=== PATIENT | female | born 1955 | race Caucasian/White ===

== ENCOUNTER 2022-11-20 08:14 | Outpatient (REF) | payer OTHER, SELFPAY ==
--- NOTE | ~2022-11-20 | XR_ITS ---
EXAMINATION: XR HAND/WRIST, BILATERAL XR HIP, BILATERAL XR FOOT, BILATERAL XR ANKLE, BILATERAL CLINICAL INFORMATION: Rheumatoid arthritis. COMPARISON: None TECHNIQUE: 4 views of each hand/wrist. AP and frog-lateral views of each hip. 3 views of each ankle. 3 views of each foot. FINDINGS: RIGHT HAND AND WRIST: There is a 5 mm round ossification distal to the ulna, likely within the pisotriquetral recess. Mild osteoarthritis of the 1st CMC joint. No periarticular osteopenia, erosions, or suspicious soft tissue calcifications. LEFT HAND AND WRIST: Moderate osteoarthritis of the 1st CMC joint. Mild osteoarthritis of the 1st interphalangeal joint and 2nd DIP joint. No periarticular osteopenia, erosion, or suspicious soft tissue calcification. RIGHT HIP: Small marginal osteophytes along the femoral head and neck junction. No significant narrowing. No erosions or acute abnormalities. LEFT HIP: Normal mineralization. No narrowing. No fracture or suspicious soft tissue calcification. RIGHT ANKLE AND FOOT: Chronic ossifications at the tip of the distal fibula, likely a remote injury. Mild talocrural osteoarthritis. The ankle mortise is preserved. Moderate-severe hallux valgus with mild degenerative changes of the 1st MTP joint and hallux sesamoid complex. No periarticular osteopenia, erosions, or suspicious soft tissue calcifications. LEFT ANKLE AND FOOT: Ankle mortise is preserved. No fracture or joint space narrowing. There is a large heel spur. Mild hallux valgus and degenerative spurring along the medial eminence of the 1st metatarsal head dorsally. No periarticular osteopenia, erosions, or suspicious soft tissue calcifications. XR/XR hand wrist RT IMPRESSION: 1. No evidence of an active inflammatory arthritis of either hand/wrist, either hip, or either ankle/foot. 2. There is a 5 mm round ossified body distal to the right ulna, likely within the pisotriquetral recess. Left greater than right 1st CMC joint osteoarthritis. 3. Moderate-severe right and mild left hallux valgus. Large left heel spur.
--- NOTE | ~2022-11-20 | XR_ITS ---
EXAMINATION: XR HAND/WRIST, BILATERAL XR HIP, BILATERAL XR FOOT, BILATERAL XR ANKLE, BILATERAL CLINICAL INFORMATION: Rheumatoid arthritis. COMPARISON: None TECHNIQUE: 4 views of each hand/wrist. AP and frog-lateral views of each hip. 3 views of each ankle. 3 views of each foot. FINDINGS: RIGHT HAND AND WRIST: There is a 5 mm round ossification distal to the ulna, likely within the pisotriquetral recess. Mild osteoarthritis of the 1st CMC joint. No periarticular osteopenia, erosions, or suspicious soft tissue calcifications. LEFT HAND AND WRIST: Moderate osteoarthritis of the 1st CMC joint. Mild osteoarthritis of the 1st interphalangeal joint and 2nd DIP joint. No periarticular osteopenia, erosion, or suspicious soft tissue calcification. RIGHT HIP: Small marginal osteophytes along the femoral head and neck junction. No significant narrowing. No erosions or acute abnormalities. LEFT HIP: Normal mineralization. No narrowing. No fracture or suspicious soft tissue calcification. RIGHT ANKLE AND FOOT: Chronic ossifications at the tip of the distal fibula, likely a remote injury. Mild talocrural osteoarthritis. The ankle mortise is preserved. Moderate-severe hallux valgus with mild degenerative changes of the 1st MTP joint and hallux sesamoid complex. No periarticular osteopenia, erosions, or suspicious soft tissue calcifications. LEFT ANKLE AND FOOT: Ankle mortise is preserved. No fracture or joint space narrowing. There is a large heel spur. Mild hallux valgus and degenerative spurring along the medial eminence of the 1st metatarsal head dorsally. No periarticular osteopenia, erosions, or suspicious soft tissue calcifications. XR/XR hip RT min 2V IMPRESSION: 1. No evidence of an active inflammatory arthritis of either hand/wrist, either hip, or either ankle/foot. 2. There is a 5 mm round ossified body distal to the right ulna, likely within the pisotriquetral recess. Left greater than right 1st CMC joint osteoarthritis. 3. Moderate-severe right and mild left hallux valgus. Large left heel spur.
--- NOTE | ~2022-11-20 | XR_ITS ---
EXAMINATION: XR HAND/WRIST, BILATERAL XR HIP, BILATERAL XR FOOT, BILATERAL XR ANKLE, BILATERAL CLINICAL INFORMATION: Rheumatoid arthritis. COMPARISON: None TECHNIQUE: 4 views of each hand/wrist. AP and frog-lateral views of each hip. 3 views of each ankle. 3 views of each foot. FINDINGS: RIGHT HAND AND WRIST: There is a 5 mm round ossification distal to the ulna, likely within the pisotriquetral recess. Mild osteoarthritis of the 1st CMC joint. No periarticular osteopenia, erosions, or suspicious soft tissue calcifications. LEFT HAND AND WRIST: Moderate osteoarthritis of the 1st CMC joint. Mild osteoarthritis of the 1st interphalangeal joint and 2nd DIP joint. No periarticular osteopenia, erosion, or suspicious soft tissue calcification. RIGHT HIP: Small marginal osteophytes along the femoral head and neck junction. No significant narrowing. No erosions or acute abnormalities. LEFT HIP: Normal mineralization. No narrowing. No fracture or suspicious soft tissue calcification. RIGHT ANKLE AND FOOT: Chronic ossifications at the tip of the distal fibula, likely a remote injury. Mild talocrural osteoarthritis. The ankle mortise is preserved. Moderate-severe hallux valgus with mild degenerative changes of the 1st MTP joint and hallux sesamoid complex. No periarticular osteopenia, erosions, or suspicious soft tissue calcifications. LEFT ANKLE AND FOOT: Ankle mortise is preserved. No fracture or joint space narrowing. There is a large heel spur. Mild hallux valgus and degenerative spurring along the medial eminence of the 1st metatarsal head dorsally. No periarticular osteopenia, erosions, or suspicious soft tissue calcifications. XR/XR ankle RT min 3V IMPRESSION: 1. No evidence of an active inflammatory arthritis of either hand/wrist, either hip, or either ankle/foot. 2. There is a 5 mm round ossified body distal to the right ulna, likely within the pisotriquetral recess. Left greater than right 1st CMC joint osteoarthritis. 3. Moderate-severe right and mild left hallux valgus. Large left heel spur.
[2022-11-20 09:53] LABS: MANUAL DIFF FLAG NO
[2022-11-20 10:19] LABS: Basophils Percent Auto 0.9 % (0-2); Eosinophils Absolute Auto 0.1 X10*3/uL (0.0-0.4); Eosinophils Percent Auto 2.4 % (0-4); Hemoglobin 12.9 g/dl (12.0-16.0); Imm Gran Abs Auto 0.02 X10*3/uL (0.00-0.03); Imm Gran Pct Auto 0.4 % (0.0-0.4); Lymphocytes Absolute Auto 1.1 X10*3/uL (1.2-4.9); Lymphocytes Percent Auto 24.5 % (20-40); Mean Corpuscular HGB Conc 32.3 g/dl (31.0-35.0); Mean Corpuscular Hemoglobin 32.1 pg (27.0-33.0); Mean Corpuscular Volume 99.5 fL (80.0-98.0); Monocytes Absolute Auto 0.4 X10*3/uL (0.1-1.2); Monocytes Percent Auto 9.4 % (2-11); Neutrophils Absolute Auto 2.9 x10*3/uL (2.0-8.3); Neutrophils Percent Auto 62.4 % (45-73); Platelet Count 255 X10*3/uL (160-400); Red Blood Count 4.02 X10*6/uL (4.20-5.50); Red Cell Distribution Width 14.4 % (11.0-16.0); White Blood Count 4.7 X10*3/uL (4.8-10.8)
[2022-11-20 10:36] LABS: Estimated Average Glucose 140 mg/dL; Hemoglobin A1c % 6.5 %
[2022-11-20 11:03] LABS: Erythrocyte Sedimentation Rate 5 MM/HR (0-20)
[2022-11-20 12:01] LABS: Folate 17.6 ng/mL (> or = 4.0); Vitamin B12 1359 pg/mL (200-900)
[2022-11-20 13:14] LABS: Ferritin 103 ng/mL (10-250)
[2022-11-20 13:15] LABS: Alanine Aminotransferase 16 U/L (0-31); Albumin Level 4.6 g/dL (3.5-5.0); Alkaline Phosphatase 69 U/L (39-117); Anion Gap 13 (12-20); Aspartate Amino Transferase 19 U/L (5-31); Bilirubin Total 0.5 mg/dL (0.0-1.0); Blood Urea Nitrogen 16 mg/dL (9-16); C Reactive Protein 0.17 mg/dL (< or = 0.50); Calcium 9.8 mg/dL (8.4-10.2); Carbon Dioxide 27 mmol/L (22-29); Chloride 104 mmol/L (96-108); Estimated Glomerular Filt Rate > 60; Glucose Random 118 mg/dL (60-115); Iron 107 mcg/dL (30-160); Percent Iron Saturation 34 % (15-50); Potassium 4.8 mmol/L (3.3-5.1); Sodium 139 mmol/L (135-145); Total Iron Binding Capacity 319 mcg/dL (228-428); Total Protein 7.1 g/dL (6.5-8.0); Unsaturated Iron Binding 212 ug/dL; Uric Acid 5.5 mg/dL (2.4-5.7)
[2022-11-20 13:41] LABS: Rheumatoid Factor < 13.0 IU/mL (<15.0)
[2022-11-21 04:49] LABS: HBS Num1 > 1000.00 mIU/mL (0-7.99); HBc Num1 0.09 S/CO (0.00-0.79); HBsAGNum1 0.27 S/CO (0.00-0.99); Hepatitis A Antibody IgM 0.22 Index (0-0.79); Hepatitis B Core Antibody Nonreactive (Nonreactive); Hepatitis B Surface Antigen Negative (Negative); ~HepC Num1 0.08 S/CO (0.00-0.79); ~Hepatitis A Antibody IgM Nonreactive (Nonreactive); ~Hepatitis B Surface Antibody REACTIVE (Nonreactive); ~Hepatitis C Antibody Nonreactive (Nonreactive)
[2022-11-21 14:18] LABS: Complement C3 54 mg/dL (83-193)
[2022-11-22 14:33] LABS: Transferrin 288 mg/dL (188-341)
[2022-11-22 23:28] LABS: Prot Elec - Albumin 4.5 g/dL (3.8-4.8); Prot Elec - Alpha1 0.3 g/dL (0.2-0.3); Prot Elec - Alpha2 0.7 g/dL (0.5-0.9); Prot Elec - Beta 1 0.5 g/dL (0.4-0.6); Prot Elec - Beta 2 0.3 g/dL (0.2-0.5); Prot Elec - Gamma 0.8 g/dL (0.8-1.7)
[2022-11-23 05:09] LABS: TS Negative Control Passed; TS Panel A 0; TS Panel B 1; TS Positive Control Passed; TSpotTB Negative (Negative)
[2022-11-23 11:03] LABS: Anti Nuclear Antibody Screen NEGATIVE (NEGATIVE)
[2022-11-23 14:44] LABS: IgA 199 mg/dL (70-320); IgG 844 mg/dL (600-1540); IgM 136 mg/dL (50-300)
[2022-11-23 15:58] LABS: Cyclic Citrullinated Peptide <16 UNITS
== END 2022-11-20 08:15 | disposition home or self-care (01) ==
LOC: HO.XRAY 08:14
PROVIDERS: PCP Physician Assistant Medical; Visit Provider Student in an Organized Health Care Education/Training Program
DX: Z13.1 Encounter for screening for diabetes mellitus (principal); Z11.7 Encounter for testing for latent tuberculosis infection; Z11.59 Encounter for screening for other viral diseases; M06.02 Rheumatoid arthritis without rheumatoid factor, elbow; M06.022 Rheumatoid arthritis without rheumatoid factor, left elbow; D75.1 Secondary polycythemia; M79.642 Pain in left hand; M79.641 Pain in right hand; D75.89 Other specified diseases of blood and blood-forming organs; M11.20 Other chondrocalcinosis, unspecified site; M25.551 Pain in right hip; M25.552 Pain in left hip
CPT/HCPCS: 36415; 73110; 73130; 73502; 73610; 73630; 80053; 82550; 82607; 82728; 82746; 82784; 83036; 83540; 84165; 84466; 84550; 85025; 85652; 86038; 86039; 86140; 86160; 86200; 86334; 86431; 86481; 86704; 86706; 86709; 86803; 87340

== ENCOUNTER 2022-12-06 08:19 | Outpatient (REF) | payer OTHER, SELFPAY ==
--- NOTE | ~2022-12-06 | MM_ITS ---
EXAMINATION: BONE DENSITOMETRY CLINICAL INDICATION: Long-term (current) use of systemic steroids. COMPARISON: None (current study represents initial baseline exam). TECHNIQUE: Using a [employer] DXA System (software version: 13.1) manufactured by [employer], dual-energy x-ray absorptiometry was performed of the lumbar spine and left hip. The images are of good technical quality. Summary results are attached. FINDINGS: AP SPINE L1-L4: BMD 1.066 g/cm2, Z-score 0.1, T-score -0.9, normal. LEFT FEMUR, NECK: BMD 0.827 g/cm2, Z-score -0.3, T-score -1.5, osteopenia. LEFT FEMUR, TOTAL: BMD 0.908 g/cm2, Z-score 0.2, T-score -0.8, normal. IDENTIFIED RISK FACTORS: Early menopause, bilateral oophorectomy, glucocorticoids (chronic), history of fracture (adult), hysterectomy, rheumatoid arthritis, secondary osteoporosis. HISTORY OF FRACTURE: Ankle. MEDICATIONS: Vitamin D. MM/XR DEXA axial skeleton IMPRESSION: 1. DIAGNOSIS: Osteopenia based on the lowest T-score value of -1.5 in the femoral neck applying World Health Organization criteria. 2. 10-YEAR FRACTURE RISK PREDICTION, FRAX: Major osteoporotic fracture (clinical spine, forearm, hip or shoulder) 29.2%. Hip fracture 4.8%. 3. Treatment Recommendations: NOF guidelines recommend consideration for treatment in postmenopausal women and men age 50 and older presenting with the following: -A hip or vertebral (clinical or morphometric) fracture. -T-score less than or equal to -2.5 at the femoral neck or spine after appropriate evaluation to exclude secondary causes. -Low bone mass at the hip or spine and a 10-year fracture probability by FRAX of greater than or equal to 3% for hip fracture or greater than or equal to 20% for major osteoporotic fracture based on the [place] adapted WHO algorithm. 4. Other Recommendations: All treatment decisions require clinical judgment and consideration of individual patient factors, including patient preferences, comorbidities, previous drug use, risk factors not captured in the FRAX model (e.g. frailty, falls, vitamin D deficiency, increased bone turnover, interval significant decline in bone density) and possible under or overestimation of fracture risk by FRAX. Additional medical evaluation for secondary cause of low bone mineral density may be appropriate. FUTURE SCAN RECOMMENDATION: People with diagnosed cases of osteoporosis or at high risk for fracture should have regular bone mineral density tests. For patients eligible for Medicare, routine testing is allowed once every 2 years. The testing frequency can be increased to one year for patients who have rapidly progressing disease, those who are receiving or discontinuing medical therapy to restore bone mass, or have additional risk factors.
== END 2022-12-06 08:20 | disposition home or self-care (01) ==
LOC: HO.MAMMO 08:19
PROVIDERS: PCP Physician Assistant Medical; Visit Provider Student in an Organized Health Care Education/Training Program
DX: Z13.820 Encounter for screening for osteoporosis (principal); Z79.52 Long term (current) use of systemic steroids; Z78.0 Asymptomatic menopausal state
CPT/HCPCS: 77080

== ENCOUNTER → 2023-01-11 08:13 | Outpatient (BNVA) | payer OTHER, SELFPAY | PROVIDERS: PCP Physician Assistant Medical; Visit Provider Student in an Organized Health Care Education/Training Program | DX: Z13.89 Encounter for screening for other disorder (principal) ==

== ENCOUNTER 2023-04-12 09:44 | Outpatient (REF) | payer OTHER, SELFPAY ==
[2023-04-12 10:54] LABS: MANUAL DIFF FLAG NO
[2023-04-12 11:02] LABS: Basophils Percent Auto 0.4 % (0-2); Eosinophils Absolute Auto 0.1 X10*3/uL (0.0-0.4); Eosinophils Percent Auto 2.3 % (0-4); Hematocrit 36.7 % (37.0-47.0); Hemoglobin 11.9 g/dl (12.0-16.0); Imm Gran Abs Auto 0.01 X10*3/uL (0.00-0.03); Imm Gran Pct Auto 0.2 % (0.0-0.4); Lymphocytes Absolute Auto 1.1 X10*3/uL (1.2-4.9); Lymphocytes Percent Auto 22.2 % (20-40); Mean Corpuscular HGB Conc 32.4 g/dl (31.0-35.0); Mean Corpuscular Hemoglobin 33.1 pg (27.0-33.0); Mean Corpuscular Volume 102.2 fL (80.0-98.0); Mean Platelet Volume 9.8 fL (9.4-12.3); Monocytes Absolute Auto 0.5 X10*3/uL (0.1-1.2); Monocytes Percent Auto 10.7 % (2-11); Neutrophils Absolute Auto 3.1 x10*3/uL (2.0-8.3); Neutrophils Percent Auto 64.2 % (45-73); Platelet Count 219 X10*3/uL (160-400); Red Blood Count 3.59 X10*6/uL (4.20-5.50); Red Cell Distribution Width 13.6 % (11.0-16.0); White Blood Count 4.9 X10*3/uL (4.8-10.8)
[2023-04-12 11:15] LABS: Appearance Urine Clear; Color Urine Yellow; Glucose Urine UA Negative (Negative); Leukocyte Esterase Urine Small (1+) (Negative); Nitrite Urine Negative (Negative); PH 5.5 (5.0-9.0); Specific Gravity - Urine 1.015 (1.005-1.025); UMIC TRIGGER UA YES; Urine Blood Negative (Negative); Urine Ketones Trace mg/dL (Negative); Urine Protein Negative (Neg-Trace)
[2023-04-12 11:23] LABS: Creatinine Urine 148.55 mg/dL; Protein/Creatinine Ratio, Ur 0.07 (<0.2); Total Protein Urine Random 11 mg/dL (<12)
[2023-04-12 11:28] LABS: Alanine Aminotransferase 16 U/L (0-31); Albumin Level 3.9 g/dL (3.5-5.0); Alkaline Phosphatase 51 U/L (39-117); Anion Gap 11 (12-20); Aspartate Amino Transferase 18 U/L (5-31); Bilirubin Total 0.3 mg/dL (0.0-1.0); Blood Urea Nitrogen 10 mg/dL (9-16); C Reactive Protein 0.61 mg/dL (< or = 0.50); Calcium 8.5 mg/dL (8.4-10.2); Carbon Dioxide 25 mmol/L (22-29); Chloride 109 mmol/L (96-108); Estimated Glomerular Filt Rate > 60; Glucose Random 125 mg/dL (60-115); Potassium 4.2 mmol/L (3.3-5.1); Sodium 141 mmol/L (135-145); Total Protein 6.1 g/dL (6.5-8.0)
[2023-04-12 11:39] LABS: Bacteria Urine None Seen (None Seen); Hyaline Casts Urine 0-2 /LPF (0-2); WBC Urine 0-5 /HPF (0-5)
[2023-04-12 11:49] LABS: Erythrocyte Sedimentation Rate 6 MM/HR (0-20)
== END 2023-04-12 09:45 | disposition home or self-care (01) ==
LOC: HO.10HDL 09:44
PROVIDERS: Visit Provider Student in an Organized Health Care Education/Training Program
DX: M06.02 Rheumatoid arthritis without rheumatoid factor, elbow (principal); M06.022 Rheumatoid arthritis without rheumatoid factor, left elbow
CPT/HCPCS: 36415; 80053; 81001; 84156; 85025; 85652; 86140

== ENCOUNTER → 2023-04-18 07:54 | Outpatient (BNVA) | payer OTHER, SELFPAY | PROVIDERS: PCP Physician Assistant Medical; Visit Provider Student in an Organized Health Care Education/Training Program ==

== ENCOUNTER 2023-07-19 07:38 | Outpatient (AMB) | payer OTHER, SELFPAY ==
--- NOTE | 2023-07-19 07:39 | A.OFFVIS_ITS ---
Intake Vital Signs 07/19/23 07:40 Height 5 ft 4 in Weight 180 lb 12.465 oz BMI 31.0 BP 118/80 Blood Pressure Location Rt brachial Position Sitting Pulse 63 Pulse Source Pulse Oximeter Temp 97.2 F Temp Source Skin Pulse Oximetry (%) 98 Oxygen Delivery Method Room Air Intake Visit Reasons: RA Intake Note: Here for RA follow up. Employee Relations Consultant Required: No Accompanied by: Self / Same As Patient Allergies metoclopramide [From Reglan] Allergy (Severe, Verified 07/19/23 07:40) Itching Sulfa (Sulfonamide Antibiotics) Allergy (Intermediate, Verified 07/19/23 07:40) Itching sulfasalazine Allergy (Intermediate, Verified 07/19/23 07:40) Itching Penicillins Allergy (Unknown, Verified 07/19/23 07:40) unknown tocilizumab [From Actemra] Adverse Reaction (Severe, Verified 07/19/23 07:40) Hypertension, Nausea, Anorexia, Diverticultis Medication List - Last Reconciled 07/19/23 by James West MD alendronate 70 mg PO QWEEK brimonidine 0.2% 0 drps ophthalmic (eye) celecoxib 100 mg PO BID PRN cholecalciferol (vitamin D3) 50 mcg PO DAILY cyanocobalamin (vitamin B-12) 1,000 mcg PO DAILY cyclobenzaprine 20 mg PO BEDTIME dextromethorphan-guaifenesin 30-600 mg (Mucinex DM) on the day you take methotrexate take 1 tab with methotrexate & another tab 12 hours later folic acid 2 mg (2 x 1 mg) PO DAILY gabapentin 300 mg PO DAILY PRN linaclotide (Linzess) 145 mcg PO QAM lisinopril 2.5 mg PO DAILY methotrexate sodium 20 mg (8 x 2.5 mg) PO QWEEK ondansetron 4 mg PO Q8H PRN sumatriptan succinate take 1 tab at onset of headache; if no relief, may repeat 1 tab after at least 2 hrs; max = 2 tabs/24 hrs orally PRN; HPI HPI Comments History of Present Illness Details 67-year-old female with seronegative RA presents for follow-up. She is on methotrexate 20 mg weekly split dose. Does not believe there has been significant improvement since increasing from 15-20 mg. Continues to have swelling in her hands, wrists and morning stiffness lasting 3-4 hours. Intermittent throbbing pain of her ankles. She had an episode of neck pain with radiculopathy, she was evaluated by her PCP, an x-ray showed facet arthritis, she was given gabapentin and a prednisone taper which was helpful. She has been quite busy this summer, her partner and her daughter are . Initial history: This is a 67-year-old female with a past medical history of seronegative RA of presents for evaluation of rheumatoid arthritis. Patient was diagnosed with seronegative rheumatoid arthritis more than 20 years ago. She has been on numerous DMARDs. She has been on methotrexate all through. 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 Today patient feels all right overall. She continues to have pain and morning stiffness of her hands, wrists, ankles and feet lasting 3-4 hours. Patient would take a prednisone bolus 2 to 3 times a year. She would usually take about 50 mg for 5 days. Last time she took prednisone was 6 weeks ago. Patient also has been having bilateral hip pain. Over the last 1-2 years she has developed Raynaud's. She was prescribed amlodipine to use as needed by her previous inking machine tender Dr. Norman but patient never used it. She bot heated gloves and those were quite helpful. [facility] Medical History Basal cell carcinoma (BCC) Chronic constipation Diverticular disease Diverticulitis Diverticulosis GERD with esophagitis Hip pain, bilateral Hypertension Idiopathic peripheral neuropathy Macrocytosis Migraine Nondiabetic gastroparesis RUDI (obstructive sleep apnea) PPD positive Rheumatoid arthritis Screening for osteoporosis Steatosis of liver Vitamin B12 deficiency Surgical History H/O esophageal hernia repair History of knee replacement, total Hx of hysterectomy Family History Mother Liver cancer Maternal Aunt Breast cancer Rheumatoid arthritis Social History Household Members: Spouse Alcohol intake: current Alcohol intake frequency: a few times a week Alcohol type: wine Patient Tobacco Use Status: Former Tobacco user Quit Date: 1984 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 Review of Systems [facility] [place] Reports arthralgias, Reports joint swelling and Reports stiffness Physical Exam Vital Signs: Last Vital Signs Temp 97.2 F 07/19/23 07:40 Pulse 63 07/19/23 07:40 BP 118/80 07/19/23 07:40 Pulse Ox 98 07/19/23 07:40 Oxygen Delivery Method Room Air 07/19/23 07:40 BMI result Body Mass Index 31.0 Const General: cooperative, healthy appearing, comfortable, no acute distress and well developed Nutritional Appearance: obese Orientation/consciousness: patient oriented x3 Limitations: no limitations HEENT Head: Yes normocephalic and Yes atraumatic Mouth: moist mucous membranes Resp Effort & Inspection: normal respiratory effort and able to speak in complete sentences Auscultation: clear to auscultation bilaterally Neuro General: patient oriented x3 Extrem Other: Mild osteoarthritic changes of both hands Bilateral CMC squaring? Bilateral wrist swelling and pain with flexion and extension Bilateral positive MCP squeeze test Left 1st, 2nd and 3rd MCP swelling and tenderness Right 1st through 5th MCP swelling and tenderness Bilateral diffuse PIP swelling and tenderness No elbow tenderness or pain with flexion and extension bilaterally normal range of motion of both shoulders No MTP tenderness laterally Normal nailfold capillaroscopy Right foot bunion Assessment & Plan Assessment & Plan (1) Rheumatoid arthritis involving both elbows with negative rheumatoid factor: Comment: Seronegative diagnosed around 1999 HCQ: Ineffective MTX all through, switched from subcu to oral around 2014 Humira 2009 to 2013 ineffective Cimzia 2017 to 2018 ineffective Leflunomide 2015 to 2017 neuropathy,SSZ allergy, Orencia 2018 ineffective and caused fatigue. Xeljanz somewhat effective but stopped in 2020 Actemra 2020 hypertension and diverticulitis MTX increased form 15 mg to 20 mg 05/10 Code(s): M06.021 - Rheumatoid arthritis without rheumatoid factor, right elbow; M06.022 - Rheumatoid arthritis without rheumatoid factor, left elbow Plan: 67-year-old female with seronegative RA presents for evaluation of RA. Has failed numerous DMARDs in the past as mentioned above. Her RA remains moderately controlled. We discussed potentially adding Rinvoq or Olumiant to her medication regimen. We discussed the mildly increased risk of cardiovascular events and malignancy associated with YOBANI inhibitors. Also discussed potential risk of diverticulitis. (patient had diverticulitis with IL 6 inhibitors) at this point patient feels she is doing fairly well and would not like to add any further DMARDs. Continue methotrexate 20 mg weekly split dose and folic acid 2 mg daily Infectious screening hepatitis panel and T spot-10/2022 Labs today and before next visit in 3 months (2) Pseudogout: Code(s): M11.20 - Other chondrocalcinosis, unspecified site Plan: September 2021 had 1 month low grade discomfort right knee then acute swelling and severe pain.? Arthrocentesis showing hemarthrosis. 37,000 WBCs and rare intracellular CPPD crystals.? She does not seem to have had another flare. (3) Osteopenia: Code(s): M85.80 - Other specified disorders of bone density and structure, unspecified site Qualifiers: Laterality: bilateral Osteopenia location: hip Qualified Code(s): M85.851 - Other specified disorders of bone density and structure, right thigh; M85.852 - Other specified disorders of bone density and structure, left thigh Plan: DEXA done 10/2022 showed osteopenia but with a high FRAX score. Alendronate started 11/2022. Well tolerated. Repeat DEXA in early 2024 (4) senior living methotrexate user: Code(s): Z79.631 - senior living (current) use of antimetabolite agent Plan: Side effects of methotrexate were discussed with the patient in detail including oral ulcers, elevated LFTs, abdominal discomfort, and possible pancytopenia is. Will monitor patient for side effects with frequent lab work. Advised patient to take folic acid daily to prevent complications of methotrexate. Mucinex did not help with MTX flu symptoms Plan I spent 26 minutes reviewing patient's chart, evaluating patient, ordering diagnostic workup, counseling patient and documenting in the chart Orders: Orders Comprehensive Met. Panel 3 Months M06.021 - Rheumatoid arthritis without rheumatoid factor, right elbow, M06.022 - Rheumatoid arthritis without rheuma toid factor, left elbow C Reactive Protein 3 Months M06.021 - Rheumatoid arthritis without rheumatoid factor, right elbow, M06.022 - Rheumatoid arthritis without rheumatoid factor, left elbow Complete Blood Count Auto Diff 3 Months M06.021 - Rheumatoid arthritis without rheumatoid factor, right elbow, M06.022 - Rheumatoid arthritis without rheu matoid factor, left elbow Erythrocyte Sedimentation Rate 3 Months M06.021 - Rheumatoid arthritis without rheumatoid factor, right elbow, M06.022 - Rheumatoid arthritis without rheumatoid factor, left elbow Medications: Refilled methotrexate sodium Split dose to 4 tabs twice. 24 hours apart 20 mg (8 x 2.5 mg) PO QWEEK 96 tabs 0RF Coding Level of Care Code Est Pt Level 4 (01511) Diagnoses Rheumatoid arthritis involving both elbows with negative rheumatoid factor M06.021; M06.022 Pseudogout M11.20 Osteopenia M85.851; M85.852 Laterality: bilateral Osteopenia location: hip senior living methotrexate user Z79.630
[2023-07-19 07:40] VITALS: BP 118/80; PULSE 63; TEMP 36.2; O2SAT 98; BMI 31.0
== END 2023-07-19 08:05 | disposition home or self-care (01) ==
PROVIDERS: PCP Family Medicine; Referring Provider Physician Assistant Medical; Visit Provider Student in an Organized Health Care Education/Training Program
DX: M06.02 Rheumatoid arthritis without rheumatoid factor, elbow (principal); M06.022 Rheumatoid arthritis without rheumatoid factor, left elbow; M11.20 Other chondrocalcinosis, unspecified site; M85.851 Other specified disorders of bone density and structure, right thigh; M85.852 Other specified disorders of bone density and structure, left thigh; Z79.631 Long term (current) use of antimetabolite agent
CPT/HCPCS: 99214

== ENCOUNTER → 2023-07-19 07:38 | Outpatient (BNVA) | payer OTHER, SELFPAY | PROVIDERS: PCP Physician Assistant Medical; Visit Provider Student in an Organized Health Care Education/Training Program ==

== ENCOUNTER 2023-07-19 08:09 | Outpatient (REF) | payer OTHER, SELFPAY ==
[2023-07-19 11:02] LABS: MANUAL DIFF FLAG NO
[2023-07-19 11:07] LABS: Basophils Percent Auto 0.5 % (0-2); Eosinophils Absolute Auto 0.2 X10*3/uL (0.0-0.4); Eosinophils Percent Auto 4.4 % (0-4); Hematocrit 42.4 % (37.0-47.0); Hemoglobin 13.4 g/dl (12.0-16.0); Imm Gran Abs Auto 0.02 X10*3/uL (0.00-0.03); Imm Gran Pct Auto 0.5 % (0.0-0.4); Lymphocytes Absolute Auto 1.2 X10*3/uL (1.2-4.9); Lymphocytes Percent Auto 28.5 % (20-40); Mean Corpuscular HGB Conc 31.6 g/dl (31.0-35.0); Mean Corpuscular Hemoglobin 33.5 pg (27.0-33.0); Mean Platelet Volume 10.1 fL (9.4-12.3); Monocytes Absolute Auto 0.6 X10*3/uL (0.1-1.2); Monocytes Percent Auto 13.5 % (2-11); Neutrophils Absolute Auto 2.3 x10*3/uL (2.0-8.3); Neutrophils Percent Auto 52.6 % (45-73); Platelet Count 251 X10*3/uL (160-400); Red Cell Distribution Width 14.6 % (11.0-16.0); White Blood Count 4.3 X10*3/uL (4.8-10.8)
[2023-07-19 11:23] LABS: Alanine Aminotransferase 18 U/L (0-31); Albumin Level 4.3 g/dL (3.5-5.0); Alkaline Phosphatase 58 U/L (39-117); Anion Gap 15 (12-20); Aspartate Amino Transferase 18 U/L (5-31); Bilirubin Total 0.4 mg/dL (0.0-1.0); Blood Urea Nitrogen 17 mg/dL (9-16); Calcium 9.6 mg/dL (8.4-10.2); Carbon Dioxide 23 mmol/L (22-29); Chloride 105 mmol/L (96-108); Estimated Glomerular Filt Rate > 60; Glucose Random 130 mg/dL (60-115); Potassium 4.6 mmol/L (3.3-5.1); Sodium 138 mmol/L (135-145); Total Protein 7.1 g/dL (6.5-8.0)
[2023-07-19 12:01] LABS: Erythrocyte Sedimentation Rate 7 MM/HR (0-20)
== END 2023-07-19 08:10 | disposition home or self-care (01) ==
LOC: HO.10HDL 08:09
PROVIDERS: Visit Provider Student in an Organized Health Care Education/Training Program
DX: Z79.899 Other long term (current) drug therapy (principal)
CPT/HCPCS: 36415; 80053; 85025; 85652; 86140

== ENCOUNTER 2023-10-25 11:53 | Outpatient (REF) | payer OTHER, SELFPAY ==
[2023-10-25 13:27] LABS: MANUAL DIFF FLAG NO
[2023-10-25 13:35] LABS: Basophils Percent Auto 0.7 % (0-2); Eosinophils Absolute Auto 0.2 X10*3/uL (0.0-0.4); Eosinophils Percent Auto 4.9 % (0-4); Hematocrit 40.8 % (37.0-47.0); Hemoglobin 13.2 g/dl (12.0-16.0); Imm Gran Abs Auto 0.01 X10*3/uL (0.00-0.03); Imm Gran Pct Auto 0.2 % (0.0-0.4); Lymphocytes Absolute Auto 1.1 X10*3/uL (1.2-4.9); Lymphocytes Percent Auto 26.2 % (20-40); Mean Corpuscular HGB Conc 32.4 g/dl (31.0-35.0); Mean Corpuscular Hemoglobin 33.2 pg (27.0-33.0); Mean Corpuscular Volume 102.8 fL (80.0-98.0); Mean Platelet Volume 9.3 fL (9.4-12.3); Monocytes Absolute Auto 0.6 X10*3/uL (0.1-1.2); Neutrophils Absolute Auto 2.2 x10*3/uL (2.0-8.3); Platelet Count 229 X10*3/uL (160-400); Red Blood Count 3.97 X10*6/uL (4.20-5.50); Red Cell Distribution Width 13.7 % (11.0-16.0); White Blood Count 4.1 X10*3/uL (4.8-10.8)
[2023-10-25 14:11] LABS: Alanine Aminotransferase 15 U/L (0-31); Albumin Level 4.2 g/dL (3.5-5.0); Alkaline Phosphatase 50 U/L (39-117); Anion Gap 10 (12-20); Aspartate Amino Transferase 16 U/L (5-31); Bilirubin Total 0.4 mg/dL (0.0-1.0); Blood Urea Nitrogen 14 mg/dL (9-16); C Reactive Protein 0.17 mg/dL (< or = 0.50); Calcium 9.6 mg/dL (8.4-10.2); Carbon Dioxide 30 mmol/L (22-29); Chloride 106 mmol/L (96-108); Estimated Glomerular Filt Rate > 60; Glucose Random 129 mg/dL (60-115); Potassium 4.2 mmol/L (3.3-5.1); Sodium 142 mmol/L (135-145); Total Protein 6.8 g/dL (6.5-8.0)
[2023-10-25 14:17] LABS: Erythrocyte Sedimentation Rate 4 MM/HR (0-20)
== END 2023-10-25 11:54 | disposition home or self-care (01) ==
LOC: HO.10HDL 11:53
PROVIDERS: Visit Provider Student in an Organized Health Care Education/Training Program
DX: M06.02 Rheumatoid arthritis without rheumatoid factor, elbow (principal); M06.022 Rheumatoid arthritis without rheumatoid factor, left elbow
CPT/HCPCS: 36415; 80053; 85025; 85652; 86140

== ENCOUNTER 2023-10-30 07:55 | Outpatient (AMB) | payer OTHER, SELFPAY ==
[2023-10-30 07:56] VITALS: BP 110/80; PULSE 64; TEMP 36.1; O2SAT 97; BMI 31.6
--- NOTE | 2023-10-30 07:56 | A.OFFVIS_ITS ---
Intake Vital Signs 10/30/23 07:56 Height 5 ft 4 in Weight 184 lb 4.903 oz BMI 31.6 BP 110/80 Blood Pressure Location Rt brachial Position Sitting Pulse 64 Pulse Source Pulse Oximeter Temp 97 F Temp Source Skin Pulse Oximetry (%) 97 Oxygen Delivery Method Room Air Intake Visit Reasons: RA Intake Note: Patient last seen 07/19/23, presents today for follow up and test results. Started Leucovorin, reports it is working. Needs a refill. Would like to discuss starting Rinvoq. Hospitality Services Manager Required: No Accompanied by: Self / Same As Patient Allergies metoclopramide [From Reglan] Allergy (Severe, Verified 10/30/23 07:56) Itching Sulfa (Sulfonamide Antibiotics) Allergy (Intermediate, Verified 10/30/23 07:56) Itching sulfasalazine Allergy (Intermediate, Verified 10/30/23 07:56) Itching Penicillins Allergy (Unknown, Verified 10/30/23 07:56) unknown tocilizumab [From Actemra] Adverse Reaction (Severe, Verified 10/30/23 07:56) Hypertension, Nausea, Anorexia, Diverticultis Medication List - Last Reconciled 10/30/23 by James West MD alendronate 70 mg PO QWEEK brimonidine 0.2% 0 drps ophthalmic (eye) celecoxib 100 mg PO BID PRN cholecalciferol (vitamin D3) 50 mcg PO DAILY cyanocobalamin (vitamin B-12) 1,000 mcg PO DAILY cyclobenzaprine 20 mg PO BEDTIME folic acid 2 mg (2 x 1 mg) PO DAILY gabapentin 300 mg PO DAILY PRN leucovorin calcium 5 mg PO QWEEK linaclotide (Linzess) 145 mcg PO QAM lisinopril 2.5 mg PO DAILY methotrexate sodium 20 mg (8 x 2.5 mg) PO QWEEK ondansetron 4 mg PO Q8H PRN prednisolone 5 mg orally 20 mg x 5 days during flares PRN; sumatriptan succinate take 1 tab at onset of headache; if no relief, may repeat 1 tab after at least 2 hrs; max = 2 tabs/24 hrs orally PRN; HPI HPI Comments History of Present Illness Details 68-year-old female with seronegative RA presents for follow-up. She is on methotrexate 20 mg weekly split dose. She states that she was doing well until the last 3 weeks of September when she started having swelling of her knuckles, as well as pain and stiffness. She took prednisone 20 mg daily for 5 days which ended on October 22 with resolution of her symptoms. There is a new baby in the family and she has been having some pain in her radial aspect of both wrists with carrying the baby. She has been using a thumb spica splint Initial history: This is a 67-year-old female with a past medical history of seronegative RA of presents for evaluation of rheumatoid arthritis. Patient was diagnosed with seronegative rheumatoid arthritis more than 20 years ago. She has been on numerous DMARDs. She has been on methotrexate all through. Her previous bottle and glass inspector left the practice. Today patient feels all right overall. She continues to have pain and morning stiffness of her hands, wrists, ankles and feet lasting 3-4 hours. Patient would take a prednisone bolus 2 to 3 times a year. She would usually take about 50 mg for 5 days. Last time she took prednisone was 6 weeks ago. Patient also has been having bilateral hip pain. Over the last 1-2 years she has developed Raynaud's. She was prescribed amlodipine to use as needed by her previous bottle and glass inspector Dr. Norman but patient never used it. She bot heated gloves and those were quite helpful. [facility] Medical History (Updated 10/30/23 @ 08:35 by James West MD) Hip pain, bilateral Diverticulosis Diverticulitis Macrocytosis Basal cell carcinoma (BCC) Idiopathic peripheral neuropathy PPD positive Rheumatoid arthritis Steatosis of liver Chronic constipation Diverticular disease Nondiabetic gastroparesis GERD with esophagitis Hypertension Migraine RUDI (obstructive sleep apnea) Vitamin B12 deficiency Surgical History H/O esophageal hernia repair Hx of hysterectomy History of knee replacement, total Family History Mother Liver cancer Maternal Aunt Breast cancer Rheumatoid arthritis Social History Household Members: Spouse Alcohol intake: current Alcohol intake frequency: a few times a week Alcohol type: wine Patient Tobacco Use Status: Former Tobacco user Quit Date: 1984 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 Review of Systems [facility] [place] Reports arthralgias, Reports joint swelling and Reports stiffness Physical Exam Vital Signs: Last Vital Signs Temp 97 F 10/30/23 07:56 Pulse 64 10/30/23 07:56 BP 110/80 10/30/23 07:56 Pulse Ox 97 10/30/23 07:56 Oxygen Delivery Method Room Air 10/30/23 07:56 BMI result Body Mass Index 31.6 Const General: cooperative, healthy appearing, comfortable, no acute distress and well developed Nutritional Appearance: obese Orientation/consciousness: patient oriented x3 Limitations: no limitations HEENT Head: Yes normocephalic and Yes atraumatic Mouth: moist mucous membranes Resp Effort & Inspection: normal respiratory effort and able to speak in complete sentences Auscultation: clear to auscultation bilaterally Neuro General: patient oriented x3 Extrem Other: Mild osteoarthritic changes of both hands Bilateral CMC squaring? Few tender MCPs and PIP is bilaterally without significant swelling No elbow tenderness or pain with flexion and extension bilaterally normal range of motion of both shoulders No MTP tenderness laterally Positive [place]'s test bilaterally Normal nailfold capillaroscopy Right foot bunion Results Reviewed Results Reviewed: Labs 07/2022? CMP within normal creatinine 0.9? AST 16, ALT 16 WBC 12.45 Hemoglobin 15.1 MCV 102.0 Platelets 227 Assessment & Plan Assessment & Plan (1) Rheumatoid arthritis involving both elbows with negative rheumatoid factor: Comment: Seronegative diagnosed around 1999 HCQ: Ineffective MTX all through, switched from subcu to oral around 2014 Humira 2009 to 2013 ineffective Cimzia 2017 to 2018 ineffective Leflunomide 2015 to 2017 neuropathy,SSZ allergy, Orencia 2019 ineffective and caused fatigue. Xeljanz somewhat effective but stopped in 2020 Actemra 2020 hypertension and diverticulitis MTX increased form 15 mg to 20 mg 05/10 partially effective Code(s): M06.021 - Rheumatoid arthritis without rheumatoid factor, right elbow; M06.022 - Rheumatoid arthritis without rheumatoid factor, left elbow Plan: 68-year-old female with seronegative RA presents for evaluation of RA. Has failed numerous DMARDs in the past as mentioned above. Her RA remains intermittently controlled on methotrexate 20 mg weekly split dose. We discussed potentially adding Rinvoq or Olumiant to her medication regimen. We discussed the mildly increased risk of cardiovascular events and malignancy associated with YOBANI inhibitors. Also discussed potential risk of diverticulitis. (patient had diverticulitis with IL 6 inhibitors), other options would be changing methotrexate to subcu route and maximizing dosage to 25 mg or adding Plaquenil Patient opted to switch methotrexate to subcu route and increase dose to 25 mg weekly Leucovorin 5 mg weekly was added last visit with improvement of MCV. Continue leucovorin 5 mg weekly Continue folic acid 2 mg daily Infectious screening hepatitis panel and T spot-10/2022 Labs today before next visit in 3 months (2) Pseudogout: Code(s): M11.20 - Other chondrocalcinosis, unspecified site Plan: September 2021 had 1 month low grade discomfort right knee then acute swelling and severe pain.? Arthrocentesis showing hemarthrosis. 37,000 WBCs and rare intracellular CPPD crystals.? She does not seem to have had another flare. (3) Osteopenia: Code(s): M85.80 - Other specified disorders of bone density and structure, unspecified site Qualifiers: Osteopenia location: hip Laterality: bilateral Qualified Code(s): M85.851 - Other specified disorders of bone density and structure, right thigh; M85.852 - Other specified disorders of bone density and structure, left thigh Plan: DEXA done 10/2022 showed osteopenia but with a high FRAX score. Alendronate started 11/2022. Well tolerated. Repeat DEXA in early 2024 (4) residential methotrexate user: Code(s): Z79.631 - residential (current) use of antimetabolite agent Plan: Side effects of methotrexate were discussed with the patient in detail including oral ulcers, elevated LFTs, abdominal discomfort, and possible pancytopenia is. Will monitor patient for side effects with frequent lab work. Advised patient to take folic acid daily to prevent complications of methotrexate. Mucinex did not help with MTX flu symptoms (5) Immunization counseling: Code(s): Z71.85 - Encounter for immunization safety counseling Plan: Patient is up-to-date on her new COVID booster and flu vaccines. She is planning to get the RSV vaccine. Advised patient to hold methotrexate 1 dose after vaccination (6) De Quervain's tenosynovitis, bilateral: Code(s): M65.4 - Radial styloid tenosynovitis [de Quervain] Plan: New baby in the family. Mild. Continue using thumb spica splints Plan I spent 42 minutes reviewing patient's chart, evaluating patient, ordering diagnostic workup, counseling patient and documenting in the chart Orders: Orders Comprehensive Met. Panel 3 Months Z79.631 - rodent exterminator (current) use of antimetabolite agent Erythrocyte Sedimentation Rate 3 Months Z79.631 - residential (current) use of antimetabolite agent Complete Blood Count Auto Diff 3 Months Z79.631 - rodent exterminator (current) use of antimetabolite agent C Reactive Protein 3 Months Z79.631 - residential (current) use of antimetabolite agent Medications: New methotrexate sodium (PF) 25 mg subcut QWEEK 20 mL 2RF Refilled leucovorin calcium 5 mg PO QWEEK 12 tabs 1RF M06.021 - Rheumatoid arthritis without rheumatoid factor, right elbow, M06.022 - Rheumatoid arthritis without rheumatoid factor, left elbow Discontinued methotrexate sodium Discontinued Reason: Doctor's Order 20 mg (8 x 2.5 mg) PO QWEEK 102 tabs 0RF Coding Level of Care Code Est Pt Level 5 (84640) Diagnoses Rheumatoid arthritis involving both elbows with negative rheumatoid factor M06.021; M06.022 Pseudogout M11.20 Osteopenia of both hips M85.851; M85.852 Osteopenia location: hip Laterality: bilateral residential methotrexate user Z79.631 Immunization counseling Z71.85 De Quervain's tenosynovitis, bilateral M65.4
== END 2023-10-30 08:28 | disposition home or self-care (01) ==
PROVIDERS: PCP Family Medicine; Visit Provider Student in an Organized Health Care Education/Training Program
DX: M06.02 Rheumatoid arthritis without rheumatoid factor, elbow (principal); M06.022 Rheumatoid arthritis without rheumatoid factor, left elbow; M11.20 Other chondrocalcinosis, unspecified site; M85.851 Other specified disorders of bone density and structure, right thigh; M85.852 Other specified disorders of bone density and structure, left thigh; Z79.631 Long term (current) use of antimetabolite agent; Z71.85 Encounter for immunization safety counseling; M65.4 Radial styloid tenosynovitis [de Quervain]
CPT/HCPCS: 99215

== ENCOUNTER → 2023-10-30 07:55 | Outpatient (BNVA) | payer OTHER, SELFPAY | PROVIDERS: PCP Family Medicine; Visit Provider Student in an Organized Health Care Education/Training Program ==

== ENCOUNTER 2024-01-29 13:37 | Outpatient (REF) | payer OTHER, SELFPAY ==
[2024-01-29 13:50] LABS: MANUAL DIFF FLAG NO
[2024-01-29 14:04] LABS: Basophils Percent Auto 0.6 % (0-2); Eosinophils Absolute Auto 0.2 X10*3/uL (0.0-0.4); Eosinophils Percent Auto 3.3 % (0-4); Hematocrit 41.8 % (37.0-47.0); Hemoglobin 13.6 g/dl (12.0-16.0); Imm Gran Abs Auto 0.04 X10*3/uL (0.00-0.03); Imm Gran Pct Auto 0.6 % (0.0-0.4); Lymphocytes Absolute Auto 1.2 X10*3/uL (1.2-4.9); Lymphocytes Percent Auto 17.6 % (20-40); Mean Corpuscular HGB Conc 32.5 g/dl (31.0-35.0); Mean Corpuscular Hemoglobin 32.9 pg (27.0-33.0); Mean Corpuscular Volume 101.2 fL (80.0-98.0); Mean Platelet Volume 9.7 fL (9.4-12.3); Monocytes Absolute Auto 0.6 X10*3/uL (0.1-1.2); Monocytes Percent Auto 9.2 % (2-11); Neutrophils Absolute Auto 4.8 x10*3/uL (2.0-8.3); Neutrophils Percent Auto 68.7 % (45-73); Platelet Count 245 X10*3/uL (160-400); Red Blood Count 4.13 X10*6/uL (4.20-5.50); Red Cell Distribution Width 13.6 % (11.0-16.0)
[2024-01-29 14:32] LABS: Alanine Aminotransferase 15 U/L (0-31); Albumin Level 4.6 g/dL (3.5-5.0); Alkaline Phosphatase 63 U/L (39-117); Anion Gap 12 (12-20); Aspartate Amino Transferase 17 U/L (5-31); Bilirubin Total 0.4 mg/dL (0.0-1.0); Blood Urea Nitrogen 17 mg/dL (9-16); C Reactive Protein 0.29 mg/dL (< or = 0.50); Calcium 9.8 mg/dL (8.4-10.2); Carbon Dioxide 28 mmol/L (22-29); Chloride 103 mmol/L (96-108); Estimated Glomerular Filt Rate > 60; Glucose Random 129 mg/dL (60-115); Potassium 4.6 mmol/L (3.3-5.1); Sodium 138 mmol/L (135-145); Total Protein 7.7 g/dL (6.5-8.0)
[2024-01-29 14:53] LABS: Erythrocyte Sedimentation Rate 3 MM/HR (0-20)
== END 2024-01-29 13:38 | disposition home or self-care (01) ==
LOC: HO.LAB 13:37
PROVIDERS: PCP Family Medicine; Visit Provider Student in an Organized Health Care Education/Training Program
DX: Z51.81 Encounter for therapeutic drug level monitoring (principal); Z79.631 Long term (current) use of antimetabolite agent
CPT/HCPCS: 36415; 80053; 85025; 85652; 86140

== ENCOUNTER 2024-01-29 14:16 | Outpatient (AMB) | payer OTHER, SELFPAY ==
[2024-01-29 14:21] VITALS: BP 118/68; PULSE 87; O2SAT 96; BMI 32.0
--- NOTE | 2024-01-29 14:21 | A.OFFVIS_ITS ---
Intake Vital Signs 01/29/24 14:21 Height 5 ft 4 in Weight 186 lb 4.65 oz BMI 32.0 BP 118/68 Blood Pressure Location Rt brachial Position Sitting Pulse 87 Pulse Source Pulse Oximeter Pulse Oximetry (%) 96 Oxygen Delivery Method Room Air Intake Visit Reasons: RA Intake Note: Patient last seen 10/30/23 presents today for follow up and test results. Reports tendinitis s/p cortisone injection L wrist with hand surgeon at [facility] [address] [facility] Information Systems Security Manager Required: No Accompanied by: Self / Same As Patient Allergies metoclopramide [From Reglan] Allergy (Severe, Verified 01/29/24 14:28) Itching Sulfa (Sulfonamide Antibiotics) Allergy (Intermediate, Verified 01/29/24 14:28) Itching sulfasalazine Allergy (Intermediate, Verified 01/29/24 14:28) Itching Penicillins Allergy (Unknown, Verified 01/29/24 14:28) unknown tocilizumab [From Actemra] Adverse Reaction (Severe, Verified 01/29/24 14:28) Hypertension, Nausea, Anorexia, Diverticultis Medication List - Last Reconciled 01/29/24 by James West MD alendronate 70 mg PO QWEEK brimonidine 0.2% 0 drps ophthalmic (eye) celecoxib 100 mg PO BID PRN cholecalciferol (vitamin D3) 50 mcg PO DAILY cyanocobalamin (vitamin B-12) 1,000 mcg PO DAILY cyclobenzaprine 20 mg PO BEDTIME folic acid 2 mg (2 x 1 mg) PO DAILY gabapentin 300 mg PO DAILY PRN insulin syringe-needle U-100 (CareTouch Insulin Syringe) As directed leucovorin calcium 5 mg PO QWEEK linaclotide (Linzess) 145 mcg PO QAM lisinopril 2.5 mg PO DAILY methotrexate sodium (PF) 25 mg subcut QWEEK ondansetron 4 mg PO Q8H PRN prednisolone 5 mg orally 20 mg x 5 days during flares PRN; sumatriptan succinate take 1 tab at onset of headache; if no relief, may repeat 1 tab after at least 2 hrs; max = 2 tabs/24 hrs orally PRN; HPI HPI Comments History of Present Illness Details 68-year-old female with seronegative RA presents for follow-up. She is on methotrexate 25 mg SQ weekly. She states that she is doing fairly well overall. She has not had any significant flare-ups but she continues to have good and bad days. She would have intermittent swelling of her knuckles, fingers, knees. Last week she was having significant swelling of her left hand. Received a steroid injection for what I assumed to be de Quervain tenosynovitis with significant improvement. She stated that she was diagnosed with strep throat about 10 days ago and completed antibiotic 3 or 4 days ago. Planning to go to [place] as her daughter is having a baby Initial history: This is a 67-year-old female with a past medical history of seronegative RA of presents for evaluation of rheumatoid arthritis. Patient was diagnosed with seronegative rheumatoid arthritis more than 20 years ago. She has been on numerous DMARDs. She has been on methotrexate all through. Her previous field automobile adjuster left the practice. Today patient feels all right overall. She continues to have pain and morning stiffness of her hands, wrists, ankles and feet lasting 3-4 hours. Patient would take a prednisone bolus 2 to 3 times a year. She would usually take about 50 mg for 5 days. Last time she took prednisone was 6 weeks ago. Patient also has been having bilateral hip pain. Over the last 1-2 years she has developed Raynaud's. She was prescribed amlodipine to use as needed by her previous field automobile adjuster Dr. [place] but patient never used it. She bot heated gloves and those were quite helpful. FORMERLY [facility], [facility] Medical History Hip pain, bilateral Diverticulosis Diverticulitis Macrocytosis Basal cell carcinoma (BCC) Idiopathic peripheral neuropathy PPD positive Rheumatoid arthritis Steatosis of liver Chronic constipation Diverticular disease Nondiabetic gastroparesis GERD with esophagitis Hypertension Migraine RUDI (obstructive sleep apnea) Vitamin B12 deficiency Surgical History H/O esophageal hernia repair Hx of hysterectomy History of knee replacement, total Family History Mother Liver cancer Maternal Aunt Breast cancer Rheumatoid arthritis Social History Household Members: Spouse Alcohol intake: current Alcohol intake frequency: a few times a week Alcohol type: wine Patient Tobacco Use Status: Former Tobacco user Quit Date: 1984 Current occupational status: retired 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 Review of Systems [facility] Reports arthralgias, Reports joint swelling and Reports stiffness Physical Exam Vital Signs: Last Vital Signs Pulse 87 01/29/24 14:21 BP 118/68 01/29/24 14:21 Pulse Ox 96 01/29/24 14:21 Oxygen Delivery Method Room Air 01/29/24 14:21 BMI result Body Mass Index 32.0 Const General: cooperative, healthy appearing, comfortable, no acute distress and well developed Nutritional Appearance: obese Orientation/consciousness: patient oriented x3 Limitations: no limitations HEENT Head: Yes normocephalic and Yes atraumatic Mouth: moist mucous membranes Resp Effort & Inspection: normal respiratory effort and able to speak in complete sentences Auscultation: clear to auscultation bilaterally Neuro General: patient oriented x3 Extrem Other: Mild osteoarthritic changes of both hands Right wrist pain with flexion and extension Right 1st MCP swelling and tenderness Right 4th MCP swelling and tenderness Right 2nd PIP swelling and tenderness Left 2nd MCP swelling and tenderness Left 2nd PIP swelling and tenderness Bilateral CMC squaring? Mildly limited shoulder extension bilaterally Negative empty can test, negative Speed's test bilaterally Normal nailfold capillaroscopy Right foot bunion Assessment & Plan Assessment & Plan (1) Rheumatoid arthritis involving both elbows with negative rheumatoid factor: Comment: Seronegative diagnosed around 1999 HCQ: Ineffective MTX all through, switched from subcu to oral around 2014 Humira 2009 to 2013 ineffective Cimzia 2017 to 2018 ineffective Leflunomide 2015 to 2017 neuropathy,SSZ allergy, Orencia 2019 ineffective and caused fatigue. Xeljanz somewhat effective but stopped in 2020 Actemra 2020 hypertension and diverticulitis MTX increased form 15 mg to 20 mg 05/10 partially effective, advanced to SQ 25 mg 10/2023 better Code(s): M06.021 - Rheumatoid arthritis without rheumatoid factor, right elbow; M06.022 - Rheumatoid arthritis without rheumatoid factor, left elbow Plan: 68-year-old female with seronegative RA presents for evaluation of RA. Has failed numerous DMARDs in the past as mentioned above. Her RA is better controlled on methotrexate 25 mg weekly. She continues to have few swollen and tender joints. She is doing fairly well. Continue current meds, methotrexate 25 mg subcutaneously weekly, leucovorin 5 mg weekly, folic acid 2 mg daily Safety labs every 3 months Follow-up in 6 months (2) Pseudogout: Code(s): M11.20 - Other chondrocalcinosis, unspecified site Plan: September 2021 had 1 month low grade discomfort right knee then acute swelling and severe pain.? Arthrocentesis showing hemarthrosis. 37,000 WBCs and rare intracellular CPPD crystals.? She does not seem to have had another flare. (3) Osteopenia: Code(s): M85.80 - Other specified disorders of bone density and structure, unspecified site Qualifiers: Osteopenia location: hip Laterality: bilateral Qualified Code(s): M85.851 - Other specified disorders of bone density and structure, right thigh; M85.852 - Other specified disorders of bone density and structure, left thigh Plan: DEXA done 10/2022 showed osteopenia but with a high FRAX score. Alendronate started 11/2022. Well tolerated. 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 Will monitor patient for side effects with frequent lab work. Advised patient to take folic acid daily to prevent complications of methotrexate. Mucinex did not help with MTX flu symptoms (5) De Quervain's tenosynovitis, bilateral: Code(s): M65.4 - Radial styloid tenosynovitis [de Quervain] Plan: Left hand Flare associated with swelling last week, evaluated by hand surgeon and received an injection with resolution. Continue to use thumb spica splints for both hands Plan I spent 26 minutes reviewing patient's chart, evaluating patient, ordering diagnostic workup, counseling patient and documenting in the chart Orders: Orders Complete Blood Count Auto Diff 6 Months M06.021 - Rheumatoid arthritis without rheumatoid factor, right elbow, M06.022 - Rheumatoid arthritis without rheumatoid factor, left elbow, Z79.631 - remote computer terminal operator (current) use of antimetabolite agent Erythrocyte Sedimentation Rate 3 Months M06.021 - Rheumatoid arthritis without rheumatoid factor, right elbow, M06.022 - Rheumatoid arthritis without rheumatoid factor, left elbow, Z79.631 - remote computer terminal operator (current) use of antimetabolite agent Comprehensive Met. Panel 6 Months M06.021 - Rheumatoid arthritis without rheumatoid factor, right elbow, M06.022 - Rheumatoid arthritis without rheumatoid factor, left elbow, Z79.631 - remote computer terminal operator (current) use of antimetabolite agent C Reactive Protein 6 Months M06.021 - Rheumatoid arthritis without rheumatoid factor, right elbow, M06.022 - Rheumatoid arthritis without rheumatoid factor, left elbow, Z79.631 - remote computer terminal operator (current) use of antimetabolite agent Erythrocyte Sedimentation Rate 6 Months M06.021 - Rheumatoid arthritis without rheumatoid factor, right elbow, M06.022 - Rheumatoid arthritis without rheumatoid factor, left elbow, Z79.631 - [facility] (current) use of antimetabolite agent Complete Blood Count Auto Diff 3 Months M06.021 - Rheumatoid arthritis without rheumatoid factor, right elbow, M06.022 - Rheumatoid arthritis without rheumatoid factor, left elbow, Z79.631 - [facility] (current) use of antimetabolite agent Comprehensive Met. Panel 3 Months M06.021 - Rheumatoid arthritis without rheumatoid factor, right elbow, M06.022 - Rheumatoid arthritis without r heumatoid factor, left elbow, Z79.631 - [facility] (current) use of antimetabolite agent C Reactive Protein 3 Months M06.021 - Rheumatoid arthritis without rheumatoid factor, right elbow, M06.022 - Rheumatoid arthritis without rheumatoid factor, left elbow, Z79.631 - remote computer terminal operator (current) use of antimetabolite agent Coding Level of Care Code Est Pt Level 4 (70438) Diagnoses Rheumatoid arthritis involving both elbows with negative rheumatoid factor M06.021; M06.022 Pseudogout M11.20 Osteopenia of both hips M85.851; M85.852 Osteopenia location: hip Laterality: bilateral [facility] methotrexate user Z79.631 De Quervain's tenosynovitis, bilateral M65.4
== END 2024-01-29 14:53 | disposition home or self-care (01) ==
PROVIDERS: PCP Family Medicine; Visit Provider Student in an Organized Health Care Education/Training Program
DX: M06.02 Rheumatoid arthritis without rheumatoid factor, elbow (principal); M06.022 Rheumatoid arthritis without rheumatoid factor, left elbow; M11.20 Other chondrocalcinosis, unspecified site; M85.851 Other specified disorders of bone density and structure, right thigh; M85.852 Other specified disorders of bone density and structure, left thigh; Z79.631 Long term (current) use of antimetabolite agent; M65.4 Radial styloid tenosynovitis [de Quervain]
CPT/HCPCS: 99214

== ENCOUNTER 2024-04-28 09:01 | Outpatient (REF) | payer OTHER, SELFPAY ==
[2024-04-28 10:56] LABS: MANUAL DIFF FLAG NO
[2024-04-28 11:09] LABS: Eosinophils Absolute Auto 0.2 X10*3/uL (0.0-0.4); Eosinophils Percent Auto 4.8 % (0-4); Hematocrit 39.5 % (37.0-47.0); Hemoglobin 13.1 g/dl (12.0-16.0); Imm Gran Abs Auto 0.01 X10*3/uL (0.00-0.03); Imm Gran Pct Auto 0.2 % (0.0-0.4); Lymphocytes Absolute Auto 1.3 X10*3/uL (1.2-4.9); Lymphocytes Percent Auto 31.3 % (20-40); Mean Corpuscular HGB Conc 33.2 g/dl (31.0-35.0); Mean Corpuscular Volume 99.5 fL (80.0-98.0); Monocytes Absolute Auto 0.4 X10*3/uL (0.1-1.2); Monocytes Percent Auto 10.5 % (2-11); Neutrophils Absolute Auto 2.2 x10*3/uL (2.0-8.3); Neutrophils Percent Auto 52.2 % (45-73); Platelet Count 234 X10*3/uL (160-400); Red Blood Count 3.97 X10*6/uL (4.20-5.50); Red Cell Distribution Width 13.8 % (11.0-16.0); White Blood Count 4.2 X10*3/uL (4.8-10.8)
[2024-04-28 12:03] LABS: Erythrocyte Sedimentation Rate 6 MM/HR (0-20)
[2024-04-28 12:31] LABS: Alanine Aminotransferase 17 U/L (0-31); Albumin Level 4.3 g/dL (3.5-5.0); Alkaline Phosphatase 54 U/L (39-117); Anion Gap 11 (12-20); Aspartate Amino Transferase 17 U/L (5-31); Bilirubin Total 0.5 mg/dL (0.0-1.0); Blood Urea Nitrogen 20 mg/dL (9-16); C Reactive Protein 0.25 mg/dL (< or = 0.50); Calcium 9.4 mg/dL (8.4-10.2); Carbon Dioxide 23 mmol/L (22-29); Chloride 108 mmol/L (96-108); Estimated Glomerular Filt Rate > 60; Glucose Random 152 mg/dL (60-115); Potassium 4.2 mmol/L (3.3-5.1); Sodium 138 mmol/L (135-145); Total Protein 6.9 g/dL (6.5-8.0)
== END 2024-04-28 09:02 | disposition home or self-care (01) ==
LOC: HO.10HDL 09:01
PROVIDERS: Visit Provider Student in an Organized Health Care Education/Training Program
DX: M06.02 Rheumatoid arthritis without rheumatoid factor, elbow (principal); M06.022 Rheumatoid arthritis without rheumatoid factor, left elbow; Z79.631 Long term (current) use of antimetabolite agent
CPT/HCPCS: 36415; 80053; 85025; 85652; 86140

== ENCOUNTER 2024-07-30 13:45 | Outpatient (AMB) | payer OTHER, SELFPAY ==
--- NOTE | 2024-07-30 13:49 | A.OFFVIS_ITS ---
Vital Signs 07/30/24 13:52 Height 5 ft 4 in Weight 181 lb 14.102 oz BMI 31.2 BP 115/72 Blood Pressure Location Rt brachial Position Sitting Pulse 65 Pulse Source Pulse Oximeter Pulse Oximetry (%) 96 Oxygen Delivery Method Room Air Intake Visit Reasons: RA Intake Note: Patient presents for RA. Allergies metoclopramide [From Reglan] Allergy (Severe, Verified 01/29/24 14:28) Itching Sulfa (Sulfonamide Antibiotics) Allergy (Intermediate, Verified 01/29/24 14:28) Itching sulfasalazine Allergy (Intermediate, Verified 01/29/24 14:28) Itching Penicillins Allergy (Unknown, Verified 01/29/24 14:28) unknown tocilizumab [From Actemra] Adverse Reaction (Severe, Verified 01/29/24 14:28) Hypertension, Nausea, Anorexia, Diverticultis Medication List - Last Reconciled 07/30/24 by James West MD alendronate 70 mg PO QWEEK brimonidine 0.2% 0 drps ophthalmic (eye) celecoxib 100 mg PO DAILY cholecalciferol (vitamin D3) 50 mcg PO DAILY cyanocobalamin (vitamin B-12) 1,000 mcg PO DAILY cyclobenzaprine 20 mg PO BEDTIME folic acid 2 mg (2 x 1 mg) PO DAILY gabapentin 300 mg PO DAILY PRN insulin syringe-needle U-100 (TRUEplus Insulin) Use once weekly with methotrexate leucovorin calcium 5 mg PO QWEEK linaclotide (Linzess) 145 mcg PO QAM lisinopril 2.5 mg PO DAILY methotrexate sodium (PF) 25 mg subcut QWEEK ondansetron 4 mg PO Q8H PRN prednisolone 5 mg orally 20 mg x 5 days during flares PRN; sumatriptan succinate take 1 tab at onset of headache; if no relief, may repeat 1 tab after at least 2 hrs; max = 2 tabs/24 hrs orally PRN; HPI Comments Details: 68-year-old female with seronegative RA presents for follow-up. She is on methotrexate 25 mg SQ weekly. She states that she is doing worse overall. She continues to have flare-ups affecting her wrists, her hands, ankles, associated with swelling. She recently saw hand specialist for multiple trigger fingers. She has at least 3 trigger fingers in both hands, all of them were injected and she was told that she might need a release procedure soon. She is generally quite active. She has a [id number] son now that she takes care of with her . She had the COVID booster and flu vaccines yesterday. Initial history: This is a 67-year-old female with a past medical history of seronegative RA of presents for evaluation of rheumatoid arthritis. Patient was diagnosed with seronegative rheumatoid arthritis more than 20 years ago. She has been on numerous DMARDs. She has been on methotrexate all through. Her previous senior clinical sas programmer left the practice. Today patient feels all right overall. She continues to have pain and morning stiffness of her hands, wrists, ankles and feet lasting 3-4 hours. Patient would take a prednisone bolus 2 to 3 times a year. She would usually take about 50 mg for 5 days. Last time she took prednisone was 6 weeks ago. Patient also has been having bilateral hip pain. Over the last 1-2 years she has developed Raynaud's. She was prescribed amlodipine to use as needed by her previous senior clinical sas programmer Dr. [place] but patient never used it. She bot heated gloves and those were quite helpful. FORMERLY [facility] Medical History Hip pain, bilateral Diverticulosis Diverticulitis Macrocytosis Basal cell carcinoma (BCC) Idiopathic peripheral neuropathy PPD positive Rheumatoid arthritis Steatosis of liver Chronic constipation Diverticular disease Nondiabetic gastroparesis GERD with esophagitis Hypertension Migraine RUDI (obstructive sleep apnea) Vitamin B12 deficiency Surgical History H/O esophageal hernia repair Hx of hysterectomy History of knee replacement, total Family History Mother Liver cancer Maternal Aunt Breast cancer Rheumatoid arthritis Social History Household Members: Spouse Alcohol intake: current Alcohol intake frequency: a few times a week Alcohol type: wine Patient Tobacco Use Status: Former Tobacco user 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 Female Reproductive History Menstrual Total pregnancies: 0 Review of Systems [employer] Reports arthralgias, Reports joint swelling and Reports stiffness Physical Exam Vital Signs: Last Vital Signs Pulse 65 07/30/24 13:52 BP 115/72 07/30/24 13:52 Pulse Ox 96 07/30/24 13:52 Oxygen Delivery Method Room Air 07/30/24 13:52 BMI result Body Mass Index 31.2 Const General: cooperative, healthy appearing, comfortable, no acute distress and well developed Nutritional Appearance: obese Orientation/consciousness: patient oriented x3 Limitations: no limitations HEENT Head: Yes normocephalic and Yes atraumatic Mouth: moist mucous membranes Resp Effort & Inspection: normal respiratory effort and able to speak in complete sentences Neuro General: patient oriented x3 Extrem Other: Mild osteoarthritic changes of both hands Right wrist pain with flexion and extension Right 1st MCP swelling and tenderness Right 2nd MCP swelling and tenderness Multiple tender PIP is without swelling bilaterally Bilateral ankle tenderness Right foot bunion Assessment & Plan Assessment & Plan (1) Rheumatoid arthritis involving both elbows with negative rheumatoid factor: Comment: Seronegative diagnosed around 1999 HCQ: Ineffective MTX all through, switched from subcu to oral around 2014 Humira 2009 to 2013 ineffective Cimzia 2017 to 2018 ineffective Leflunomide 2015 to 2017 neuropathy,SSZ allergy, Orencia 2018 ineffective and caused fatigue. Xeljanz somewhat effective but stopped in 2020 Actemra 2020 hypertension and diverticulitis MTX increased form 15 mg to 20 mg 05/10 partially effective, advanced to SQ 25 mg 10/2023 Code(s): M06.021 - Rheumatoid arthritis without rheumatoid factor, right elbow; M06.022 - Rheumatoid arthritis without rheumatoid factor, left elbow Category: Medical Plan: 68-year-old female with seronegative RA presents for evaluation of RA. Has failed numerous DMARDs in the past as mentioned above. She remains on methotrexate 25 mg subcutaneously weekly. She is having multiple swollen and tender joints on exam. Not doing well overall. We will need to add DMARDs. Discussed infusions. Patient never received infusions for her rheumatoid arthritis. Discussed risks and benefits of Simponi. Patient agreed to proceed. Will start prior authorization for Simponi infusion Continue current meds, methotrexate 25 mg subcutaneously weekly, leucovorin 5 mg weekly, folic acid 2 mg daily Labs before next visit in 3 months (2) Pseudogout: Code(s): M11.20 - Other chondrocalcinosis, unspecified site Category: Medical Plan: September 2021 had 1 month low grade discomfort right knee then acute swelling and severe pain.? Arthrocentesis showing hemarthrosis. 37,000 WBCs and rare intracellular CPPD crystals.? She does not seem to have had another flare. (3) Osteopenia: Code(s): M85.80 - Other specified disorders of bone density and structure, unspecified site Category: Medical Qualifiers: Osteopenia location: hip Laterality: bilateral Qualified Code(s): M85.851 - Other specified disorders of bone density and structure, right thigh; M85.852 - Other specified disorders of bone density and structure, left thigh Plan: DEXA done 10/2022 showed osteopenia but with a high FRAX score. Alendronate started 11/2022. Well tolerated. 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 Will monitor patient for side effects with frequent lab work. Advised patient to take folic acid daily to prevent complications of methotrexate. Mucinex did not help with MTX flu symptoms (5) Trigger finger: Code(s): M65.30 - Trigger finger, unspecified finger Category: Medical Qualifiers: Trigger finger location: unspecified finger Laterality: unspecified laterality Qualified Code(s): M65.30 - Trigger finger, unspecified finger Plan: Multiple trigger fingers both hands. Likely mechanical but active RA may play a role in this. Injected by hand specialist a few days ago with improvement. He was told that she will likely need a release procedures soon (6) Immunization counseling: Code(s): Z71.85 - Encounter for immunization safety counseling Category: Medical Plan: Patient received her COVID booster and flu vaccines a few days ago. Advised patient to skip the next methotrexate dose Plan I spent 36 minutes reviewing patient's chart, evaluating patient, ordering diagnostic workup, counseling patient and documenting in the chart Orders: Orders Complete Blood Count Auto Diff 3 Months M06.021 - Rheumatoid arthritis without rheumatoid factor, right elbow, M06.022 - Rheumatoid arthritis without rheumatoid factor, left elbow, Z79.631 - [facility] (current) use of antimetabolite agent Comprehensive Met. Panel 3 Months M06.021 - Rheumatoid arthritis without rheumatoid factor, right elbow, M06.022 - Rheumatoid arthritis without rheumatoid factor, left elbow, Z79.631 - [facility] (current) use of antimetabolite agent C Reactive Protein 3 Months M06.021 - Rheumatoid arthritis without rheumatoid factor, right elbow, M06.022 - Rheumatoid arthritis without rheumatoid factor, left elbow, Z79.631 - [facility] (current) use of antimetabolite agent Erythrocyte Sedimentation Rate 3 Months M06.021 - Rheumatoid arthritis without rheumatoid factor, right elbow, M06.022 - Rheumatoid arthritis without rheumatoid factor, left elbow, Z79.631 - [facility] (current) use of antimetabolite agent Medications: Refilled leucovorin calcium 5 mg PO QWEEK 12 tabs 1RF M06.021 - Rheumatoid arthritis without rheumatoid factor, right elbow, M06.022 - Rheumatoid arthritis without rheumatoid factor, left elbow Coding Level of Care Code Est Pt Level 5 (94347) Complex EM visit Add On G2211 Diagnoses Rheumatoid arthritis involving both elbows with negative rheumatoid factor M06.021; M06.022 Pseudogout M11.20 Osteopenia of both hips M85.851; M85.852 Osteopenia location: hip Laterality: bilateral [facility] methotrexate user Z79.631 Trigger finger, unspecified finger, unspecified laterality M65.30 Trigger finger location: unspecified finger Laterality: unspecified laterality Immunization counseling Z71.85
[2024-07-30 13:52] VITALS: BP 115/72; PULSE 65; O2SAT 96; BMI 31.2
== END 2024-07-30 14:12 | disposition home or self-care (01) ==
PROVIDERS: PCP Family Medicine; Visit Provider Student in an Organized Health Care Education/Training Program
DX: M06.02 Rheumatoid arthritis without rheumatoid factor, elbow (principal); M06.022 Rheumatoid arthritis without rheumatoid factor, left elbow; M11.20 Other chondrocalcinosis, unspecified site; M85.851 Other specified disorders of bone density and structure, right thigh; M85.852 Other specified disorders of bone density and structure, left thigh; Z79.631 Long term (current) use of antimetabolite agent; M65.30 Trigger finger, unspecified finger; Z71.85 Encounter for immunization safety counseling
CPT/HCPCS: 99214

== ENCOUNTER → 2024-07-30 13:45 | Outpatient (BNVA) | payer OTHER, SELFPAY | PROVIDERS: PCP Family Medicine; Visit Provider Student in an Organized Health Care Education/Training Program ==

== ENCOUNTER 2024-11-02 14:43 | Outpatient (REF) | payer OTHER, SELFPAY ==
--- OUTSIDE RECORDS SUMMARY | 2024-11-02 14:46 | XMS_ITS | Continuity of Care Document ---
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 [address] [place], [address]. tel:[phone] [facility], [address] [place] [address] [place], [address], [place] tel:[phone] [facility] Lab No Information 4 Nelia Barahona. [address] [place], [place], [id number]. tel:[phone] Referring Provider: Julian Wheeler, [address] [place], [address]. tel:[phone] Family History Family Member Type Diagnosis Age At Onset No Information Payers Payer name Insurance type Covered republican ID Authoriza tion[facility] [id number] Social History Type Description Quantity Date Captured [...] Mental Status Date Cognitive Assessment Orientation - Baxley ed to time, place, person, situation. Patient Care Teams Name Effective Dates (start - stop) Status Members No Information
[2024-11-02 15:03] LABS: MANUAL DIFF FLAG NO
[2024-11-02 15:32] LABS: Basophils Percent Auto 0.5 % (0-2); Eosinophils Absolute Auto 0.2 X10*3/uL (0.0-0.4); Eosinophils Percent Auto 2.9 % (0-4); Hematocrit 41.7 % (37.0-47.0); Hemoglobin 13.5 g/dl (12.0-16.0); Imm Gran Abs Auto 0.02 X10*3/uL (0.00-0.03); Imm Gran Pct Auto 0.4 % (0.0-0.4); Lymphocytes Percent Auto 36.4 % (20-40); Mean Corpuscular HGB Conc 32.4 g/dl (31.0-35.0); Mean Corpuscular Hemoglobin 33.3 pg (27.0-33.0); Mean Platelet Volume 9.7 fL (9.4-12.3); Monocytes Absolute Auto 0.6 X10*3/uL (0.1-1.2); Monocytes Percent Auto 11.5 % (2-11); Neutrophils Absolute Auto 2.7 x10*3/uL (2.0-8.3); Neutrophils Percent Auto 48.3 % (45-73); Platelet Count 232 X10*3/uL (160-400); Red Blood Count 4.05 X10*6/uL (4.20-5.50); Red Cell Distribution Width 13.9 % (11.0-16.0); White Blood Count 5.6 X10*3/uL (4.8-10.8)
[2024-11-02 16:10] LABS: Erythrocyte Sedimentation Rate 2 MM/HR (0-20)
[2024-11-02 16:46] LABS: Albumin Level 4.5 g/dL (3.5-5.0); Anion Gap 11 (12-20); Aspartate Amino Transferase 26 U/L (5-31); Bilirubin Total 0.4 mg/dL (0.0-1.0); Blood Urea Nitrogen 15 mg/dL (9-16); C Reactive Protein < 0.10 mg/dL (< or = 0.50); Calcium 9.6 mg/dL (8.4-10.2); Carbon Dioxide 30 mmol/L (22-29); Chloride 106 mmol/L (96-108); Estimated Glomerular Filt Rate > 60; Glucose Random 123 mg/dL (60-115); Potassium 4.4 mmol/L (3.3-5.1); Sodium 143 mmol/L (135-145)
[2024-11-02 17:01] LABS: Alanine Aminotransferase 23 U/L (0-31); Alkaline Phosphatase 48 U/L (39-117)
== END 2024-11-02 14:44 | disposition home or self-care (01) ==
LOC: HO.LAB 14:43
PROVIDERS: PCP Family Medicine; Visit Provider Student in an Organized Health Care Education/Training Program
DX: M06.02 Rheumatoid arthritis without rheumatoid factor, elbow (principal); M06.022 Rheumatoid arthritis without rheumatoid factor, left elbow; Z79.631 Long term (current) use of antimetabolite agent
CPT/HCPCS: 36415; 80053; 85025; 85652; 86140

== ENCOUNTER 2024-11-03 13:43 | Outpatient (AMB) | payer OTHER, SELFPAY ==
--- OUTSIDE RECORDS SUMMARY | 2024-11-03 13:46 | XMS_ITS | Continuity of Care Document ---
Author Organization [facility] Address [address] [place] [address] Phone Care Team Providers Care Alumni Relations Coordinator Name Role Phone Mor Ashton PA-C Unavailable [...] LESION DESTROY BENIGN/PREMLG LESION OFFICE/OUTPATIENT VISIT, [facility] TISSUE EXAM BY PATHOLOGIST Advance [...] TIENT VISIT, [facility], [address] [place], [address], [place] tel:[phone] [place] lesion(s) (chief complaint) Neoplasm of uncertain behavior of skinActinic keratosisBen ign neoplasm of skin of trunk, except scrotumOther seborrheic keratosis Jul- 4 Daisha Mor. [address] [place], [address]. tel:[phone] [facility], [address] [place] [address] [place], [address], [place] tel:[phone] [facility] No Information 4 Nelia Barahona. [address] [place], [place], [id number]. tel:[phone] Referring Provider: Julian Wheeler, [address] [place], [address]. tel:[phone] Family History Family Member Type Diagnosis Age At Onset No Information Payers Payer name Insurance type Covered constitution party ID Authoriza tion(s) [facility] [id number] Social History Type Description Quantity Date Captured [...] Mental Status Date Cognitive Assessment Orientation - [place] ed to time, place, person, situation. Patient Care Teams Name Effective Dates (start - stop) Status Members No Information
--- NOTE | 2024-11-03 13:47 | A.OFFVIS_ITS ---
Vital Signs 11/03/24 13:53 Height 5 ft Weight 178 lb 2.136 oz BMI 34.8 BP 130/82 Blood Pressure Location Rt brachial Position Sitting Pulse 80 Pulse Source Pulse Oximeter Pulse Oximetry (%) 96 Oxygen Delivery Method Room Air Intake Visit Reasons: RA Intake Note: Patient presents for RA. Allergies metoclopramide [From Reglan] Allergy (Severe, Verified 11/03/24 13:50) Itching Sulfa (Sulfonamide Antibiotics) Allergy (Intermediate, Verified 11/03/24 13:50) Itching sulfasalazine Allergy (Intermediate, Verified 11/03/24 13:50) Itching Penicillins Allergy (Unknown, Verified 11/03/24 13:50) unknown tocilizumab [From Actemra] Adverse Reaction (Severe, Verified 11/03/24 13:50) Hypertension, Nausea, Anorexia, Diverticultis Medication List - Last Reconciled 11/03/24 by James West MD alendronate 70 mg PO QWEEK brimonidine 0.2% 0 drps ophthalmic (eye) celecoxib 100 mg PO DAILY cholecalciferol (vitamin D3) 50 mcg PO DAILY cyanocobalamin (vitamin B-12) 1,000 mcg PO DAILY cyclobenzaprine 20 mg PO BEDTIME folic acid 2 mg (2 x 1 mg) PO DAILY gabapentin 300 mg PO DAILY PRN insulin syringe-needle U-100 (TRUEplus Insulin) Use once weekly with methotrexate leucovorin calcium 5 mg PO QWEEK linaclotide (Linzess) 145 mcg PO QAM lisinopril 2.5 mg PO DAILY methotrexate sodium (PF) 25 mg subcut QWEEK ondansetron 4 mg PO Q8H PRN prednisolone 5 mg orally 20 mg x 5 days during flares PRN; sumatriptan succinate take 1 tab at onset of headache; if no relief, may repeat 1 tab after at least 2 hrs; max = 2 tabs/24 hrs orally PRN; HPI Comments Details: 69-year-old female with seronegative RA presents for follow-up. She has r eceived a couple of doses of Simponi Aria infusion. Infusions were uneventful. Without side effects. She feels much better overall. Her fatigue is better, the pain and achiness in her elbows, wrists, hands knees and ankles has improved. She remains on methotrexate 25 mg subcutaneously once weekly. Initial history: This is a 67-year-old female with a past medical history of seronegative RA of presents for evaluation of rheumatoid arthritis. Patient was diagnosed with seronegative rheumatoid arthritis more than 20 years ago. She has been on numerous DMARDs. She has been on methotrexate all through. Her previous local delivery truck driver left the practice. Today patient feels all right overall. She continues to have pain and morning stiffness of her hands, wrists, ankles and feet lasting 3-4 hours. Patient would take a prednisone bolus 2 to 3 times a year. She would usually take about 50 mg for 5 days. Last time she took prednisone was 6 weeks ago. Patient also has been having bilateral hip pain. Over the last 1-2 years she has developed Raynaud's. She was prescribed amlodipine to use as needed by her previous local delivery truck driver Dr. Norman but patient never used it. She bot heated gloves and those were quite helpful. [facility] Medical History Hip pain, bilateral Diverticulosis Diverticulitis Macrocytosis Basal cell carcinoma (BCC) Idiopathic peripheral neuropathy PPD positive Rheumatoid arthritis Steatosis of liver Chronic constipation Diverticular disease Nondiabetic gastroparesis GERD with esophagitis Hypertension Migraine RUDI (obstructive sleep apnea) Vitamin B12 deficiency Surgical History H/O esophageal hernia repair Hx of hysterectomy History of knee replacement, total Family History Mother Liver cancer Maternal Aunt Breast cancer Rheumatoid arthritis Social History Household Members: Spouse Alcohol intake: current Alcohol intake frequency: a few times a week Alcohol type: wine Patient Tobacco Use Status: Former Tobacco user 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 Female Reproductive History Menstrual Total pregnancies: 0 Review of Systems Musc Reports arthralgias, Denies joint swelling and Reports stiffness Physical Exam Vital Signs: Last Vital Signs Pulse 80 11/03/24 13:53 BP 130/82 11/03/24 13:53 Pulse Ox 96 11/03/24 13:53 Oxygen Delivery Method Room Air 11/03/24 13:53 BMI result Body Mass Index 34.8 Const General: cooperative, healthy appearing, comfortable, no acute distress and well developed Nutritional Appearance: obese Orientation/consciousness: patient oriented x3 Limitations: no limitations HEENT Head: Yes normocephalic and Yes atraumatic Mouth: moist mucous membranes Resp Effort & Inspection: normal respiratory effort and able to speak in complete sentences Neuro General: patient oriented x3 Extrem Other: Osteoarthritic changes of both hands No swollen joints today No wrist tenderness, or pain with flexion-extension bilaterally Negative MCP squeeze test bilaterally Likely early Dupuytren's contracture right ring finger Flexor tendons are not tender bilaterally Normal range of motion of elbows and shoulders No ankle swelling or tenderness bilaterally s/p bilateral knee replacement Prominent right foot bunion Assessment & Plan Assessment & Plan (1) Rheumatoid arthritis involving both elbows with negative rheumatoid factor: Comment: Seronegative diagnosed around 1999 HCQ: Ineffective MTX all through, switched from subcu to oral around 2014 Humira 2009 to 2013 ineffective Cimzia 2017 to 2018 ineffective Leflunomide 2015 to 2017 neuropathy,SSZ allergy, Orencia 2018 ineffective and caused fatigue. Xeljanz somewhat effective but stopped in 2020 Actemra 2020 hypertension and diverticulitis MTX increased form 15 mg to 20 mg 05/10 partially effective, advanced to SQ 25 mg 10/2023 Simponi Aria started 09/2024 effective Code(s): M06.021 - Rheumatoid arthritis without rheumatoid factor, right elbow; M06.022 - Rheumatoid arthritis without rheumatoid factor, left elbow Category: Medical Plan: 69-year-old female with seronegative RA presents for evaluation of RA. Started Simponi Aria infusions. Remains on methotrexate 25 mg subcutaneously once weekly. Doing better overall since Simponi Aria was started, with improved fatigue, joint pain and stiffness. Physical exam has improved with much less tender joints Continue with Simponi Aria infusions Continue with the methotrexate , folic acid and Leucovorin as prescribed Labs before next visit in 3 months (2) Pseudogout: Code(s): M11.20 - Other chondrocalcinosis, unspecified site Category: Medical Plan: September 2021 had 1 month low grade discomfort right knee then acute swelling and severe pain.? Arthrocentesis showing hemarthrosis. 37,000 WBCs and rare intracellular CPPD crystals.? She does not seem to have had another flare. (3) Osteopenia: Code(s): M85.80 - Other specified disorders of bone density and structure, unspecified site Category: Medical Qualifiers: Osteopenia location: hip Laterality: bilateral Qualified Code(s): M85.851 - Other specified disorders of bone density and structure, right thigh; M85.852 - Other specified disorders of bone density and structure, left thigh Plan: DEXA done 10/2022 showed osteopenia but with a high FRAX score. Alendronate started 11/2022. Well tolerated. 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 Will monitor patient for side effects with frequent lab work. Advised patient to take folic acid daily to prevent complications of methotrexate. Mucinex did not help with MTX flu symptoms Side effects of Simponi were discussed with the patient in detail including increased risk of infection, demyelinating disease, reactivation of latent TB, possible increased risk of solid and skin tumors. Patient fully aware. Advised patient to seek medical care FLAVIO if patient has an infection and advised patient to stop the medication until the infection is resolved. (5) Trigger finger: Code(s): M65.30 - Trigger finger, unspecified finger Category: Medical Qualifiers: Trigger finger location: unspecified finger Laterality: unspecified laterality Qualified Code(s): M65.30 - Trigger finger, unspecified finger Plan: Multiple trigger fingers both hands was injected by hand surgeon 06/2024. With improvement. Have not been symptomatic recently (6) Immunization counseling: Code(s): Z71.85 - Encounter for immunization safety counseling Category: Medical Plan: Patient is up-to-date on her flu vaccine and COVID booster this season Plan I spent 36 minutes reviewing patient's chart, evaluating patient, ordering diagnostic workup, counseling patient and documenting in the chart Orders: Orders XR DEXA axial skeleton 2 Months M81.0 - Age-related osteoporosis without current pathological fracture Complete Blood Count Auto Diff 3 Months M06.021 - Rheumatoid arthritis without rheumatoid factor, right elbow, M06.022 - Rheumatoid arthritis without rheumatoid factor, left elbow Comprehensive Met. Panel 3 Months M06.021 - Rheumatoid arthritis without rheumatoid factor, right elbow, M06.022 - Rheumatoid arthritis without rheumatoid factor, left elbow Erythrocyte Sedimentation Rate 3 Months M06.021 - Rheumatoid arthritis without rheumatoid factor, right elbow, M06.022 - Rheumatoid arthritis without rheumatoid factor, left elbow C Reactive Protein 3 Months M06.021 - Rheumatoid arthritis without rheumatoid factor, right elbow, M06.022 - Rheumatoid arthritis without rheumatoid factor, left elbow Coding Level of Care Code Est Pt Level 4 (58745) Complex EM visit Add On G2211 Diagnoses Rheumatoid arthritis involving both elbows with negative rheumatoid factor M06.021; M06.022 Pseudogout M11.20 Osteopenia of both hips M85.851; M85.852 Osteopenia location: hip Laterality: bilateral ferry terminal agent methotrexate user Z79.631 Trigger finger, unspecified finger, unspecified laterality M65.30 Trigger finger location: unspecified finger Laterality: unspecified laterality Immunization counseling Z71.85
[2024-11-03 13:53] VITALS: BP 130/82; PULSE 80; O2SAT 96; BMI 34.8
== END 2024-11-03 14:12 | disposition home or self-care (01) ==
PROVIDERS: PCP Family Medicine; Visit Provider Student in an Organized Health Care Education/Training Program
DX: M06.02 Rheumatoid arthritis without rheumatoid factor, elbow (principal); M06.022 Rheumatoid arthritis without rheumatoid factor, left elbow; M11.20 Other chondrocalcinosis, unspecified site; M85.851 Other specified disorders of bone density and structure, right thigh; M85.852 Other specified disorders of bone density and structure, left thigh; Z79.631 Long term (current) use of antimetabolite agent; M65.30 Trigger finger, unspecified finger; Z71.85 Encounter for immunization safety counseling
CPT/HCPCS: 99214

== ENCOUNTER 2024-12-17 12:26 | Outpatient (REF) | payer OTHER, SELFPAY ==
--- NOTE | ~2024-12-17 | MM_ITS ---
EXAMINATION: DXA BONE DENSITY AXIAL HISTORY: Estrogen deficiency TECHNIQUE: Spireon Dual energy absorptiometry (DEXA) of the lumbar spine, total left hip, and femoral neck was performed. COMPARISON: Comparison is made with the prior examination dated 12/06/2022. FINDINGS: The bone mineral density of the lumbar spine is 1.165 with a T-score of -0.1, and a Z-score of 1.0. This represents a BMD change of 9.3% compared to the prior exam. This is statistically significant. The bone mineral density of the left total hip is 0.922 with a T-score of -0.7, and a Z-score of 0.4. This represents BMD change of 1.5% compared to the prior exam. This is not statistically significant. The bone mineral density of the left femoral neck is 0.895 with a T-score of -1.0, and a Z-score of 0.3. This represents BMD change of 8.2% compared to the prior exam. MM/XR DEXA axial skeleton IMPRESSION: Based on bone mineral density, and according to World Health Organization (WHO) criteria, the diagnosis is consistent with normal bone mineral density. All bone density values are in grams per centimeter squared (g/cm2). Statistically, 68% of repeat scans fall within 1 SD (+/- 0.010 g/cm2 for AP spine L1-L4) and 1 SD (+/- 0.012 g/cm2 for femur total) FRAX is a trademark of the [employer]'s [employer], a World Health Organization (WHO) Collaborating Center. Electronically signed by: Juan Momin MD 12/21/2024 12:24 PM [facility]
--- OUTSIDE RECORDS SUMMARY | 2024-12-17 16:12 | XMS_ITS | Data Portability ---
Author Organization [facility], , [facility] [address], OFFICE Address [address] [place] [address] Assessment Encounter Date Assessment Date Assessment LastModified by Organization Details LastModified Time 08/06/2022 08/06/2022 The care for thi s patient today involved the following: I have reviewed, collected, and updated relevant history and performed a physical exam. An independent historian was used to obtain history N. My assessment of Social Determinants of health: not at risk. At risk due to: food, health insurance, housing, transportation, safety, health literacy. My care of this patient involved: Moderate assessment of problems. Moderate review of data. Moderate complexity of risk from disease or treatments. Below is my assessment and plan for this patient? s care today. [email or web address] Not available 08/11/2022 11:21:19 09/17/2022 09/17/2022 My total time spent today documenting and providing coordinated care for this patient is 45 minutes I have reviewed, collected, and updated relevant history and performed a physical exam. I have coordinated care with [facility]BH, Nutrition, Specialist and or family members I have reviewed labs, x-rays and/or specialty notes I have interpreted new studies including EKG, Holter and/or xray Below is my assessment and plan for this patient? s care today. worsening chronic problem, continued chronic problems, new subacute problem [email or web address] Not available 09/18/2022 06:36:32 12/16/2022 12/16/2022 Patient agreed t o this visit via a secure telehealth platform due to the COVID -19 pandemic. Patient understands this is a scheduled visit and the usual procedures with regard to billing and confidentiality apply. Patient was notified that the provider location is Patient location: home During the visit the patient? s medical history and medical record were reviewed. The patient was notified to call our office for worsening or urgent symptoms. [email or web address] Not available 12/16/2022 10:37:39 02/28/2023 02/28/2023 We completed you r Medicare Wellness exam today. This was an opportunity to assess your overall well being including your ability to care for yourself, your mobility, memory, mental health, as well as your safety. With advancing age, it is important to assign someone in your life as your Health Care Proxy (HCP). This person should know what is important to you and what your wishes are for medical procedures if you cannot communicate your wishes yourself (severe illness, unconsciousness). We discussed having a completed Health Care Proxy form today. In addition, today we started a conversation about your End of Life wishes. These conversations will continue over the years. Please consider reading the book, Being Mortal by Roni Moon to help frame future conversations. We discussed the purpose of a MOLST form (Medical Orders for Life Sustaining Treatment) and completed this form if appropriate per your wishes. Vision and Hearing are senses that are critically important as we age. When impaired, they can contribute to memory loss, falls, and make it harder to drive, talk to family and friends, and engage in the world. Please get your vision checked yearly and your hearing checked when you start to notice hearing loss. We discussed approaches to lowering your risk of heart disease and stroke . Your blood pressure is at goal. Your cholesterol is higher than goal, work on eating more fruits and vegetables and avoiding saturated fats. We discussed cancer screening you may need as well as vaccines to prevent infections. Colon Cancer : Your risk of colon cancer is average. Due for colorectal screenin03/2023. If you are not planning to have a colonoscopy please screen with stool cards yearly. Jenniffer Breast Cancer : Breast Cancer Screening (mammography). Next mammogram due: 2022. Cervical Cancer Screening (pap test). Next pap due: not needed. Influenza Vaccine : Flu shot yearly. Tetanus Vaccine : Every 10 years. Due: 2026. The following vaccines are available from your pharmacy: Pneumonia Vaccine : PCV20: once after age 65. Shingles Vaccine : 2 shots after age 50. Covid Vaccine : Make sure you have received the most up to date covid vaccine. Your personal health goal for the year is: [email or web address] Not available 03/03/2023 20:42:28 Plan of Treatment Reminders Order Date Submit Date Provider Last Modified By Organization Details Last Modified Time Details Appointments None recorded. Lab CBC 2021 [facility], [address] [place] [address], [address], 11:08:46 CMP, serum or plasma 2021 [facility], [address] [place] [address], [address], 14:45:51 urinalysi s, dipstick, auto 2021 [facility], [address] [place] [address], [address], 12:11:55 PTH (parathyr oid hormone), intact + calcium, serum or plasma 2021 [facility], [address] [place] [address], [address], 15:44:47 vitamin D, 25-hydrox y, total, serum 2021 [facility], [address] [place] [address], [address], 11:38:17 Referral None recorded. Procedures None recorded. Surgeries None recorded. Imaging MAMMO, screening , tomosynth esis, bilateral 2022 023 [facility] (Imaging), [address], [place], [address], 3 16:15:52 Medication Orders lisinopri l 5 [address] tablet [address] [id number] [address] [place], [place], [id number], 2 09:00:31 lisinopri l 2.5 mg tablet 2021 022 [email or web address][id number], [address] [place], [place], [id number], 3 12:04:10 folic acid 1 mg tablet [email or web address] [facility][id number], [address] [place], [place], [id number], 3 12:04:07 Paxlovid 300 mg (150 mg x 2)-100 mg tablets in a dose pack 2022 023 [email or web address] #[id number], [address] [place], [address], 3 09:47:20 lisinopri l 2.5 mg tablet [address] [facility][id number], [address] [place], [place], [id number], 3 12:04:10 cyclobenz aprine 10 mg tablet [address] [facility][id number], [address] [place], [place], [id number], 3 12:04:05 Patient Targets Encounter Date Encounter Id Patient Goals Patient Target Last Modified By Organization Details Last Modified Time will send [email or web address] Not available 12/16/2022 10:52:07 Patient Instructions Encounter Date Encounter Id Patient Instructions Last Modified By Organization Details Last Modified Time 12/16/2022 [id number] After a discussion of treatment and medication options, which included consideration of the best practices in medicine, a medical plan was provided. The patient's opinions and concerns were included in this treatment plan and goal. Things you can do to lower your risk of COVID-19 and help slow the spread of the virus -Get vaccinated, if you are not already. -Get plenty of rest -Eat a healthy diet, with lots of fruits and vegetables -Get 7-8 hours of sleep per night -Make sure you are doing some type of exercise inside your house or outside (not in groups) -Maintain 6 feet distance from friends/ family -Wash your hands frequently for 20 seconds and or use Purell -Do not touch your face, eyes, nose, mouth -Cover your mouth and nose with a tissue when sneezing and coughing or sneeze and cough into your sleeve. Throw the tissue in the trash. Wash your hands afterward. Never cough or sneeze into your hands. -Clean frequently used surfaces (such as doorknobs an counter tops) with a virus-killing disinfectant. -Call with any concerns. After a discussion of treatment and medication options, which included consideration of the best practices in medicine, a medical plan was provided. The patient's opinions and concerns were included in this treatment plan and goal. Things you can do to lower your risk of COVID-19 and help slow the spread of the virus -Get plenty of rest -Eat a healthy diet, with lots of fruits and vegetables -Get 7-8 hours of sleep per night -Make sure you are doing some type of exercise inside your house or outside (not in groups) -Maintain 6 feet distance from friends/ family -Wash your hands frequently for 20 seconds and or use Purell -Do not touch your face, eyes, nose, mouth -Cover your mouth and nose with a tissue when sneezing and coughing or sneeze and cough into your sleeve. Throw the tissue in the trash. Wash your hands afterward. Never cough or sneeze into your hands. -Clean frequently used surfaces (such as doorknobs an counter tops) with a virus-killing disinfectant. -Call with any concerns. [email or web address] Not available 12/16/2022 10:37:25 02/28/2023 [id number] advance directives: care instructions [email or web address] Not available 02/28/2023 10:35:03 preventing falls : care instructions [email or web address] Not available 02/28/2023 10:35:03 hearing loss: care instructions [email or web address] Not available 02/28/2023 10:35:03 well visit, over 65: care instructions [email or web address] Not available 02/28/2023 10:35:03 Reason for Referral None Reported. Results Created Date Observation Date Name Description Value Unit Range Abnormal Flag Note LastModifiedBy Organization Detail LastModifiedTime 07/27/20 22 07/27/2022 CBC WBC 5.31 K/??L 3.98-1 0.04 Not Available [address], [address], 07/27/2022 15:12:57 07/27/20 22 07/27/2022 CBC RBC 3.72 M/??L 3.93-5 .22 low Not Available [address], [address], 07/27/2022 15:12:57 07/27/20 22 07/27/2022 CBC HGB 12.1 g/dL 11.2-1 5.7 Not Available [address], [address], 07/27/2022 15:12:57 07/27/20 22 07/27/2022 CBC HCT 39.0 % 34.1-4 4.9 Not Available [address], [address], 07/27/2022 15:12:57 07/27/20 22 07/27/2022 CBC MCV 104.8 fL 79.4-9 4.8 high Not Available [address], [address], 07/27/2022 15:12:57 07/27/20 22 07/27/2022 CBC MCH 32.5 pg 25.6-3 2.2 high Not Available [address], [address], 07/27/2022 15:12:57 07/27/20 22 07/27/2022 CBC MCHC 31.0 g/dL 32.2-3 5.5 low Not Available [address], [address], 07/27/2022 15:12:57 07/27/20 22 07/27/2022 CBC plt 262 K/??L 182-36 9 Not Available [address], [address], 07/27/2022 15:12:57 07/27/20 22 07/27/2022 CBC MPV 10.3 fL 9.4-12 .3 Not Available [address], [address], 07/27/2022 15:12:57 07/27/20 22 07/27/2022 CBC neut% 63.4 % 34.0-7 1.1 Not Available [address], [address], 07/27/2022 15:12:57 07/27/20 22 07/27/2022 CBC neut# 3.37 1.56-6 .13 Not Available [address], [address], 07/27/2022 15:12:57 07/27/20 22 07/27/2022 CBC lymph % 19.6 % 19.3-5 1.7 Not Available [address], [address], 07/27/2022 15:12:57 07/27/20 22 07/27/2022 CBC lymph # 1.04 K/??L 1.18-3 .74 low Not Available [address], [address], 07/27/2022 15:12:57 07/27/20 22 07/27/2022 CBC mono% 12.6 % 4.7-12 .5 high Not Available [address], [address], 07/27/2022 15:12:57 07/27/20 22 07/27/2022 CBC mono# 0.67 0.24-0 .56 high Not Available [address], [address], 07/27/2022 15:12:57 07/27/20 22 07/27/2022 CBC eo% 3.6 % 0.7-5. 8 Not Available [address], [address], 07/27/2022 15:12:57 07/27/20 22 07/27/2022 CBC eo# 0.19 0.04-0 .36 Not Available [address], [address], 07/27/2022 15:12:57 07/27/20 22 07/27/2022 CBC baso% 0.4 % 0.1-1. 2 Not Available [address], [address], 07/27/2022 15:12:57 07/27/20 22 07/27/2022 CBC baso# 0.02 0.00-0 .08 Not Available [address], [address], 07/27/2022 15:12:57 07/27/20 22 07/27/2022 CBC RDW-CV 13.8 % 11.7-1 4.4 Not Available [address], [address], 07/27/2022 15:12:57 07/27/20 22 07/27/2022 CBC Ig% 0.400 % 0.000- 1.500 Ig % >0.5 Indic ates possi ble Left Shift Not Available [address], [address], 07/27/2022 15:12:57 07/27/20 22 07/27/2022 CBC Ig# 0.020 0.000- 0.093 Not Available [address], [address], 07/27/2022 15:12:57 07/27/20 22 07/27/2022 CBC NRBC% 0.0 % 0.0-0. 2 Not Available [address], [address], 07/27/2022 15:12:57 07/27/20 22 07/27/2022 CBC NRBC# 0.000 0.000- 0.012 Not Available [address], [address], 07/27/2022 15:12:57 07/27/20 22 07/27/2022 HGB A1C hemoglobin A1C 5.3 % 4.8-6. 0 Goal: <7% in Patie nts with Diabe leah An A1c betwe en 5.7-6 .4% is ident ified as pre-d iabet es and sugge sts risk for progr essio n to diabe leah Two a1c value s of 6.5% or highe r is consi stent with a diagn osis of diabe leah but may need furth er confi rmati on Not Available [address], [address], 07/27/2022 15:39:36 07/27/20 22 07/27/2022 HGB A1C estimated average glucose 105.4 mg/dL Not Available [address], [address], 07/27/2022 15:39:36 07/27/20 22 07/27/2022 COMP. METAB OLIC PANEL glucose 103 mg/dL 70-100 high Not Available [address], [address], 07/27/2022 16:11:50 07/27/20 22 07/27/2022 COMP. METAB OLIC PANEL BUN 18 mg/dL 7-18 Not Available [address], [address], 07/27/2022 16:11:50 07/27/20 22 07/27/2022 COMP. METAB OLIC PANEL creatinine 0.8 mg/dL 0.8-1. 3 Not Available [address], [address], 07/27/2022 16:11:50 07/27/20 22 07/27/2022 COMP. METAB OLIC PANEL B/C 22.5 ratio Not Available [address], [address], 07/27/2022 16:11:50 07/27/20 22 07/27/2022 COMP. METAB OLIC PANEL GFR >=60ML /MIN mL/mi n normal >=60m L/min - Debbie l or midly reduc ed <60mL /min- Decre ased kidne y funct ion <15mL /min - Kidne y failu re [facility] calcu lates estim ated Glome rular Filtr ation Rate (eGFR ) using the Chron ic Kidne y Disea se Epide miolo gy Colla borat ion (CKD- EPI) Equat ion (Yael r et. al 2020) as recom ajit d by the Natio nal Kidne y Found ation . eGFR is based on age, serum creat inine , and sex. CKD-E PI does not calcu late eGFR by race, does not apply to child jairo (age <18 years ), and shoul d not be used in pregn willy. Not Available [address], [address], 07/27/2022 16:11:50 07/27/20 22 07/27/2022 COMP. METAB OLIC PANEL sodium 138 mmol/ L 136-14 5 Not Available [address], [address], 07/27/2022 16:11:50 07/27/20 22 07/27/2022 COMP. METAB OLIC PANEL potassium 5.1 mmol/ L 3.5-5. 1 Not Available [address], [address], 07/27/2022 16:11:50 07/27/20 22 07/27/2022 COMP. METAB OLIC PANEL chloride 102 mmol/ L 96-107 Not Available [address], [address], 07/27/2022 16:11:50 07/27/20 22 07/27/2022 COMP. METAB OLIC PANEL anion gap 9.6 5.0-15 .0 Not Available [address], [address], 07/27/2022 16:11:50 07/27/20 22 07/27/2022 COMP. METAB OLIC PANEL CO2 26 mmol/ L 21-32 Not Available [address], [address], 07/27/2022 16:11:50 07/27/20 22 07/27/2022 COMP. METAB OLIC PANEL calcium 8.3 mg/dL 8.5-10 .3 low Not Available [address], [address], 07/27/2022 16:11:50 07/27/20 22 07/27/2022 COMP. METAB OLIC PANEL total protein 7.1 g/dL 6.4-8. 2 Not Available [address], [address], 07/27/2022 16:11:50 07/27/20 22 07/27/2022 COMP. METAB OLIC PANEL albumin 4.5 g/dL 3.4-5. 0 Not Available [address], [address], 07/27/2022 16:11:50 07/27/20 22 07/27/2022 COMP. METAB OLIC PANEL globulin 2.6 g/dL Not Available [address], [address], 07/27/2022 16:11:50 07/27/20 22 07/27/2022 COMP. METAB OLIC PANEL A/G 1.7 ratio 0.8-2. 0 Not Available [address], [address], 07/27/2022 16:11:50 07/27/20 22 07/27/2022 COMP. METAB OLIC PANEL total bilirubin 0.80 mg/dL 0.00-1 .00 Not Available [address], [address], 07/27/2022 16:11:50 07/27/20 22 07/27/2022 COMP. METAB OLIC PANEL AST 18 U/L 0-37 Not Available [address], [address], 07/27/2022 16:11:50 07/27/20 22 07/27/2022 COMP. METAB OLIC PANEL ALT 24 U/L 6-63 Not Available [address], [address], 07/27/2022 16:11:50 07/27/20 22 07/27/2022 COMP. METAB OLIC PANEL alk. phos. 50 U/L 50-136 Not Available [address], [address], 07/27/2022 16:11:50 07/27/20 22 07/27/2022 LIPID PANEL cholesterol 211 mg/dL <200 mg/dl Fernie able 200-2 39 mg/dl Borde rline High >240 mg/dl High Not Available [address], [address], 07/27/2022 16:11:51 07/27/20 22 07/27/2022 LIPID PANEL triglyceride s 74 mg/dL <150 mg/dL Debbie l 150-1 99 mg/dL Borde rline High 200-4 99 mg/dL High >500 mg/dL Very High Not Available [address], [address], 07/27/2022 16:11:51 07/27/20 22 07/27/2022 LIPID PANEL direct HDL 101 mg/dL <40 mg/dl - Major Risk for CHD >60 mg/dl - Negat shelly Risk for CHD Not Available [address], [address], 07/27/2022 16:11:51 07/27/20 22 07/27/2022 DIREC T LDL direct LDL 88 mg/dL RISK CATEG ORY LDL GOAL _ CHD or CHD Risk Equiv alent s <100 mg/dl (10-y ear risk >20%) 2+ Risk Facto rs <130 mg/dl (10-y ear risk <= 20%) 0-1 Risk Facto r??? <160 mg/dl ??? Almos t all peopl e with 0-1 risk facto r have a 10 year risk <10%, thus 10 year risk asses ment in peopl e with 0-1 risk facto r is not karen jon. Not Available [address], [address], 07/27/2022 16:11:52 07/27/20 22 07/27/2022 ESR sed rate 3.0 0.0-15 .0 Not Available [address], [address], 07/27/2022 16:12:08 07/27/20 22 07/27/2022 MICRO ALBUM IN/CR EATIN INE RATIO PANEL , URINE microalbumin 4.0 mg/L 1.3-20 .0 Not Available [address], [address], 07/27/2022 16:23:11 07/27/20 22 07/27/2022 MICRO ALBUM IN/CR EATIN INE RATIO PANEL , URINE creatinine urine 46.3 mg/dL 30.0-1 25.0 Not Available [address], [address], 07/27/2022 16:23:11 07/27/20 22 07/27/2022 MICRO ALBUM IN/CR EATIN INE RATIO PANEL , URINE microalb/cre at ratio 8.6 mg/g_ creat 0.0-29 .0 Not Available [address], [address], 07/27/2022 16:23:11 07/27/20 22 07/27/2022 C-DREAD CTIVE PROTE IN-QU ANTIT ATIVE C-reactive protein -quant <2.0 mg/L 0.0-9. 0 < crp verif ied, cmd Not Available [address], [address], 07/27/2022 16:34:56 08/15/20 22 08/15/2022 CBC WBC 5.82 K/??L 3.98-1 0.04 Not Available [address], [address], 08/15/2022 11:08:46 08/15/20 22 08/15/2022 CBC RBC 4.18 M/??L 3.93-5 .22 Not Available [address], [address]275, 08/15/2022 11:08:46 08/15/20 22 08/15/2022 CBC HGB 13.9 g/dL 11.2-1 5.7 Not Available [address], [address], 08/15/2022 11:08:46 08/15/20 22 08/15/2022 CBC HCT 42.9 % 34.1-4 4.9 Not Available [address], [address], 08/15/2022 11:08:46 08/15/20 22 08/15/2022 CBC MCV 102.6 fL 79.4-9 4.8 high Not Available [address], [address], 08/15/2022 11:08:46 08/15/20 22 08/15/2022 CBC MCH 33.3 pg 25.6-3 2.2 high Not Available [address], [address], 08/15/2022 11:08:46 08/15/20 22 08/15/2022 CBC MCHC 32.4 g/dL 32.2-3 5.5 Not Available [address], [address]60, 08/15/2022 11:08:46 08/15/20 22 08/15/2022 CBC plt 249 K/??L 182-36 9 Not Available [address], [address]150, 08/15/2022 11:08:46 08/15/20 22 08/15/2022 CBC MPV 10.6 fL 9.4-12 .3 Not Available [address], [address], 08/15/2022 11:08:46 08/15/20 22 08/15/2022 CBC neut% 53.5 % 34.0-7 1.1 Not Available [address], [address], 08/15/2022 11:08:46 08/15/20 22 08/15/2022 CBC neut# 3.11 1.56-6 .13 Not Available [address], 26970, 08/15/2022 11:08:46 08/15/20 22 08/15/2022 CBC lymph % 29.2 % 19.3-5 1.7 Not Available [address], [address], 08/15/2022 11:08:46 08/15/20 22 08/15/2022 CBC lymph # 1.70 K/??L 1.18-3 .74 Not Available [address], 19878, 08/15/2022 11:08:46 08/15/20 22 08/15/2022 CBC mono% 9.6 % 4.7-12 .5 Not Available [address], [address], 08/15/2022 11:08:46 08/15/20 22 08/15/2022 CBC mono# 0.56 0.24-0 .56 Not Available [address], [address]259, 08/15/2022 11:08:46 08/15/20 22 08/15/2022 CBC eo% 6.5 % 0.7-5. 8 high Not Available [address], [address], 08/15/2022 11:08:46 08/15/20 22 08/15/2022 CBC eo# 0.38 0.04-0 .36 high Not Available [address], [address], 08/15/2022 11:08:46 08/15/20 22 08/15/2022 CBC baso% 0.7 % 0.1-1. 2 Not Available [address], [address]808, 08/15/2022 11:08:46 08/15/20 22 08/15/2022 CBC baso# 0.04 0.00-0 .08 Not Available [address], [address], 08/15/2022 11:08:46 08/15/20 22 08/15/2022 CBC RDW-CV 12.5 % 11.7-1 4.4 Not Available [address], [address], 08/15/2022 11:08:46 08/15/20 22 08/15/2022 CBC Ig% 0.500 % 0.000- 1.500 Ig % >0.5 Indic ates possi ble Left Shift Not Available [address], [address], 08/15/2022 11:08:46 08/15/20 22 08/15/2022 CBC Ig# 0.030 0.000- 0.093 Not Available [address], [address], 08/15/2022 11:08:46 08/15/20 22 08/15/2022 CBC NRBC% 0.0 % 0.0-0. 2 Not Available [address], [address], 08/15/2022 11:08:46 08/15/20 22 08/15/2022 CBC NRBC# 0.000 0.000- 0.012 Not Available [address], [address], 08/15/2022 11:08:46 08/15/20 22 08/15/2022 URINA LYSIS color YELLOW yellow Not Available [address], [address], 08/15/2022 12:11:55 08/15/20 22 08/15/2022 URINA LYSIS clarity CLEAR clear Not Available [address], [address], 08/15/2022 12:11:55 08/15/20 22 08/15/2022 URINA LYSIS glucose NEGATI VE negati ve Not Available [address], [address]649, 08/15/2022 12:11:55 08/15/20 22 08/15/2022 URINA LYSIS bilirubin NEGATI VE negati ve Not Available [address], [address], 08/15/2022 12:11:55 08/15/20 22 08/15/2022 URINA LYSIS ketones NEGATI VE negati ve Not Available [address], [address], 08/15/2022 12:11:55 08/15/20 22 08/15/2022 URINA LYSIS specific gravity 1.020 1.001- 1.035 Not Available [address], [address], 08/15/2022 12:11:55 08/15/20 22 08/15/2022 URINA LYSIS pH 7.0 5.0-8. 0 Not Available [address], [address]77, 08/15/2022 12:11:55 08/15/20 22 08/15/2022 URINA LYSIS protein NEGATI VE negati ve Not Available [address], [address], 08/15/2022 12:11:55 08/15/20 22 08/15/2022 URINA LYSIS urobilinogen 0.2 E.U./D L <1.0 Not Available [address], 09166, 08/15/2022 12:11:55 08/15/20 22 08/15/2022 URINA LYSIS nitrates NEGATI VE negati ve Not Available [address], 72693, 08/15/2022 12:11:55 08/15/20 22 08/15/2022 URINA LYSIS blood NEGATI VE negati ve Not Available [address], 7[address], 08/15/2022 12:11:55 08/15/20 22 08/15/2022 URINA LYSIS leukocytes NEGATI VE negati ve Not Available [address], 69652, 08/15/2022 12:11:55 08/15/20 22 08/15/2022 COMP. METAB OLIC PANEL glucose 106 mg/dL 70-100 high Not Available [address], 18095, 08/15/2022 14:45:51 08/15/20 22 08/15/2022 COMP. METAB OLIC PANEL BUN 12 mg/dL 7-18 Not Available [address], 22974, 08/15/2022 14:45:51 08/15/20 22 08/15/2022 COMP. METAB OLIC PANEL creatinine 1.1 mg/dL 0.8-1. 3 Not Available [address], 80389, 08/15/2022 14:45:51 08/15/20 22 08/15/2022 COMP. METAB OLIC PANEL B/C 10.9 ratio Not Available [address], 11726, 08/15/2022 14:45:51 08/15/20 22 08/15/2022 COMP. METAB OLIC PANEL GFR 55.1 mL/mi n abnormal >=60m L/min - Debbie l or midly reduc ed <60mL /min- Decre ased kidne y funct ion <15mL /min - Kidne y failu re [facility] calcu lates estim ated Glome rular Filtr ation Rate (eGFR ) using the Chron ic Kidne y Disea se Epide miolo gy Colla borat ion (CKD- EPI) Equat ion (Yael r et. al 2020) as recom ajit d by the Natio nal Kidne y Found ation . eGFR is based on age, serum creat inine , and sex. CKD-E PI does not calcu late eGFR by race, does not apply to child jairo (age <18 years ), and shoul d not be used in pregn willy. Not Available [address], [address], 08/15/2022 14:45:51 08/15/20 22 08/15/2022 COMP. METAB OLIC PANEL sodium 138 mmol/ L 136-14 5 Not Available [address], 84769, 08/15/2022 14:45:51 08/15/20 22 08/15/2022 COMP. METAB OLIC PANEL potassium 4.8 mmol/ L 3.5-5. 1 Not Available [address], 09346, 08/15/2022 14:45:51 08/15/20 22 08/15/2022 COMP. METAB OLIC PANEL chloride 99 mmol/ L 96-107 Not Available [address], [address]67, 08/15/2022 14:45:51 08/15/20 22 08/15/2022 COMP. METAB OLIC PANEL anion gap 8.1 5.0-15 .0 Not Available [address], [address]72, 08/15/2022 14:45:51 08/15/20 22 08/15/2022 COMP. METAB OLIC PANEL CO2 31 mmol/ L 21-32 Not Available [address], 11849, 08/15/2022 14:45:51 08/15/20 22 08/15/2022 COMP. METAB OLIC PANEL calcium 9.0 mg/dL 8.5-10 .3 Not Available [address], 82000, 08/15/2022 14:45:51 08/15/20 22 08/15/2022 COMP. METAB OLIC PANEL total protein 7.1 g/dL 6.4-8. 2 Not Available [address], 13286, 08/15/2022 14:45:51 08/15/20 22 08/15/2022 COMP. METAB OLIC PANEL albumin 4.3 g/dL 3.4-5. 0 Not Available [address], 91489, 08/15/2022 14:45:51 08/15/20 22 08/15/2022 COMP. METAB OLIC PANEL globulin 2.8 g/dL Not Available [address], 03438, 08/15/2022 14:45:51 08/15/20 22 08/15/2022 COMP. METAB OLIC PANEL A/G 1.5 ratio 0.8-2. 0 Not Available [address], 35944, 08/15/2022 14:45:51 08/15/20 22 08/15/2022 COMP. METAB OLIC PANEL total bilirubin 0.40 mg/dL 0.00-1 .00 Not Available [address], [id number], 08/15/2022 14:45:51 08/15/20 22 08/15/2022 COMP. METAB OLIC PANEL AST 15 U/L 0-37 Not Available [address], [address], 08/15/2022 14:45:51 08/15/20 22 08/15/2022 COMP. METAB OLIC PANEL ALT 27 U/L 6-63 Not Available [address], [address], 08/15/2022 14:45:51 08/15/20 22 08/15/2022 COMP. METAB OLIC PANEL alk. phos. 60 U/L 50-136 Not Available [address], [address], 08/15/2022 14:45:51 08/15/20 22 08/15/2022 TSH TSH 2.54 uIU/m L 0.50-6 .00 [employer] End[facility] rinol ogy and [employer] can Thyro id Assoc iatio n recom mend goal TSH value s betwe en 0.4-4 .0 mIU/m L. Not Available [address], [address], 08/15/2022 15:50:31 08/15/20 22 08/15/2022 PTH INTAC T PTH intact 70.0 pg/mL 9.6-66 .3 high Not Available [address], [address], 08/15/2022 15:50:32 08/15/20 22 08/16/2022 VITAM IN D 25-HY DROXY TOTAL vitamin D 25-hydroxy EIA 31.3 NG/mL 20.0-9 9.9 Thera py is based on measu remen t of total 25-OH D, with level s less than 20 ng/mL indic ative of Vitam in D defic iency . Level s betwe en 20ng/ mL and 30 ng/mL sugge st insuf ficie ncy. Optim al Level s are great er than 30 ng/mL . Not Available [address], [address], 08/16/2022 10:54:05 08/17/20 22 08/17/2022 CBC AND DIFFE RENTI AL WBC 12.45 K/uL 4.00-1 1.00 high Not Available [facility] (Out[facility]) [address] [place] [address], [address], 08/17/2022 09:27:12 08/17/20 22 08/17/2022 CBC AND DIFFE RENTI AL RBC 4.47 M/uL 3.72-5 .30 Not Available [facility] (Outpatient) [address] [place] [address], [address], 08/17/2022 09:27:12 08/17/20 22 08/17/2022 CBC AND DIFFE RENTI AL HGB 15.1 g/dL 11.4-1 5.9 Not Available [facility] (Outpatient) [address] [place] [address], [address], 08/17/2022 09:27:12 08/17/20 22 08/17/2022 CBC AND DIFFE RENTI AL HCT 45.6 % 34.2-4 6.8 Not Available [facility] (Outpatient) [address] [place], [address], 08/17/2022 09:27:12 08/17/20 22 08/17/2022 CBC AND DIFFE RENTI AL plt 227 K/uL 140-43 0 Not Available [facility] (Outpatient) [address] [place], [address], 08/17/2022 09:27:12 08/17/20 22 08/17/2022 CBC AND DIFFE RENTI AL MCV 102.0 fL 78.0-9 7.0 high Not Available [facility] (Outpatient) [address] [place], [address], 08/17/2022 09:27:12 08/17/20 22 08/17/2022 CBC AND DIFFE RENTI AL MCH 33.8 pg 25.0-3 3.0 high Not Available [facility] (Outpatient) [address] [place], [address], 08/17/2022 09:27:12 08/17/20 22 08/17/2022 CBC AND DIFFE RENTI AL MCHC 33.1 g/dL 32.0-3 6.0 Not Available [facility] (Outpatient) [address] [place], [address], 08/17/2022 09:27:12 08/17/20 22 08/17/2022 CBC AND DIFFE RENTI AL RDW 12.6 % 11.0-1 6.0 Not Available [facility] (Outpatient) [address] [place], [address], 08/17/2022 09:27:12 08/17/20 22 08/17/2022 CBC AND DIFFE RENTI AL MPV 10.0 fL 8.4-12 .8 Not Available [facility] (Outpatient) [address] [place], [address], 08/17/2022 09:27:12 08/17/20 22 08/17/2022 CBC AND DIFFE RENTI AL diff method AUTO Not Available [facility] (Outpatient) [address] [place], [address], 08/17/2022 09:27:12 08/17/20 22 08/17/2022 CBC AND DIFFE RENTI AL neuts 78.1 % 43.0-7 5.0 high Not Available [facility] (Outpatient) [address] [place], [address], 08/17/2022 09:27:12 08/17/20 22 08/17/2022 CBC AND DIFFE RENTI AL lymphs 10.6 % 18.2-4 7.4 low Not Available [facility] (Outpatient) [address] [place], [address], 08/17/2022 09:27:12 08/17/20 22 08/17/2022 CBC AND DIFFE RENTI AL monos 7.5 % 4.00-1 1.00 Not Available [facility] (Outpatient) [address] [place], [address], 08/17/2022 09:27:12 08/17/20 22 08/17/2022 CBC AND DIFFE RENTI AL eos 3.2 % 0.0-8. 0 Not Available [facility] (Outpatient) [address] [place], [address], 08/17/2022 09:27:12 08/17/20 22 08/17/2022 CBC AND DIFFE RENTI AL basos 0.3 % 0.0-2. 0 Not Available [facility] (Outpatient) [address] [place], [address], 08/17/2022 09:27:12 08/17/20 22 08/17/2022 CBC AND DIFFE RENTI AL granulocytes , immature (%) 0.3 % 0.0-0. 9 Not Available [facility] (Outpatient) [address] [place], [address], 08/17/2022 09:27:12 08/17/20 22 08/17/2022 CBC AND DIFFE RENTI AL absolute neuts 9.72 K/uL 1.80-7 .70 high Not Available [facility] (Outpatient) [address] [place], [address], 08/17/2022 09:27:12 08/17/20 22 08/17/2022 CBC AND DIFFE RENTI AL absolute lymphs 1.32 K/uL 1.00-3 .10 Not Available [facility] (Outpatient) [address] [place], [address], 08/17/2022 09:27:12 08/17/20 22 08/17/2022 CBC AND DIFFE RENTI AL absolute monos 0.93 K/uL 0.20-0 .80 high Not Available [facility] (Outpatient) [address] [place], [address], 08/17/2022 09:27:12 08/17/20 22 08/17/2022 CBC AND DIFFE RENTI AL absolute eos 0.40 K/uL 0.00-0 .80 Not Available [facility] (Outpatient) [address] [place], [address], 08/17/2022 09:27:12 08/17/20 22 08/17/2022 CBC AND DIFFE RENTI AL absolute basos 0.04 K/uL 0.00-0 .09 Not Available [facility] (Outpatient) [address] [place], [address], 08/17/2022 09:27:12 08/17/20 22 08/17/2022 CBC AND DIFFE RENTI AL granulocytes , immature 0.04 K/uL 0.00-0 .05 Not Available [facility] (Outpatient) [address] [place], [address], 08/17/2022 09:27:12 08/17/20 22 08/17/2022 URINA LYSIS W/REF LUKASZ URINE CULTU RE color STEPHANIE yellow abnormal Not Available [facility] (Outpatient) [address] [place], [address], 08/17/2022 09:46:49 08/17/20 22 08/17/2022 URINA LYSIS W/REF LUKASZ URINE CULTU RE clarity Clear Not Available [facility] (Outpatient) [address] [place], [address], 08/17/2022 09:46:49 08/17/20 22 08/17/2022 URINA LYSIS W/REF LUKASZ URINE CULTU RE glucose Negati ve negati ve Not Available [facility] (Outpatient) [address] [place], [address], 08/17/2022 09:46:49 08/17/20 22 08/17/2022 URINA LYSIS W/REF LUKASZ URINE CULTU RE bili Negati ve negati ve Not Available [facility] (Outpatient) [address] [place], [address], 08/17/2022 09:46:49 08/17/20 22 08/17/2022 URINA LYSIS W/REF LUKASZ URINE CULTU RE ketones Negati ve negati ve Not Available [facility] (Outpatient) [address] [place], [address], 08/17/2022 09:46:49 08/17/20 22 08/17/2022 URINA LYSIS W/REF LUKASZ URINE CULTU RE specific gravity 1.025 1.005- 1.030 Not Available [facility] (Outpatient) [address] [place], [address], 08/17/2022 09:46:49 08/17/20 22 08/17/2022 URINA LYSIS W/REF LUKASZ URINE CULTU RE blood 1+ negati ve abnormal Not Available [facility] (Outpatient) [address] [place], [address], 08/17/2022 09:46:49 08/17/20 22 08/17/2022 URINA LYSIS W/REF LUKASZ URINE CULTU RE pH 6.0 5.0-8. 0 Not Available [facility] (Outpatient) [address] [place], [address], 08/17/2022 09:46:49 08/17/20 22 08/17/2022 URINA LYSIS W/REF LUKASZ URINE CULTU RE protein Negati ve negati ve Not Available [facility] (Outpatient) [address] [place], [address], 08/17/2022 09:46:49 08/17/20 22 08/17/2022 URINA LYSIS W/REF LUKASZ URINE CULTU RE nitrite Negati ve negati ve Not Available [facility] (Outpatient) [address] [place], [address], 08/17/2022 09:46:49 08/17/20 22 08/17/2022 URINA LYSIS W/REF LUKASZ URINE CULTU RE leukocyte esterase, ur Negati ve negati ve Not Available [facility] (Outpatient) [address] [place], [address], 08/17/2022 09:46:49 08/17/20 22 08/17/2022 URINE SEDIM ENT WBC 0-4 /hpf none seen abnormal Not Available [facility] (Outpatient) [address] [place], [address], 08/17/2022 09:48:11 08/17/20 22 08/17/2022 URINE SEDIM ENT RBC 0-2 /hpf none seen abnormal Not Available [facility] (Outpatient) [address] [place], [address], 08/17/2022 09:48:11 08/17/20 22 08/17/2022 URINE SEDIM ENT urine epithelial 0-4 none seen abnormal Not Available [facility] (Outpatient) [address] [place], [address], 08/17/2022 09:48:11 08/17/20 22 08/17/2022 URINE SEDIM ENT mucus 2+ /hpf none seen abnormal Not Available [facility] (Outpatient) [address] [place], [address], 08/17/2022 09:48:11 08/17/20 22 08/17/2022 URINE SEDIM ENT bacteria Trace /hpf none seen abnormal Not Available [facility] (Outpatient) [address] [place], [address], 08/17/2022 09:48:11 08/17/20 22 08/17/2022 BASIC METAB OLIC PANEL sodium 139 mmol/ L 133-14 6 Not Available [facility] (Outpatient) [address] [place], [address], 08/17/2022 09:55:46 08/17/20 22 08/17/2022 BASIC METAB OLIC PANEL chloride 101 mmol/ L 96-108 Not Available [facility] (Outpatient) [address] [place], [address], 08/17/2022 09:55:46 08/17/20 22 08/17/2022 BASIC METAB OLIC PANEL potassium 4.4 mmol/ L 3.3-5. 1 Not Available [facility] (Outpatient) [address] [place], [address], 08/17/2022 09:55:46 08/17/20 22 08/17/2022 BASIC METAB OLIC PANEL CO2 27 mmol/ L 21-35 Not Available [facility] (Outpatient) [address] [place], [address], 08/17/2022 09:55:46 08/17/20 22 08/17/2022 BASIC METAB OLIC PANEL BUN 16 mg/dL 6-19 Not Available [facility] (Outpatient) [address] [place], [address], 08/17/2022 09:55:46 08/17/20 22 08/17/2022 BASIC METAB OLIC PANEL creatinine 0.90 mg/dL 0.5-1. 5 Not Available [facility] (Outpatient) [address] [place], [address], 08/17/2022 09:55:46 08/17/20 22 08/17/2022 BASIC METAB OLIC PANEL glucose 158 mg/dL 70-99 high Not Available [facility] (Outpatient) [address] [place] [address], [address], 08/17/2022 09:55:46 08/17/20 22 08/17/2022 BASIC METAB OLIC PANEL calcium 9.8 mg/dL 8.4-10 .3 Not Available [facility] (Outpatient) [address] [place] [address], [id number], 08/17/2022 09:55:46 08/17/20 22 08/17/2022 BASIC METAB OLIC PANEL eGFR 70 mL/mi n/1.7 3m2 >59 Estim ated glome rular filtr ation rate calcu lated using the CKD-E PI refit equat ion. Not Available [facility] (Outpatient) [address] [place] [address], [address], 08/17/2022 09:55:46 08/17/20 22 08/17/2022 BASIC METAB OLIC PANEL anion gap 15 mmol/ L 10-20 Not Available [facility] (Outpatient) [address] [place] [address], [address], 08/17/2022 09:55:46 08/17/20 22 08/17/2022 LFTS (HEPA TIC PANEL ) alkaline phosphatase 67 U/L 39-117 Not Available [facility] (Outpatient) [address] [place], [address], 08/17/2022 09:55:48 08/17/20 22 08/17/2022 LFTS (HEPA TIC PANEL ) total bilirubin 0.5 mg/dL 0.0-1. 2 Not Available [facility] (Outpatient) [address] [place], [address], 08/17/2022 09:55:48 08/17/20 22 08/17/2022 LFTS (HEPA TIC PANEL ) direct bilirubin <0.2 mg/dL 0-0.3 Not Available [facility] (Outpatient) [address] [place], [address], 08/17/2022 09:55:48 08/17/20 22 08/17/2022 LFTS (HEPA TIC PANEL ) bilirubin (indirect) NOT CALCUL ATED mg/dL 0-1.5 Not Available [facility] (Outpatient) [address] [place], [address], 08/17/2022 09:55:48 08/17/20 22 08/17/2022 LFTS (HEPA TIC PANEL ) AST 16 U/L 0-37 Not Available [facility] (Outpatient) [address] [place], [address], 08/17/2022 09:55:48 08/17/20 22 08/17/2022 LFTS (HEPA TIC PANEL ) ALT 16 U/L 0-40 Not Available [facility] (Outpatient) [address] [place], [address], 08/17/2022 09:55:48 08/17/20 22 08/17/2022 LFTS (HEPA TIC PANEL ) total protein 7.0 g/dL 6.5-8. 0 Not Available [facility] (Outpatient) [address] [place], [address], 08/17/2022 09:55:48 08/17/20 22 08/17/2022 LFTS (HEPA TIC PANEL ) albumin 4.7 g/dL 3.9-4. 8 Not Available [facility] (Outpatient) [address] [place], [address], 08/17/2022 09:55:48 08/17/20 22 08/17/2022 LFTS (HEPA TIC PANEL ) globulin 2.3 g/dL 1-4.8 Not Available [facility] (Outpatient) [address] [place], [address], 08/17/2022 09:55:48 08/17/20 22 08/17/2022 LFTS (HEPA TIC PANEL ) A/G ratio 2.04 ratio 1.00-4 .80 Not Available [facility] (Outpatient) [address] [place] [address], [address], 08/17/2022 09:55:48 08/17/20 22 08/17/2022 MAGNE SIUM magnesium 2.0 mg/dL 1.6-2. 6 Not Available [facility] (Outpatient) [address] [place], [address], 08/17/2022 09:55:49 11/13/20 22 11/13/2022 VITAM IN D 25-HY DROXY TOTAL vitamin D 25-hydroxy EIA 34.2 NG/mL 20.0-9 9.9 Thera py is based on measu remen t of total 25-OH D, with level s less than 20 ng/mL indic ative of Vitam in D defic iency . Level s betwe en 20ng/ mL and 30 ng/mL sugge st insuf ficie ncy. Optim al Level s are great er than 30 ng/mL . Not Available [address], [place], [address], 11/13/2022 11:38:16 11/13/20 22 11/13/2022 PTH INTAC T WITH CALCI UM PTH intact 63.0 pg/mL 9.6-66 .3 Not Available [facility] [address] [place], [address], 11/13/2022 15:44:47 11/13/20 22 11/13/2022 PTH INTAC T WITH CALCI UM calcium 9.0 mg/dL 8.5-10 .3 Not Available [facility] [address] [place], [address], 11/13/2022 15:44:47 01/03/20 23 01/03/2023 CBC AND DIFFE RENTI AL WBC 4.72 K/uL 4.00-1 1.00 Not Available [facility] (Outpatient) [address] [place] [address], [id number], 01/03/2023 08:59:34 01/03/20 23 01/03/2023 CBC AND DIFFE RENTI AL RBC 3.80 M/uL 3.72-5 .30 Not Available [facility] (Outpatient) [address] [place] [address], [address], 01/03/2023 08:59:34 01/03/20 23 01/03/2023 CBC AND DIFFE RENTI AL HGB 12.8 g/dL 11.4-1 5.9 Not Available [facility] (Outpatient) [address] [place] [address], [address], 01/03/2023 08:59:34 01/03/20 23 01/03/2023 CBC AND DIFFE RENTI AL HCT 38.3 % 34.2-4 6.8 Not Available [facility] (Outpatient) [address] [place] [address], [address], 01/03/2023 08:59:34 01/03/20 23 01/03/2023 CBC AND DIFFE RENTI AL plt 212 K/uL 140-43 0 Not Available [facility] (Outpatient) [address] [place] [address], [address], 01/03/2023 08:59:34 01/03/20 23 01/03/2023 CBC AND DIFFE RENTI AL MCV 100.8 fL 78.0-9 7.0 high Not Available [facility] (Outpatient) [address] [place], [address], 01/03/2023 08:59:34 01/03/20 23 01/03/2023 CBC AND DIFFE RENTI AL MCH 33.7 pg 25.0-3 3.0 high Not Available [facility] (Outpatient) [address] [place], [address], 01/03/2023 08:59:34 01/03/20 23 01/03/2023 CBC AND DIFFE RENTI AL MCHC 33.4 g/dL 32.0-3 6.0 Not Available [facility] (Outpatient) [address] [place], [address], 01/03/2023 08:59:34 01/03/20 23 01/03/2023 CBC AND DIFFE RENTI AL RDW 14.1 % 11.0-1 6.0 Not Available [facility] (Outpatient) [address] [place], [address], 01/03/2023 08:59:34 01/03/20 23 01/03/2023 CBC AND DIFFE RENTI AL MPV 9.6 fL 8.4-12 .8 Not Available [facility] (Outpatient) [address] [place], [address], 01/03/2023 08:59:34 01/03/20 23 01/03/2023 CBC AND DIFFE RENTI AL diff method AUTO Not Available [facility] (Outpatient) [address] [place], [address], 01/03/2023 08:59:34 01/03/20 23 01/03/2023 CBC AND DIFFE RENTI AL neuts 59.8 % 43.0-7 5.0 Not Available [facility] (Outpatient) [address] [place], [address], 01/03/2023 08:59:34 01/03/20 23 01/03/2023 CBC AND DIFFE RENTI AL lymphs 23.9 % 18.2-4 7.4 Not Available [facility] (Outpatient) [address] [place], [address], 01/03/2023 08:59:34 01/03/20 23 01/03/2023 CBC AND DIFFE RENTI AL monos 12.3 % 4.00-1 1.00 high Not Available [facility] (Outpatient) [address] [place], [address], 01/03/2023 08:59:34 01/03/20 23 01/03/2023 CBC AND DIFFE RENTI AL eos 3.2 % 0.0-8. 0 Not Available [facility] (Outpatient) [address] [place], [address], 01/03/2023 08:59:34 01/03/20 23 01/03/2023 CBC AND DIFFE RENTI AL basos 0.2 % 0.0-2. 0 Not Available [facility] (Outpatient) [address] [place], [address], 01/03/2023 08:59:34 01/03/20 23 01/03/2023 CBC AND DIFFE RENTI AL granulocytes , immature (%) 0.6 % 0.0-0. 9 Not Available [facility] (Outpatient) [address] [place], [address], 01/03/2023 08:59:34 01/03/20 23 01/03/2023 CBC AND DIFFE RENTI AL absolute neuts 2.82 K/uL 1.80-7 .70 Not Available [facility] (Outpatient) [address] [place], [address], 01/03/2023 08:59:34 01/03/20 23 01/03/2023 CBC AND DIFFE RENTI AL absolute lymphs 1.13 K/uL 1.00-3 .10 Not Available [facility] (Outpatient) [address] [place], [address], 01/03/2023 08:59:34 01/03/20 23 01/03/2023 CBC AND DIFFE RENTI AL absolute monos 0.58 K/uL 0.20-0 .80 Not Available [facility] (Outpatient) [address] [place], [address], 01/03/2023 08:59:34 01/03/20 23 01/03/2023 CBC AND DIFFE RENTI AL absolute eos 0.15 K/uL 0.00-0 .80 Not Available [facility] (Outpatient) [address] [place], [address], 01/03/2023 08:59:34 01/03/20 23 01/03/2023 CBC AND DIFFE RENTI AL absolute basos 0.01 K/uL 0.00-0 .09 Not Available [facility] (Outpatient) [address] [place], [address], 01/03/2023 08:59:34 01/03/20 23 01/03/2023 CBC AND DIFFE RENTI AL granulocytes , immature 0.03 K/uL 0.00-0 .05 Not Available [facility] (Outpatient) [address] [place], [address], 01/03/2023 08:59:34 01/03/20 23 01/03/2023 DOMINGUEZ MARTINEZ JOSELYN RESPI RATOR Y VIRAL ORDER (PRO) test ordered COVID, FLU HAS BEEN ORDERE D Not Available [facility] (Outpatient) [address] [place], [address], 01/03/2023 09:00:25 01/03/20 23 01/03/2023 COVID JUAN JOSELYN RESPI RATOR Y VIRAL ORDER (PRO) specimen source/descr iption NASOPH GREERFATOU AL SWAB Not Available [facility] (Outpatient) [address] [place], [address], 01/03/2023 09:00:25 01/03/20 23 01/03/2023 COVID JUAN JOSELYN RESPI RATOR Y VIRAL ORDER (PRO) influenza A PCR NOT DETECT ED not detect ed Not Available [facility] (Outpatient) [address] [place], [address], 01/03/2023 09:00:25 01/03/20 23 01/03/2023 COVID JUAN JOSELYN RESPI RATOR Y VIRAL ORDER (PRO) influenza B PCR NOT DETECT ED not detect ed Not Available [facility] (Outpatient) [address] [place], [address], 01/03/2023 09:00:25 01/03/20 23 01/03/2023 COVID JUAN JOSELYN RESPI RATOR Y VIRAL ORDER (PRO) sars-cov 2 (covid-19) PCR DETECT ED not detect ed abnormal SARS- CoV-2 detec criss This test has been autho rized by the FDA under an Emerg ency Use Autho rizat ion (EUA) for use by autho rized labor atori es. Not Available [facility] (Outpatient) [address] [place], [address], 01/03/2023 09:00:25 01/03/20 23 01/03/2023 TROPO NUVIA troponin-T, hs gen5 <6 NG/L 0-9 Not Available [facility] (Outpatient) [address] [place], [address], 01/03/2023 09:20:18 01/03/20 23 01/03/2023 BASIC METAB OLIC PANEL sodium 138 mmol/ L 133-14 6 Not Available [facility] (Outpatient) [address] [place], [address], 01/03/2023 09:31:52 01/03/20 23 01/03/2023 BASIC METAB OLIC PANEL chloride 103 mmol/ L 96-108 Not Available [facility] (Outpatient) [address] [place], [address], 01/03/2023 09:31:52 01/03/20 23 01/03/2023 BASIC METAB OLIC PANEL potassium 4.7 mmol/ L 3.3-5. 1 Not Available [facility] (Outpatient) [address] [place], [address], 01/03/2023 09:31:52 01/03/20 23 01/03/2023 BASIC METAB OLIC PANEL CO2 27 mmol/ L 21-35 Not Available [facility] (Outpatient) [address] [place], [address], 01/03/2023 09:31:52 01/03/20 23 01/03/2023 BASIC METAB OLIC PANEL BUN 11 mg/dL 6-19 Not Available [facility] (Outpatient) [address] [place], [address], 01/03/2023 09:31:52 01/03/20 23 01/03/2023 BASIC METAB OLIC PANEL creatinine 0.80 mg/dL 0.5-1. 5 Not Available [facility] (Outpatient) [address] [place], [address], 01/03/2023 09:31:52 01/03/20 23 01/03/2023 BASIC METAB OLIC PANEL glucose 138 mg/dL 70-99 high Not Available [facility] (Outpatient) [address] [place], [address], 01/03/2023 09:31:52 01/03/20 23 01/03/2023 BASIC METAB OLIC PANEL calcium 9.4 mg/dL 8.4-10 .3 Not Available [facility] (Outpatient) [address] [place], [address], 01/03/2023 09:31:52 01/03/20 23 01/03/2023 BASIC METAB OLIC PANEL eGFR 80 mL/mi n/1.7 3m2 >59 Estim ated glome rular filtr ation rate calcu lated using the CKD-E PI refit equat ion. Not Available [facility] (Outpatient) [address] [place], [address], 01/03/2023 09:31:52 01/03/20 23 01/03/2023 BASIC METAB OLIC PANEL anion gap 13 mmol/ L 10-20 Not Available [facility] (Outpatient) [address] [place], [address], 01/03/2023 09:31:52 01/03/20 23 01/03/2023 TROPO NUVIA troponin-T, hs gen5 <6 NG/L 0-9 Not Available [facility] (Outpatient) [address] [place], [address], 01/03/2023 10:36:22 01/03/20 23 01/03/2023 D-DIM ER D-dimer 1134 NG/mL _feu <500 high In patie nts with low to moder ate pre-t est proba bilit y score s for VTE (PE or DVT), a D-Dim er cut-o ff less than 500 ng/mL (FEU) has a negat shelly predi ctive value (NPV) of 97 to 100%. Not Available [facility] (Outpatient) [address] [place], [address], 01/03/2023 11:03:28 02/23/2002/22/2023 HGB A1C hemoglobin A1C 6.5 % 4.8-6. 0 high Goal: <7% in Patie nts with Diabe leah An A1c betwe en 5.7-6 .4% is ident ified as pre-d iabet es and sugge sts risk for progr essio n to diabe leah Two a1c value s of 6.5% or highe r is consi stent with a diagn osis of diabe leah but may need furth er confi rmati on Not Available [address], [address], 02/22/2023 12:10:37 02/23/20 23 02/22/2023 HGB A1C estimated average glucose 139.9 mg/dL Not Available [address], [address], 02/22/2023 12:10:37 02/23/20 23 02/22/2023 BASIC METAB OLIC PANEL glucose 143 mg/dL 70-100 high Not Available [address], [address], 02/22/2023 16:37:32 02/23/20 23 02/22/2023 BASIC METAB OLIC PANEL BUN 14 mg/dL 7-18 Not Available [address], [address], 02/22/2023 16:37:32 02/23/20 23 02/22/2023 BASIC METAB OLIC PANEL creatinine 0.9 mg/dL 0.8-1. 3 Not Available [address], [address], 02/22/2023 16:37:32 02/23/20 23 02/22/2023 BASIC METAB OLIC PANEL B/C 15.6 ratio Not Available [address], [address], 02/22/2023 16:37:32 02/23/20 23 02/22/2023 BASIC METAB OLIC PANEL GFR >=60ML /MIN mL/mi n normal >=60m L/min - Debbie l or midly reduc ed <60mL /min- Decre ased kidne y funct ion <15mL /min - Kidne y failu re [facility] calcu lates estim ated Glome rular Filtr ation Rate (eGFR ) using the Chron ic Kidne y Disea se Epide miolo gy Colla borat ion (CKD- EPI) Equat ion (Yael r et. al 2020) as recom ajit d by the Tristin mercado . eGFR is based on age, serum creat inine , and sex. CKD-E PI does not calcu late eGFR by race, does not apply to child jairo (age <18 years ), and shoul d not be used in pregn willy. Not Available [address], [address], 02/22/2023 16:37:32 02/23/20 23 02/22/2023 BASIC METAB OLIC PANEL sodium 140 mmol/ L 136-14 5 Not Available [address], [address], 02/22/2023 16:37:32 02/23/20 23 02/22/2023 BASIC METAB OLIC PANEL potassium 5.3 mmol/ L 3.5-5. 1 high Not Available [address], [address], 02/22/2023 16:37:32 02/23/20 23 02/22/2023 BASIC METAB OLIC PANEL chloride 103 mmol/ L 96-107 Not Available [address], [address], 02/22/2023 16:37:32 02/23/20 23 02/22/2023 BASIC METAB OLIC PANEL anion gap 9.5 5.0-15 .0 Not Available [address], [address], 02/22/2023 16:37:32 02/23/20 23 02/22/2023 BASIC METAB OLIC PANEL CO2 28 mmol/ L 21-32 Not Available [address], [address], 02/22/2023 16:37:32 02/23/20 23 02/22/2023 BASIC METAB OLIC PANEL calcium 9.0 mg/dL 8.5-10 .3 Not Available [address], [address], 02/22/2023 16:37:32 02/23/2002/22/2023 LIPID PANEL cholesterol 205 mg/dL <200 mg/dl Fernie able 200-2 39 mg/dl Borde rline High >240 mg/dl High Not Available [address], [address], 02/22/2023 16:37:34 02/23/20 23 02/22/2023 LIPID PANEL triglyceride s 61 mg/dL <150 mg/dL Debbie l 150-1 99 mg/dL Borde rline High 200-4 99 mg/dL High >500 mg/dL Very High Not Available [address], [address], 02/22/2023 16:37:34 02/23/20 23 02/22/2023 LIPID PANEL direct HDL 90 mg/dL <40 mg/dl - Major Risk for CHD >60 mg/dl - Negat shelly Risk for CHD Not Available [address], [address], 02/22/2023 16:37:34 02/23/20 23 02/22/2023 DIREC T LDL direct LDL 90 mg/dL RISK CATEG ORY LDL GOAL _ CHD or CHD Risk Equiv alent s <100 mg/dl (10-y ear risk >20%) 2+ Risk Facto rs <130 mg/dl (10-y ear risk <= 20%) 0-1 Risk Facto r??? <160 mg/dl ??? Almos t all peopl e with 0-1 risk facto r have a 10 year risk <10%, thus 10 year risk asses ment in peopl e with 0-1 risk facto r is not necterri dontrell. Not Available [address], [address], 02/22/2023 16:37:36 02/23/20 23 02/25/2023 MICRO ALBUM IN/CR EATIN INE RATIO PANEL , URINE microalbumin 2.7 mg/L 1.3-20 .0 Not Available [address], [address], 02/25/2023 10:18:19 02/23/20 23 02/25/2023 MICRO ALBUM IN/CR EATIN INE RATIO PANEL , URINE creatinine urine 46.3 mg/dL 30.0-1 25.0 Not Available [address], [address], 02/25/2023 10:18:19 02/23/20 23 02/25/2023 MICRO ALBUM IN/CR EATIN INE RATIO PANEL , URINE microalb/cre at ratio 5.8 mg/g_ creat 0.0-29 .0 Not Available [address], [address], 02/25/2023 10:18:19 08/09/20 22 08/09/2022 xr wrist 3 or more views (righ t) XR WRIST 3 OR MORE VIEWS (RIGHT ) COMPAR MIKE: None FINDIN GS: There is mild soft tissue swelli ng in the medial aspect of the wrist. There is minima l perios titis at the radial aspect of the distal radius . No acute fractu re or disloc ation. IMPRES MARIA E: Findin gs sugges ting first extens or compar tment (De Querva in's) tenosmaryuri noviti s. Electr onical ly Signed by: Shanna Collins on 022 3:13 PM Interp reted by: Shanna Collins MD Signed by: Shanna Collins MD 2 Final result Right wrist pain JORDYN Candelaria GUMP mgump [facility] [address], [place], [address], 08/09/2022 15:37:21 08/14/20 22 08/14/2022 xr knee 3 view (left ) This image report has been auto-f inaliz ed and has not been read by a Radiol ogist. Interp retati on has been includ ed in the [facility] er encoun ter note for this date of jennifer velez. Final result JORDYN ROWE mgump [facility] [address] [facility] [place], [address], 08/14/2022 15:15:27 08/15/20 22 08/19/2020 XR, chest , 2 view No observ ation record ed. SHARON Not Available 2021 07:47:57 08/15/20 22 08/15/2022 XR, chest CLINIC AL HISTOR Y: Vasova gal reacti on. Sudden onset sweati ng. TECHNI QUE: Fronta l view and latera l view of the chest obtain ed. COMPAR MIKE: 019 FINDIN GS: The heart is normal in size and config uratio n.Ther e is no hilar or medias tinal enlarg ement. There is no focal lung consol idatio n or infilt rate. The bony thorax is intact . IMPRES MARIA E: No acute diseas e. Readin g Physic leda: Chen Javier ms [facility] (Imaging) [address] , [place], [address], 08/21/2022 07:49:54 08/17/20 22 08/17/2022 CT abdom en/pe lvis with contr ast CT ABDOME N/PELV IS WITH CONTRA ST TECHNI QUE: Multid etecto r-row CT of the abdome n and pelvis was perfor med after admini strati on of intrav enous contra st using tailor ed dose modula tion techni ques. Images were recons tructe d in the axial, levin l, and sagitt al planes . COMPAR MIKE: CT ABDOME N/PELV IS WITH CONTRA ST 2018-N ov-14 FINDIN GS: Lower Chest: No consol idatio n or pleura l effusi ons. Liver: Unchan ged 0.4 cm subcap sular hypode nsity in segmen t 5 (3:27) . No new lesion . Biliar y: No biliar y ductal dilata tion. Spleen : No spleno megaly or focal lesion s. Pancre as: No masses or ductal dilata tion. Adrena l Glands : No nodule s. Kidney s/Uret ers: Puncta te nonobs tructi ve stone in the left midpol e. No hydron ephros is. Bowel: Wall thicke rickie/e jen involv ing the sigmoi d colon likely repres ent underl laura divert iculit is second pamela to an inflam ed divert iculum . No abnorm al bowel dilata tion. Perito neum/R etrope ritone um: Iraida lonic fat strand ing and trace fluid in the sigmoi d region . No free air Lymph Nodes: No lympha denopa thy. Pelvic Organs /Bladd er: Underd istend ed urinar y bladde r. Vessel s: Athero sclero sis of the nonane urysma l abdomi nal aorta. Bones/ Soft Tissue s: Tiny fat-co ntaini ng umbili chuck hernia . Left fat-co ntaini ng inguin al hernia . Multil evel degene rative change s of the spine. No new osseou s destru ctive lesion . IMPRES MARIA E: 1.Wall thicke rickie/e jen involv ing the sigmoi d colon with adjace nt iraida lonic strand ing and trace free fluid likely repres ents acute divert iculit is. No adjace nt collec tion or macrop erfora tion. A clinic ally signif icant result was commun icated and docume nted via a closed loop commun icatio n system . ATTEST ATION: I, Tavia tom as florenciai shanna physic leda, have review ed the images for this case and if necess pamela edited the report origin kaden create d by Sandro Hickman. Electr onical ly Signed by: Tavia tom on 022 11:52 AM Interp reted by: MD Sandro Jiang MD Signed by: Tavia tom MD 2 Final result [id number] Open Critic al URAN A [id number] [facility] [address], [place], [address], 08/17/2022 17:04:27 01/03/20 23 01/03/2023 XR, chest , 1 view XR CHEST 1 VIEW COMPAR MIKE: None. FINDIN GS: Device s/Tube s/Line s: None. Lungs: No focal consol idatio n or pulmon pamela edema. Pleura : No pleura l effusi on or pneumo thorax . Heart/ Medias tinum: Normal heart size. Bones/ Soft Tissue s: No signif icant skelet al abnorm ality. IMPRES MARIA E: No focal consol idatio n. Electr onical ly Signed by: Adore Thomson on 023 9:06 AM Interp reted by: Adore Thomson MD Signed by: Adore Thomson MD 3 Final result Shortn ess of breath , covid+ as of last week. [facility] [address], [place], [address], 02/28/2023 10:25:35 01/03/20 23 01/03/2023 CT chest pulmo nary angio gram (acut e) CT CHEST PULMON PAMELA ANGIOG MIN (ACUTE ) TECHNI QUE: Multid etecto r CT pulmon pamela angiog gerald was perfor med after admini strati on of intrav enous contra st using tailor ed dose modula tion techni ques. 3D angiog raphic postpr ocessi ng techni ques were acquir ed in the form of axial maximu m intens ity projec tion images (MIPS) . COMPAR MIKE: CT ABDOME N/PELV IS WITH CONTRA ST ep-30 FINDIN GS: Pulmon pamela Angiog min: Techni chuck qualit y: There is adequa te opacif icatio n of the pulmon pamela arteri es. No fillin g defect to sugges t pulmon pamela emboli sm. Device s/Tube s/Line s: None. Lungs: Diffus e mosaic attenu ation of the bilate ral lungs. Bibasi lar subseg mental atelec tasis, right greate r than left. Mild diffus e bronch ial wall thicke rickie with scatte red areas of mucus pluggi ng in the bilate ral lower lobes. Pleura : No pleura l effusi on or pneumo thorax . Medias tinum: No thyroi d nodule s. Normal heart size. Post surgic al change s along the lower esopha dianna at the level of the GE juncti on with mild soft tissue thicke rickie along the suture margin . Lymph Nodes: No enlarg ed suprac lavicu lar, axilla ry, medias tinal, or hilar lymph nodes. Upper Abdome n: Nonobs tructi ve puncta te left calyce al stones . No hydron ephros is. Chest Wall: No chest wall mass. Bones: Mild degene rative change s of the spine. IMPRES MARIA E: 1. No pulmon pamela emboli sm. No focal consol idatio n. 2. Mild diffus e bronch ial wall thicke rickie with areas of mucus pluggi ng, can be seen in infect ious or inflam matory bronch itis and/or aspira tion given below. 3. Patulo us esopha dianna with mild circum ferent ial wall thicke rickie along post surgic al change s of the GE juncti on, may be second pamela to dysmot ility and/or reflux esopha gitis. 4. Diffus e bilate ral mosaic attenu ation can be seen in small airway s diseas e and/or second pamela to expira tory phase CT. ATTEST ATION: IAdore as teachi ng physic leda, have review ed the images for this case and if necess pamela edited the report origin kaden stein by Lori Mcintosh. Electr onical ly Signed by: Adore Thomson on 023 12:45 PM Interp reted by: MD Lori Rodney MD Signed by: Adore Thomson MD 3 Final result increa sed shortn ess of breath and chest pain. She report s testin g positi ve for Covid last Thursd ay JORDYN JENSEN Teagan ROWE [facility] [address], [place], [address], 02/28/2023 10:25:35 03/01/20 23 03/01/2023 MAMMO , scree rickie, tomos ynthe sis, bilat eral CLINIC AL HISTOR Y: Screen ing. TECHNI QUE: 3D mammog gerald (tomos ynthes is) and 2D mammog gerald (C-vie w) images are genera criss. Images review ed with a CAD system . COMPAR MIKE: Prior mammog ean back throug h 016. FINDIN GS: The breast parenc hyma is almost entire ly fatty. There are no suspic ious masses . There are no suspic ious microc alcifi cation s. The breast michael ecture is normal . There has been no signif icant change compar ed to the prior study. IMPRES MARIA E: No mammog raphic eviden ce of malign willy. Annual mammog raphic screen ing recomm ended. This facili ty uses a remind er system with a target date for the next mammog min. Breast densit y: A. The breast s are almost entire ly fatty. BIRADS : 1, NEGATI VE Readin g Physic leda: Chen Javier ms [facility] (Imaging) [address], [place], [address], 03/04/2023 13:33:49 03/25/2003/22/2023 imagi ng inter preta tion No observ ation record ed. [facility] [address] [place], [address], 03/30/2023 06:50:32 Result Notes None recorded. Procedures Surgical History Date Name Laterality Status Provider Name and Address Organization Details Recorded Time 3 Jenniffer - Colonoscopy completed Jamaal Abad MD [address] [place] [address], [id number], [facility] 04/11/2023 12:28:08 Imaging Results Imaging Date Name Status LastModified by Organization Details LastModified Time 08/09/2022 xr wrist 3 or more views (right) completed [facility] [address] [place], [address], 08/09/2022 15:37:21 08/14/2022 xr knee 3 view (left) completed [facility] [address] [place], [address], 08/14/2022 15:15:27 08/19/2020 XR, chest, 2 view completed [place] Informa tion not available 08/21/2022 07:47:57 08/15/2022 XR, chest completed [facility] (Imaging) [address] [place], [address], 08/21/2022 07:49:54 08/17/2022 CT abdomen/pelvis with contrast completed [facility] [address] [place], [address], 08/17/2022 17:04:27 01/03/2023 XR, chest, 1 view completed [facility] [address] [place], [address], 02/28/2023 10:25:35 01/03/2023 CT chest pulmonary angiogram (acute) completed [facility] [address] [place], [address], 02/28/2023 10:25:35 03/01/2023 MAMMO, screening, tomosynthesis, bilateral completed [facility] (Imaging) [address] [place], [address], 03/04/2023 13:33:49 03/22/2023 imaging interpretation completed [facility] [address] [place], [address], 03/30/2023 06:50:32 Procedure Notes None recorded. Medical Equipment None Reported. Allergies Allergen ID Allergen Name Allergen Category Reaction Reaction Severity Criticality Documentation Date Start Date Code Code System Note Provider Name and Address Organization Details Recorded Time 991440 Product containin g penicilli n and antibioti c (product) medicatio n rash Not available Not available 04/10/2023 81769 05 OMED Karen Murphy RN null, [facility] 3 16:20:21 [id number] Reglan medicatio n rash Not available Not available 04/10/2023 9230 RxNorm Karen Murphy RN null, [facility] 3 16:21:06 [id number] Substance with sulfonami de structure and antibacte rial mechanism of action (substanc e) medicatio n rash Not available Not available 04/10/2023 72766 8003 SNKACY Murphy RN null, [facility] 3 16:21:26 088372 Actemra medicatio n Not available Not available Not available 04/10/2023 07007 1 RxNorm hyper tensi on Karen Murphy RN null, [facility] 3 16:22:16 Medications Name Sig Start Date Stop Date Status Note LastModified by Organization Details LastModified Time sumatript an succinate 100 mg tabs 12/12 completed Not Available Not Available Not Available cyclobenz aprine hcl 10 mg tabs 05/09 completed Not Available Not Available Not Available celecoxib 200 mg caps 05/09 completed Not Available Not Available Not Available progester one 200 mg caps 05/09 completed Not Available Not Available Not Available methotrex ate sodium 25 mg/ml soln 12/12 completed Not Available Not Available Not Available Prescript ion - Prior Authoriza tion Request 09/13 completed Not Available Not Available Not Available dexilant 60 mg cpdr 12/12 completed Not Available Not Available Not Available freestyle leah lite 08/06 completed Not Available Not Available Not Available chlorthal idone 25 mg tabs 05/09 completed Not Available Not Available Not Available proair hfa 108 (90 base) mcg/act aers 12/12 completed Not Available Not Available Not Available celecoxib 200 mg capsule TAKE 1 CAPSULE BY MOUTH EVERY DAY 05/15 completed Not Available Not Available Not Available cyclobenz aprine 10 mg tablet TAKE 2 TABLETS BY MOUTH EVERY DAY IN THE EVENING 07/12 completed Not Available Not Available Not Available Miralax 17 gram/dose oral powder Take 17 g every day by oral route as needed. 08/06 completed Not Available Not Available Not Available metformin 500 mg tablet TAKE 2 TABLETS BY MOUTH IN THE MORNING AND THEN 2 TABLETS BY MOUTH IN THE EVENING active Not Available Not Available No t Available prednison e 10 mg tablet TAKE 2 TABLETS DAILY FOR 3 DAYS THEN 1 TAB DAILY FOR 2 DAYS MAY REPEAT IF NEEDED 07/29 completed not taking PRN Not Available Not Available Not Available doxycycli ne hyclate 100 mg capsule TAKE ONE CAPSULE BY MOUTH TWICE A DAY 11/26 completed Not Available Not Available Not Available ipratropi um 0.5 mg-albute rol 3 mg (2.5 mg base)/3 mL nebulizat ion soln Inhale 3 mL 4 times a day by nebuliza tion route. 12/12 completed Not Available Not Available Not Available clindamyc in HCl 300 mg capsule TAKE 1 CAPSULE BY MOUTH EVERY 8 HOURS FOR 7 DAYS 06/06 completed Not Available Not Available Not Available fluconazo le 150 mg tablet TAKE 1 TABLET BY MOUTH NOW AND REPEAT IN 72 HOURS IF NO CHANGE 12/16 completed Not Available Not Available Not Available sumatript an 100 mg tablet TAKE 1 TABLET BY MOUTH 1 TIME NEEDED FOR MIGRAINE HEADACHE 07/12 completed Not Available Not Available Not Available ondansetr on HCl 4 mg tablet TAKE 1 TABLET BY MOUTH EVERY 8 HOURS 07/12 completed Not Available Not Available Not Available prednison e 20 mg tablet 3 tabs by mouth in am for 5 days 12/12 completed Not Available Not Available Not Available alendrona te 70 mg tablet TAKE 1 TABLET BY MOUTH EVERY WEEK 07/12 completed Not Available Not Available Not Available prednison e 5 mg tablet TAKE 2 TABLETS BY MOUTH DAILY FOR 7 DAYS THEN 1.5 TABLETS DAILY FOR 7 DAYS THEN 1 TABLET DAILY FOR 3 WEEKS 08/06 completed Not Available Not Available Not Available sulfasala zine 500 mg tablet,de layed release Take 2 tablets twice a day by oral route. 09/04 completed Stopped Mon night d/t itching 05/20/18 Not Available Not Available Not Available oxycodone 5 mg/5 mL oral solution Take 5 mL every 6 hours by oral route as needed. 09/13 completed Not Available Not Available Not Available leflunomi de 10 mg tablet TAKE 1 TABLET BY MOUTH EVERY DAY 01/23 completed Not Available Not Available Not Available gabapenti n 250 mg/5 mL oral solution TAKE 6 ML BY MOUTH THREE TIMES DAILY DIRECTED 12/16 completed Not Available Not Available Not Available amlodipin e 2.5 mg tablet TK 1 T PO QD 09/13 completed PRN, in winter Not Available Not Available Not Available metronida zole 500 mg tablet TAKE 1 TABLET BY MOUTH EVERY 8 HOURS 12/16 completed Not Available Not Available Not Available acetamino phen 300 mg-codein e 30 mg tablet TAKE 1 TABLET BY MOUTH EVERY 6 HOURS FOR 7 DAYS NEEDED 02/26 completed Not Available Not Available Not Available chlorthal idone 25 mg tablet TAKE 1/2 TABLET BY MOUTH EVERY DAY 01/01 completed Not Available Not Available Not Available prochlorp erazine maleate 10 mg tablet 12/12 completed Not Available Not Available Not Available methotrex ate sodium 25 mg/mL injection solution Take 0.8 mL every week by injectio n route. 12/12 completed Not Available Not Available Not Available ciproflox acin 500 mg tablet TAKE 1 TABLET BY MOUTH EVERY 12 HOURS FOR 7 DAYS 11/13 completed Not Available Not Available Not Available doxycycli ne monohydra te 100 mg tablet Take 2 tablets every day by oral route for 1 day. 05/14 completed Not Available Not Available Not Available leflunomi de 20 mg tablet TAKE 1 TABLET BY MOUTH EVERY DAY 05/14 completed Not Available Not Available Not Available tramadol 50 mg tablet 08/06 completed Not Available Not Available Not Available BD Tuberculi n Syringe 1 mL 27 x 1/2 USE EVERY WEEK FOR METHOTRE XATE INJECTIO N DIRECTED 12/12 completed Not Available Not Available Not Available oxycodone -acetamin ophen 5 mg-325 mg tablet TAKE 1 TO 2 TABLETS BY MOUTH EVERY 4 TO 6 HOURS NEEDED FOR PAIN 05/14 completed Not Available Not Available Not Available alprazola m 0.5 mg tablet TAKE 1 TABLET BY MOUTH 1 HOUR BEFORE FLIGHT. MAY REPEAT ONCE 07/27 completed Not Available Not Available Not Available metoclopr amide 5 mg tablet Take 1 tablet 4 times a day by oral route. 01/28 completed Not Available Not Available Not Available methotrex ate sodium 2.5 mg tablet TAKE 6 TABLETS BY MOUTH WEEKLY 07/12 completed Not Available Not Available Not Available amitripty line 10 mg tablet TAKE 1 TABLET BY MOUTH AT BEDTIME 11/26 completed Not Available Not Available Not Available erythromy isidro 5 mg/gram (0.5 %) eye ointment APPLY 1 CM RIBBON INTO THE LOWER CONJUNCT IVAL SAC(S) IN THE AFFECTED EYE(S) BY OPHTHALM IC ROUTE 3 TIMES PER DAY 06/06 completed Not Available Not Available Not Available cyanocoba abimael (vit B-12) 1,000 mcg/mL injection solution Inject 1 mL every month by subcutan eous route. 08/06 completed Not Available Not Available Not Available brimonidi ne 0.2 % eye drops INSTILL 1 DROP INTO BOTH EYES TWICE A DAY 07/12 completed Not Available Not Available Not Available progester one micronize d 200 mg capsule TAKE 1 CAPSULE (200 MG TOTAL) BY MOUTH DAILY. AT BEDTIME. 12/12 completed Not Available Not Available Not Available codeine 10 mg-guaife nesin 100 mg/5 mL Syrup Take 10 mL every 4 hours by oral route. 12/12 completed Not Available Not Available Not Available gabapenti n 300 mg capsule 1 CAP AT BEDTIME FOR 7 DAYS IF TOLERATE D INCREASE TO TWICE A DAY FOR 7 DAYS, THREE TIMES A DAY 11/26 completed Not Available Not Available Not Available omeprazol e 20 mg capsule,d elayed release TK 1 C PO BID 09/13 completed Not Available Not Available Not Available magnesium citrate oral solution TAKE DIRECTED 12/12 completed Not Available Not Available Not Available folic acid 1 mg tablet TAKE 1 TABLET BY MOUTH EVERY DAY 07/12 completed Not Available Not Available Not Available codeine 10 mg-guaife nesin 100 mg/5 mL oral liquid TAKE 5ML ORALLY THREE TIMES DAILY NEEDED 02/28 completed Not Available Not Available Not Available bisacodyl 5 mg tablet,de layed release TAKE 4 TABLETS BY MOUTH NEEDED DIRECTED 07/12 completed Not Available Not Available Not Available lisinopri l 5 mg tablet TAKE 1 TABLET BY MOUTH EVERY DAY 09/17 completed 2.5 mg still lighthea ded Not Available Not Available Not Available albuterol sulfate HFA 90 mcg/actua tion aerosol inhaler INL 1 TO 2 PFS PO Q 4 TO 6 H PRN 01/31 completed Not Available Not Available Not Available colchicin e 0.6 mg tablet TAKE 1 TABLET BY MOUTH TWICE DAILY UNTIL ACUTE PSUDOGOU T SUBSIDES 02/26 completed ineffect shelly Not Available Not Available Not Available celecoxib 100 mg capsule TAKE 1 CAPSULE BY MOUTH TWICE DAILY 08/06 completed Not Available Not Available Not Available ondansetr on 4 mg disintegr ating tablet DISSOLVE 1 TABLET ON THE TONGUE THREE TIMES DAILY NEEDED FOR NAUSEA 07/12 completed Not Available Not Available Not Available acetamino phen 500 mg/15 mL oral liquid Take 30 mL every 8 hours by oral route as needed for 7 days. 09/13 completed Not Available Not Available Not Available lisinopri l 2.5 mg tablet TAKE 1 TABLET BY MOUTH EVERY DAY 07/12 completed Not Available Not Available Not Available doxycycli ne hyclate 100 mg tablet TK 1 T PO BID FOR 14 DAYS UTD 07/29 completed Not Available Not Available Not Available oxycodone 5 mg tablet TAKE 1 TABLET BY MOUTH EVERY 4 HOURS NEEDED FOR SEVERE PAIN 08/06 completed Not Available Not Available Not Available naloxone 1 mg/mL injection syringe 05/09 completed Not Available Not Available Not Available Flovent HFA 110 mcg/actua tion aerosol inhaler INHALE 1 PUFF BY MOUTH TWICE DAILY 02/14 completed Not using Not Available Not Available Not Available pregabali n 75 mg capsule Take 2 capsules every day by oral route in the evening. 09/13 completed NOT TAKING 09/13/20 Not Available Not Available Not Available Lyrica 25 mg capsule TAKE ONE CAPSULE BY MOUTH 3 TIMES A DAY 08/05 completed Not Available Not Available Not Available folic acid 1mg daily 12/12 completed Not Available Not Available Not Available FreeStyle Lite Strips TO TEST BLOOD SUGAR ONCE DAILY 08/06 completed Not Available Not Available Not Available Cimzia 400 mg/2 mL (200 mg/mL x 2) subcutane ous syringe kit Inject 200 mg sc q 2 weeks 03/10 completed Not Available Not Available Not Available GaviLyte- G 236 gram-22.7 4 gram-6.74 gram-5.86 gram oral solution MIX AND DRINK DIRECTED 07/12 completed Not Available Not Available Not Available Dexilant 60 mg capsule, delayed release TAKE 1 CAPSULE BY MOUTH DAILY 12/23 completed Not Available Not Available Not Available gabapenti n 250 mg/5 mL (5 mL) oral solution Take 6 mL every day by oral route at bedtime for 30 days. 02/26 completed duplicat e Not Available Not Available Not Available Xeljanz 5 mg tablet 02/26 completed Not currentl y taking Not Available Not Available Not Available Spiriva Respimat 2.5 mcg/actua tion solution for inhalatio n INHALE 2 PUFFS BY MOUTH EVERY DAY active Not Available Not Available No t Available Orencia ClickJect 125 mg/mL subcutane ous auto-inje ctor ADMINIST ER 1 ML UNDER THE SKIN EVERY WEEK 02/13 completed Stopped taking, ineffect shelly Not Available Not Available Not Available Readi-Cat 2 2 % (w/v) oral suspensio n TAKE DIRECTED . FIRST BOTTLE 6 HOURS PRIOR TO EXAM AND SECOND BOTTLE 90 MINUTES PRIOR TO EXAM. 12/08 completed Not Available Not Available Not Available Shingrix (PF) 50 mcg/0.5 mL intramusc ular suspensio n, kit 09/13 completed Not Available Not Available Not Available Actemra ACTPen 162 mg/0.9 mL subcutane ous pen injector Inject 162 mg every 2 weeks by subcutan eous route. 09/17 completed not taking bad side effects 09/12/22 Not Available Not Available Not Available Motegrity 2 mg tablet TAKE 1 TABLET BY MOUTH DAILY 02/28 completed Not Available Not Available Not Available BinaxNOW COVID-19 Ag Self Test kit TEST DIRECTED TODAY 11/13 completed Not Available Not Available Not Available Paxlovid 300 mg (150 mg x 2)-100 mg tablets in a dose pack TAKE 3 TABLETS BY MOUTH TWICE A DAY FOR 5 DAYS 02/28 completed Not Available Not Available Not Available Vitals None Recorded Social History Question Answer Notes LastModified by Organizat ion Details LastModified Time What Is Your Level Of Alcohol Consumption? Occasional 2/week [email or web address] Information not available 10/05/2015 Do You Wear A Helmet When Biking? Yes Information not available 12/24/2017 What Is Your Level Of Caffeine Consumption? Moderate 2 Coffee Daily Information not available 03/03/2023 How Much Tobacco Do You Chew? None Information not available 10/05/2015 Are You Currently Employed? 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 REGULAR Information not available 08/21/2017 What Is The Highest Grade Or Level Of School You Have Completed Or The Highest Degree You Have Received? 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 Yes New Dog, [place] Retriever Cozy Is , 14 Week 02/2023 Information not available 02/28/2023 When Did You Quit Smoking? 1-5yearssince lastcigarette Information not available 03/03/2023 Are There Any Guns Present In Your Home? No Information not available 08/21/2017 Do You Use Insect Repellent Routinely? Yes Information not available 07/25/2021 Live Alone Or With Others? With Others Information not available 08/21/2017 Does The Patient Have Difficulty Speaking Romanian? No Information not available 08/21/2017 Does The Patient Have Difficulty Reading Romanian? No Information not available 08/21/2017 Patient Has Health Care Proxy Signed And In Chart Yes [email or web address] Information not available 09/09/2020 Marital Status [email or web address] Informatio n not available 10/24/2016 Mosquito Repellent Used Routinely Yes Information not available 08/21/2017 What Was The Date Of Your Most Recent Tobacco Screening? 02/28/2023 [email or web address] Information not available 02/28/2023 How Many Children Do You Have? 2 Son,in [place] Shwetha, Grad From College Information not available 02/26/2022 What Is Your Relationship Status? Tammy Information not available 07/25/2021 Do You Use Your Seat Belt Or Car Seat Routinely? Yes Information not available 07/25/2021 Seat Belts Used Routinely Yes Information not available 08/21/2017 Are You Sexually Active? Yes Information not available 02/28/2023 Smoke Alarm In Home Yes Information not available 08/21/2017 Do You Have Smoke And Carbon Monoxide Detectors In Your Home? Yes Information not available 07/25/2021 Are You Passively Exposed To Smoke? No Information not available 07/25/2021 General Stress Level Medium Information not available 08/21/2017 Do You Use Sunscreen Routinely? Yes Information not available 08/21/2017 Sex: Unknown Functional Status Question Answer Note LastModified by Organizat ion Details LastModified Time What is your exercise level? Moderate minimum of an hour cardio 6-7 days a week Information not available 02/28/2023 Mental Status None recorded. Family History Relationship Description Onset Age of this Age Resolved Age Notes LastModified by Organization Details LastModified Time Mother Neoplasm of liver [email or web address] Not available 2015 08:19:00 Maternal Aunt Malignant tumor of breast DCIS [email or web address] Not available 02/26 09:30:02 Paternal Aunt Malignant tumor of pancreas [email or web address] Not available 08/06 14:13:13 Notes:AUnt neoplasm of pancr eas- father's side unknown Medical History Condition Response NEUROLOGIC Lyme Disease Y Chronic Neck Pain Y Migraine Headaches Y Tuberculosis Asthma Y GERD Y Rheumatoid Arthritis Y Gynecological HistoryNo gynecological history recorded. Obstetrics History GPAL:G 0 P 0 0 0 0 Past Encounters Encounter ID Performer Location Encounter Start Date Encounter Closed Date Diagnosis/Indication Diagnosis SNOMED-CT Code Diagnosis ICD10 Code Diagnosis Note [id number] Kana Norman MD Rheumatol saad, [address] [place], [place] [address] 10/05/2015 09:46:49 10/05/2015 10:55:19 [id number] Kana Norman MD Rheumatol ogy, [address] [place], [place] [address] 12/07/2015 08:55:05 12/07/2015 09:23:13 [id number] Aria Escobar , [facility], OFFICE [address] [place] [address] [place], [place] [address] 12/08/2015 13:07:13 12/09/2015 07:02:50 [id number] Michelle Saini Physical Therapy, [address] [place] [address] 03/12/2016 17:18:54 03/13/2016 10:35:03 [id number] Uli Rivera MD Sports Medicine, [address] [place], [place] [address] 03/13/2016 07:50:37 03/13/2016 10:01:31 [id number] Kana Norman MD Rheumatol og, [address] [place], [place] [address] 03/14/2016 08:52:06 03/14/2016 09:41:03 [id number] Eloisa Andrade D.O. [facility], OFFICE [address] [place] [address] [place], [place] [address] 1 05/09/2016 07:09:31 05/09/2016 09:05:05 [id number] Jyotsna Mayo MD [facility], OFFICE [address] [place] [address], [place] [address] 10/19/2016 07:50:14 10/19/2016 08:43:22 [id number] Kana Norman MD Rheumatol ogmaryuri, [address] [place], [place] [address] 1 10/24/2016 10:00:31 10/25/2016 07:55:35 [id number] Eloisa Andrade D.O. [facility], OFFICE [address] [place] [address] [place], [place] [address] 1 12/12/2016 07:43:58 12/12/2016 10:01:33 [id number] Juan Brown OD Eye Care, [address] [place], [place] [address] 1 01/23/2017 08:18:41 01/23/2017 09:15:15 [id number] Kana Norman MD Rheumatol ogy, [address] [place], [place] [address] 03/05/2017 14:49:58 03/05/2017 16:19:17 [id number] Eloisa Andrade D.O. [facility], OFFICE [address] [place] [address] [facility] [place] [address] 05/14/2017 12:38:50 05/14/2017 16:36:29 [id number] Eloisa Andrade D.O. [facility], OFFICE [address] [place] [address] [facility] [place] [address] 1 08/21/2017 07:46:26 08/21/2017 09:01:14 [id number] Kana Norman MD Rheumatol saad, [address] [place], [place] [address] 1 08/27/2017 13:50:06 08/27/2017 14:19:55 [id number] Kana Norman MD Rheumatol saad, [address] [place], [place] [address] 1 11/26/2017 13:12:02 11/26/2017 13:47:27 [id number] Eloisa Andrade D.O. [facility], OFFICE [address] [place] [address] [place], [place] [address] 1 11/27/2017 09:37:38 11/27/2017 11:34:12 [id number] Eloisa Andrade D.O. [facility], OFFICE [address] [place] [address] [facility] [place] [address] 1 12/24/2017 11:51:47 12/24/2017 14:17:57 [id number] Juan Brown, OD Eye Care, [address] [place], [place] [address] 02/12/2018 14:02:53 02/12/2018 15:26:28 [id number] Kana Norman MD Rheumatol saad, [address] [place], [place] [address] 03/04/2018 13:17:00 03/04/2018 13:56:40 [id number] Eloisa Andrade D.O. , [facility], OFFICE [address] [place] [address] [facility] [place] [address] 05/14/2018 06:57:20 05/14/2018 08:58:40 [id number] Kana Norman MD Rheumatol ogy, [address] [place] [address] 1 05/20/2018 12:46:22 05/20/2018 13:30:34 [id number] Kana Norman MD Rheumatol ogy, [address] [place] [address] 08/05/2018 12:58:08 08/05/2018 13:29:09 [id number] Kana Norman MD Rheumatol ogmaryuri, [address] [place] [address] 1 09/04/2018 11:33:03 09/05/2018 07:05:53 [id number] Kalee Whitfield RN ASP, [address] [address] 09/30/2018 11:00:54 09/30/2018 13:43:09 [id number] Enrike Curtis RN ASP, [address] [address] 1 10/14/2018 07:17:12 10/14/2018 13:18:38 [id number] Kana Norman MD Rheumatol og, [address] [place] [address] 12/02/2018 12:41:59 12/02/2018 13:14:13 [id number] Nathalie Maya LPN , [facility], OFFICE [address] [place] [address] [facility] [place] [address] 12/04/2018 07:09:47 12/04/2018 10:42:18 [id number] Eloisa Andrade D.O. , [facility], OFFICE [address] [place] [address] [place] [address] 01/28/2019 07:45:16 01/28/2019 08:56:59 [id number] Yulisa Anthony Physical Therapy, [address] [place], [place] [address] 02/18/2019 09:12:23 02/23/2019 10:24:19 [id number] Yulisa Anthony Physical Therapy, [address] [place], [place] [address] 02/25/2019 10:20:21 02/25/2019 12:01:46 [id number] Yulisa Anthony Physical Therapy, [address] [place], [place] [address] 03/10/2019 13:14:12 03/11/2019 08:45:25 [id number] Kana Norman MD Rheumatol saad, [address] [place], [place] [address] 03/10/2019 13:15:59 03/10/2019 13:46:04 [id number] Eloisa Andrade D.O. , [facility], OFFICE [address] [place] [address] [place], [place] [address] 1 03/23/2019 09:29:28 03/24/2019 07:45:40 [id number] Juan Brown, OD Eye Care, [address] [place], [place] [address] 04/08/2019 08:44:19 04/08/2019 10:02:42 [id number] Derrell Salazar, MSN, [employer] [facility], OFFICE [address] [place] [address] [place], [place] [address] 05/23/2019 11:56:15 05/25/2019 07:26:46 [id number] Kana Norman MD Rheumatol saad, [address] [place] [address] 06/09/2019 13:09:52 06/10/2019 06:17:17 [id number] Eloisa Andrade D.O. , [facility], OFFICE [address] [place] [address] [place], [place] [address] 1 07/29/2019 07:01:14 07/29/2019 09:14:54 [id number] Kana Norman MD Rheumatol saad, [address] [place] [address] 08/04/2019 15:50:26 08/04/2019 19:23:51 [id number] Kana Norman MD Rheumatol saad, [address] [facility] [place] [address] 12/08/2019 14:13:21 12/10/2019 06:17:49 [id number] Kana Norman MD Rheumatol saad, [address] [place] [address] 1 03/29/2020 12:50:44 03/29/2020 13:23:46 [id number] Kana Norman MD Rheumatol saad, [address] [place], [place] [address] 04/08/2020 10:12:26 04/12/2020 07:36:02 [id number] JERSON Salvador [facility], OFFICE [address] [place] [address] [place], [place] [address] 07/27/2020 11:32:04 07/27/2020 14:30:01 [id number] Olga Lind MA , [facility], OFFICE [address] [place] [address] [place], [place] [address] 08/06/2020 09:18:21 08/06/2020 10:47:32 [id number] Eloisa Andrade D.O. [facility], OFFICE [address] [place] [address] [place], [place] [address] 1 09/13/2020 14:03:32 09/13/2020 16:38:04 [id number] Marlena Dunne RN , [facility], OFFICE [address] [place] [address] [place], [place] [address] 1 09/20/2020 14:59:30 09/20/2020 18:59:22 [id number] Kana Norman MD Rheumatol saad, [address] [place], [place] [address] 1 12/23/2020 10:42:27 12/23/2020 18:36:40 [id number] Kana Norman MD Rheumatol saad, [address] [place], [place] [address] 01/06/2021 11:42:30 01/09/2021 07:06:16 [id number] Eloisa Andrade D.O. [facility], OFFICE [address] [place] [address] [place], [place] [address] 01/31/2021 13:28:33 01/31/2021 20:10:41 [id number] Otf Palm PA-C , [facility], OFFICE [address] [place] [address] [place] [address] 1 02/14/2021 14:55:01 02/15/2021 06:28:09 [id number] Kana Norman MD Rheumatol ogy, [address] [place] [address] 1 06/06/2021 11:15:53 06/07/2021 18:57:33 [id number] Eloisa Andrade D.O. , [facility], OFFICE [address] [place] [address], [place] [address] 1 06/08/2021 11:58:14 06/08/2021 16:16:34 [id number] Eloisa Andrade D.O. , [facility], OFFICE [address] [place] [address], [place] [address] 1 07/25/2021 13:22:28 07/25/2021 14:24:32 [id number] Igor Sheehan, PT Physical Therapy, [address] [place] [address] 1 08/29/2021 11:29:54 08/30/2021 08:31:27 [id number] Kana Norman MD Rheumatol ogy, [address] [place] [address] 1 12/08/2021 09:12:43 01/19/2022 06:10:49 [id number] Rebeca Rowe MD , [facility], OFFICE [address] [place] [address], [place] [address] 1 12/15/2021 15:57:47 12/15/2021 16:17:07 [id number] Otf Palm PA-C , [facility], OFFICE [address] [place] [address], [place] [address] 1 12/25/2021 08:45:30 12/25/2021 10:16:41 [id number] Rachid Sequeira RN , [facility], OFFICE [address] [place] [address], [place] [address] 1 01/01/2022 08:47:55 01/01/2022 16:18:17 [id number] Pina Goyal LPN , [facility], OFFICE [address] [facility] [place] [address] 1 01/10/2022 08:55:54 01/10/2022 19:41:42 [id number] Jyotsna Ge Rheumatol ogy, [address] [place] [address] 1 02/13/2022 11:40:41 02/18/2022 08:38:59 [id number] Lesa Romero Rheumatol ogy, [address] [place] [address] 1 01/26/2022 08:58:39 01/29/2022 16:13:08 [id number] DERIK Chance, [facility], OFFICE [address] [place] [address] [place] [address] 1 02/26/2022 08:42:19 02/27/2022 07:31:03 [id number] Trini Welch MD Rheumatol ogy, [address] [place] [address] 1 05/15/2022 07:35:25 05/17/2022 14:54:10 [id number] DERIK Chance, [facility], OFFICE [address] [place] [address] [place] [address] 1 07/20/2022 10:51:20 07/20/2022 11:59:54 [id number] DERIK Chance, [facility], OFFICE [address] [place] [address] [place] [address] 1 08/06/2022 13:44:41 08/06/2022 14:37:07 [id number] Trini Welch MD Rheumatol ogy, [address] [place] [address] 1 09/12/2022 09:55:14 09/24/2022 13:40:23 [id number] DERIK Chance, [facility], OFFICE [address] [place] [address] [place] [address] 1 09/17/2022 08:23:13 09/17/2022 11:32:24 [id number] Jamaal Tom MD , [facility], OFFICE [address] [place] [address] 12/16/2022 10:32:11 12/16/2022 11:02:30 [id number] Otf Palm PA-C , [facility], OFFICE [address] [facility] [place] [address] 02/28/2023 09:22:58 03/01/2023 08:30:32 [id number] Leigha Whelan RN Endoscopy , [address] [address] 04/11/2023 10:50:55 04/11/2023 13:38:17 Health Concerns Section Related Observation LastModified by Organization Detai ls LastModified Time None Recorded Concern Status LastModified by Organization Details LastModified Time None Recorded Advance Directives Directive None Recorded Payers Encounter Date Sequence Insurance Name Policy Number Policy Quintana Covered Member ID Quintana Member ID Guarantor Name 08/06/2022 1 [facility] [id number] 3 [place] [id number] Lashanda A [place] 09/12/2022 1 [facility] [id number] 3 [place]ash[place] [id number] Lashanda A [place] 09/17/2022 1 [facility] [id number] 3 Lash[place] [id number] Lashanda A [place] 12/16/2022 1 [facility] [id number] 3 Lashanda [place] [id number] Lashanda A [place] 02/28/2023 1 [facility] [id number] 3 [place]ash[place] [id number] Lashanda A [place] OBGyn Episode No OBEpisode recorded.
--- OUTSIDE RECORDS SUMMARY | 2024-12-17 16:13 | XMS_ITS | Continuity of Care Document ---
Author Organization [facility] Address [address] [place] [address] Phone Care Team Providers Care Golf Caddy Name Role Phone Mor Ashton PA-C Unavailable [...] SKIN LESION DESTROY BENIGN/PREMLG LESION OFFICE/OUTPATIENT VISIT, [facility] TISSUE EXAM BY PATHOLOGIST Advance [...] Providers Copied on Encounter OFFICE/OUTPA TIENT VISIT, [facility], [address] [place], [address], [place] tel:[phone] [place] lesion(s) (chief complaint) Neoplasm of uncertain behavior of skinActinic keratosisBen ign neoplasm of skin of trunk, except scrotumOther seborrheic keratosis Jul- 4 Daisha Mor. [address] [place], [address]. tel:[phone] [facility], [address] [place] [address] [place], [address], [place] tel:[phone] Dermatopatho logy Lab No Information 4 Nelia Barahona. [address] [place], [place], [id number]. tel:[phone] Referring Provider: Julian Wheeler, [address] [place], [address]. tel:[phone] Family History Family Member Type Diagnosis Age At Onset No Information Payers Payer name Insurance type Covered libertarian ID Authoriza tion(s) [facility] [id number] Social History Type Description Quantity Date Captured [...] Mental Status Date Cognitive Assessment Orientation - [place] ed to time, place, person, situation. Patient Care Teams Name Effective Dates (start - stop) Status Members No Information
--- OUTSIDE RECORDS SUMMARY | 2024-12-17 16:13 | XMS_ITS | Data Portability ---
Author Organization [facility], [facility] Address [address] [place] [address] Assessment Encounter Date Assessment Date Assessment LastModified [...] our office for worsening or urgent symptoms. [email or web address] Not available 12/16/2022 10:37:39 02/28/2023 02/28/2023 We [...] Details Appointments None recorded. Lab CBC 2021 [facility], [address] [place] [address], [address], 11:08:46 CMP, serum or plasma 2021 022 [facility], [address] [place] [address], [address], 14:45:51 urinalysi s, dipstick, auto 2021 022 [facility], [address] [place] [address], [address], 12:11:55 PTH (parathyr oid hormone), intact + calcium, serum or plasma 2021 022 [facility], [address] [place] [address], [address], 15:44:47 vitamin D, 25-hydrox y, total, serum 2021 022 [facility], [address] [place] [address], 139[address], 11:38:17 Referral None recorded. Procedures None recorded. Surgeries None recorded. Imaging MAMMO, screening , tomosynth esis, bilateral 2022 023 [facility] (Imaging), [address], [place], [place], [address], 3 16:15:52 Medication Orders lisinopri l 5 mg tablet 2021 022 [facility] #[id number], [address], [place], [id number], 09:00:31 lisinopri l 2.5 mg tablet 2021 022 [email or web address] [facility] #13629, [address], [place], [id number], 3 12:04:10 folic acid 1 mg tablet 2021 022 [email or web address] [facility] #03513, [address], [place], [id number], 3 12:04:07 Paxlovid 300 mg (150 mg x 2)-100 mg tablets in a dose pack 2022 023 [email or web address] [facility] #[id number], [address] [place], [address], 3 09:47:20 lisinopri l 2.5 mg tablet [address] [facility]76855, [address] [place], [place], [id number], 3 12:04:10 cyclobenz aprine 10 mg tablet [address] [facility] #88524, [address] [place], [place], [id number], 3 12:04:05 Patient Targets Encounter Date Encounter Id Patient Goals Patient Target Last Modified By Organization Details Last Modified Time will send [email or web address] Not available 12/16/2022 10:52:07 Patient Instructions Encounter Date Encounter Id Patient Instructions Last Modified By Organization Details Last Modified Time 12/16/2022 [id number] After a discussion of treatment and medication [...] a virus-killing disinfectant. -Call with any concerns. [email or web address] Not available 12/16/2022 10:37:25 02/28/2023 [id number] advance directives: care instructions [email or web address] Not available [...] WBC 5.31 K/??L 3.98-1 0.04 Not Available [address], [address], 07/27/2022 15:12:57 07/27/20 22 07/27/2022 CBC RBC 3.72 M/??L 3.93-5 .22 low Not Available [address], [address], 07/27/2022 15:12:57 07/27/20 22 07/27/2022 CBC HGB 12.1 g/dL 11.2-1 5.7 Not Available [address], [address], 07/27/2022 15:12:57 07/27/20 22 07/27/2022 CBC HCT 39.0 % 34.1-4 4.9 Not Available [address], [address], 07/27/2022 15:12:57 07/27/20 22 07/27/2022 CBC MCV 104.8 fL 79.4-9 4.8 high Not Available [address], [address], 07/27/2022 15:12:57 07/27/20 22 07/27/2022 CBC MCH 32.5 pg 25.6-3 2.2 high Not Available [address], [address], 07/27/2022 15:12:57 07/27/20 22 07/27/2022 CBC MCHC 31.0 g/dL 32.2-3 5.5 low Not Available [address], [address], 07/27/2022 15:12:57 07/27/20 22 07/27/2022 CBC plt 262 K/??L 182-36 9 Not Available [address], [address], 07/27/2022 15:12:57 07/27/20 22 07/27/2022 CBC MPV 10.3 fL 9.4-12 .3 Not Available [address], [address], 07/27/2022 15:12:57 07/27/20 22 07/27/2022 CBC neut% 63.4 % 34.0-7 1.1 Not Available [address], [address], 07/27/2022 15:12:57 07/27/20 22 07/27/2022 CBC neut# 3.37 1.56-6 .13 Not Available [address], [address], 07/27/2022 15:12:57 07/27/20 22 07/27/2022 CBC lymph % 19.6 % 19.3-5 1.7 Not Available [address], [address], 07/27/2022 15:12:57 07/27/20 22 07/27/2022 CBC lymph # 1.04 K/??L 1.18-3 .74 low Not Available [address], [address], 07/27/2022 15:12:57 07/27/20 22 07/27/2022 CBC mono% 12.6 % 4.7-12 .5 high Not Available [address], [address], 07/27/2022 15:12:57 07/27/20 22 07/27/2022 CBC mono# 0.67 0.24-0 .56 high Not Available [address], [address], 07/27/2022 15:12:57 07/27/20 22 07/27/2022 CBC eo% 3.6 % 0.7-5. 8 Not Available [address], [address], 07/27/2022 15:12:57 07/27/20 22 07/27/2022 CBC eo# 0.19 0.04-0 .36 Not Available [address], [address], 07/27/2022 15:12:57 07/27/20 22 07/27/2022 CBC baso% 0.4 % 0.1-1. 2 Not Available [address], [address], 07/27/2022 15:12:57 07/27/20 22 07/27/2022 CBC baso# 0.02 0.00-0 .08 Not Available [address], [address], 07/27/2022 15:12:57 07/27/20 22 07/27/2022 CBC RDW-CV 13.8 % 11.7-1 4.4 Not Available [address], [address], 07/27/2022 15:12:57 07/27/20 22 07/27/2022 CBC Ig% 0.400 % 0.000- 1.500 Ig % >0.5 Indic ates possi ble Left Shift Not Available [address], [address], 07/27/2022 15:12:57 07/27/20 22 07/27/2022 CBC Ig# 0.020 0.000- 0.093 Not Available [address], [address], 07/27/2022 15:12:57 07/27/20 22 07/27/2022 CBC NRBC% 0.0 % 0.0-0. 2 Not Available [address], [address], 07/27/2022 15:12:57 07/27/20 22 07/27/2022 CBC NRBC# 0.000 0.000- 0.012 Not Available [address], [address], 07/27/2022 15:12:57 07/27/20 22 07/27/2022 HGB A1C [...] furth er confi rmati on Not Available [address], [address], 07/27/2022 15:39:36 07/27/20 22 07/27/2022 HGB A1C estimated average glucose 105.4 mg/dL Not Available [address], [address], 07/27/2022 15:39:36 07/27/20 22 07/27/2022 COMP. METAB OLIC PANEL glucose 103 mg/dL 70-100 high Not Available [address], [address], 07/27/2022 16:11:50 07/27/20 22 07/27/2022 COMP. METAB OLIC PANEL BUN 18 mg/dL 7-18 Not Available [address], [address], 07/27/2022 16:11:50 07/27/20 22 07/27/2022 COMP. METAB OLIC PANEL creatinine 0.8 mg/dL 0.8-1. 3 Not Available [address], [address], 07/27/2022 16:11:50 07/27/20 22 07/27/2022 COMP. METAB OLIC PANEL B/C 22.5 ratio Not Available [address], [address], 07/27/2022 16:11:50 07/27/20 22 07/27/2022 COMP. METAB [...] be used in pregn willy. Not Available [address], [address], 07/27/2022 16:11:50 07/27/20 22 07/27/2022 COMP. METAB OLIC PANEL sodium 138 mmol/ L 136-14 5 Not Available [address], [address], 07/27/2022 16:11:50 07/27/20 22 07/27/2022 COMP. METAB OLIC PANEL potassium 5.1 mmol/ L 3.5-5. 1 Not Available [address], [address], 07/27/2022 16:11:50 07/27/20 22 07/27/2022 COMP. METAB OLIC PANEL chloride 102 mmol/ L 96-107 Not Available [address], [address], 07/27/2022 16:11:50 07/27/20 22 07/27/2022 COMP. METAB OLIC PANEL anion gap 9.6 5.0-15 .0 Not Available [address], [address], 07/27/2022 16:11:50 07/27/20 22 07/27/2022 COMP. METAB OLIC PANEL CO2 26 mmol/ L 21-32 Not Available [address], [address], 07/27/2022 16:11:50 07/27/20 22 07/27/2022 COMP. METAB OLIC PANEL calcium 8.3 mg/dL 8.5-10 .3 low Not Available [address], [address], 07/27/2022 16:11:50 07/27/20 22 07/27/2022 COMP. METAB OLIC PANEL total protein 7.1 g/dL 6.4-8. 2 Not Available [address], [address], 07/27/2022 16:11:50 07/27/20 22 07/27/2022 COMP. METAB OLIC PANEL albumin 4.5 g/dL 3.4-5. 0 Not Available [address], [address]07[address], 07/27/2022 16:11:50 07/27/20 22 07/27/2022 COMP. METAB OLIC PANEL globulin 2.6 g/dL Not Available [address], [address], 07/27/2022 16:11:50 07/27/20 22 07/27/2022 COMP. METAB OLIC PANEL A/G 1.7 ratio 0.8-2. 0 Not Available [address], [address], 07/27/2022 16:11:50 07/27/20 22 07/27/2022 COMP. METAB OLIC PANEL total bilirubin 0.80 mg/dL 0.00-1 .00 Not Available [address], [address], 07/27/2022 16:11:50 07/27/20 22 07/27/2022 COMP. METAB OLIC PANEL AST 18 U/L 0-37 Not Available [address], [address], 07/27/2022 16:11:50 07/27/20 22 07/27/2022 COMP. METAB OLIC PANEL ALT 24 U/L 6-63 Not Available [address], [address]147, 07/27/2022 16:11:50 07/27/20 22 07/27/2022 COMP. METAB OLIC PANEL alk. phos. 50 U/L 50-136 Not Available [address], [address], 07/27/2022 16:11:50 07/27/20 22 07/27/2022 LIPID PANEL cholesterol 211 mg/dL <200 mg/dl Fernie able 200-2 39 mg/dl Borde rline High >240 mg/dl High Not Available [address], [address], 07/27/2022 16:11:51 07/27/20 22 07/27/2022 LIPID PANEL triglyceride s 74 mg/dL <150 mg/dL Debbie l 150-1 99 mg/dL Borde rline High 200-4 99 mg/dL High >500 mg/dL Very High Not Available [address], [address], 07/27/2022 16:11:51 07/27/20 22 07/27/2022 LIPID PANEL direct HDL 101 mg/dL <40 mg/dl - Major Risk for CHD >60 mg/dl - Negat shelly Risk for CHD Not Available [address], [address], 07/27/2022 16:11:51 07/27/20 22 07/27/2022 DIREC T [...] r is not karen jon. Not Available [address], [address], 07/27/2022 16:11:52 07/27/20 22 07/27/2022 ESR sed rate 3.0 0.0-15 .0 Not Available [address], [address], 07/27/2022 16:12:08 07/27/20 22 07/27/2022 MICRO ALBUM IN/CR EATIN INE RATIO PANEL , URINE microalbumin 4.0 mg/L 1.3-20 .0 Not Available [address], [address], 07/27/2022 16:23:11 07/27/20 22 07/27/2022 MICRO ALBUM IN/CR EATIN INE RATIO PANEL , URINE creatinine urine 46.3 mg/dL 30.0-1 25.0 Not Available [address], [address], 07/27/2022 16:23:11 07/27/20 22 07/27/2022 MICRO ALBUM IN/CR EATIN INE RATIO PANEL , URINE microalb/cre at ratio 8.6 mg/g_ creat 0.0-29 .0 Not Available [address], [address], 07/27/2022 16:23:11 07/27/20 22 07/27/2022 C-DREAD CTIVE PROTE IN-QU ANTIT ATIVE C-reactive protein -quant <2.0 mg/L 0.0-9. 0 < crp verif ied, cmd Not Available [address], [address], 07/27/2022 16:34:56 08/15/20 22 08/15/2022 CBC WBC 5.82 K/??L 3.98-1 0.04 Not Available [address], [address], 08/15/2022 11:08:46 08/15/20 22 08/15/2022 CBC RBC 4.18 M/??L 3.93-5 .22 Not Available [address], [address], 08/15/2022 11:08:46 08/15/20 22 08/15/2022 CBC HGB 13.9 g/dL 11.2-1 5.7 Not Available [address], 80042, 08/15/2022 11:08:46 08/15/20 22 08/15/2022 CBC HCT 42.9 % 34.1-4 4.9 Not Available [address], 74268, 08/15/2022 11:08:46 08/15/20 22 08/15/2022 CBC MCV 102.6 fL 79.4-9 4.8 high Not Available [address], [address], 08/15/2022 11:08:46 08/15/20 22 08/15/2022 CBC MCH 33.3 pg 25.6-3 2.2 high Not Available [address], [address]55, 08/15/2022 11:08:46 08/15/20 22 08/15/2022 CBC MCHC 32.4 g/dL 32.2-3 5.5 Not Available [address], 60028, 08/15/2022 11:08:46 08/15/20 22 08/15/2022 CBC plt 249 K/??L 182-36 9 Not Available [address], 10842, 08/15/2022 11:08:46 08/15/20 22 08/15/2022 CBC MPV 10.6 fL 9.4-12 .3 Not Available [address], 09684, 08/15/2022 11:08:46 08/15/20 22 08/15/2022 CBC neut% 53.5 % 34.0-7 1.1 Not Available [address], 293[address], 08/15/2022 11:08:46 08/15/20 22 08/15/2022 CBC neut# 3.11 1.56-6 .13 Not Available [address], [address]23[address], 08/15/2022 11:08:46 08/15/20 22 08/15/2022 CBC lymph % 29.2 % 19.3-5 1.7 Not Available [address], [address], 08/15/2022 11:08:46 08/15/20 22 08/15/2022 CBC lymph # 1.70 K/??L 1.18-3 .74 Not Available [address], [address]37, 08/15/2022 11:08:46 08/15/20 22 08/15/2022 CBC mono% 9.6 % 4.7-12 .5 Not Available [address], 52714, 08/15/2022 11:08:46 08/15/20 22 08/15/2022 CBC mono# 0.56 0.24-0 .56 Not Available [address], [address], 08/15/2022 11:08:46 08/15/20 22 08/15/2022 CBC eo% 6.5 % 0.7-5. 8 high Not Available [address], [address], 08/15/2022 11:08:46 08/15/20 22 08/15/2022 CBC eo# 0.38 0.04-0 .36 high Not Available [address], 9[address], 08/15/2022 11:08:46 08/15/20 22 08/15/2022 CBC baso% 0.7 % 0.1-1. 2 Not Available [address], [address]1994, 08/15/2022 11:08:46 08/15/20 22 08/15/2022 CBC baso# 0.04 0.00-0 .08 Not Available [address], 531[address], 08/15/2022 11:08:46 08/15/20 22 08/15/2022 CBC RDW-CV 12.5 % 11.7-1 4.4 Not Available [address], [address]28, 08/15/2022 11:08:46 08/15/20 22 08/15/2022 CBC Ig% 0.500 % 0.000- 1.500 Ig % >0.5 Indic ates possi ble Left Shift Not Available [address], 235[address], 08/15/2022 11:08:46 08/15/20 22 08/15/2022 CBC Ig# 0.030 0.000- 0.093 Not Available [address], [address]70, 08/15/2022 11:08:46 08/15/20 22 08/15/2022 CBC NRBC% 0.0 % 0.0-0. 2 Not Available [address], [address]30, 08/15/2022 11:08:46 08/15/20 22 08/15/2022 CBC NRBC# 0.000 0.000- 0.012 Not Available [address], 847[address], 08/15/2022 11:08:46 08/15/20 22 08/15/2022 URINA LYSIS color YELLOW yellow Not Available [address], 13139, 08/15/2022 12:11:55 08/15/20 22 08/15/2022 URINA LYSIS clarity CLEAR clear Not Available [address], 20095, 08/15/2022 12:11:55 08/15/20 22 08/15/2022 URINA LYSIS glucose NEGATI VE negati ve Not Available [address], [address], 08/15/2022 12:11:55 08/15/20 22 08/15/2022 URINA LYSIS bilirubin NEGATI VE negati ve Not Available [address], 47708, 08/15/2022 12:11:55 08/15/20 22 08/15/2022 URINA LYSIS ketones NEGATI VE negati ve Not Available [address], 23315, 08/15/2022 12:11:55 08/15/20 22 08/15/2022 URINA LYSIS specific gravity 1.020 1.001- 1.035 Not Available [address], 49[address], 08/15/2022 12:11:55 08/15/20 22 08/15/2022 URINA LYSIS pH 7.0 5.0-8. 0 Not Available [address], 84517, 08/15/2022 12:11:55 08/15/20 22 08/15/2022 URINA LYSIS protein NEGATI VE negati ve Not Available [address], 70[address], 08/15/2022 12:11:55 08/15/20 22 08/15/2022 URINA LYSIS urobilinogen 0.2 E.U./D L <1.0 Not Available [address], 65[address], 08/15/2022 12:11:55 08/15/20 22 08/15/2022 URINA LYSIS nitrates NEGATI VE negati ve Not Available [address], [address], 08/15/2022 12:11:55 08/15/20 22 08/15/2022 URINA LYSIS blood NEGATI VE negati ve Not Available [address], 57487, 08/15/2022 12:11:55 08/15/20 22 08/15/2022 URINA LYSIS leukocytes NEGATI VE negati ve Not Available [address], 75926, 08/15/2022 12:11:55 08/15/20 22 08/15/2022 COMP. METAB OLIC PANEL glucose 106 mg/dL 70-100 high Not Available [address], 43[address], 08/15/2022 14:45:51 08/15/20 22 08/15/2022 COMP. METAB OLIC PANEL BUN 12 mg/dL 7-18 Not Available [address], [address]157, 08/15/2022 14:45:51 08/15/20 22 08/15/2022 COMP. METAB OLIC PANEL creatinine 1.1 mg/dL 0.8-1. 3 Not Available [address], [address], 08/15/2022 14:45:51 08/15/20 22 08/15/2022 COMP. METAB OLIC PANEL B/C 10.9 ratio Not Available [address], 98772, 08/15/2022 14:45:51 08/15/20 22 08/15/2022 COMP. METAB [...] be used in pregn willy. Not Available [address], [address], 08/15/2022 14:45:51 08/15/20 22 08/15/2022 COMP. METAB OLIC PANEL sodium 138 mmol/ L 136-14 5 Not Available [address], 821[address], 08/15/2022 14:45:51 08/15/20 22 08/15/2022 COMP. METAB OLIC PANEL potassium 4.8 mmol/ L 3.5-5. 1 Not Available [address], [address]380, 08/15/2022 14:45:51 08/15/20 22 08/15/2022 COMP. METAB OLIC PANEL chloride 99 mmol/ L 96-107 Not Available [address], 6[address], 08/15/2022 14:45:51 08/15/20 22 08/15/2022 COMP. METAB OLIC PANEL anion gap 8.1 5.0-15 .0 Not Available [address], 85668, 08/15/2022 14:45:51 08/15/20 22 08/15/2022 COMP. METAB OLIC PANEL CO2 31 mmol/ L 21-32 Not Available [address], 93037, 08/15/2022 14:45:51 08/15/20 22 08/15/2022 COMP. METAB OLIC PANEL calcium 9.0 mg/dL 8.5-10 .3 Not Available [address], [address], 08/15/2022 14:45:51 08/15/20 22 08/15/2022 COMP. METAB OLIC PANEL total protein 7.1 g/dL 6.4-8. 2 Not Available [address], 58635, 08/15/2022 14:45:51 08/15/20 22 08/15/2022 COMP. METAB OLIC PANEL albumin 4.3 g/dL 3.4-5. 0 Not Available [address], 65[address], 08/15/2022 14:45:51 08/15/20 22 08/15/2022 COMP. METAB OLIC PANEL globulin 2.8 g/dL Not Available [address], 31849, 08/15/2022 14:45:51 08/15/20 22 08/15/2022 COMP. METAB OLIC PANEL A/G 1.5 ratio 0.8-2. 0 Not Available [address], [address]12, 08/15/2022 14:45:51 08/15/20 22 08/15/2022 COMP. METAB OLIC PANEL total bilirubin 0.40 mg/dL 0.00-1 .00 Not Available [address], 93964, 08/15/2022 14:45:51 08/15/20 22 08/15/2022 COMP. METAB OLIC PANEL AST 15 U/L 0-37 Not Available [address], [address], 08/15/2022 14:45:51 08/15/20 22 08/15/2022 COMP. METAB OLIC PANEL ALT 27 U/L 6-63 Not Available [address], 01039, 08/15/2022 14:45:51 08/15/20 22 08/15/2022 COMP. METAB OLIC PANEL alk. phos. 60 U/L 50-136 Not Available [address], 35233, 08/15/2022 14:45:51 08/15/20 22 08/15/2022 TSH TSH 2.54 uIU/m L 0.50-6 .00 [facility] [employer] [facility] and [facility] Thy[facility] id [facility] iatio n recom mend goal TSH value s betwe en 0.4-4 .0 mIU/m L. Not Available [address], [address], 08/15/2022 15:50:31 08/15/20 22 08/15/2022 PTH INTAC T PTH intact 70.0 pg/mL 9.6-66 .3 high Not Available [address], 75576, 08/15/2022 15:50:32 08/15/20 22 08/16/2022 VITAM IN [...] er than 30 ng/mL . Not Available [address], 77348, 08/16/2022 10:54:05 08/17/20 22 08/17/2022 CBC AND DIFFE RENTI AL WBC 12.45 K/uL 4.00-1 1.00 high Not Available [facility] (Out[facility]) [address] [place] [address], [address], 08/17/2022 09:27:12 08/17/20 22 08/17/2022 CBC AND DIFFE RENTI AL RBC 4.47 M/uL 3.72-5 .30 Not Available [facility] (Outpatient) [address] [place] [address], [address], 08/17/2022 09:27:12 08/17/20 22 08/17/2022 CBC AND DIFFE RENTI AL HGB 15.1 g/dL 11.4-1 5.9 Not Available [facility] (Outpatient) [address] [place] [address], [address], 08/17/2022 09:27:12 08/17/20 22 08/17/2022 CBC AND DIFFE RENTI AL HCT 45.6 % 34.2-4 6.8 Not Available [facility] (Outpatient) [address] [place], [address], 08/17/2022 09:27:12 08/17/20 22 08/17/2022 CBC AND DIFFE RENTI AL plt 227 K/uL 140-43 0 Not Available [facility] (Outpatient) [address] [place], [address], 08/17/2022 09:27:12 08/17/20 22 08/17/2022 CBC AND DIFFE RENTI AL MCV 102.0 fL 78.0-9 7.0 high Not Available [facility] (Outpatient) [address] [place], [address], 08/17/2022 09:27:12 08/17/20 22 08/17/2022 CBC AND DIFFE RENTI AL MCH 33.8 pg 25.0-3 3.0 high Not Available [facility] (Outpatient) [address] [place], [address], 08/17/2022 09:27:12 08/17/20 22 08/17/2022 CBC AND DIFFE RENTI AL MCHC 33.1 g/dL 32.0-3 6.0 Not Available [facility] (Outpatient) [address] [place], [address], 08/17/2022 09:27:12 08/17/20 22 08/17/2022 CBC AND DIFFE RENTI AL RDW 12.6 % 11.0-1 6.0 Not Available [facility] (Outpatient) [address] [place], [address], 08/17/2022 09:27:12 08/17/20 22 08/17/2022 CBC AND DIFFE RENTI AL MPV 10.0 fL 8.4-12 .8 Not Available [facility] (Outpatient) [address] [place], [address], 08/17/2022 09:27:12 08/17/20 22 08/17/2022 CBC AND DIFFE RENTI AL diff method AUTO Not Available [facility] (Outpatient) [address] [place], [address], 08/17/2022 09:27:12 08/17/20 22 08/17/2022 CBC AND DIFFE RENTI AL neuts 78.1 % 43.0-7 5.0 high Not Available [facility] (Outpatient) [address] [place], [address], 08/17/2022 09:27:12 08/17/20 22 08/17/2022 CBC AND DIFFE RENTI AL lymphs 10.6 % 18.2-4 7.4 low Not Available [facility] (Outpatient) [address] [place], [address], 08/17/2022 09:27:12 08/17/20 22 08/17/2022 CBC AND DIFFE RENTI AL monos 7.5 % 4.00-1 1.00 Not Available [facility] (Outpatient) [address] [place], [address], 08/17/2022 09:27:12 08/17/20 22 08/17/2022 CBC AND DIFFE RENTI AL eos 3.2 % 0.0-8. 0 Not Available [facility] (Outpatient) [address] [place], [address], 08/17/2022 09:27:12 08/17/20 22 08/17/2022 CBC AND DIFFE RENTI AL basos 0.3 % 0.0-2. 0 Not Available [facility] (Outpatient) [address] [place], [address], 08/17/2022 09:27:12 08/17/20 22 08/17/2022 CBC AND DIFFE RENTI AL granulocytes , immature (%) 0.3 % 0.0-0. 9 Not Available [facility] (Outpatient) [address] [place], [address], 08/17/2022 09:27:12 08/17/20 22 08/17/2022 CBC AND DIFFE RENTI AL absolute neuts 9.72 K/uL 1.80-7 .70 high Not Available [facility] (Outpatient) [address] [place], [address], 08/17/2022 09:27:12 08/17/20 22 08/17/2022 CBC AND DIFFE RENTI AL absolute lymphs 1.32 K/uL 1.00-3 .10 Not Available [facility] (Outpatient) [address] [place], [address], 08/17/2022 09:27:12 08/17/20 22 08/17/2022 CBC AND DIFFE RENTI AL absolute monos 0.93 K/uL 0.20-0 .80 high Not Available [facility] (Outpatient) [address] [place], [address], 08/17/2022 09:27:12 08/17/20 22 08/17/2022 CBC AND DIFFE RENTI AL absolute eos 0.40 K/uL 0.00-0 .80 Not Available [facility] (Outpatient) [address] [place], [address], 08/17/2022 09:27:12 08/17/20 22 08/17/2022 CBC AND DIFFE RENTI AL absolute basos 0.04 K/uL 0.00-0 .09 Not Available [facility] (Outpatient) [address] [place], [address], 08/17/2022 09:27:12 08/17/20 22 08/17/2022 CBC AND DIFFE RENTI AL granulocytes , immature 0.04 K/uL 0.00-0 .05 Not Available [facility] (Outpatient) [address] [place], [address], 08/17/2022 09:27:12 08/17/20 22 08/17/2022 URINA LYSIS W/REF LUKASZ URINE CULTU RE color STEPHANIE yellow abnormal Not Available [facility] (Outpatient) [address] [place], [address], 08/17/2022 09:46:49 08/17/20 22 08/17/2022 URINA LYSIS W/REF [facility] URINE CULTU RE clarity Clear Not Available [facility] (Outpatient) [address] [place], [address], 08/17/2022 09:46:49 08/17/20 22 08/17/2022 URINA LYSIS W/REF [facility] URINE CULTU RE glucose Negati ve negati ve Not Available [facility] (Outpatient) [address] [place], [address], 08/17/2022 09:46:49 08/17/20 22 08/17/2022 URINA LYSIS W/REF [facility] URINE CULTU RE bili Negati ve negati ve Not Available [facility] (Outpatient) [address] [place], [address], 08/17/2022 09:46:49 08/17/20 22 08/17/2022 URINA LYSIS W/REF [facility] URINE CULTU RE ketones Negati ve negati ve Not Available [facility] (Outpatient) [address] [place], [address], 08/17/2022 09:46:49 08/17/20 22 08/17/2022 URINA LYSIS W/REF [facility]ASZ URINE CULTU RE specific gravity 1.025 1.005- 1.030 Not Available [facility] (Out[facility]) [address] [place], [address], 08/17/2022 09:46:49 08/17/20 22 08/17/2022 URINA LYSIS W/REF [facility] URINE CULTU RE blood 1+ negati ve abnormal Not Available [facility] (Outpatient) [address] [place], [address], 08/17/2022 09:46:49 08/17/20 22 08/17/2022 URINA LYSIS W/REF [facility]ASZ URINE CULTU RE pH 6.0 5.0-8. 0 Not Available [facility] (Outpatient) [address] [place], [address], 08/17/2022 09:46:49 08/17/20 22 08/17/2022 URINA LYSIS W/REF L[facility]ASZ URINE CULTU RE protein Negati ve negati ve Not Available [facility] (Outpatient) [address] [place], [address], 08/17/2022 09:46:49 08/17/20 22 08/17/2022 URINA LYSIS W/REF [facility] URINE CULTU RE nitrite Negati ve negati ve Not Available [facility] (Outpatient) [address] [place], [address], 08/17/2022 09:46:49 08/17/20 22 08/17/2022 URINA LYSIS W/REF [facility]Z URINE CULTU RE leukocyte esterase, ur Negati ve negati ve Not Available [facility] (Outpatient) [address] [place], [address], 08/17/2022 09:46:49 08/17/20 22 08/17/2022 URINE SEDIM ENT WBC 0-4 /hpf none seen abnormal Not Available [facility] (Outpatient) [address] [place], [address], 08/17/2022 09:48:11 08/17/20 22 08/17/2022 URINE SEDIM ENT RBC 0-2 /hpf none seen abnormal Not Available [facility] (Outpatient) [address] [place], [address], 08/17/2022 09:48:11 08/17/20 22 08/17/2022 URINE SEDIM ENT urine epithelial 0-4 none seen abnormal Not Available [facility] (Outpatient) [address] [place], [address], 08/17/2022 09:48:11 08/17/20 22 08/17/2022 URINE SEDIM ENT mucus 2+ /hpf none seen abnormal Not Available [facility] (Outpatient) [address] [place], [address], 08/17/2022 09:48:11 08/17/20 22 08/17/2022 URINE SEDIM ENT bacteria Trace /hpf none seen abnormal Not Available [facility] (Outpatient) [address] [place], [address], 08/17/2022 09:48:11 08/17/20 22 08/17/2022 BASIC METAB OLIC PANEL sodium 139 mmol/ L 133-14 6 Not Available [facility] (Outpatient) [address] [place], [address], 08/17/2022 09:55:46 08/17/20 22 08/17/2022 BASIC METAB OLIC PANEL chloride 101 mmol/ L 96-108 Not Available [facility] (Outpatient) [address] [place], [address], 08/17/2022 09:55:46 08/17/20 22 08/17/2022 BASIC METAB OLIC PANEL potassium 4.4 mmol/ L 3.3-5. 1 Not Available [facility] (Out[facility]) [address] [place], [address], 08/17/2022 09:55:46 08/17/20 22 08/17/2022 BASIC METAB OLIC PANEL CO2 27 mmol/ L 21-35 Not Available [facility] (Outpatient) [address] [place], [address], 08/17/2022 09:55:46 08/17/20 22 08/17/2022 BASIC METAB OLIC PANEL BUN 16 mg/dL 6-19 Not Available [facility] (Outpatient) [address] [place], [address], 08/17/2022 09:55:46 08/17/20 22 08/17/2022 BASIC METAB OLIC PANEL creatinine 0.90 mg/dL 0.5-1. 5 Not Available [facility] (Outpatient) [address] [place], [address], 08/17/2022 09:55:46 08/17/20 22 08/17/2022 BASIC METAB OLIC PANEL glucose 158 mg/dL 70-99 high Not Available [facility] (Outpatient) [address] [place], [address], 08/17/2022 09:55:46 08/17/20 22 08/17/2022 BASIC METAB OLIC PANEL calcium 9.8 mg/dL 8.4-10 .3 Not Available [facility] (Out[facility]) [address] [place], [address], 08/17/2022 09:55:46 08/17/20 22 08/17/2022 BASIC METAB OLIC PANEL eGFR 70 mL/mi n/1.7 3m2 >59 Estim ated glome rular filtr ation rate calcu lated using the CKD-E PI refit equat ion. Not Available [facility] (Outpatient) [address] [place], [address], 08/17/2022 09:55:46 08/17/20 22 08/17/2022 BASIC METAB OLIC PANEL anion gap 15 mmol/ L 10-20 Not Available [facility] (Outpatient) [address] [place], [address], 08/17/2022 09:55:46 08/17/20 22 08/17/2022 LFTS (HEPA TIC PANEL ) alkaline phosphatase 67 U/L 39-117 Not Available [facility] (Outpatient) [address] [place], [address], 08/17/2022 09:55:48 08/17/20 22 08/17/2022 LFTS (HEPA TIC PANEL ) total bilirubin 0.5 mg/dL 0.0-1. 2 Not Available [facility] (Out[facility]) [address] [place], [address], 08/17/2022 09:55:48 08/17/20 22 08/17/2022 LFTS (HEPA TIC PANEL ) direct bilirubin <0.2 mg/dL 0-0.3 Not Available [facility] (Outpatient) [address] [place], [address], 08/17/2022 09:55:48 08/17/20 22 08/17/2022 LFTS (HEPA TIC PANEL ) bilirubin (indirect) NOT CALCUL ATED mg/dL 0-1.5 Not Available [facility] (Outpatient) [address] [place], [address], 08/17/2022 09:55:48 08/17/20 22 08/17/2022 LFTS (HEPA TIC PANEL ) AST 16 U/L 0-37 Not Available [facility] (Outpatient) [address] [place], [address], 08/17/2022 09:55:48 08/17/20 22 08/17/2022 LFTS (HEPA TIC PANEL ) ALT 16 U/L 0-40 Not Available [facility] (Outpatient) [address] [place], [address], 08/17/2022 09:55:48 08/17/20 22 08/17/2022 LFTS (HEPA TIC PANEL ) total protein 7.0 g/dL 6.5-8. 0 Not Available [facility] (Outpatient) [address] [place], [address], 08/17/2022 09:55:48 08/17/20 22 08/17/2022 LFTS (HEPA TIC PANEL ) albumin 4.7 g/dL 3.9-4. 8 Not Available [facility] (Out[facility]) [address] [place], [address], 08/17/2022 09:55:48 08/17/20 22 08/17/2022 LFTS (HEPA TIC PANEL ) globulin 2.3 g/dL 1-4.8 Not Available [facility] (Outpatient) [address] [place], [address], 08/17/2022 09:55:48 08/17/20 22 08/17/2022 LFTS (HEPA TIC PANEL ) A/G ratio 2.04 ratio 1.00-4 .80 Not Available [facility] (Out[facility]) [address] [place] [address], [address], 08/17/2022 09:55:48 08/17/20 22 08/17/2022 MAGNE SIUM magnesium 2.0 mg/dL 1.6-2. 6 Not Available [facility] (Outpatient) [address] [place], [address], 08/17/2022 09:55:49 11/13/20 22 11/13/2022 VITAM IN [...] er than 30 ng/mL . Not Available [facility] [address] [place], [address], 11/13/2022 11:38:16 11/13/20 22 11/13/2022 PTH INTAC T WITH CALCI UM PTH intact 63.0 pg/mL 9.6-66 .3 Not Available [facility] [address] [place], [address], 11/13/2022 15:44:47 11/13/20 22 11/13/2022 PTH INTAC T WITH CALCI UM calcium 9.0 mg/dL 8.5-10 .3 Not Available [facility] [address] [place], [address], 11/13/2022 15:44:47 01/03/20 23 01/03/2023 CBC AND DIFFE RENTI AL WBC 4.72 K/uL 4.00-1 1.00 Not Available [facility] ([facility]) [address] [place] [address], [address], 01/03/2023 08:59:34 01/03/20 23 01/03/2023 CBC AND DIFFE RENTI AL RBC 3.80 M/uL 3.72-5 .30 Not Available [facility] (Out[facility]) [address] [place] [address], [address], 01/03/2023 08:59:34 01/03/20 23 01/03/2023 CBC AND DIFFE RENTI AL HGB 12.8 g/dL 11.4-1 5.9 Not Available [facility] (Out[facility]) [address] [place] [address], [address], 01/03/2023 08:59:34 01/03/20 23 01/03/2023 CBC AND DIFFE RENTI AL HCT 38.3 % 34.2-4 6.8 Not Available [facility] (Out[facility]) [address] [place], [address], 01/03/2023 08:59:34 01/03/20 23 01/03/2023 CBC AND DIFFE RENTI AL plt 212 K/uL 140-43 0 Not Available [facility] (Out[facility]) [address] [place] [address], [address], 01/03/2023 08:59:34 01/03/20 23 01/03/2023 CBC AND DIFFE RENTI AL MCV 100.8 fL 78.0-9 7.0 high Not Available [facility] (Outpatient) [address] [place], [address], 01/03/2023 08:59:34 01/03/20 23 01/03/2023 CBC AND DIFFE RENTI AL MCH 33.7 pg 25.0-3 3.0 high Not Available [facility] (Outpatient) [address] [place], [address], 01/03/2023 08:59:34 01/03/20 23 01/03/2023 CBC AND DIFFE RENTI AL MCHC 33.4 g/dL 32.0-3 6.0 Not Available [facility] (Out[facility]) [address] [place] [address], [address], 01/03/2023 08:59:34 01/03/20 23 01/03/2023 CBC AND DIFFE RENTI AL RDW 14.1 % 11.0-1 6.0 Not Available [facility] ([facility]) [address] [place] [address], [address], 01/03/2023 08:59:34 01/03/20 23 01/03/2023 CBC AND DIFFE RENTI AL MPV 9.6 fL 8.4-12 .8 Not Available [facility] ([facility]) [address] [place] [address], [address], 01/03/2023 08:59:34 01/03/20 23 01/03/2023 CBC AND DIFFE RENTI AL diff method AUTO Not Available [facility] (Outpatient) [address] [place] [address], [address], 01/03/2023 08:59:34 01/03/20 23 01/03/2023 CBC AND DIFFE RENTI AL neuts 59.8 % 43.0-7 5.0 Not Available [facility] (Out[facility]) [address] [place], [address], 01/03/2023 08:59:34 01/03/20 23 01/03/2023 CBC AND DIFFE RENTI AL lymphs 23.9 % 18.2-4 7.4 Not Available [facility] (Out[facility]) [address] [place], [address], 01/03/2023 08:59:34 01/03/20 23 01/03/2023 CBC AND DIFFE RENTI AL monos 12.3 % 4.00-1 1.00 high Not Available [facility] (Outpatient) [address] [place], [address], 01/03/2023 08:59:34 01/03/20 23 01/03/2023 CBC AND DIFFE RENTI AL eos 3.2 % 0.0-8. 0 Not Available [facility] (Out[facility]) [address] [place], [address], 01/03/2023 08:59:34 01/03/20 23 01/03/2023 CBC AND DIFFE RENTI AL basos 0.2 % 0.0-2. 0 Not Available [facility] (Out[facility]) [address] [place], [address], 01/03/2023 08:59:34 01/03/20 23 01/03/2023 CBC AND DIFFE RENTI AL granulocytes , immature (%) 0.6 % 0.0-0. 9 Not Available [facility] (Outpatient) [address] [place], [address], 01/03/2023 08:59:34 01/03/20 23 01/03/2023 CBC AND DIFFE RENTI AL absolute neuts 2.82 K/uL 1.80-7 .70 Not Available [facility] (Out[facility]) [address] [place], [address], 01/03/2023 08:59:34 01/03/20 23 01/03/2023 CBC AND DIFFE RENTI AL absolute lymphs 1.13 K/uL 1.00-3 .10 Not Available [facility] (Out[facility]) [address] [place], [address], 01/03/2023 08:59:34 01/03/20 23 01/03/2023 CBC AND DIFFE RENTI AL absolute monos 0.58 K/uL 0.20-0 .80 Not Available [facility] (Out[facility]) [address] [place], [address], 01/03/2023 08:59:34 01/03/20 23 01/03/2023 CBC AND DIFFE RENTI AL absolute eos 0.15 K/uL 0.00-0 .80 Not Available [facility] (Out[facility]) [address] [place], [address], 01/03/2023 08:59:34 01/03/20 23 01/03/2023 CBC AND DIFFE RENTI AL absolute basos 0.01 K/uL 0.00-0 .09 Not Available [facility] (Out[facility]) [address] [place], [address], 01/03/2023 08:59:34 01/03/20 23 01/03/2023 CBC AND DIFFE RENTI AL granulocytes , immature 0.03 K/uL 0.00-0 .05 Not Available [facility] (Out[facility]) [address] [place], [address], 01/03/2023 08:59:34 01/03/20 23 01/03/2023 COVID JUAN JOSELYN RESPI RATOR Y VIRAL ORDER (PRO) test ordered COVID, FLU HAS BEEN ORDERE D Not Available [facility] (Out[facility]) [address] [place], [address], 01/03/2023 09:00:25 01/03/20 23 01/03/2023 COVID JUAN JOSELYN RESPI RATOR Y VIRAL ORDER (PRO) specimen source/descr iption NASOPH CASIE AL SWAB Not Available [facility] (Out[facility]) [address] [place], [address], 01/03/2023 09:00:25 01/03/20 23 01/03/2023 COVID JUAN JOSELYN RESPI RATOR Y VIRAL ORDER (PRO) influenza A PCR NOT DETECT ED not detect ed Not Available [facility] (Out[facility]) [address] [place], [address], 01/03/2023 09:00:25 01/03/20 23 01/03/2023 COVID JUAN JOSELYN RESPI RATOR Y VIRAL ORDER (PRO) influenza B PCR NOT DETECT ED not detect ed Not Available [facility] (Outpatient) [address] [place], [address], 01/03/2023 09:00:25 01/03/20 23 01/03/2023 COVID JUAN JOSELYN RESPI RATOR Y VIRAL ORDER (PRO) sars-cov 2 (covid-19) PCR DETECT ED not detect ed abnormal SARS- CoV-2 detec criss This test has been autho rized by the FDA under an Emerg ency Use Autho rizat ion (EUA) for use by autho rized labor atori es. Not Available [facility] (Outpatient) [address] [place], [address], 01/03/2023 09:00:25 01/03/20 23 01/03/2023 TROPO NUVIA troponin-T, hs gen5 <6 NG/L 0-9 Not Available [facility] (Outpatient) [address] [place], [address], 01/03/2023 09:20:18 01/03/20 23 01/03/2023 BASIC METAB OLIC PANEL sodium 138 mmol/ L 133-14 6 Not Available [facility] (Out[facility]) [address] [place], [address], 01/03/2023 09:31:52 01/03/20 23 01/03/2023 BASIC METAB OLIC PANEL chloride 103 mmol/ L 96-108 Not Available [facility] (Out[facility]) [address] [place], [address], 01/03/2023 09:31:52 01/03/20 23 01/03/2023 BASIC METAB OLIC PANEL potassium 4.7 mmol/ L 3.3-5. 1 Not Available [facility] (Out[facility]) [address] [place], [address], 01/03/2023 09:31:52 01/03/20 23 01/03/2023 BASIC METAB OLIC PANEL CO2 27 mmol/ L 21-35 Not Available [facility] (Out[facility]) [address] [place], [address], 01/03/2023 09:31:52 01/03/20 23 01/03/2023 BASIC METAB OLIC PANEL BUN 11 mg/dL 6-19 Not Available [facility] (Out[facility]) [address] [place], [address], 01/03/2023 09:31:52 01/03/20 23 01/03/2023 BASIC METAB OLIC PANEL creatinine 0.80 mg/dL 0.5-1. 5 Not Available [facility] (Out[facility]) [address] [place], [address], 01/03/2023 09:31:52 01/03/20 23 01/03/2023 BASIC METAB OLIC PANEL glucose 138 mg/dL 70-99 high Not Available [facility] (Outpatient) [address] [place], [address], 01/03/2023 09:31:52 01/03/20 23 01/03/2023 BASIC METAB OLIC PANEL calcium 9.4 mg/dL 8.4-10 .3 Not Available [facility] (Out[facility]) [address] [place], [address], 01/03/2023 09:31:52 01/03/20 23 01/03/2023 BASIC METAB OLIC PANEL eGFR 80 mL/mi n/1.7 3m2 >59 Estim ated glome rular filtr ation rate calcu lated using the CKD-E PI refit equat ion. Not Available [facility] (Outpatient) [address] [place], [address], 01/03/2023 09:31:52 01/03/20 23 01/03/2023 BASIC METAB OLIC PANEL anion gap 13 mmol/ L 10-20 Not Available [facility] (Out[facility]) [address] [place], [address], 01/03/2023 09:31:52 01/03/20 23 01/03/2023 TROPO NUVIA troponin-T, hs gen5 <6 NG/L 0-9 Not Available [facility] (Outpatient) [address] [place], [address], 01/03/2023 10:36:22 01/03/20 23 01/03/2023 D-DIM ER D-dimer 1134 NG/mL _feu <500 high In patie nts with low to moder ate pre-t est proba bilit y score s for VTE (PE or DVT), a D-Dim er cut-o ff less than 500 ng/mL (FEU) has a negat shelly predi ctive value (NPV) of 97 to 100%. Not Available [facility] (Outpatient) [address] [place], [address], 01/03/2023 11:03:28 02/23/2002/22/2023 HGB A1C hemoglobin A1C [...] furth er confi rmati on Not Available [address], [address], 02/22/2023 12:10:37 02/23/20 23 02/22/2023 HGB A1C estimated average glucose 139.9 mg/dL Not Available [address], [address], 02/22/2023 12:10:37 02/23/20 23 02/22/2023 BASIC METAB OLIC PANEL glucose 143 mg/dL 70-100 high Not Available [address], [address], 02/22/2023 16:37:32 02/23/20 23 02/22/2023 BASIC METAB OLIC PANEL BUN 14 mg/dL 7-18 Not Available [address], [address], 02/22/2023 16:37:32 02/23/20 23 02/22/2023 BASIC METAB OLIC PANEL creatinine 0.9 mg/dL 0.8-1. 3 Not Available [address], [address], 02/22/2023 16:37:32 02/23/20 23 02/22/2023 BASIC METAB OLIC PANEL B/C 15.6 ratio Not Available [address], [address], 02/22/2023 16:37:32 02/23/20 23 02/22/2023 BASIC METAB [...] Colla borat ion (CKD- EPI) Equat ion (Sandeee r et. al 2020) as recom ajit d by the Tristin mercado . eGFR is based on age, serum creat inine , and sex. CKD-E PI does not calcu late eGFR by race, does not apply to child jairo (age <18 years ), and shoul d not be used in pregn willy. Not Available [address], [address], 02/22/2023 16:37:32 02/23/20 23 02/22/2023 BASIC METAB OLIC PANEL sodium 140 mmol/ L 136-14 5 Not Available [address], [address], 02/22/2023 16:37:32 02/23/20 23 02/22/2023 BASIC METAB OLIC PANEL potassium 5.3 mmol/ L 3.5-5. 1 high Not Available [address], [address], 02/22/2023 16:37:32 02/23/20 23 02/22/2023 BASIC METAB OLIC PANEL chloride 103 mmol/ L 96-107 Not Available [address], [address], 02/22/2023 16:37:32 02/23/20 23 02/22/2023 BASIC METAB OLIC PANEL anion gap 9.5 5.0-15 .0 Not Available [address], [address], 02/22/2023 16:37:32 02/23/20 23 02/22/2023 BASIC METAB OLIC PANEL CO2 28 mmol/ L 21-32 Not Available [address], [address], 02/22/2023 16:37:32 02/23/20 23 02/22/2023 BASIC METAB OLIC PANEL calcium 9.0 mg/dL 8.5-10 .3 Not Available [address], [address], 02/22/2023 16:37:32 02/23/20 23 02/22/2023 LIPID PANEL cholesterol 205 mg/dL <200 mg/dl Fernie able 200-2 39 mg/dl Borde rline High >240 mg/dl High Not Available [address], [address], 02/22/2023 16:37:34 02/23/20 23 02/22/2023 LIPID PANEL triglyceride s 61 mg/dL <150 mg/dL Debbie l 150-1 99 mg/dL Borde rline High 200-4 99 mg/dL High >500 mg/dL Very High Not Available [address], [address], 02/22/2023 16:37:34 02/23/20 23 02/22/2023 LIPID PANEL direct HDL 90 mg/dL <40 mg/dl - Major Risk for CHD >60 mg/dl - Negat shelly Risk for CHD Not Available [address], [address], 02/22/2023 16:37:34 02/23/2002/22/2023 DIREC T LDL direct LDL 90 mg/dL [...] with 0-1 risk facto r is not neces dontrell. Not Available [address], [address], 02/22/2023 16:37:36 02/23/20 23 02/25/2023 MICRO ALBUM IN/CR EATIN INE RATIO PANEL , URINE microalbumin 2.7 mg/L 1.3-20 .0 Not Available [address], [address], 02/25/2023 10:18:19 02/23/20 23 02/25/2023 MICRO ALBUM IN/CR EATIN INE RATIO PANEL , URINE creatinine urine 46.3 mg/dL 30.0-1 25.0 Not Available [facility] [address] [place], [address], 02/25/2023 10:18:19 02/23/20 23 02/25/2023 MICRO ALBUM IN/CR EATIN INE RATIO PANEL , URINE microalb/cre at ratio 5.8 mg/g_ creat 0.0-29 .0 Not Available [address], [address], 02/25/2023 10:18:19 08/09/20 22 08/09/2022 xr wrist [...] MD 2 Final result Right wrist pain CHANTALUE CAMILA Candelaria GUMP mgump [facility] [address] [place], [address], 08/09/2022 15:37:21 08/14/20 22 08/14/2022 xr knee 3 view (left ) This image report has been auto-f inaliz ed and has not been read by a Radiol ogist. Interp retati on has been includ ed in the provid er encoun ter note for this date of jennifer velez. Final result JORDYN Candelaria SOLEDAD mgump [facility] [address] [facility] [place], [address], 08/14/2022 15:15:27 08/15/20 22 08/19/2020 XR, chest [...] Readin g Physic leda: Chen Javier ms [facility] (Imaging) [address], [place], [address], 08/21/2022 07:49:54 08/17/20 22 08/17/2022 CT abdom [...] n system . ATTEST ATION: I, Tavia rice as teachi ng physic leda, have review ed the images for this case and if necess pamela edited the report origin ally create d by Sandro Hickman. Electr onical ly Signed by: Tavia rice on 022 11:52 AM Interp reted by: MD Sandro Jiang MD Signed by: Tavia rice MD 2 Final result [id number] Open Critic gregory Rice [id number] [facility] [address] [facility], [place], [address], 08/17/2022 17:04:27 01/03/20 23 01/03/2023 XR, chest [...] , covid+ as of last week. [facility] [address] [facility], [place], [address], 02/28/2023 10:25:35 01/03/20 23 01/03/2023 CT chest [...] Covid last Thursd ay JORDYN JENSEN Teagan MENENDEZ [facility] [address], [place], [address], 02/28/2023 10:25:35 03/01/20 23 03/01/2023 MAMMO , [...] Readin g Physic leda: Chen Javier ms [facility] (Imaging) [address], [place], [address], 03/04/2023 13:33:49 03/25/2003/22/2023 imagi ng inter preta tion No observ ation record ed. [facility] [address], [place], [address], 03/30/2023 06:50:32 Result Notes None recorded. Problems Name Problem SNOMED Code Status Onset Date Resolution Date Notes Provider Name and Address Organization Details Recorded Time Rheumato id padmini tavarez 32951639 Active Not Available [facility] 4 08:27:43 [place]: positive 036258899 Active Not Available [facility] 4 08:27:43 Gastro-e sophagea l reflux disease with esophagi tis 371472289 Active Not Available [facility] 4 08:27:43 Hyperten sive disorder 55513550 Active Not Available [facility] 4 08:27:43 Impaired glucose toleranc e 0894441 Completed 01/20/2020 started on metformi n 06/25/17 Eloisa Andrade D.O. [address] [place] [address], [phone] , [facility] 0 14:50:20 Gastroes ophageal reflux disease 662151238 Completed 201507/26/2016 Eloisa Andrade D.O. [address] [place] [address], [address] , [facility] 6 12:08:42 Migraine 50725527 Active 2015 Not Available [facility] 4 08:27:43 Hiatal hernia 88224288 Completed 201501/31/2021 EGD 07/17/16 Eloisa Andrade D.O. [address] [place] [address], [phone] , [facility] 1 13:38:01 Divertic ular disease 852960979 Active [address] scan without perf, resolved with po abx Not Available [facility] 4 08:27:43 Long-ter m drug therapy Active 2016 Not Available [facility] 4 08:27:43 Left ventricu lar hypertro phy 30040830 Active 2016 mild on 10/28/17 echo Not Available [facility] 4 08:27:43 Idiopath ic peripher al neuropat hy 74510855 Active 2017 Not Available [facility] 4 08:27:43 Obstruct shelly sleep apnea syndrome 37555986 Active 2017 mild 06/2018 sleep study - hygenine and consider oral device Not Available [facility] 4 08:27:43 Nondiabe tic gastropa resis 01745126 Active 2018 Not Available [facility] 4 08:27:43 Type 2 diabetes mellitus without complica tion 912107103 Active 2019 Not Available [facility] 4 08:27:43 Paraesop hageal hernia 8396445 Completed 201901/31/2021 Grade 3 - pending surgery summer 2019 Eloisa Andrade D.O. [address] [place] [address], [phone] , 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 Please review these documents and add these problems to the patient's chart manually as needed. Problem Notes None recorded. Procedures Surgical History Date Name Laterality Status Provider Name and Address Organization Details Recorded Time 02/29/20 23 Cardiovascular disease risk reduction counseling completed Otf Palm PA-C [address] [place] [address], [phone], 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 08/06/2022 13:29:35 05/15/20 22 Trigger Finger Injection RB completed Olivia Welch MD [address] [place] [address], [phone], [facility] 05/15/2022 08:46:16 01/27/20 22 Generic Procedure Template completed Kana Norman MD [address] [place], [address], [facility] 01/26/2022 15:32:39 09/19/20 21 [id number]: Manual Therapy cancelled Igor Sheehan, PT [address] [place], [address], [facility] 09/18/2021 20:55:26 09/19/20 21 Physical Activity Counselling cancelled Igor Sheehan, PT [address] [place], [address], [facility] 09/18/2021 20:39:58 09/19/20 21 Treatment and Advice cancelled Igor Sheehan, PT [address] [place], [address], [facility] 09/18/2021 20:39:58 09/05/20 21 [id number]: Therapeutic Exercise cancelled Igor Sheehan, PT [address] [place], [address], [facility] 09/04/2021 21:22:17 09/05/20 21 [id number]: Manual Therapy cancelled Igor Sheehan, PT [address] [place], [address], [facility] 09/04/2021 21:22:22 09/05/20 21 Physical Activity Counselling cancelled Igor WolffKeon, PT [address] [place], [address], [facility] 09/04/2021 21:19:05 09/05/20 21 Treatment and Advice cancelled Igor Sheehan, PT [address] [place], [address], [facility] 09/04/2021 21:19:05 08/29/20 21 Physical Activity Counselling completed Igor Sheehan, PT [address] [place], [address], [facility] 08/28/2021 21:35:00 08/29/20 21 [id number]: PT Eval Low Complexity completed Igor Sheehan, PT [address] [place], [id number], [facility] 08/28/2021 21:35:00 08/29/20 21 Treatment and Advice completed Igor Sheehan, PT [address] [place], [address], [facility] 08/29/2021 19:16:23 07/25/20 21 Medicare Wellness Visit completed Olga Lind MA [facility] 07/25/2021 13:34:49 07/25/20 21 prevention-cardiov ascular risk reduction counseling completed Olga Lind MA [facility] 07/25/2021 13:34:49 07/25/20 21 prevention-annual alcohol misuse screening completed Olga Lind MA [facility] 07/25/2021 13:34:49 02/15/20 21 Shave Biopsy AG completed Otf Palm PA-C [address] [place] [address], [id number], [facility] 02/14/2021 15:40:34 02/01/20 21 prevention-cardiov ascular risk reduction counseling completed Olga Lind MA [facility] 01/31/2021 13:29:58 02/01/20 21 prevention-annual alcohol misuse screening completed Olga Lind [place] [facility] [facility]21 13:29:58 01/06/20 21 Trigger Finger Injection RB completed Kana Norman MD [address] [place] [address], [address], [facility] 01/06/2021 12:41:22 08/16/20 20 repair of paraesophageal diaphragmatic hernia completed Eloisa Andrade D.O. [address] [place] [address], [address], [facility] 08/20/2020 15:30:24 07/27/20 20 Trigger Finger Injection completed JERSON Salvador [address] [place] [address], [address], [facility] 07/27/2020 12:26:26 04/08/20 20 Trigger Finger Injection RB completed Kana Norman MD [address] [place] [address], [address], [facility] 04/08/2020 14:05:18 06/09/20 19 Trigger Finger Injection RB completed Kana Norman MD [address] [place] [address], [address], [facility] 06/09/2019 19:04:23 03/10/20 19 32128: Therapeutic Exercise completed [facility] [address], [address], [facility] 03/10/2019 18:49:06 03/10/20 19 88153: Manual Therapy completed [address], [address], [facility] 03/10/2019 18:49:10 02/26/20 19 56355: Therapeutic Exercise completed [address], [address], [facility] 02/25/2019 11:18:45 02/19/20 19 56414: PT Eval Low Complexity completed [address], [address], [facility] 02/18/2019 09:23:24 12/04/19 19 POC Strep Testing completed Zayda Morris MA [facility] 12/04/2018 07:11:29 10/14/20 18 Jenniffer - Colonoscopy completed Jamaal Abad MD [address] [place] [address], [address], [facility] 10/14/2018 08:35:06 09/30/20 18 Jenniffer - Upper Endoscopy completed Jamaal Abad MD [address] [place] [address], [address], [facility] 09/30/2018 11:55:07 09/04/20 18 Trigger Finger Injection RB completed Kana Norman MD [address] [place] [address], [phone], [facility] 09/04/2018 15:43:21 05/14/20 18 [place] Sleepiness Scale completed Eloisa Andrade D.O. [address] [place] [address], [address], [facility] 05/14/2018 07:42:38 11/26/19 18 Carpal Tunnel Injection RB completed Kana Norman MD [address] [place], [address], [facility] 11/26/2017 19:09:30 04/18/20 17 Carpal Tunnel Surgery completed Eloisa Andrade D.O. [address] [place], [address], [facility] 05/14/2017 12:53:48 10/19/20 16 Nebulizer Tx completed Fallon Packer [facility] 10/19/2016 13:08:02 07/17/20 16 Colonoscopy completed Eloisa Andrade D.O. [address] [place], [address], [facility] 07/26/2016 12:08:13 05/06/20 14 Upper gi endoscopy performed completed Genet Lema RN [facility] 07/24/2016 11:25:38 05/27/20 12 Colonoscopy with biopsy completed Genet Lema RN [facility] 07/24/2016 11:28:46 Knee Replacement completed Kana Norman MD [address] [place], [address], [facility] 10/05/2015 15:11:57 Total Hysterectomy completed Eliosa Andrade D.O. [address] [place], [address], [facility] 12/12/2016 08:27:43 Imaging Results Imaging Date Name Status LastModified by Organization Details LastModified Time 08/09/2022 xr wrist 3 or more views (right) completed [facility] [address] [place] [address], [address], 08/09/2022 15:37:21 08/14/2022 xr knee 3 view (left) completed [facility] [address] [place] [address], [address], 08/14/2022 15:15:27 08/19/2020 XR, chest, 2 view completed SHARON Informa tion not available 08/21/2022 07:47:57 08/15/2022 XR, chest completed [facility] (Imaging) [address] [place], [address], 08/21/2022 07:49:54 08/17/2022 CT abdomen/pelvis with contrast completed [facility] [address] [place], [address], 08/17/2022 17:04:27 01/03/2023 XR, chest, 1 view completed [facility] [address] [place], [address], 02/28/2023 10:25:35 01/03/2023 CT chest pulmonary angiogram (acute) completed [facility] [address] [place], [address], 02/28/2023 10:25:35 03/01/2023 MAMMO, screening, tomosynthesis, bilateral completed [facility] (Imaging) [address], [place], [place], [address], 03/04/2023 13:33:49 03/22/2023 imaging interpretation completed [facility] [address] [place] [address], [address], 03/30/2023 06:50:32 Procedure Notes None recorded. Medical Equipment None Reported. Allergies Allergen ID Allergen Name Allergen Category Reaction Reaction Severity Criticality Documentation Date Start Date Code Code System Note Provider Name and Address Organization Details Recorded Time 109935 Product containin g penicilli n and antibioti c (product) medicatio n Not available Not available Not available 10/05/2015 02912 05 SNOMED DAYANA Samuel [facility] 5 10:12:28 804292 Substance with sulfonami de structure and antibacte rial mechanism of action (substanc e) medicatio n itching Not available Not available 05/22/2018 40386 8003 SNOMED ELLA Cunningham [facility] 8 07:37:09 070248 sulfasala zine medicatio n itching Not available Not available 09/04/2018 9524 RxNorm Vera Haney [facility]SEMBLER UNITYesenia [facility] 8 11:42:31 616904 Reglan medicatio n itching severe Not available 01/28/2019 9230 RxNorm [facility] 9 08:05:03 829688 Actemra medicatio n Not available Not available Not available 09/18/2022 61589 1 RxNorm HTN, diver ticul itis Not Available [facility] 3 11:54:56 Medications Name Sig Start Date Stop Date [...] Not Available Not Available Not Available Vitals Date Recorded Body height Provider Name an d Address Organization Details Last Updated DateTime 08/06/2022 163.83 cm Mallorie Mcmillan MA [facility] 08/06/2022 13:56:49 Date Recorded Body mass index (BMI) Body weight Provider Name and Address Organization Details Last Updated DateTime 08/06/2022 30.4 kg/m2 80190.33 g Mallorielincoln GatesELLA tavarez [facility] 08/06/2022 13:56:55 Date Recorded Heart rate Provider Name an d Address Organization Details Last Updated DateTime 08/06/2022 90 /min Mallorielincoln McmillanELLA [facility] 08/06/2022 14:00:58 Date Recorded Oxygen saturation Oxygen saturation in Arterial blood by Pulse oximetry Provider Name and Address Organization Details Last Updated DateTime 08/06/2022 97 % 97 % Mallorielincoln McmillanELLA [facility] 08/06/2022 14:01:01 Date Recorded Body height Provider Name an d Address Organization Details Last Updated DateTime 09/12/2022 163.83 cm Na Parra LPN [facility] 09/12/2022 09:58:13 Date Recorded Body mass index (BMI) Body weight Provider Name and Address Organization Details Last Updated DateTime 09/12/2022 29.6 kg/m2 62168.66 g Na Parra LPN [facility] 09/12/2022 10:00:22 Date Recorded Heart rate Provider Name an d Address Organization Details Last Updated DateTime 09/12/2022 69 /min Na Parra LPN [facility] 09/12/2022 10:06:42 Date Recorded Body height Provider Name an d Address Organization Details Last Updated DateTime 09/17/2022 163.83 cm Zayda Morris MA [facility] 09/17/2022 08:30:31 Date Recorded Body mass index (BMI) Body weight Provider Name and Address Organization Details Last Updated DateTime 09/17/2022 29.6 kg/m2 17990.76 g Zayda Morris MA [facility] 09/17/2022 08:30:45 Date Recorded Oxygen saturation Oxygen saturation in Arterial blood by Pulse oximetry Provider Name and Address Organization Details Last Updated DateTime 09/17/2022 98 % 98 % Zayda Morris MA [facility] 09/17/2022 08:31:53 Date Recorded Heart rate Provider Name an d Address Organization Details Last Updated DateTime 09/17/2022 75 /min Zayda Morris MA [facility] 09/17/2022 08:31:57 Date Recorded Body height Provider Name an d Address Organization Details Last Updated DateTime 12/16/2022 163.83 cm Charmaine BurnettDAYANA ogden [facility] 12/16/2022 10:33:27 Date Recorded Body mass index (BMI) Body weight Provider Name and Address Organization Details Last Updated DateTime 12/16/2022 30.4 kg/m2 27419.63 g Charmaine Burnett LPN [facility] 12/16/2022 10:33:32 Date Recorded Body temperature Provider Name a nd Address Organization Details Last Updated DateTime 12/16/2022 98.7 [degF] Charmaine Burnett LPN [facility] 12/16/2022 10:33:53 Date Recorded Body height Provider Name an d Address Organization Details Last Updated DateTime 02/28/2023 163.83 cm Mallorie Mcmillan MA [facility] 02/28/2023 09:46:05 Date Recorded Body mass index (BMI) Body weight Provider Name and Address Organization Details Last Updated DateTime 02/28/2023 30.8 kg/m2 81364.91 g Mallorie Mcmillan MA [facility] 02/28/2023 09:49:11 Date Recorded Heart rate Provider Name an d Address Organization Details Last Updated DateTime 02/28/2023 70 /min Mallorie Mcmillan MA [facility] 02/28/2023 09:49:33 Date Recorded Oxygen saturation Oxygen saturation in Arterial blood by Pulse oximetry Provider Name and Address Organization Details Last Updated DateTime 02/28/2023 99 % 99 % Mallorie Mcmillan MA [facility] 02/28/2023 09:49:36 Date Recorded Systolic blood pressure Diastolic blood pressure Provider Name and Address Organization Details Last Updated DateTime 08/06/2022 142 mm[Hg] 92 mm[Hg] Mallorie Mcmillan MA [facility] 08/06/2022 14:02:37 Date Recorded Systolic blood pressure Diastolic blood pressure Provider Name and Address Organization Details Last Updated DateTime 09/12/2022 112 mm[Hg] 78 mm[Hg] Na Parra LPN [facility] 09/12/2022 10:05:53 Date Recorded Systolic blood pressure Diastolic blood pressure Provider Name and Address Organization Details Last Updated DateTime 09/17/2022 116 mm[Hg] 77 mm[Hg] Zayda Morris [facility] 09/17/2022 08:37:16 Date Recorded Systolic blood pressure Diastolic blood pressure Provider Name and Address Organization Details Last Updated DateTime 09/17/2022 129 mm[Hg] 82 mm[Hg] Otf Palm PA-C [address] [place] [address], [address], [facility] 09/17/2022 09:07:11 Date Recorded Systolic blood pressure Diastolic blood pressure Provider Name and Address Organization Details Last Updated DateTime 12/16/2022 110 mm[Hg] 80 mm[Hg] Charmaine Burnett LPN [facility] 12/16/2022 10:33:39 Date Recorded Systolic blood pressure Diastolic blood pressure Provider Name and Address Organization Details Last Updated DateTime 02/28/2023 114 mm[Hg] 82 mm[Hg] Mallorie Mcmillan [facility] 02/28/2023 09:50:28 Social History Question Answer Notes LastModified by Organizat ion Details LastModified Time Tobacco Smoking Status Former Smoker 03/13/16 quit again 01/2021 Otf Palm PA-C [address] [place] [address], [address], [facility] 03/03/2023 20:32:43 What Is Your Level Of Alcohol Consumption? Occasional 2/week [email or web address] Information not available 10/05/2015 Do You Wear A Helmet When Biking? Yes Information not available 12/24/2017 What Is Your Level Of Caffeine Consumption? Moderate 2 Coffee Daily Information not available 03/03/2023 How Much Tobacco Do You Chew? 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 REGULAR Information not available 08/21/2017 What Is The Highest Grade Or Level Of School You Have Completed Or The Highest Degree You Have Received? [id number] Information not available 03/03/2023 What Is Your [...] 08/21/2017 Does The Patient Have Difficulty Speaking [place]? No Information not available 08/21/2017 Does The Patient Have Difficulty Reading [place]? No Information not available 08/21/2017 Patient Has Health Care Proxy Signed And In Chart Yes [email or web address] Information not available 09/09/2020 Marital Status [email or web address] Informatio n not available 10/24/2016 Mosquito Repellent Used Routinely Yes Information not available 08/21/2017 What Was The Date Of Your Most Recent Tobacco Screening? 02/28/2023 Information not available 02/28/2023 How Many Children Do You Have? 2 Son,in [facility], Grad From College Information not available 02/26/2022 [...] side unknown Medical History Condition Response NEUROLOGIC GERD Y Migraine Headaches Y Tuberculosis Lyme Disease Y Chronic Neck Pain Y Rheumatoid Arthritis Y Asthma Y Gynecological HistoryNo gynecological history recorded. Obstetrics History GPAL:G 0 P 0 0 0 0 Immunizations Vaccine Type Date Status Note Provider Nam e and Address Organization Details Recorded Time Pneumococcal conjugate PCV 13 6 completed Not Available [facility] 12/05/2019 02:31:52 Tdap 7 completed Not Available [facility] 12/05/2019 02:21:12 Influenza, split virus, quadrivalent, preservative 6 completed Not Available [facility] 11/23/2023 08:27:43 Influenza, split virus, quadrivalent, preservative 7 completed Not Available [facility] 11/23/2023 08:27:43 zoster live 4 completed Not Available [facility] 11/23/2023 08:27:43 Influenza, split virus, quadrivalent, preservative 8 completed Not Available [facility] 11/23/2023 08:27:43 Influenza, high-dose, quadrivalent, PF 0 completed Olga Lind MA null, [facility] 08/06/2020 10:22:04 pneumococcal polysaccharide PPV23 0 completed Marlena Dunne RN [facility], [facility] 09/20/2020 15:01:47 COVID-19, mRNA, LNP-S, PF, 100 mcg/0.5mL dose or 50 mcg/0.25mL dose 1 completed Charmaine Burnett LPN [facility] 01/03/2021 09:13:44 Influenza, split virus, quadrivalent, preservative 9 completed Not Available [facility] 11/23/2023 08:27:43 COVID-19, mRNA, LNP-S, PF, 100 mcg/0.5mL dose or 50 mcg/0.25mL dose 1 completed Not Available [facility] 11/23/2023 08:27:43 COVID-19, mRNA, LNP-S, PF, 100 mcg/0.5mL dose or 50 mcg/0.25mL dose 1 completed Not Available [facility] 11/23/2023 08:27:43 Influenza, high-dose, quadrivalent, PF 1 completed Not Available [facility] 11/23/2023 08:27:43 COVID-19, mRNA, LNP-S, bivalent, PF, 50 mcg/0.5 mL or 25mcg/0.25 mL dose 2 completed Not Available [facility] 11/23/2023 08:27:43 Influenza, adjuvanted, quadrivalent, PF 2 completed Not Available [facility] 11/23/2023 08:27:43 Influenza, high-dose, quadrivalent, PF 3 completed Not Available [facility] 11/23/2023 08:27:43 COVID-19, mRNA, LNP-S, PF, 50 mcg/0.5 mL 3 completed Not Available [facility] 11/23/2023 08:27:43 Past Encounters Encounter ID Performer Location Encounter Start Date Encounter Closed Date Diagnosis/Indication Diagnosis SNOMED-CT Code Diagnosis ICD10 Code Diagnosis Note [id number] Kana Norman MD [facility], [address] [place] [address] 10/05/2015 09:46:49 10/05/2015 10:55:19 Rheumatoid arthritis 65664084 M06.9 There is a 15 year history of seronegati ve rheumatoid arthritis. Despite 15 years of disease, very little in the way of deformity or limitation . The diagnosis, however, does not seem in doubt. At the present time she has been off TNF treatment for more than a year. Celebrex is useful. She remains on methotrexa te 15 mg subcutaneo us weekly. She describes inflammato ry symptoms that are more prominent in her hands and she does have tenderness and tiny effusions at several of the PIP joints, some puffiness at MCPs. She has been more fatigued lately, although she does note that life is stressful, she moved fairly recently, she is getting used to her new job. I am going to suggest no major change in treatment. I think we could see if she tolerates a higher dose of methotrexa te. Suggested increased to 20 mg weekly subcutaneo us. On the methotrexa te, we need to update her blood tests and follow every 2 months. In terms of immunizati ons, she has had shingles vaccine, flu shot. She probably should get the updated pneumonia vaccine. She has to establish a new primary care provider. 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 Reviewed recent labs. No signs or symptoms of toxicity. Tolerating well. Continue monitor labs. 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 Details unknown. Negative chest x-ray. I do not know if she has ever been treated for this Gastro-eso phageal reflux disease with esophagitis 481370553 K21.0 Prominent sx's. Upper endoscopy x 2. Nexium ineffectiv e. Started on Dexilant recently, doing much better. [id number] Kana Norman MD [facility], [facility] [address] [place] [address] 12/07/2015 08:55:05 12/07/2015 09:23:13 Rheumatoid arthritis 90850848 M06.9 There is a 15 year history of seronegati ve rheumatoid arthritis. Despite 15 years of disease, very little in the way of deformity or limitation . Seems well controlled on MTX. She boosted the dose to 20 mg sc. No major improvemen t. Continues to have significan t fatigue day following MTX dose. No change in meds today. 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 We can discuss further at next visit. long-term methotrexate user [id number] 00 Z79.899 Pt on [facility] MTX. Reviewed recent labs. No signs or symptoms of toxicity. Tolerating well. Continue monitor labs. Continue folate/zuleyka covorin supplement [id number] Aria MOSER, [facility], OFFICE [address] [facility] [place] [address] 12/08/2015 13:07:13 12/09/2015 07:02:50 Dyspnea 180154627 R06.00 Ddx includes COPD vs CAD, vs deconditio rickie EKG today with no acute findings, recommend CXR and stress test Wheezing 41743502 R06.2 None on exam today but given significan t smoking hx will start on albuterol as needed, monitor use may need to add on maintance therapy, check PFTs Hypertensive disorder 38 438149 I10 Meets criteria for HTN based on review of chart Low salt diet, weight loss Check labs, will start on chlorthali done 12.5 mg daily RTO 1-2 weeks Impaired g lucose tolerance 7270680 R73.02 Reports prior A1C of 6.1% will repeat Screening mammography 24 627184 Z12.31 [id number] [facility], [address] [place] [address] 03/12/2016 17:18:54 03/13/2016 10:35:03 Knee pain 81258551 M25.175 [id number] Uli Rivera MD Sports Medicine, [address] [place] [address] 03/13/2016 07:50:37 03/13/2016 10:01:31 Knee pain 22594554 M25.562 Lashanda's x-rays demonstrat e no evidence of periprosth etic fracture or bony injury and no loosening of her knee joint hardware. Hurts most effective pain is over the superior lateral aspect of her left knee over an area of significan t swelling and ecchymosis . A brief ultrasound performed in the office today demonstrat ed a several centimeter hematoma in this region which is likely contributi ng to her discomfort and limitation in range of motion. At this time I see no evidence of instabilit y of her knee and I feel that her injuries are mainly soft tissue in nature. I have advised that she continue to maintain full range of motion of her knee is much as possible and that hopefully the symptoms continue resolve with time as her body contniues to absorb the hematoma. She'll follow-up with me in the office or by phone in 4 weeks if she is continuing to have any symptoms. [id number] Kana Norman MD [facility], [facility] [address] [place] [address] 03/14/2016 08:52:06 03/14/2016 09:41:03 Rheumatoid arthritis 21545654 M06.9 There is a 15 year history of seronegati ve rheumatoid arthritis. Despite 15 years of disease, very little in the way of deformity or limitation . Seems well controlled on MTX. She boosted the dose to 20 mg sc but no major improvemen t. Continues to have significan t fatigue day following MTX dose. I suggested reducing dose again to 15 mg. No change in meds today. 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 Reviewed recent labs. No signs or symptoms of toxicity. Tolerating well. Continue monitor labs. Continue folate/zuleyka covorin supplement [id number] Eloisa Andrade D.O. SHANTI, [facility], OFFICE [address] [place] [address] 05/09/2016 07:09:31 05/09/2016 09:05:05 Benign essential hypertension 4042484 I10 Well controlled off medsEncour aged to occasional ly check BP at home or work to monitor. Active or passive immunization 918567101 Z23 Gastroesop hageal reflux disease 470686640 K21.9 Symptomati c on PPI, does have a goal of weight loss, will refer to GI, may be due for repeat EGD. Dyspnea 785198345 R06.00 Negative stress test and CXREx-smok er will send for PFTs, may have element of COPD, will add on Spiriva. Migraine 94492772 G43.90 9 [id number] MD SHANTI Lam, [facility], OFFICE [address] [place] [address] 10/19/2016 07:50:14 10/19/2016 08:43:22 Cough 16959803 R05 The Zpak is still working in her system. I suspect this is either viral and/or just RAD. will treat for RAD, and if this doesn't help, then will try another antibiotic .- Mucinex D twice a day regularly to keep mucus loose and keep sinus drainage holes open (not plugged from nasal swelling). Use plain Mucinex (without the D) if you have high blood pressure. - Rest, push fluids and increase humidity in the air (steam/vap orizer/hum idifier) - Focus on heartburn control aggressive ly: diet for reducing triggers, add in TUMS regularly, avoid eating close to bedtime, etc. Pt will follow up if symptoms persist or worsen at any time. [id number] Kana Norman MD [facility], [address] [place] [address] 10/24/2016 10:00:31 10/25/2016 07:55:35 Rheumatoid arthritis 01369305 M06.9 There is a 15 year history of seronegati ve rheumatoid arthritis. Despite 15 years of disease, very little in the way of deformity or limitation . Seemed well controlled on MTX but had significan t fatigue day following MTX dose. At my suggestion , tried tapering off MTX, but clearly has had flare in joint sxs. Discussed options. Could go back on MTX (fatigue etc was tolerable) but she would prefer to try something else.Try Leflunomid e 10 mg daily. I discussed Leflunomid e, the potential for side effects including, but not limited to, diarrhea, rash, inflammati on of the liver. I emphasized need for monitoring labs and I explained that taking cholestyra mine might be necessary in the event of any serious side effect. Baseline labs today. Needs repeat labs in 4 weeks and RV in 6-8 weeks.May need to boost dose of LEF. Was on Enbrel in past. Would prefer not to take biologic. Cough 33674734 R05 Recent respirtory infection, likely pneumonia. Has some bronchospa sm and now on steroids.N o longer any fever. Do not feel LEF would have effect on healing process. [id number] Eloisa Andrade D.O. , [facility], OFFICE [address] [place] [address] 12/12/2016 07:43:58 12/12/2016 10:01:33 Adult health examination 557520574 Z00.00 See Risk Assessment and Lifestyle Change Counseling section aboveMotiv ated for weight loss.Has good dietary and exercise goals. Active or passive immunization 274477102 Z23 Screening mammography 24 459621 Z12.31 Same day mammogram done today. [id number] Juan Brown, [facility], [address] [place] [address] 01/23/2017 08:18:41 01/23/2017 09:15:15 Astigmatism 29537351 H52.223 Presbyopia 64880547 H52. 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 Despite long duration of disease, very little in the way of deformity or limitation . MTX helpful, but we concluded it was causing excessive fatigue.No w on LEF since Oct, 2016 and doing much better overall. Was on Enbrel in past. Would prefer not to take biologic. Continue LEF. Check labs today and in 3 mo. F/u 6 mo. Long-term drug therapy [id number] Z79.899 Patient is on long-term leflunomid e. Reviewed recent labs. No signs or symptoms of toxicity. Tolerating well. Continue monitor labs. Bilateral carpal tunnel syndrome [id number] G56.03 Seen by hand surgeon in [facility], Dr Sharri bruce Offered surgery, but Lashanda preferred trial local injection. Splinting at night. [id number] Eloisa Andrade D.O. , [facility], [address] [place] [address] 05/14/2017 12:38:50 05/14/2017 16:36:29 Benign essential hypertension 7377403 I10 Blood pressure is above goal with recent use of oral decongesta nt. Recommend repeating once off this medication , consider monitoring at home as well while using this medication . Cough 58529485 R05 Exam suggests viral URI, no indication for antibiotic s at this time. Will check chest x-ray given history of right-side d crackles noted by medical partner. Carpal gavin sky syndrome 77605444 G56.00 Reviewed home exercises for R wrist, trying to avoid surgery Rheumatoid arthritis 698 66273 M06.9 Symptoms are well controlled , managed by rheumatjosesito fan. [id number] Eloisa Andrade D.O. SHANTI, [facility], [address] [place] [address] 08/21/2017 07:46:26 08/21/2017 09:01:14 Neuralgia 04620264 M79.2 Clinical picture is complexChe ck CRP, ESR, B12D/C amitriptyl ine. Consider trial of gabapentin 300 mg at bedtime for 1 week, if tolerated increase to twice a day then another week increase to 3 times a day for symptom control. Muscle weakness 81658302 M62.81 Check CPK, Mg, BMP, TSH Pain in right arm 241082 004 M79.601 We will send for x-ray of the cervical spine due to the severity of right upper from any symptoms. Pain in lower limb 21360 006 M79.669 Sent for x-ray of the lumbar spine. Impairment of balance 38 0844080 R26.89 We will likely need imaging of the brain. Will discuss with neurology and proceed from there.Will eventually need neuro consult as well. [id number] Kana Norman MD Rheumatol saad, [facility] [address] [place] [address] 08/27/2017 13:50:06 08/27/2017 14:19:55 Rheumatoid arthritis 72990677 M06.9 There is a 15+ year history of seronegati ve rheumatoid arthritis. Despite long duration of disease, very little in the way of deformity or limitation . MTX helpful, but we concluded it was causing excessive fatigue.No w on LEF 20/d since Oct, 2016 and joints doing much better overall. I have some concern that the LEF may be causing or contributi ng to her neurologic al symptoms. Peripheral neuropathy has been described with Leflunomid e. Her sxs seem more radicular than what one might expect to see with a peripheral neuropathy . Since joint sxs well controlled , I will have her reduce dose of LEF to 20 mg 5 days per week.She has appt to see Neuro in 6 weeks. If alternate explanatio n for neuro sxs is found, then safe to continue the LEF. If no clear explanatio n, then we may want to d/c the LEF. (Was on Enbrel in past. Would prefer not to take biologic.) F/u 6 mo. Long-term drug therapy 367880494 Z79.899 Patient is on long-term leflunomid e. Reviewed recent labs. No signs or symptoms of toxicity. Tolerating well. Continue monitor labs. Dysesthesia 238482870 R2 0.8 See above. Has neuro consultati on in [id number] Kana Norman MD [facility], [facility] [address] [facility] [place] [address] 11/26/2017 13:12:02 11/26/2017 13:47:27 Rheumatoid arthritis 92299446 M06.9 There is a 15+ year history of seronegati ve rheumatoid arthritis. Despite long duration of disease, very little in the way of deformity or limitation . MTX helpful, but we concluded it was causing excessive fatigue.No w on LEF 20/d since Oct, 2016 and joints doing much better overall. I had some concern that the LEF may be causing or contributi ng to her neurologic al symptoms. Neurologis t didn't think that was likely and she resumed full dose. Describing quite a bit of discomfort R hand, but little swelling. Pain likely related to carpal tunnel syndrome (see below). Update labs on the LEF. I told her that I still had some suspicion that the LEF might be accounting for some of the neuro sxs. These sxs are getting better, but if they start to get worse again, we should discuss stopping the LEF. Long-term drug therapy 687793441 Z79.899 Patient is on long-term leflunomid e. Reviewed recent labs. No signs or symptoms of toxicity. Tolerating well. Continue monitor labs. Dysesthesia 464424071 R2 0.8 Some improvemen t. Neuro w/u inconclusi ve.Not thought to have [employer] Lyme, but it is possible that fatigue and other sxs are indeed recnt, and now treated, Lyme disease. Carpal gavin sky syndrome 36365152 G56.01 Sx's of moderately severe CTS. Confirmed by recent NCS.Had very successful surgery on the L, and she may be heading for that.Try local injection R today to see if gives sustained benefit. [id number] Eloisa Andrade D.O. , [facility], OFFICE [address] [place] [address] 11/27/2017 09:37:38 11/27/2017 11:34:12 Hypertensive disorder 60383453 I10 Stat diastolics that are above goal. We will add on low dose YOCASTA inhibitor given insulin resistance . Check BMP in a few weeks.Sche dule physical. Impaired g lucose tolerance 3532305 R73.02 Now on BID dosing of Metformin consider repeat A1C in 12/2017Cons ider adding more cinnamon to the diet, 1 tbl of vinegar to meals for improved glycemic control. Paresthesi a of lower extremity 404167525 R20.2 ? Secondary to lyme vs medication side effects vs otherConsi michael consult with Dr. Stuart Colindres in [place] who has some lyme expertise. F/U with Neuromuscu lar medicine. [id number] Eloisa Andrade D.O. SHANTI, [facility], [address] [place] [address] 12/24/2017 11:51:47 12/24/2017 14:17:57 Adult health examination 143184391 Z00.00 see Risk Assessment and Lifestyle Change Counseling section above Benign ess ential hypertension 0370243 I10 Blood pressure at goal if continues with wt loss may be able to decrease anti-hyper tenive rx. Impaired g lucose tolerance 7476865 R73.02 Last A1C 6.4% and metformin was increased to 2 tabs dailyCheck A1C with next set of labs Idiopathic peripheral neuropathy 07894687 G60.9 Etiology remains unclear. Status post evaluation with neuromuscu lar medicine. Consider Alpha lipoic acid 600 mg daily on an empty stomach. Cautioned re: potential hypoglycem ia. [id number] Juan Brown, [facility], [facility] [address] [facility] [place] [address] 02/12/2018 14:02:53 02/12/2018 15:26:28 Regular astigmatism 45885986 H52.223 Presbyopia 08151522 H52. 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 Despite long duration of disease, very little in the way of deformity or limitation . MTX helpful, but we concluded it was causing excessive fatigue.LE F 20/d since Oct, 2016 and joints doing much better overall. I still have some concern that the LEF may be causing or contributi ng to her neurologic al symptoms. Some neuro sxs have progressed . She has worsening painful dysesthesi a in feet and lower legs. At this point we should stop LEF. It will be difficult to know whether we can resume this. I suppose if neuro sxs continue to progress off the LEF, we could perhaps re-start. Discussed alternativ es to LEF. Has never been tried on SSZ. Patient will begin sulfasalaz ine. Medication discussed in detail. Potential for side effects including, particular ly, potential for allergic reaction. On rare occasions this can be very serious. Patient instructed to discontinu e the medication immediatel y for any suspected allergy. Other side effects reviewed including headache, malaise, and GI upset. Follow-up blood count. Plan will be for her to start Lyrica first, then in 2 or 3 weeks start the SSZ. Take short course of prednisone if needed for flare-up. Return 3 mo, sooner if needed. Neuropathy 661638059 G62 .9 sensory neuralgia, prob diabetic neuropathy . Could also perhaps be related to LEF. Sxs are progressiv e. She did not tolerate gabapentin last year (excess sedation). Try Lyrica starting at low dose. Increase every 2 weeks or so. Try aspercreme with lidocaine for topical relief. [id number] Eloisa Andrade D.O. SHANTI, [facility], OFFICE [address] [facility] [place] [address] 05/14/2018 06:57:20 05/14/2018 08:58:40 Benign essential hypertension 5648765 I10 Blood pressure at goal off meds Impaired g lucose tolerance 6877062 R73.02 Last A1C 5.7%Decrea se metformin 500mg once a day fatigue may be due to hypoglycem iaRepeat A1C in 6 mo Chronic ob structive pulmonary disease 83239317 J44.9 Stable on current medication . Fatigue 20204053 R53.83 ?Rx side affect LyricaEpwo rth Sleepiness Scale score of 13Will repeat Lyme testing to see if bands have clearedWe will also refer for sleep study given history of snoring and potential apnea. Idiopathic peripheral neuropathy 44603548 G60.9 Better on Lyrica and ALA. [id number] Kana Norman MD [facility], [address] [place] [address] 05/20/2018 12:46:22 05/20/2018 13:30:34 Rheumatoid arthritis 02556940 M06.9 There is a 15+ year history of seronegati ve rheumatoid arthritis. Despite long duration of disease, very little in the way of deformity or limitation . MTX helpful, but we concluded it was causing excessive fatigue.LE F 20/d since Oct, 2016 and joints responded, but I had her stop it because it could possibly be contributi ng to neuropthat hic sxs.SSZ not tolerated (itching). Discussed options. On Humira in past. It was initially effective, but lost effectiven ess over time.Try Cimzia. Discussed med and dosing.Ronnie ated for PPD conversion about 10 years ago. Chest x ray 12 mo ago normal. Take short course of prednisone if needed for flare-up. Return 2- 3 mo to assess Dayana response. Neuropathy 085552356 G62 .9 sensory neuralgia, prob diabetic neuropathy . Could also perhaps be related to LEF. Sxs are progressiv e. She did not tolerate gabapentin last year (excess sedation). Lyrica quite helpful at dose 50 bid. I will have her increase to 75 bid and dose could certainly go higher. seems to tolerate well. [id number] Kana Norman MD [facility], [address] [place] [address] 08/05/2018 12:58:08 08/05/2018 13:29:09 Rheumatoid arthritis 73876497 M06.9 There is a 15+ year history of seronegati ve rheumatoid arthritis. Despite long duration of disease, very little in the way of deformity or limitation . MTX helpful, but we concluded it was causing excessive fatigue.LE F 20/d since Oct, 2016 and joints responded, but I had her stop it because it could possibly be contributi ng to neuropthat hic sxs.SSZ not tolerated (itching). On Humira in past. It was initially effective, but lost effectiven ess over time Started on Cimzia about 8 weeks ago.Some response, but still describing about 3 hrs AM stiffness. No specific joint swelling. Plan: continue MTX at low dose (10 mg/wk), Continue Cimzia for at lease 2 more months, but only continue after that if she feels it is clearly effective. Update labs 1 month. Long-term drug therapy 278094308 Z79.899 Patient is on long-term leflunomid e. Reviewed recent labs. No signs or symptoms of toxicity. Tolerating well. Continue monitor labs. Idiopathic peripheral neuropathy 09974268 G60.9 Neuropathy sxs.Etiolo gy unclear.Mu ch improved on the Lyrica, although the 75 bid dose is sedating. Could try taking 150/hs. If that is not tolerated, call and would switch to 50 bid. [id number] Kana Norman MD [facility], [address] [place] [address] 09/04/2018 11:33:03 09/05/2018 07:05:53 Acquired trigger finger 5467780 M65.312 symptomati cSylviaDiscusse d local injection. See procedure note. [id number] Kalee Whitfield RN [facility], [address] [address] 09/30/2018 11:00:54 09/30/2018 13:43:09 [id number] Enrike Curtis RN [facility], [address] [address] 10/14/2018 07:17:12 10/14/2018 13:18:38 [id number] Kana Norman MD [facility], [address] [place] [address] 12/02/2018 12:41:59 12/02/2018 13:14:13 Rheumatoid arthritis 27397833 M06.9 There is a 15+ year history of seronegati ve rheumatoid arthritis. Despite long duration of disease, very little in the way of deformity or limitation . Positive response to MTX + Cimzia. Plan: continue MTX at low dose (10 mg/wk), Continue Cimzia for at lease 3 more months and re-evaluat e.I do feel it has been effective (more so than Humira), but still describing significan t AM stiffness and some functional limitation . If no change in sxs perhaps try few weeks on Xeljanz. Forturnate ly, we are no seeing any erosive arthritis, though no recent hand or wrist films. Reviewed recent labs: all OK (HgbA1c 6.4) Long-term drug therapy 534450349 Z79.899 Patient is on long-term leflunomid e. Reviewed recent labs. No signs or symptoms of toxicity. Tolerating well. Continue monitor labs. [id number] Nathalie Maya LPN , [facility], [address] [place] [address] 12/04/2018 07:09:47 12/04/2018 10:42:18 Acute pharyngitis 211571427 J02.9 [id number] Eloisa Andrade D.O. , [facility], [address] [place] [address] 01/28/2019 07:45:16 01/28/2019 08:56:59 Adult health examination 637032767 Z00.00 see Risk Assessment and Lifestyle Change Counseling section above Depression screening 171 354134 Z13.89 depression screening tool administer ed, entered into emr, scored and discussed, time greater than 7.5 minutesPHQ - 9 is 03/14 Chronic ob structive pulmonary disease 50986168 J44.9 Stable on current medication . Migraine 84603806 G43.90 9 Rx refilled Nondiabeti c gastroparesis 19041333 K31.84 Unfortunat mario alberto did not tolerate Reglan. Consider either drinking margareth tea or eating crystalliz ed margareth with each meal as this is a natural prokinetic . Neck pain 27017792 M54.2 Recommende d trial of PT. We will hold off on imaging at this point. Hypertensive disorder 38 563841 I10 Well controlled on low-dose lisinopril . Impaired g lucose tolerance 6598123 R73.02 Hemoglobin A1c is up to 6.4%, On low-dose metformin. Monitor. [id number] [facility], [address] [place] [address] 02/18/2019 09:12:23 02/23/2019 10:24:19 Neck pain 55679436 M54.2 [id number] [facility], [address] [place] [address] 02/25/2019 10:20:21 02/25/2019 12:01:46 Neck pain 44261097 M54.2 [id number] [facility], [address] [place] [address] 03/10/2019 13:14:12 03/11/2019 08:45:25 Neck pain 50354484 M54.2 [id number] Kana Norman MD Rheumatol [facility], [address] [place] [address] 03/10/2019 13:15:59 03/10/2019 13:46:04 Rheumatoid arthritis 83460539 M06.9 There is a 15+ year history of seronegati ve rheumatoid arthritis. Despite long duration of disease, very little in the way of deformity. Past 2 mo prominent flare in sxs despite MTX + Cimzia. especially hands and wrist. Forturnate ly, we are not seeing any erosive arthritis, though no recent hand or wrist films. As discussed last visit, I believe change to Xeljanz is indicated. Start at 5 mg BID.Discus sed potential side effects. Monitor lipids.Ilana uld get Shingrix. NOTE TO REVIEWER:P rior treatment with Enbrel, then Humira (approx 2014: different rheumatolo gist). MTX helpful, but only tolerates low dose (fatigue) LEF 20/d Oct, 2016 to January 2017 and joints responded, but stopped as it might have been contributi ng to neuropthat ic sxs. SSZ not tolerated (itching). Cimzia May 2018 to presnt: ineffectiv e. [id number] Eloisa Andrade D.O. , [facility], [address]ICE [address] [place] [address] 03/23/2019 09:29:28 03/24/2019 07:45:40 Carpal tunnel syndrome 78268807 G56.00 EKG demonstrat es NSR @60 BPM, NL axis, intervals, no acute changes. [id number] Juan Kevin, [facility], [address] [place] [address] 04/08/2019 08:44:19 04/08/2019 10:02:42 Regular astigmatism 68590508 H52.223 Drusen of optic disc 336 62568 H47.323 stable Nuclear sc lerotic cataract 956208781 H25.13 cataracts- not visually significan t Presbyopia 39811272 H52. 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 xp at near [id number] Derrell Salazar, MSN, [employer] , [facility], [address] [place] [address] 05/23/2019 11:56:15 05/25/2019 07:26:46 Fever 291255514 R50.9 In light of her conditions , exposure to ticks, and history, the relative risk of starting antibiotic s empiricall y does not outweigh the benefit. We will start with doxycyclin e, start testing, and she will update us if she is worse whatsoever . [id number] Kana Norman MD [facility], [address] [place] [address] 06/09/2019 13:09:52 06/10/2019 06:17:17 Rheumatoid arthritis 82193577 M06.9 There is a 15+ year history of seronegati ve rheumatoid arthritis. Despite long duration of disease, very little in the way of deformity. Recently, prominent flare in sxs despite MTX + Cimzia. especially hands and wrist.Soriano ged to Xeljanz and some of sxs have improved (shoulders , ankles) but has persisting inflammato ry sxs in hands. There is not visible synovitis. discussed options. I am reluctant to man Biologic. I think the Xeljanz is helping better than the TNF agents.Con tinue Xeljanz. Add prednisone 5 mg/d for 1 mo, then 2.5/d 2 weeks, then stop..Re-e domingo in 8 weeks.(For trip to [facility] and [facility], should take prednisone 10 mg/d). Long-term drug therapy 934251272 Z79.899 Patient is on long-term leflunomid e. Reviewed recent labs. No signs or symptoms of toxicity. Tolerating well. Continue monitor labs. Acquired t seasonal driver finger 7262415 M65.312 Recurring sxs. Symptomati c.Discusse d local injection. See procedure note. [id number] Eloisa Andrade D.O. , [facility], OFFICE [address] [place] [address] 07/29/2019 07:01:14 07/29/2019 09:14:54 Hypertensive disorder 62680448 I10 Well controlled on low-dose lisinopril . Rheumatoid arthritis 698 94398 M06.9 Management by rheumatjosesito fan, focuses on an anti-infla mmatory diet. Chronic ob structive pulmonary disease 78965057 J44.9 Stable on current medication .Uses Flovent, Spiriva with flares Nondiabeti c gastroparesis 78119533 K31.84 Consider Margareth cap 500 mg PO TID Impaired g lucose tolerance 3785038 R73.02 We will change hemoglobin A1c to every 3 months, standing order added. Continue to work on regular exercise, dietary modificati ons. [id number] Kana Norman MD [facility], [facility] [address] [place] [address] 08/04/2019 15:50:26 08/04/2019 19:23:51 Rheumatoid arthritis 11542607 M06.9 There is a 15+ year history of seronegati ve rheumatoid arthritis. Despite long duration of disease, very little in the way of deformity. Changed to Xeljanz 10 mg/d. Some of sxs have improved (shoulders , ankles) but has persisting inflammato ry sxs in hands. There is not visible synovitis. Continue Xeljanz. Cont low dose MTX.For trip to [facility] and [facility], should take prednisone 10 mg/d Due for labs. RV 6 mo or sooner if needed Long-term drug therapy 682688024 Z79.899 Patient is on long-term MTX Reviewed recent labs. No signs or symptoms of toxicity. Tolerating well. Continue monitor labs. [id number] Kana Norman MD [facility], [address] [place] [address] 12/08/2019 14:13:21 12/10/2019 06:17:49 Raynaud's phenomenon 020145160 I73.00 Quite smptomatic in colder weather. No digital ulcers etc. Never has tried CCB. BP OK (on lisinopril )Try add amlodipine 2.5 or 5 /d . May take PRN . Rheumatoid arthritis 698 36373 M06.9 There is a 15+ year history of seronegati ve rheumatoid arthritis. Despite long duration of disease, very little in the way of deformity. Changed to Xeljanz 10 mg/d. Some of sxs have improved (shoulders , ankles) but has persisting inflammato ry sxs in hands. These sxs are more prominent lately. There is not visible synovitis. Continue Xeljanz.Co nt MTX but try increasing dose to 15 mg/wk. Due for labs in 4 weeks. . RV 3-4 mo or sooner if needed Long-term drug therapy 889507506 Z79.899 Patient is on long-term MTX Reviewed recent labs. No signs or symptoms of toxicity. Tolerating well. Continue monitor labs. [id number] Kana Norman MD [facility], [address] [place] [address] 03/29/2020 12:50:44 03/29/2020 13:23:46 Rheumatoid arthritis 40212387 M06.9 There is a 15+ year history of seronegati ve rheumatoid arthritis. Despite long duration of disease, very little in the way of deformity. February, changed to Xeljanz 10 mg/d. Some of sxs have improved (shoulders , ankles) but has some persisting inflammato ry sxs in hands. These sxs are more prominent lately. There is not visible synovitis. Continue Xeljanz.Co nt MTX 15 mg/wkDue for labs in 4 weeks. . RV 3-4 mo or sooner if needed Raynaud's phenomenon 266 842018 I73.00 She was quite symptomati c in colder weather. No digital ulcers etc.No asymptomat ic in Spring.Gav e amlodipine 2.5 or 5 /d . May take PRN . Long-term drug therapy 180631135 Z79.899 Patient is on long-term MTX Reviewed recent labs. No signs or symptoms of toxicity. Tolerating well. Continue monitor labs (due in April). [id number] Kana Norman MD [facility], [address] [place] [address] 04/08/2020 10:12:26 04/12/2020 07:36:02 Rheumatoid arthritis 04129190 M06.9 There is a 15+ year history of seronegati ve rheumatoid arthritis. Despite long duration of disease, very little in the way of deformity. February, changed to Xeljanz 10 mg/d. Some of sxs have improved (shoulders , ankles) but has some persisting inflammato ry sxs in hands. These sxs are more prominent lately. There is not visible synovitis. Continue Xeljanz.Co nt MTX 15 mg/wkDue for labs in 4 weeks. . RV 3-4 mo or sooner if needed Idiopathic peripheral neuropathy 26601738 G60.9 Neuropathy sxs.Etiolo gy unclear.Mu ch improved on the Lyrica, although the 75 bid dose is sedating. Could try taking 150/hs. If that is not tolerated, call and would switch to 50 bid. Trigger fi nger of right hand [id number] 1161854 M65.341 symptomati c trigger.Fo r injection today. [id number] Natty Engel, YANCY-Teagan MOSER, [facility], [address] [place] [address] 07/27/2020 11:32:04 07/27/2020 14:30:01 Trigger finger of right hand [id number] 7279124 M65.30 A: Known trigger finger of right thumb that worsened recently with turning on a switch at home. Has had benefit with steroid injections in the past. P: After obtaining verbal consent, Palmar aspect of base of right thumb was cleaned with alcohol and then using a 27 guage 1/2 inch needle, 30 mg of solu-medro l and 0.5 ml of 0.5% bupivicain e was injected into the site. Patient tolerated the procedure well. Scant bleeding at injection site; [id number] Olga Lind MA , [facility], [address] [place] [address] 08/06/2020 09:18:21 08/06/2020 10:47:32 Active or passive immunization 913294586 Z23 [id number] Eloisa Andrade D.O. [facility], OFFICE [address] [place] [address] 09/13/2020 14:03:32 09/13/2020 16:38:04 Gastro-esophageal reflux disease with esophagitis [id number] K21.00 Surgery on 08/16/20, repair of paraesopha geal hernia by Dr. Marilyn Marino. Complicate d by small pneumothor ax and rehospital ization on 09/02/20 for dehydratio n . Doing well, advancing diet as per surgery. Idiopathic peripheral neuropathy 18592626 G60.9 Off lyrica and doing well on gabapentin , needs liquid rx due to recent surgery Type 2 stephany betes mellitus without complication 480303029 E11.9 Due for A1C I suspect this will be improved due to recent weight loss with surgery. Chronic ob structive pulmonary disease 00959285 J44.9 Reports normal PFTs prior to surgery. Difficult to determine actual needs postop. She will be more cognizant of use of medication s and how she often she is using them. Postmenopausal state 764 26608 Z78.0 No prior [id number] Marlena Dunne RN , [facility], OFFICE [address] [place] [address] 09/20/2020 14:59:30 09/20/2020 18:59:22 Active or passive immunization [id number] Z23 [id number] Kana Norman MD Rheumatol saad, [address] [address] 12/23/2020 10:42:27 12/23/2020 18:36:40 Rheumatoid arthritis 93339406 M06.9 There is a 15+ year history of seronegati ve rheumatoid arthritis. Despite long duration of disease, very little in the way of deformity. February, changed to Xeljanz 10 mg/d. Some of sxs have improved (shoulders , ankles) but has some persisting inflammato ry sxs in hands. These sxs are more prominent lately. There is not visible synovitis. Continue Xeljanz. Cont MTX 15 mg/wk RV 3-4 mo (Dr Welch) or sooner with me if needed Trigger fi nger of left hand [id number] 0797131 M65.30 flexor tendinitis L thumb. Large nodule. Refer to Hand surgery for evaluation . Also has trigger finger R 4th. Can come in for another injection if she wants. Long-term drug therapy 026710327 Z79.899 Patient is on long-term MTX Reviewed recent labs. No signs or symptoms of toxicity. Tolerating well. Continue monitor labs [id number] Kana Norman MD Rheumatol saad, [facility] [address] [place] [address] 01/06/2021 11:42:30 01/09/2021 07:06:16 Rheumatoid arthritis 39589724 M06.9 There is a 15+ year history of seronegati ve rheumatoid arthritis. Despite long duration of disease, very little in the way of deformity. February, changed to Xeljanz 10 mg/d. Some of sxs have improved (shoulders , ankles) but has some persisting inflammato ry sxs in hands. These sxs are more prominent lately. There is not visible synovitis. Continue Xeljanz. Cont MTX 15 mg/wk RV 3-4 mo (Dr Welch) or sooner with me if needed Acquired t seasonal driver finger 7838795 M65.341 Symptomati c. Discussed local injection. See procedure note. [id number] Eloisa Andrade D.O. SHANTI, [facility], OFFICE [address] [place] [address] 01/31/2021 13:28:33 01/31/2021 20:10:41 Essential hypertension 80390665 I10 Well-contr olled off medication , will continue to monitor Chronic ob structive pulmonary disease 01883491 J44.9 Currently off all medication I suspect poorly controlled GERD may have been contributi ng Idiopathic peripheral neuropathy 99467080 G60.9 Symptomati lisbet improved, now off gabapentin Rheumatoid arthritis 698 04950 M06.9 Management by rheumatjosesito fan, focuses on an anti-infla mmatory diet. 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 We will increase metformin 2000 mg twice a day. Screening mammography 24 865306 Z12.31 Same day mammogram done today. Paraesophageal hernia 36 36517 K44.9 Status post surgical repair with significan t improvemen t, now off PPI [id number] Otf Palm PA-C FP, [facility], OFFICE [address] [facility] [place] [address] 02/14/2021 14:55:01 02/15/2021 06:28:09 Neoplasm of uncertain behavior of skin of face 73168546 D48.5 R mid cheek, r/o pigmented BCC, ddx pigmented AK sent for path Actinic keratosis 565599 007 L57.0 R nasal sidewall largest, few other scattered recommend conservati ve treatment to avoid immune system boost use oTc retinoids, start 2 nights a week. You have one already but I also mentioned adapalene gel, oTc in the acne section of [employer]; again, start slowly. can use on whole face, avoid biopsy site will increase photosensi tivity use SPF such as Weston Garcia with light tint can get this at a variety of online stores. https://km cavazosCuriously.Hired/p roducts/uv -physicalb road-spect rum-spf-41 Discussed these lesions are often referred to as pre-cance javed yet frequently fought off by our immune system. Use of broad-spec trum, ZnO or TiO2 based SPF will help the immune system do its job. These lesions can also be treated with liquid nitrogen (cryothera py) and topical applicatio n(s) of immune-mod ulating cream(s). 5-Fluorour acil 5% cream can be applied once a day to start x 1 week. Increased crusting and redness are expected. Increase to every day x 2 weeks if no response. For diffuse AKs, mix 1:1 calcipotri marine 0.005% cream with 5-FU BID x 4 days for an added immune boost. Use a small pea sized amount of both in the palm. Wash hands thoroughly after applicatio n. Avoid direct contact with mucosal surfaces. Apply SPF, wear hats and clothing QD. Basal cell carcinoma of face 922993714 C44.310 R mid cheek, (lesion in photo with purple marker), Nodular, extends to margins. Discussed with pt by phone; agrees with plan that given size, location and co-morbid immune suppressio n would do best with MOHS procedure at [facility] in [place]. Reviewed the procedure. Will send face sheet, note and path report to [facility] with pt consent. [id number] Kana Norman MD Rheumatol saad, [facility] [address] [place] [address] 06/06/2021 11:15:53 06/07/2021 18:57:33 Rheumatoid arthritis 56322301 M06.9 There is a 15+ year history of seronegati ve rheumatoid arthritis. Despite long duration of disease, very little in the way of deformity. February, changed to Xeljanz 10 mg/d with low dose MTX. . Mostly doing quite well.Some of sxs have improved (shoulders , ankles) but has some persisting inflammato ry sxs in hands. Continue Xeljanz. Cont MTX 15 mg/wk RV 3-4 mo (Dr Welch) or sooner with me if needed [id number] Eloisa Andrade D.O. , [facility], OFFICE [address] [place] [address] 06/08/2021 11:58:14 06/08/2021 16:16:34 Abdominal pain 53883556 R10.9 For several months now, s/p recent eval with surgery, see HPIGiven hx of loose stools since surgery will check x-ray to r/o constipati on/obstipa tionMay eventually need advanced imaging Loose stool 253524212 R1 9.5 With hx of sluggish bowlsSugge st eating chencho seeds to help add bulk to the stoolDid not tolerate metamucil Consider eating more fermented foods for supporting health gut arturo 4-7-8 breathing technique to help wtih balancing sympatheti c and parasympat hetic nervous system [id number] Eloisa Andrade D.O. SHANTI, [facility], OFFICE [address] [place] [address] 07/25/2021 13:22:28 07/25/2021 14:24:32 Adult health examination 261126697 Z00.00 see Risk Assessment and Lifestyle Change Counseling section above Counseling 830861860 Z71 .9 Depression screening 171 085048 Z13.31 depression screening tool administer ed, entered into emr, scored and discussed, time greater than 7.5 minutes Screening for alcohol abuse 380327138 Z13.39 Essential hypertension 47164861 I10 Well-contr olled off medication , will continue to monitorRep orts lower BP at home Screening mammography 24 698347 Z12.31 Rheumatoid arthritis 698 60653 M06.9 Management by rheumatjosesito fan, with current flare on prednisone Elevated CRP as well which is unusual for her, consider repeating once flare subsides Macrocytosis 678187369 D 75.89 On folic acidCheck B12 and folate level Iliotibial band friction syndrome 703173630 M76.32 Consider trial of PT Idiopathic peripheral neuropathy 32605003 G60.9 On low dose gabapentin at night Right uppe r quadrant pain 843948530 R10.11 Will send for USDiscusse d will likely needs CT abd with contrast Intolerant of heat 68998 007 R20.8 [id number] Igor Sheehan, PT Physical Therapy, [address] [place] [address] 08/29/2021 11:29:54 08/30/2021 08:31:27 Pain of left knee region 5067025066 69949 M25.562 Iliotibial band friction syndrome 483137696 M76.32 [id number] Kana Norman MD Rheumatol ogy, [facility] [address] [place] [address] 12/08/2021 09:12:43 01/19/2022 06:10:49 Rheumatoid arthritis 75920230 M06.9 There is a 15+ year history of seronegati ve rheumatoid arthritis. Despite long duration of disease, very little in the way of deformity. February, changed to Xeljanz 10 mg/d with low dose MTX. . Mostly doing quite well. Some of sxs have improved (shoulders , ankles) but has some persisting inflammato ry sxs with small effusions joints of hands.Disc ussed Black Box warnings about Xeljanx. In that this medicine is incomplete ly helpful, I suggested making a change in Biologic. She is fully up to date with kaelyn carmona. Advise start Orencia. Medication discussed Cont MTX 15 mg/wkNote to Reviewers: Dx RA. Prior meds:MTX 2014 to present: ineffectiv eHumira: approx 2009 to 2013 ineffectiv eCimzia 2017 - 2018 ineffectiv eLeflunomi de 2015 - 2017: neuropathy Sulfasalaz ine : Allergy RV 2 mo, Also to set up appointmen t with Dr Welch. 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 Course not consisent with septic knee.Will Rx for colchicine to use in event of another acute flare. Vitamin B1 2 deficiency (non anemic) 52124152 E53.8 Probably relates to metformin. Could have to do with fundal plication surgery.Sifuentes ggested increase oral supplement and discuss with PCP. Long-term drug therapy 343510745 Z79.899 Patient is on long-term MTX Reviewed recent labs. No signs or symptoms of toxicity. Tolerating well. Continue monitor labs [id number] Rebeca Menendez MD , [facility], OFFICE [address] [place] [address] 12/15/2021 15:57:47 12/15/2021 16:17:07 Cobalamin deficiency 770225772 E53.8 Weekly b12 injections 1000mcg x4 then resume 2000mcg daily Type 2 stephany betes mellitus without complication 291473163 E11.9 Will try stopping metformin and rechecking hgbA1c in 3 months.If sugars rise we will consider starting jardiance. [id number] Otf Palm PA-C , [facility], OFFICE [address] [place] [address] 12/25/2021 08:45:30 12/25/2021 10:16:41 Cobalamin deficiency 502641360 E53.8 [id number] Rachid Sequeira RN , [facility], OFFICE [address] [facility] [place] [address] 01/01/2022 08:47:55 01/01/2022 16:18:17 Cobalamin deficiency 128566627 E53.8 [id number] Pina Goyal LPN , [facility], OFFICE [address] [facility] [place], [place] [address] 01/10/2022 08:55:54 01/10/2022 19:41:42 Cobalamin deficiency 562795097 E53.8 [id number] Jyotsnasatnam Ge Rheumatol [address], [place] [address] 02/13/2022 11:40:41 02/18/2022 08:38:59 Rheumatoid arthritis 56033638 M06.9 Long standing history (15 + years) of seronegati ve rheumatoid arthritis. Failed multiple DMARDs and biological s in the past.MTX 2014 to present: ineffectiv eHumira: approx 2009 to 2013 ineffectiv eCimzia 2017 - 2018 ineffectiv eLeflunomi de 2015 - 2017: neuropathy Sulfasalaz ine : AllergyOre ncia: fatigue, ineffectiv e. Actemra ordered last visit. Awaiting to start medication .Continue methotrexa te.Continu e prednisone 10 mg till she starts Actemra then decrease to 7.5 mg for one week then to 5 mg for 3 weeks then stop. Remaining options: Simponi, Rituxan. Optimize methotrexa te. Patient got the COVID series. Counselled to get 4 th dose. Counselled to hold methotrexa te one week after the dose.patie nt got flu shot, Hemarthros is of left knee 4542591918 13037 M25.062 Had episode hemarthros is L knee Sep 2021.Concu rrent pseudogout was possible.S till bothered with intermitte nt swelling, cannot stand for long periods.Ch rohith CT Scan of the knee as patient feels sometimes instabilit y in the joint.Awai michela to see ortho at [facility]. [id number] Lesa Romero Rheumatol [address], [place] [address] 01/26/2022 08:58:39 01/29/2022 16:13:08 Rheumatoid arthritis 55292186 M06.9 There is a 15+ year history of seronegati ve rheumatoid arthritis. Despite long duration of disease, very little in the way of deformity. Med changed 6 weeks ago: Xeljanz was only partially effective. On MTX and, for past 6 wks, on Orencia. No improvemen t with Orencia and injection seems to make her fatigued. She is fully up to date with vaccinatio ns. Change to Actemra. Med discussed. Will need follow up labs, and she has pre-existi ng appt with Dr Welch in about 2 weeks. Cont MTX 15 mg/wkNote to Reviewers: Dx RA. Prior meds:MTX 2014 to present: ineffectiv eHumira: approx 2009 to 2013 ineffectiv eCimzia 2017 - 2018 ineffectiv eLeflunomi de 2015 - 2017: neuropathy Sulfasalaz ine : AllergyOre ncia: fatigue, ineffectiv e. Hemarthros is of left knee 1712168298 19198 M25.062 Had episode hemarthros is L knee Sep 2021.Concu rrent pseudogout was possible.S till bothered with intermitte nt swelling, cannot stand for long periods. Plan was to send diagnostic aspirate today for culture and cell count, but I could not easily obtain fluid and arthrocent esis abandoned. She has appointmen t with [facility] in February.have suggested she try to see Dr Baumann. 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 Counseling 308611028 Z71 .89 ASCVD is 15%, using the algorithmh ttps://too ls.acc.org /ascvd-ris k-estimato r-plus/#!/ calculate/ estimate/ -- consider water sports for exercise while awaiting knee evaluation Cobalamin deficiency 190 905315 E53.8 stableTrea tment: monthly 1000 mcg/ml injections lab: 02/06: up from 232, now elevated at 1720, consider every other month Idiopathic peripheral neuropathy 36650752 G60.9 stable secondary to Lyme dz, Q if due to T6KCOjraxe ent: FA 2 mgs/day, flexeril 20 mgs HS, gabapentin 900 mgs TDDCare Team: Dr WelchPlan : Long-term drug therapy 173300138 Z79.899 MTX followed by rheum, LFTs stablePain management :cyclobenz aprine 20 mgs TDD at HSgabapent in 900 TDD Obstructiv e sleep apnea syndrome 91153674 G47.33 stable, mildTreatm ent: nonesleep study done 2017 Rheumatoid arthritis 698 80898 M06.9 worsened in context of L knee effusionTr eatment: restarted po steroids, [facility] [place], Actemra injCare Team: Yuri, 02/13/22Pla n:CT scan L knee, 02/20/22as noted ortho appt - [facility] contacted requested to move up 04/08 appt Type 2 stephany betes mellitus without complication 811161435 E11.9 stable a1c < 7; 6.3% 02/06Treatm ent: diet controlled Plan: recheck labs in 3-6 months Effusion o f joint of left knee 5449483560 69748 M25.462 complex effusions noted on 02/20/22 CT scan in setting of TKA,will outreach requests move up [place] appt from 04/03/22 Patient ne w to provider [id number] 23466 Z76.89 chart review of specialist notes, medication s and preventati ve measures checked Raised shawna orrheic keratosis 4566895146 21525 L82.1 noted on scalp History of malignant basal cell neoplasm of skin 687694726 Z85.828 R cheek, s/p MOHS 2020, no recurrence Hypertensive disorder 38 467066 I10 >140/90, likely secondary to pain, will monitorlim it salt, NSAIDS, EtOH Chronic constipation 236 560675 K59.09 stable, worsened s/p hernia repair 08/08Treatm ent: motegrity 2 mgTDD with prn miralaxCar e Team: Oumou Abad, 02/06Plan: c/w current regimen Menopausal flushing 1984 90638 N95.1 persistent ,Treatment : we discussed use of https://jose burgessI [employer] /products/ claribel-fatemeh camacho-zee ht-bee-salvador randa-propol is--j della?_pos= 2&_psq=que e&_ss=e&_v =1.0for hot flashes [id number] Trini Welch MD Rhe[facility]ol [facility], [facility] [address] [facility] [place] [address] 05/15/2022 07:35:25 05/17/2022 14:54:10 Rheumatoid arthritis 72310300 M06.9 Long standing history (15 + years) of seronegati ve rheumatoid arthritis. Failed multiple DMARDs and biological s in the past.MTX 2014 to present: ineffectiv eHumira: approx 2009 to 2013 ineffectiv eCimzia 2017 - 2018 ineffectiv eLeflunomi de 2015 - 2017: neuropathy Sulfasalaz ine : AllergyOre ncia: fatigue, ineffectiv e. On Actemra now and it seems to be helping.Co ntinue methotrexa te. Remaining options: Simponi, Rituxan. Optimize methotrexa te. Check labs for disease activity and medication toxicity (standing orders).Tr y to wean down celebrex and take tylenol twice a day. Side effects of celebrex discussed with patient. Patient got the COVID series.pat ient to get flu shot in the fall. Hemarthros is of left knee 2046432822 26435 M25.062 Had episode hemarthros is L knee Sep 2021.Concu rrent pseudogout was possible.S till bothered with intermitte nt swelling, cannot stand for long periods.Coates s seen ortho and is having surgery in July. Patient to hold ACtemra 2 weeks before surgery and methotrexa te one week before surgery.Ac temra and methotrexa te are to be restarted post surgery after cleared by surgeon. Trigger fi nger of right hand [id number] 8842134 M65.30 Will inject with kenalog. Tenosynovi tis of right radial styloid 3081823737 0600403 M65.4 DE Quervain tenosynovi tis on the right side.To use wrist and thumb brace.If no improvemen t, will refer to hand surgeon for injection. [id number] Otf Palm PA-C , [facility], OFFICE [address] [place] [address] 07/20/2022 10:51:20 07/20/2022 11:59:54 [id number] DERIK Chance, [facility], OFFICE [address] [place] [address] 08/06/2022 13:44:41 08/06/2022 14:37:07 Hypertensive disorder 26106366 I10 >140/90, likely secondary to pain, will monitor and send portal readingsli miting celebrex, decrease salt, has limited EtOH Plan: restart lisinopril 5 mgs Excessive sweating 29985 005 R61 post surgical without intubation with assoc vasovagal symptoms with GI distress and drop in BPDDX: change in adrenal function, low calcium, hyperglyce tammy.-- malignanci es: small cell lung-- drugs that can enhance ADH SSRIs, NSAIDS-- Surgical procedures are often associated with hypersecre tion of ADH, a response that is probably mediated by pain afferents. In addition, hyponatrem ia may develop after other interventi onal medical procedures , such as cardiac catheteriz ation.Plan : reduce use of celebrex as noted with GI distress, consider urine collection , recheck CMP and calcium. [id number] Trini Welch MD Rheumatol saad, [address] [place] [address] 09/12/2022 09:55:14 09/24/2022 13:40:23 Rheumatoid arthritis 67324800 M06.9 Long standing history (15 + years) of seronegati ve rheumatoid arthritis. Failed multiple DMARDs and biological s in the past.MTX 2014 to present: ineffectiv eHumira: approx 2009 to 2013 ineffectiv eCimzia 2017 - 2018 ineffectiv eLeflunomi de 2015 - 2017: neuropathy Sulfasalaz ine : AllergyOre ncia: fatigue, ineffectiv e.ACtemra: hypertensi on and diverticul itis. For now, she is doing well on methotrexa te.Continu e current dose.Beverley nue folic acid. Remaining options: Simponi, Cimzia Rituxan. Optimize methotrexa te oral or SQ. Monitor labs for disease activity and medication toxicity.T ry to wean down celebrex and take tylenol twice a day. Side effects of celebrex discussed with patient. Patient got the COVID series.pat ient to get flu shot in the fall. Long-term drug therapy 569486306 Z79.899 On methotrexa te and celebrex.F olic acid.Monit or labs.Couns elled to wean down celebrex.P atient to hold methotrexa te if fever or any signs of infection. [id number] DERIK Chance, [facility], OFFICE [address] [place] [address] 09/17/2022 08:23:13 09/17/2022 11:32:24 Hypertensive disorder 55208390 I10 improved, <130/80, at goal with some s/s of hypotensio nstopped celebrex, decrease salt, has limited EtOHhydrat e Plan: c/w 2.5 mgs lisinopril take every OTHER daymonitor BP Type 2 stephany betes mellitus without complication 758974589 E11.9 stable a1c < 7; 6.3% 02/06Treatm ent: diet controlled Plan: recheck labs in 3-6 months Rheumatoid arthritis 698 53649 M06.9 stable in the present momentTrea tment: [facility] [place], folic acidCare Team: Yuri, 02/13/22Plvaishali n:CT scan L knee, 02/20/22 Hyperparathyroidism 6699 9008 E21.3 not a current diagnosis, however, elevated PTH, with normal Vit D and Ca, will recheck [id number] MD SHANTI Dejesus, [facility], OFFICE [address] [place] [address] 12/16/2022 10:32:11 12/16/2022 11:02:30 Exposure to SARS-CoV-2 033227647 Z20.828 COVID-19 666454705 U07.1 [id number] DERIK Chance, [facility], OFFICE [address] [facility] [place] [address] 02/28/2023 09:22:58 03/01/2023 08:30:32 Adult health examination 670775614 Z00.00 Your personal health plan: 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 Migraine 23197576 G43.90 9 stable with current regimen Consider cut back on wheat intakeArni ca gel, CBD oil or lidocaine patches directly to site as long as not allergic Hypertensive disorder 38 195642 I10 improved, <130/80, at goal with some s/s of hypotensio nstopped celebrex, decrease salthydrat e Plan: c/w 2.5 mgs lisinopril monitor BP Idiopathic peripheral neuropathy 54936521 G60.9 stable secondary to Lyme dz, Q if due to G1NGRruusm ent: FA 2 mgs/day, flexeril 20 mgs HS, gabapentin 900 mgs TDDCare Team: TalotPlan: Rheumatoid arthritis 698 75322 M06.9 stable in the present momentTrea tment: [facility], folic acidCare Team: Yuri, 02/13/22 , now sees TalotPlan: CT scan L knee, 02/20/22 Type 2 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 betes mellitus without complication 355910555 E11.9 stable a1c < 7; 6.5% 02/06Treatm ent: diet controlled Eye MD: Dr RiderPlan: recheck labs in 3Dr Adry Obstructiv e sleep apnea syndrome 62406705 G47.33 stable, mildTreatm ent: nonesleep study done 2018 Long-term drug therapy 817612116 Z79.899 MTX followed by rheum, LFTs stablePain management :cyclobenz aprine 20 mgs TDD at HSgabapent in 900 TDD Drusen of optic disc [address] Adry, optic nervePendi ng carotid US with [place] Screening mammography 24 212417 Z12.31 Hyperlipidemia 70398731 E78.5 ASCVD 13.5%, recommend DASH diet and add fish oil 2 gms at nighteven with very good HDL with current hyperglyce tammy, controlled htn and EtOH use https://to ols.acc.or g/ASCVD-Ri sk-Estimat or-Plus/#! /calculate /estimate/ [id number] Leigha Whelan RN Endoscopy , [address] [address] 04/11/2023 10:50:55 04/11/2023 13:38:17 Health Concerns Section Related Observation LastModified by Organization Detai ls LastModified Time None Recorded Concern Status LastModified by Organization Details LastModified Time None Recorded Advance Directives Directive None Recorded Payers Encounter Date Sequence Insurance Name Policy Number Policy Quintana Covered Member ID Quintana Member ID Guarantor Name 08/06/2022 1 [facility] [id number] 3 Lashanda A [employer] [id number] Lashanad A [employer] 09/12/2022 1 [facility]) [id number] 3 Lashanda A [place] [id number] Lashanda A [place] 09/17/2022 1 [facility]) [id number] 3 Lashanda A Vidhya [id number] Lashanda A [place] 12/16/2022 1 [facility]) [id number] 3 Lashanda A Vidhya [id number] Lashanda A [place] 02/28/2023 1 [facility]) [id number] 3 Lashanda A Vidhya [phone] Lashanda A [place] Notes Date Note Type Note Provider Name and Address Organization Details Recorded Time 2 text/html RTO to recheck BPs/p L TKR revisionelev BP at PT 07/16/22 noted BP was 156/98in context of recent surgery, NSAIDs use, pain management Improved pain with kneewas using celebrex chronically, now reports stomach issues Since surgery, random extensive sweating not hot flashesnausea every time worse after eatingBP drops 130 to 103 in one day, felt improved [facility] stomach ache no bloating, no change in bowel habitson motegrity with magnesiumoff celebrex x 3 weeksno excess urination no sense of dehydrationlab review: 07/27/2022 Na 138 sl lower than usual 141; glucose lower at 103lower calcium at 8.3 which occurred 02/2022former smoker, uncertain of pack years no recent CXRGI: from [facility]:Procedure/Surgical ProfileDilation of esophagus ([id number]) on 05/02/2021 at 65 Years.Left tube thoracostomy ([id number]) on 08/16/2020 at 64 Years.Laparoscopy, surgical, repair of paraesophageal hernia, includes fundoplasty, when performed; without implantation of mesh ([id number]) on 08/16/2020 at 64 Years.Laparoscopy, surgical, esophageal lengthening procedure (eg, Perry gastroplasty or wedge gastroplasty) (List separately in addition to code for primary procedure) ([id number]) on 08/16/2020 at 64 Years.Bilateral replacement of knee joints ([id number]) in 2007 at 53 Years.Partial colectomy by abdominal approach ([id number]) in 1984 at 30 Years. Was not intubated during ortho surgeryHx of paraesophageal hernia with intubation, 2020similar reaction and was re-admitted for 4 L of fluid HTN: RA: actemra, missed doses due to surgery Otf Palm PA-C [address] [place] [address], [phone], [facility] 08/11/2022 11:21:55 2 text/html Patient is 66 y old female following-up on rheumatoid arthritis. Patient states that she is doing well. She had her left knee replaced and is recovering very well.She developed hypertension after she started Actemra so she stopped Actemra and blood pressure is better controlled.Had an episode of diverticulitis.Patient states that she is doing well, no joint pain, no swelling. Patient is on methotrexate and folic acid. She is tolerating the medications, no side effects reported. Patient also takes celebrex , she is taking it about 3 times a week. Labs reviewed. Olivia Welch MD [address] [place] [address], [phone], [facility] 09/12/2022 13:32:07 2 text/html 6 wk RTO for BP recheck, health updateReview of bloodworkDiverticulitis: [facility], 08/17/2022, citreon and flagyll, CT scan acute diverticulitis w/o perforationHTN: started 5 mgs lisinoprilVasovagal symptoms resolved with stopping actemra Elevated PTH with Ca and D3 normal -- 08/15/2022Urine studies on 08/17/2022 -- + for WBC due to diverticulitis HTN: cut back to 2.5 mgs of lisinoprildue to orthostatic symptoms which she is still having every daygood effort to stay hydrated Rheum:off actemra and feels much better overallneeds new referral to new rheum DM: reports FBG at 80s, checks weekly Today reports feels well overallDidn't realize that while the Actemra helped with some arthritis it was causing a lot of other symptoms Same day prep time start: 735Same day prep time end: 740Total 5 Visit start time: 838Visit end time: 912total 44 Otf Palm PA-C [address] [place] [address], [phone], [facility] 09/18/2022 06:37:53 3 text/html 12/16/22 Patient presents virtually to discuss Paxlovid, tested positive this morningc/o body aches, runny nose, chills, congestion, nohelia. lung pain, cough x 2 daystaking tylenol, mucinex DMwould need RX sent to [facility] due to hours on weekends Time for intake: {{1 2 3 4 5* 6 7 8 9 10 11 12 13 14 15 16 17 18 19 20 21 22 23 24 25}} minutes. Jamaal Tom MD [address] [place], [phone], [facility] 12/16/2022 10:52:57 3 text/html Physical Exam/FemaleReported bypatient.PHAPatient is here for a Wellness Visit. She describes her health status as fair. Patient's health is worse than last year.Notes:2 bouts of COVID, second bout was worse with rebound and + tests/p diverticulitis x [address] [facility], 2021 and 12 2021worsening intermittent vision changes due to drusen of optic nerveMTX for RA with good effect however persistentL total knee revisionWife is , excited and concerned at same time about energy level.Risk Assessment and Lifestyle Change Counseling 65+ (Medicare)Reported bypatient.Coronary Artery Disease Risk Assessment:No Family history of coronary artery disease;Personal history of diabetes; No history of peripheral vascular disease, AAA, or carotid disease; No personal history of coronary artery disease Breast Cancer Risk Assessment:Family history of breast cancer one first degree relative(maternal aunt); No history of breast cancer or dcis Colon Cancer Risk Assessment:No family history of pre cancerous colon polyps or cancer Lung Cancer Risk Assessment:Former smoker quit within last 15 years Cognitive/Behavioral Risk Assessment:No personal history of mental illness; No family history of mental illness Safety Risk Assessment:Has grab bars in bathroom; Has rails on steps; No falls Functional Status:Patient does not have trouble hearing the television or radio when others do not.; Patient does not have to strain or struggle to hear/understand conversations; Patient does not need help with preparing meals, transportation, shopping, taking medicine, managing finances, or other activities of daily living.; Patient does not have visual loss that interferes with daily activities; Does not live alone; Patient was not unsteady and did not take longer than 30 seconds during the timed get up and go test.; Patient reports no falls in the past 6 months. Diet:Counseled about appropriate calcium intake and good dietary sources of calcium.; Counseled about the importance of maintaining a positive calcium balance and taking 1000 iu Vitamin D daily.; Discussed the value of a Mediterranean diet , and eating more fruits and vegetables; on [employer] Exercise counseling:Discussed the importance of daily physical activity; exercising 1 hour/day Safety:Counseled about protecting skin from the sun and lowering the risk of skin cancer Otf Palm PA-C [address] [place] [address], [phone], [facility] 03/03/2023 20:46:54 OBGyn Episode No OBEpisode recorded.
--- OUTSIDE RECORDS SUMMARY | 2024-12-17 16:13 | XMS_ITS | Clinical Summary ---
Author Organization [facility] Address [address] [place] [address] Care Team Providers Care Proof Press Operator Name Role Phone Eloisa Andrdae Primary Care Provider [phone] Allergies Active Allergy Reactions Criticality Noted Date Comments Sulfasalazine Rash Medium 03/28/2021 Penicillins Hives Medium 10/25/2017 Metoclopramide Hcl Rash Medium 03/28/2021 Sulfa (Sulfonamide Antibiotics) Rash Medium 03/18 Medications SUMAtriptan (IMITREX) 100 mg tablet TAKE 1 TABLET BY MOUTH 1 TIME NEEDED DIRECTED FOR MIGRAINE 1 Active celecoxib (CeleBREX) 200 mg capsule Take 200 mg by mouth daily. 0 Active Xeljanz 5 mg tablet 02/25/20 2 1 Active metFORMIN (GLUCOPHAGE) 500 mg tablet TAKE 2 TABLETS BY MOUTH IN THE MORNING AND THEN 2 TABLETS BY MOUTH IN THE EVENING 1 Active methotrexate (TREXALL) 2.5 mg tablet Take 15 mg by mouth once a week. 1 Active ondansetron (ZOFRAN ODT) 4 mg disintegrating tablet DISSOLVE 1 TABLET ON THE TONGUE THREE TIMES DAILY NEEDED FOR NAUSEA 1 Active predniSONE (DELTASONE) 5 mg tablet TAKE 3 TABLETS BY MOUTH EVERY DAY NEEDED FOR FLARE UP 1 Active cyclobenzaprine (FLEXERIL) 10 mg tablet 1 Active folic acid (FOLVITE) 1 mg tablet Take 2,000 mcg by mouth daily. 1 Active Active Problems No known active problems Social History Tobacco Use Types Packs/Day Years Used Date Smoking Tobacco: Former Smokeless Tobacco: Former Comments Unknown Sex and Gender Information Value Date Recorded Sex Assigned at Not on file Legal Sex Female 10:22 AM EDT Gender Identity Not on file Sexual Orientation Not on file Last Filed Vital Signs Vital Sign Reading Time Taken Comments Blood Pressure 132/81 03/28/2021 1:18 PM EDT Pulse 76 03/28/2021 1:18 PM EDT Temperature - - Respiratory Rate - - Oxygen Saturation - - Inhaled Oxygen Concentration - - Weight 75.8 kg (167 lb) 03/28/2021 1:18 PM EDT Height 162.6 cm (5' 4 ) 03/28/2021 1:18 PM EDT Body Mass Index 28.67 03/28/2021 1:18 PM EDT Plan of Treatment Health Maintenance Due Date Last Done Comments Cologuard 1954 Colon Cancer Screening 1954 Colonoscopy 1954 FOBT / Fit Test 1954 Sigmoidoscopy 1954 DTaP,Tdap,and Td Vaccines (1 - Tdap) 1976 Mammogram 1994 Osteoporosis Screening 2004 Zoster Vaccines (1 of 2) 2004 Pneumococcal Vaccine: 65+ Ye ars (1 of 1 - PCV) 2019 COVID-19 Vaccine (1 - 2023-2 5 season) 2024 Influenza Vaccine (#1) 2024 Alcohol/Substance Use Screening 11/18/2024 Health Care Proxy Review 11/18/2024 RSV Vaccine (60+ years old a nd patients) (1 - 1-dose 75+ series) 2029 Hepatitis B Vaccines Aged Out No long er eligible based on patient's age to complete this topic Insurance [facility] Care Teams Proof Press Operator Relationship Specialty Start Date End Date Eloisa Andrade [address] [place] [id number] PCP - General Family Medicine 02/24/21
--- OUTSIDE RECORDS SUMMARY | 2024-12-17 16:13 | XMS_ITS | Referral Summary ---
Author Organization [facility] Address [address] [place] [address] Care Team Providers Care Pneumatic Systems Operator Name Role Phone Eloisa Andrade Primary Care Provider [phone] Allergies Active Allergy Reactions Criticality Noted Date [...] 03/28/2021 1:18 PM EDT Plan of Treatment Not on file Insurance [facility] Care Teams Pneumatic Systems Operator Relationship Specialty Start Date End Date Janay Andradeit [address] [place] [id number] PCP - General Family Medicine 02/24/21
== END 2024-12-17 12:27 | disposition home or self-care (01) ==
LOC: HO.MAMMO 12:26
PROVIDERS: PCP Family Medicine; Visit Provider Student in an Organized Health Care Education/Training Program
DX: M81.0 Age-related osteoporosis without current pathological fracture (principal)
CPT/HCPCS: 77080

== ENCOUNTER → 2024-12-17 13:00 | Outpatient (BNV) | payer OTHER, SELFPAY | PROVIDERS: PCP Family Medicine; Visit Provider Radiology Diagnostic Radiology | DX: E28.39 Other primary ovarian failure (principal) | CPT/HCPCS: 77080 ==

== ENCOUNTER 2025-02-10 12:50 | Outpatient (AMB) | payer OTHER, SELFPAY ==
[2025-02-10 12:52] VITALS: BP 132/80; PULSE 71; O2SAT 100
--- NOTE | 2025-02-10 12:52 | MHC.OFFVIS ---
Vital Signs 02/10/25 12:52 Height 5 ft 4 in Weight 174 lb 9.698 oz BMI 30.0 BP 132/80 Blood Pressure Location Rt brachial Position Sitting Pulse 71 Pulse Source Pulse Oximeter Pulse Oximetry (%) 100 Oxygen Delivery Method Room Air Intake Visit Reasons: RA Intake Note: Patient was last seen in the office on 11/03/[address] West. She presents today for follow up on RA, blood work, and Dexa scan. Patient would like to talk about her Methotrexate script refills, she states she used to get 8 vials, now 4. Allergies metoclopramide [From Reglan] Allergy (Severe, Verified 11/03/24 13:50) Itching Sulfa (Sulfonamide Antibiotics) Allergy (Intermediate, Verified 11/03/24 13:50) Itching sulfasalazine Allergy (Intermediate, Verified 11/03/24 13:50) Itching Penicillins Allergy (Unknown, Verified 11/03/24 13:50) unknown tocilizumab [From Actemra] Adverse Reaction (Severe, Verified 11/03/24 13:50) Hypertension, Nausea, Anorexia, Diverticultis Medication List - Last Reconciled 02/10/25 by Claudine Drake MD alendronate 70 mg PO QWEEK brimonidine 0.2% 0 drps ophthalmic (eye) celecoxib 100 mg PO DAILY cholecalciferol (vitamin D3) 50 mcg PO DAILY cyanocobalamin (vitamin B-12) 1,000 mcg PO DAILY cyclobenzaprine 20 mg PO BEDTIME folic acid 2 mg (2 x 1 mg) PO DAILY gabapentin 300 mg PO DAILY PRN insulin syringe-needle U-100 (TRUEplus Insulin) USE ONCE WEEKLY WITH METHOTREXATE DIRECTED leucovorin calcium 5 mg PO QWEEK linaclotide (Linzess) 145 mcg PO QAM lisinopril 2.5 mg PO DAILY methotrexate sodium (PF) 25 mg subcut QWEEK ondansetron 4 mg PO Q8H PRN prednisolone 5 mg orally 20 mg x 5 days during flares PRN; sumatriptan succinate take 1 tab at onset of headache; if no relief, may repeat 1 tab after at least 2 hrs; max = 2 tabs/24 hrs orally PRN; HPI Comments Details: Patient is a 69-year-old female with osteopenia, pseudogout and seronegative rheumatoid arthritis Interval History: Patient last seen 11/03/[address] West. At that time she was feeling much better after recently starting Simponi Aria infusions. Patient states that she continues to do well overall. Was having some insurance issues with Simponi Aria because she got the infusion a few days before it is scheduled to be do due to some scheduling conflicts on her and and the insurance is charging her over 40,000 dollars for the infusion. She is currently appealing this. Has cervical radiculopathy, and had a flare of her neck pain radiating down to the left arm. Started a prednisone taper yesterday. Started with 40 mg yesterday and currently on 30 mg and plan to taper to 20 mg and follow up with her spine specialists. Rheumatologic History: Seronegative diagnosed around 1999 HCQ: Ineffective MTX all through, switched from subcu to oral around 2014 Humira 2009 to 2013 ineffective Cimzia 2017 to 2018 ineffective Leflunomide 2015 to 2017 neuropathy,SSZ allergy, Orencia 2018 ineffective and caused fatigue. Xeljanz somewhat effective but stopped in 2020 Actemra 2020 hypertension and diverticulitis MTX increased form 15 mg to 20 mg 05/10 partially effective, advanced to SQ 25 mg 10/2023 Simponi Aria started 09/2024 effective Initial history: This is a 67-year-old female with a past medical history of seronegative RA of presents for evaluation of rheumatoid arthritis. Patient was diagnosed with seronegative rheumatoid arthritis more than 20 years ago. She has been on numerous DMARDs. She has been on methotrexate all through. Her previous security door installer left the practice. Today patient feels all right overall. She continues to have pain and morning stiffness of her hands, wrists, ankles and feet lasting 3-4 hours. Patient would take a prednisone bolus 2 to 3 times a year. She would usually take about 50 mg for 5 days. Last time she took prednisone was 6 weeks ago. Patient also has been having bilateral hip pain. Over the last 1-2 years she has developed Raynaud's. She was prescribed amlodipine to use as needed by her previous security door installer Dr. Norman but patient never used it. She bot heated gloves and those were quite helpful. Current Rheumatology Medication(s): Simponi Aria infusions 2mg/kg every 8 weeks Methotrexate 25 mg sc weekly PO Leucovorin 5 mg weekly PO Folic acid 2mg daily PO Alendronate 70mg weekly PO PFSH Medical History Hip pain, bilateral Diverticulosis Diverticulitis Macrocytosis Basal cell carcinoma (BCC) Idiopathic peripheral neuropathy PPD positive Rheumatoid arthritis Steatosis of liver Chronic constipation Diverticular disease Nondiabetic gastroparesis GERD with esophagitis Hypertension Migraine RUDI (obstructive sleep apnea) Vitamin B12 deficiency Surgical History H/O esophageal hernia repair Hx of hysterectomy History of knee replacement, total Family History Mother Liver cancer Maternal Aunt Breast cancer Rheumatoid arthritis Social History Household Members: Spouse Alcohol intake: current Alcohol intake frequency: a few times a week Alcohol type: wine Patient Tobacco Use Status: Former Tobacco user 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 Review of Systems Const Details: Review of Systems Constitutional: Denies fever, chills, weight loss ENT: Denies vision changes, eye pain or eye redness, dental caries, dry mouth GI: Denies nausea, vomiting, diarrhea, abdominal pain, change in BM Pulm: Denies SOB, PUGA, hemoptysis, wheezing Cards: Denies chest pain, palpitations Skin: Denies Raynaud's, rash, nail changes, photosensitivity, PRINCIPAL WEB DEVELOPER: Denies headaches, weakness, paresthesias, recurrent falls MSK: as per HPI All other systems reviewed and are unremarkable except noted above Physical Exam Vital Signs: BMI result Body Mass Index 30.0 Vital signs reviewed Physical Examination CONSTITUITIONAL Patient alert and cooperative. Well appearing and in no apparent painful distress HEENT Conjunctiva and sclera clear. ?Pupils equal round and reactive to light. ?No lymphadenopathy. ? CHEST/RESPIRATORY SYSTEM Normal respiratory effort and able to speak in complete sentences. ?Clear to auscultation bilaterally. ?No crackles, rales, rhonchi, wheezes heard. CARDIAC SYSTEM Regular rate and rhythm. ?S1 and S2 heard no murmurs. ?Radial pulses intact bilaterally MSK Hands: ?Good configuration manager strength bilaterally. No deformities noted. ?No synovitis noted to the MCPs, PIPs or DIPs. ?No tenderness to palpation of these joints. Wrists: ?Full range of motion at the wrists without pain. ?No tenderness to palpation or synovitis noted to the wrists. Elbows: Full range of motion without pain. Some mild tenderness to the right elbow on palpation of the elbow joint proper but no swelling or redness noted. Shoulders: Full range of motion without pain. No tenderness, weakness, swelling, increased warmth or erythema. Hips: Full range of motion without pain. Hip bursa: No tenderness to palpation Knees: ?Full range of motion. ?No tenderness, swelling, increased warmth or erythema.?No effusion or crepitations Ankles: Full range of motion. ?No tenderness, swelling, increased warmth or erythema.? Feet: ?Negative squeeze test. ?No tenderness to palpation or swelling of the MTPs. Tender points:?No tenderness to palpation of the bilateral trapezius, supraspinatus, greater trochanters, anterior costochondral junctions, bilateral gluteal areas, bilateral suboccipital muscle insertions SKIN Skin intact without rashes. Results Reviewed Results Reviewed: Laboratory Tests 11/02/24 15:01 WBC 5.6 RBC 4.05 L Hgb 13.5 Hct 41.7 Plt Count 232 ESR 2 Sodium 143 Potassium 4.4 Chloride 106 Carbon Dioxide 30 H BUN 15 Creatinine 0.84 Calcium 9.6 Total Bilirubin 0.4 AST 26 ALT 23 Alkaline Phosphatase 48 C-Reactive Protein < 0.10 Laboratory Tests 11/20/22 09:51 Rheumatoid Factor < 13.0 Cycl Citrul Peptide IgG <16 RAMAN Screen NEGATIVE Complement C3 54 L Complement C4 13 L DEXA 11/2024 FINDINGS: The bone mineral density of the lumbar spine is 1.165 with a T-score of -0.1, and a Z-score of 1.0. This represents a BMD change of 9.3% compared to the prior exam. This is statistically significant. The bone mineral density of the left total hip is 0.922 with a T-score of -0.7, and a Z-score of 0.4. This represents BMD change of 1.5% compared to the prior exam. This is not statistically significant. The bone mineral density of the left femoral neck is 0.895 with a T-score of -1.0, and a Z-score of 0.3. This represents BMD change of 8.2% compared to the prior exam. Assessment & Plan Assessment & Plan (1) Rheumatoid arthritis involving both elbows with negative rheumatoid factor: Comment: Seronegative diagnosed around 1999 HCQ: Ineffective MTX all through, switched from subcu to oral around 2014 Humira 2009 to 2013 ineffective Cimzia 2017 to 2018 ineffective Leflunomide 2015 to 2017 neuropathy,SSZ allergy, Orencia 2018 ineffective and caused fatigue. Xeljanz somewhat effective but stopped in 2020 Actemra 2020 hypertension and diverticulitis MTX increased form 15 mg to 20 mg 05/10 partially effective, advanced to SQ 25 mg 10/2023 Simponi Aria started 09/2024 effective Code(s): M06.021 - Rheumatoid arthritis without rheumatoid factor, right elbow; M06.022 - Rheumatoid arthritis without rheumatoid factor, left elbow Category: Medical Plan: #Seronegative RA Patient is a 69-year-old female with seronegative rheumatoid arthritis currently on Simponi Aria infusions, subcutaneous methotrexate and weekly leucovorin as well as daily folic acid here today for follow up. Rheumatoid arthritis is currently in remission/low disease activity on examination with no evidence of synovitis. She does have intermittent flares which she manages with topical heat and sometimes Celebrex but this is infrequently. Doing well on the Simponi infusions we will continue. Plan - Simponi Aria infusions 2mg/kg every 8 weeks - Methotrexate 25mg SC every week - Folic acid 2mg daily PO - Leucovorin 5mg weekly PO - Labs today: CBC, CMP, ESR, CRP, hepatitis panel, T spot - Also check C3, C4 and SSA/SSB - RTC 4 months - Labs before visit: CBC, CMP, ESR, CRP (2) Pseudogout: Code(s): M11.20 - Other chondrocalcinosis, unspecified site Category: Medical Plan: #Pseudogout September 2021 had 1 month low grade discomfort right knee then acute swelling and severe pain.? Arthrocentesis showing hemarthrosis. 37,000 WBCs and rare intracellular CPPD crystals.? She does not seem to have had another flare. Will continue to monitor. IF concern for recurrent flares may benefit from colchicine (3) Osteopenia: Comment: DEXA 11/2022: AP spine -0.9, Left femur neck -1.5, Left femur total -0.8. FRAX 29.2/4.8 Alendronate started 11/2022 DEXA 11/2024: AP spine -0.1, Left femur neck -1.0, Left femur total -0.7. Normal BMD Code(s): M85.80 - Other specified disorders of bone density and structure, unspecified site Category: Medical Qualifiers: Laterality: bilateral Osteopenia location: hip Qualified Code(s): M85.851 - Other specified disorders of bone density and structure, right thigh; M85.852 - Other specified disorders of bone density and structure, left thigh Plan: #Osteopenia Currently on alendronate with repeat DEXA scan done 11/2024 showing improvement in her bone density. We will continue the alendronate for a total of 5 years and then go on a drug holiday. Drug holiday 11/2027 Plan - Continue alendronate 70mg PO weekly - Continue Vitamin D supplementation - Drug holiday 11/2027 - Check Vitamin D today (4) custodial methotrexate user: Code(s): Z79.631 - termite exterminator (current) use of antimetabolite agent Category: Medical Plan: #Long-term Current Use of Methotrexate Discussed with patient the benefits and risks of methotrexate for managing their rheumatic condition Benefits include reduced pain, reduced mortality, maintenance of remission and reduction of flares Risks include oral ulcers, photosensitivity, hepatotoxicity, hematologic toxicity, pneumonitis, flu-like symptoms (especially day after administration), nodulosis, lymphomas ? Limit alcohol and avoid Bactrim ? Monitoring: ?CBC, BMP, LFTs every 3-4 months and hepatitis serologies as needed (5) Encounter for monitoring bisphosphonate therapy: Code(s): Z51.81 - Encounter for therapeutic drug level monitoring; Z79.83 - custodial (current) use of bisphosphonates Plan: #Long-term Use of Bisphosphonates Risks and benefits of bisphosphonates in the management of osteoporosis Benefits include improved bone density, decreased fracture risk Risks include atypical femoral fractures, GI upset, esophageal strictures Contraindicated in patients with a creatinine clearance < 30 to 35 ml/min Keep vitamin-D at least 35 ng/mL (6) Long-term current use of immunosuppressive biologic agent: Code(s): Z79.620 - custodial (current) use of immunosuppressive biologic Plan: #Long-term Use of TNF Inhibitors: Kary Saucedo Discussed with the patient the benefits and risks of TNF inhibitors for the management of the rheumatic condition Benefits include reduce pain, maintenance of remission and reduction of flares as well as ?progression of the disease Risks include injection sites/infusion reactions, serious infections (such as bacterial infections, opportunistic infections), malignancy, delaminating syndromes, autoimmune phenomena, CHF exacerbations, palmar plantar psoriasis and cytopenias Recommended rotating injection sites, and holding medication during and for up to 1 week after resolution of a febrile illness or open skin wound Plan I spent 36 minutes reviewing the record and labs, taking a history, examining the patient, discussing the treatment plan, ordering diagnostic work up and documenting in the medical record Orders: Orders Erythrocyte Sedimentation Rate Today M06.021 - Rheumatoid arthritis without rheumatoid factor, right elbow, M06.022 - Rheumatoid arthritis without rheumatoid factor, left elbow Hepatitis A,B,C Profile Today M06.021 - Rheumatoid arthritis without rheumatoid factor, right elbow, M06.022 - Rheumatoid arthritis without rheumatoid factor, left elbow Vitamin D 25-OH (D2 and D3) Today E55.9 - Vitamin D deficiency, unspecified Sjogren's Antibodies Today M06.021 - Rheumatoid arthritis without rheumatoid factor, right elbow, M06.022 - Rheumatoid arthritis without rheumatoid factor, left elbow Complement C3 Today M06.021 - Rheumatoid arthritis without rheumatoid factor, right elbow, M06.022 - Rheumatoid arthritis without rheumatoid factor, left elbow Complement C4 Today M06.021 - Rheumatoid arthritis without rheumatoid factor, right elbow, M06.022 - Rheumatoid arthritis without rheumatoid factor, left elbow Complete Blood Count Auto Diff 4 Months M06.021 - Rheumatoid arthritis without rheumatoid factor, right elbow, M06.022 - Rheumatoid arthritis without rheumatoid factor, left elbow Comprehensive Met. Panel 4 Months M06.021 - Rheumatoid arthritis without rheumatoid factor, right elbow, M06.022 - Rheumatoid arthritis without rheumatoid factor, left elbow C Reactive Protein 4 Months M06.021 - Rheumatoid arthritis without rheumatoid factor, right elbow, M06.022 - Rheumatoid arthritis without rheumatoid factor, left elbow Erythrocyte Sedimentation Rate 4 Months M06.021 - Rheumatoid arthritis without rheumatoid factor, right elbow, M06.022 - Rheumatoid arthritis without rheumatoid factor, left elbow Complete Blood Count Auto Diff Today M06.021 - Rheumatoid arthritis without rheumatoid factor, right elbow, M06.022 - Rheumatoid arthritis without rheumatoid factor, left elbow Comprehensive Met. Panel Today M06.021 - Rheumatoid arthritis without rheumatoid factor, right elbow, M06.022 - Rheumatoid arthritis without rheumatoid factor, left elbow C Reactive Protein Today M06.021 - Rheumatoid arthritis without rheumatoid factor, right elbow, M06.022 - Rheumatoid arthritis without rheumatoid factor, left elbow T Spot TB Today M06.021 - Rheumatoid arthritis without rheumatoid factor, right elbow, M06.022 - Rheumatoid arthritis without rheumatoid factor, left elbow Medications: Refilled leucovorin calcium 5 mg PO QWEEK 12 tabs 1RF M06.021 - Rheumatoid arthritis without rheumatoid factor, right elbow, M06.022 - Rheumatoid arthritis without rheumatoid factor, left elbow alendronate 70 mg PO QWEEK 12 tabs 1RF M85.851 - Other specified disorders of bone density and structure, right thigh, M85.852 - Other specified disorders of bone density and structure, left thigh folic acid 2 mg (2 x 1 mg) PO DAILY 180 tabs 1RF M06.021 - Rheumatoid arthritis without rheumatoid factor, right elbow, M06.022 - Rheumatoid arthritis without rheumatoid factor, left elbow methotrexate sodium (PF) 25 mg subcut QWEEK 4 mL 4RF M06.021 - Rheumatoid arthritis without rheumatoid factor, right elbow, M06.022 - Rheumatoid arthritis without rheumatoid factor, left elbow Coding Level of Care Code Est Pt Level 4 (30779) Complex EM visit Add On G2211 Diagnoses Rheumatoid arthritis involving both elbows with negative rheumatoid factor M06.021; M06.022 Pseudogout M11.20 Osteopenia of both hips M85.851; M85.852 Laterality: bilateral Osteopenia location: hip 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
== END 2025-02-10 13:36 | disposition home or self-care (01) ==
LOC: HO.RHE 12:51
PROVIDERS: PCP Family Medicine; Visit Provider Student in an Organized Health Care Education/Training Program
DX: M06.02 Rheumatoid arthritis without rheumatoid factor, elbow (principal); M06.022 Rheumatoid arthritis without rheumatoid factor, left elbow; M11.20 Other chondrocalcinosis, unspecified site; M85.851 Other specified disorders of bone density and structure, right thigh; M85.852 Other specified disorders of bone density and structure, left thigh; Z79.631 Long term (current) use of antimetabolite agent; Z51.81 Encounter for therapeutic drug level monitoring; Z79.83 Long term (current) use of bisphosphonates; Z79.620 Long term (current) use of immunosuppressive biologic
CPT/HCPCS: 99214

== ENCOUNTER → 2025-02-10 12:50 | Outpatient (BNVA) | payer OTHER, SELFPAY | PROVIDERS: PCP Family Medicine; Visit Provider Student in an Organized Health Care Education/Training Program ==

== ENCOUNTER 2025-02-11 09:31 | Outpatient (REF) | payer OTHER, SELFPAY ==
[2025-02-11 10:34] LABS: MANUAL DIFF FLAG NO
[2025-02-11 10:39] LABS: Basophils Percent Auto 0.4 % (0-2); Eosinophils Absolute Auto 0.1 X10*3/uL (0.0-0.4); Eosinophils Percent Auto 1.7 % (0-4); Hematocrit 44.9 % (37.0-47.0); Imm Gran Abs Auto 0.04 X10*3/uL (0.00-0.03); Imm Gran Pct Auto 0.5 % (0.0-0.4); Lymphocytes Absolute Auto 2.4 X10*3/uL (1.2-4.9); Lymphocytes Percent Auto 29.3 % (20-40); Mean Corpuscular Hemoglobin 33.5 pg (27.0-33.0); Mean Platelet Volume 10.3 fL (9.4-12.3); Monocytes Absolute Auto 0.6 X10*3/uL (0.1-1.2); Monocytes Percent Auto 7.7 % (2-11); Neutrophils Percent Auto 60.4 % (45-73); Platelet Count 203 X10*3/uL (160-400); Red Blood Count 3.88 X10*6/uL (4.20-5.50); Red Cell Distribution Width 14.1 % (11.0-16.0); White Blood Count 8.2 X10*3/uL (4.8-10.8)
[2025-02-11 10:43] LABS: Mean Corpuscular Volume 115.7 fL (80.0-98.0)
[2025-02-11 10:51] LABS: Alanine Aminotransferase 21 U/L (0-31); Albumin Level 4.2 g/dL (3.5-5.0); Alkaline Phosphatase 45 U/L (39-117); Anion Gap 9 (12-20); Aspartate Amino Transferase 20 U/L (5-31); Bilirubin Total 0.4 mg/dL (0.0-1.0); Blood Urea Nitrogen 24 mg/dL (9-16); C Reactive Protein < 0.10 mg/dL (< or = 0.50); Carbon Dioxide 28 mmol/L (22-29); Chloride 108 mmol/L (96-108); Estimated Glomerular Filt Rate > 60; Glucose Random 99 mg/dL (60-115); Potassium 3.8 mmol/L (3.3-5.1); Sodium 141 mmol/L (135-145); Total Protein 6.8 g/dL (6.5-8.0)
[2025-02-11 11:10] LABS: HBS Num1 > 1000.00 mIU/mL (0-7.99); HBc Num1 0.09 S/CO (0.00-0.79); HBsAGNum1 0.32 S/CO (0.00-0.99); Hepatitis A Antibody IgM 0.19 Index (0-0.79); Hepatitis B Core Antibody Nonreactive (Nonreactive); Hepatitis B Surface Antigen Negative (Negative); ~HepC Num1 0.11 S/CO (0.00-0.79); ~Hepatitis A Antibody IgM Nonreactive (Nonreactive); ~Hepatitis B Surface Antibody REACTIVE (Nonreactive); ~Hepatitis C Antibody Nonreactive (Nonreactive)
[2025-02-11 11:26] LABS: Erythrocyte Sedimentation Rate 2 MM/HR (0-20)
[2025-02-12 22:04] LABS: Complement C3 106 mg/dL (83-193)
[2025-02-13 20:23] LABS: TS Negative Control Passed; TS Panel A 0; TS Panel B 0; TS Positive Control Passed; TSpotTB Negative (Negative)
[2025-02-15 23:54] LABS: Antibody to SS-A Antigen <1.0 NEG AI (<1.0 NEG); Antibody to SS-B Antigen <1.0 NEG AI (<1.0 NEG)
== END 2025-02-11 09:32 | disposition home or self-care (01) ==
LOC: HO.10HDL 09:31
PROVIDERS: Visit Provider Student in an Organized Health Care Education/Training Program
DX: M06.022 Rheumatoid arthritis without rheumatoid factor, left elbow (principal); M06.02 Rheumatoid arthritis without rheumatoid factor, elbow
CPT/HCPCS: 36415; 80053; 85025; 85652; 86140; 86160; 86235; 86481; 86704; 86706; 86709; 86803; 87340

== ENCOUNTER 2025-06-01 09:03 | Outpatient (REF) | payer OTHER, SELFPAY ==
--- OUTSIDE RECORDS SUMMARY | 2025-05-27 23:59 | XMS_ITS | Continuity of Care Document ---
Author Organization [facility] Address [address] [place] [address]- Care Team Providers Care Huc Ob Name Role Phone Jamar Chu DO Primary Care Physician Encounter [facility] [place](s[place] 03/29/25 - 05/27/25 [facility] [address] [place] [address]- Attending Physician: Shyla Huston NP Referring Physician: Jamar Chu DO Encounter Type: Pre Office Visit Allergies, Adverse Reactions, Alerts Substance Criticality Severity Reaction Reaction Severity Status sulfADIAZINE intense itching A ctive penicillins hives Active sulfa drugs intense itching Ac tive Reglan intense itching Acti ve Actemra High criticality Moderate Hypertension Active Immunizations Given and Recorded Vaccine Date Status Refusal Reason influenza virus vaccine, inactivated 07/30/24 Frank rded influenza virus vaccine, inactivated 08/05/23 Frank rded influenza virus vaccine, inactivated 08/20/22 Frank rded influenza virus vaccine, inactivated 08/15/21 Frank rded influenza virus vaccine, inactivated 08/06/20 Frank rded influenza virus vaccine, inactivated 08/26/19 Frank rded influenza virus vaccine, inactivated 08/22/18 Frank rded influenza virus vaccine, inactivated 08/07/18 Frank rded influenza virus vaccine, inactivated 08/01/17 Frank rded influenza virus vaccine, inactivated 08/17/16 Frank rded SARS-CoV-2(COVID-19)mRNA-LNP vac([id number]) 07/30/24 Recorded SARS-CoV-2(COVID-19)mRNA-LNP vac([id number]) 08/05/23 Recorded RSV vaccine preF3, recombinant 11/07/23 Recorded [id number] bivalent booster vax 08/20/22 Recorded SARS-CoV-2 (COVID-19) mRNA-1273 vaccine 02/16/22 R ecorded SARS-CoV-2 (COVID-19) mRNA-1273 vaccine 07/20/21 R ecorded SARS-CoV-2 (COVID-19) mRNA-1273 vaccine 12/15/20 R ecorded SARS-CoV-2 (COVID-19) mRNA-1273 vaccine 11/16/20 R ecorded pneumococcal 23-valent vaccine 09/20/20 Recorded zoster vaccine, inactivated 03/13/19 Recorded pneumococcal 13-valent vaccine 05/09/16 Recorded Zoster Vaccine Live 11/27/13 Recorded Medications Albuterol (Eqv-ProAir HFA) 90 mcg/inh inhalation aerosol See Instructions, PRN Wheezing/Shortness of Breath, 2 puffs prior to exercise, # 18 Gm, 2 Refills, Maintenance, 12/10/24 2:54:00 PM EST, Inhaler, [facility] #[id number], Partial fill upon patientrequest if the prescription is for a schedule II opioid drug., 2 puffs prior to exercise,PRN:Wheezing/Shortness of Breath, 162.1, cm, 12/10/24 14:34:00 EST, Height Start Date: 12/10/24 Status: Ordered Quantity: 18.0 Unit: g Repeat number: 3 Indications: Mild persistent asthma, uncomplicated; albuterol 90 mcg/inh inhalation powder 2 puffs, Inhalation, Every 6 hours, PRN as needed, please provide spacer, # 1 each, 0 Refills, Maintenance, 03/18/25 9:47:00 AM EDT, Powder, [facility] #[id number], Partial fill upon patient request if the prescription is for a schedule II opioid drug., 2 puffs Inhalation Every 6 hours,PRN:as nee ded,Instr:please provide spacer, 162.1, cm, 03/18/25 9:23:00 EDT, Height Start Date: 03/18/25 Status: Ordered Quantity: 1.0 Unit: each Repeat number: 1 alendronate 70 mg oral tablet 1 tablet = 70 mg, By Mouth, Every week, # 12 tablet, 3 Refills, Maintenance, 04/02/23 8:46:00 AM EDT, Tablet, [facility] #[id number], Partial fill upon patient request if the prescription is for a schedule II opioid drug., 163, cm, 04/02/23 8:23:00 EDT, Height, 75, kg, 05/02/21 12:26:00 EDT, Dry Weight Start Date: 04/02/23 Status: Ordered Quantity: 12.0 Unit: tablet Repeat number: 4 brimonidine 0.2% ophthalmic solution 1 drops, Eyes, Both, Every 8 hours, # 5 mL, 0 Refills, Maintenance, 02/08/23 2:30:00 PM EDT, Solution, Partial fill upon patient request if the prescription is for a schedule II opioid drug. Start Date: 02/08/23 Status: Ordered Quantity: 5.0 Unit: mL Repeat number: 1 celecoxib 100 mg oral capsule 1 capsule = 100 mg, By Mouth, 2 times a day, PRN for pain, # 180 capsule, 1 Refills, Maintenance, 09/04/24 11:35:00 AM EDT, Capsule, [facility] #[id number], Partial fill upon patient request if the prescription is for a schedule II opioid drug., 162.1, cm, 07/02/24 13:00:00 EDT, Height Start Date: 09/04/24 Stop Date: 03/03/25 Status: Ordered Quantity: 180.0 Unit: capsule Repeat number: 2 cyclobenzaprine 10 mg oral tablet 20 mg, 2, tablet, By Mouth, Daily at bedtime, PRN, for 90 days, Dx: Rheumatoid Arthritis, # 180 tablet, Refills 3, Tot. Refills 3, Acute 06/27/25 1:51:00 PM EDT, for spasm, 07/02/24 1:51:00 PM EDT, Route to Pharmacy Electronically, [facility] #[id number], Partial fill upon patient request if the prescription is for a schedule II opioid drug., 162.1, cm, 07/02/24 13:00:00 EDT, Height Start Date: 07/02/24 Stop Date: 06/27/25 Status: Ordered Quantity: 180.0 Unit: tablet Repeat number: 4 Indications: Rheumatoid arthritis, unspecified; folic acid 1 mg oral tablet 1 mg, 1, tablet, By Mouth, Daily, # 30 tablet, Refills 0, Maintenance, 08/11/20 12:04:00 PM EDT Start Date: 08/11/20 Status: Ordered Quantity: 30.0 Unit: tablet Repeat number: 1 gabapentin 100 mg oral capsule 100 mg, 1, capsule, By Mouth, 3 times a day, # 90 capsule, Refills 5, Tot. Refills 5, Maintenance, 12/18/24 3:56:00 PM EST, Route to Pharmacy Electronically, [facility] #[id number], Partial fill upon patient request if the prescription is for a schedule II opioid drug., 162.1, cm, 12/10/24 14:34 :00 EST, Height Start Date: 12/18/24 Stop Date: 06/16/25 Status: Ordered Quantity: 90.0 Unit: capsule Repeat number: 6 gabapentin 300 mg oral capsule 300 mg, 1, capsule, By Mouth, Daily at bedtime, # 90 capsule, Refills 1, Tot. Refills 1, Maintenance, 02/16/25 10:42:00 AM EDT, Route to Pharmacy Electronically, [facility] #[id number], Partial fill upon patient request if the prescription is for a schedule II opioid drug., 162.1, cm, 02/16/25 10 :04:00 EDT, Height Start Date: 02/16/25 Status: Ordered Quantity: 90.0 Unit: capsule Repeat number: 2 Indications: Radiculopathy, cervical region; Imitrex 100 mg oral tablet 1 tablet = 100 mg, By Mouth, Once, PRN as needed for migraine headache, # 9 tablet, 1 Refills, SoftStop, 05/07/25 10:42:00 AM EDT, Tablet, [facility] #[id number], Partial fill upon patient request if the prescription is for a schedule II opioid drug., 162.1, cm, 03/18/25 9:23:00 EDT, Height Start Date: 05/07/25 Status: Ordered Quantity: 9.0 Unit: tablet Repeat number: 2 Indications: Migraine, unspecified, not intractable, without status migrainosus; leucovorin 5 mg oral tablet 3 tablet = 15 mg, By Mouth, Every week, 0 Refills, Maintenance, 09/18/23 9:48:00 AM EDT, Partial fill upon patient request if the prescription is for a schedule II opioid drug. Start Date: 09/18/23 Status: Ordered Repeat number: 1 Linzess 145 mcg oral capsule 1 capsule = 145 mcg, By Mouth, Daily, # 30 capsule, 0 Refills, Maintenance, 06/28/23 9:34:00 AM EDT,Capsule, Partial fill upon patient request if the prescription is for a schedule II opioid drug. Start Date: 06/28/23 Status: Ordered Quantity: 30.0 Unit: capsule Repeat number: 1 lisinopril 5 mg oral tablet 5 mg, 1, tablet, By Mouth, Daily, # 90 tablet, Refills 3, Tot. Refills 3, Maintenance, 12/10/24 2:53:00 PM EST, Route to Pharmacy Electronically, [facility] #[id number], Partial fill upon patientrequest if the prescription is for a schedule II opioid drug., 162.1, cm, 12/10/24 14:34:00 EST, Height Start Date: 12/10/24 Status: Ordered Quantity: 90.0 Unit: tablet Repeat number: 4 Indications: Essential (primary) hypertension; magnesium oxide 400 mg oral capsule 1 capsule = 400 mg, By Mouth, Daily, # 75 capsule, 0 Refills, Maintenance, 09/18/23 9:47:00 AM EDT, Capsule, Partial fill upon patient request if the prescription is for a schedule II opioid drug. Start Date: 09/18/23 Status: Ordered Quantity: 75.0 Unit: capsule Repeat number: 1 Methotrexate = 25 mg, Subcutaneous Injection, Every 7 days, 0 Refills, Maintenance, 01/21/24 1:00:00 PM EST, Partial fill upon patient request if the prescription is for a schedule II opioid drug. Start Date: 01/21/24 Status: Ordered Repeat number: 1 ondansetron 4 mg oral tablet, disintegrating 1 tablet = 4 mg, By Mouth, Every 6 hours, PRN Nausea & Vomiting, # 12 tablet, 3 Refills, Acute 11/17/25 12:00:00 AM EST, 12/10/24 2:52:00 PM EST, Tablet, [facility] #[id number], Partial fill upon patient request if the prescription is for a schedule II opioid drug., 162.1, cm, 12/10/24 14:34:00 EST, Height Start Date: 12/10/24 Stop Date: 11/17/25 Status: Ordered Quantity: 12.0 Unit: tablet Repeat number: 4 Indications: Nausea; predniSONE 10 mg oral tablet See Instructions, Take 4 tablets by mouth (40mg) x 3 days, then decrease by one tablet every 3 daysuntil gone; take with food, # 30 tablet, 0 Refills, Maintenance, 02/16/25 10:43:00 AM EDT, Tablet, [facility] #[id number], Partial fill upon patient request if the prescription is for a schedule II opioid drug., 162.1, cm, 02/16/25 10:04:00 EDT, Height Start Date: 02/16/25 Status: Ordered Quantity: 30.0 Unit: tablet Repeat number: 1 Indications: Radiculopathy, cervical region; predniSONE 10 mg oral tablet 0 Refill(s), 0 Refills, 12/10/24 2:27:00 PM EST, Partial fill upon patient request if the prescription is for a schedule II opioid drug. Start Date: 12/10/24 Status: Ordered Repeat number: 1 Simponi Aria 50 mg/4 mL intravenous solution See Instructions, unsure of dose, gets infusion every 8 weeks, 0 Refills, Maintenance, 12/10/24 2:25:00 PM EST, Partial fill upon patient request if the prescription is for a schedule II opioid drug. Start Date: 12/10/24 Status: Ordered Repeat number: 1 Vitamin B12 = 1,000 mcg, By Mouth, Daily, 0 Refills, Maintenance, 04/02/23 8:22:00 AM EDT, Partial fill upon patient request if the prescription is for a schedule II opioid drug. Start Date: 04/02/23 Status: Ordered Repeat number: 1 Vitamin D2 2000 intl units oral capsule 1 capsule = 50 mcg, By Mouth, Daily, with food, # 60 capsule, 0 Refills, Maintenance, 02/08/23 2:30:00 PM EDT, Capsule, Partial fill upon patient request if the prescription is for a schedule II opioid drug. Start Date: 02/08/23 Status: Ordered Quantity: 60.0 Unit: capsule Repeat number: 1 Problem List Condition Confirmation Course Effective Dates Status Health Status Informant Facet arthropathy, multilevel Confirmed Active Cervical radiculopathy Confirmed Active Dysphagia Confirmed 03/24/21 Active H/O gastroesophageal reflux (GERD) Confirmed Active Status post dilation of esophageal narrowing Confirmed Active Hiatal hernia with GERD Confirmed Active Hip pain, chronic Confirmed Active HTN (hypertension) Confirmed Active Laryngopharyngeal reflux (LPR) Confirmed 02/12/20 Active Low back pain with sciatica Confirmed Active Migraines Confirmed Active Mild persistent asthma in adult without complication Confirmed 02/12/20 Active Nausea Confirmed Active Obese class I Confirmed Active Osteopenia of hip Confirmed Active Irreducible paraesophageal hernia Confirmed 02/09/20 Active Healthcare maintenance Confirmed Active Encounter for routine adult health examination Confirmed Active Encounter for screening for cardiovascular disorders Confirmed Active Drusen body Confirmed Active Rheumatoid arthritis Confirmed Active Trigger finger of right hand Confirmed Active Type 2 diabetes mellitus with hemoglobin A1c goal of 7.0%-8.0% Confirmed Active Vitamin D deficiency Confirmed Active Social History Social History Type Response Smoking Status Former smoker, quit more than 30 days ago; Other: quit 1984; entered on: 06/28/23 Sex Sex Representation Female (finding) Patient Care team information Care Team Personnel Name: Ayana Esparza RN Position: [facility] RN Member Role: Primary Care Nurse Name: Karon Zeng RN Position: [facility] RN Member Role: Primary Care Nurse Name: Jamar Chu DO Position: [facility] Physician - Primary Care Member Role: PCP Address: [address] [place] [address] Telecom: Care Team Related Persons Name: YVROSE HERNANDEZ Insurance Providers Guarantor name: MARLENI [facility] Information #: 1 Payer: TON[employer] [facility] PPO Payer Identifier: [id number] Member Number: [id number] Group Number: [id number] Subscriber Identifier: [id number] Relationship to Subscriber: spouse Coverage Type: Other Private Insurance Coverage Verification Date: Telecom: NA Address:
[2025-06-01 09:16] LABS: MANUAL DIFF FLAG NO
--- OUTSIDE RECORDS SUMMARY | 2025-06-01 09:21 | XMS_ITS | Data Portability ---
Author Organization [facility], , [facility], OFFICE Address [address] [place] [address] Assessment Encounter Date Assessment Date Assessment LastModified [...] is my assessment and plan for this patient s care today. [email or web address] Not available 08/11/2022 11:21:19 09/17/2022 09/17/2022 My total time spent today documenting and providing coordinated care for this patient is 45 minutes I have reviewed, collected, and updated relevant history and performed a physical exam. I have coordinated care with IB, Nutrition, Specialist and or family members I have reviewed labs, x-rays and/or specialty notes I have interpreted new studies including EKG, Holter and/or xray Below is my assessment and plan for this patient s care today. worsening chronic problem, continued [...] Patient location: home During the visit the patient s medical history and medical record were reviewed. The patient was notified to call our office for worsening or urgent symptoms. [email or web address] Not available 12/16/2022 10:37:39 02/28/2023 02/28/2023 We [...] Modified Time Details Appointments None recorded. Lab PTH (parathyr oid hormone), intact + calcium, serum or plasma 2021 022 [facility], [address] [place] [address], [id number], 15:44:47 vitamin D, 25-hydrox y, total, serum 2021 [facility], [address] [place] [address], [address], 11:38:17 CBC 2021 [facility], [address] [place] [address], [address], 11:08:46 CMP, serum or plasma 2021 022 [facility], [address] [place] [address], [address], 14:45:51 urinalysi s, dipstick, auto 2021 022 [facility], [address] [place] [address], [address], 12:11:55 Referral None recorded. Procedures None recorded. Surgeries None recorded. Imaging MAMMO, screening , tomosynth esis, bilateral 2022 023 [facility] (Imaging), [address], [place], [address], 16:15:52 Medication Orders lisinopri l 2.5 mg tablet 2022 023 [email or web address] [facility] #[id number], [address] [place], [place], [id number], 12:04:10 cyclobenz aprine 10 mg tablet 2022 023 [email or web address] [facility] #[id number], [address] [place], [place], [id number], 3 12:04:05 Paxlovid 300 mg (150 mg x 2)-100 mg tablets in a dose pack 2022 023 [email or web address] [facility] #[id number], [address] [place], [address], 3 09:47:20 lisinopri l 2.5 mg tablet [address] [facility]37263, [address] [place], [place], [id number], 3 12:04:10 folic acid 1 mg tablet [address] [facility] #40011, [address] [place], [place], [id number], 3 12:04:07 lisinopri l 5 mg tablet 2021 [email or web address] [address] [place], [place], [id number], 2 09:00:31 Patient Targets Encounter Date Encounter Id Patient Goals Patient Target Last Modified By Organization Details Last Modified Time 12/16/2022 [id number] will send [email or web address] Not available 12/16/2022 10:52:07 Patient Instructions Encounter Date Encounter Id Patient Instructions Last Modified By Organization Details Last Modified Time 12/16/2022 [id number] After a discussion of treatment and medication [...] a virus-killing disinfectant. -Call with any concerns. Not available 12/16/2022 10:37:25 02/28/2023 [id number] advance directives: care instructions [email or web address] Not available [...] LastModifiedTime 07/27/20 22 07/27/2022 CBC WBC 5.31 K/ L 3.98-1 0.04 Not Available [address], [address], 07/27/2022 15:12:57 07/27/20 22 07/27/2022 CBC RBC 3.72 M/ L 3.93-5 .22 low Not Available [address], [address]83, 07/27/2022 15:12:57 07/27/20 22 07/27/2022 CBC HGB 12.1 g/dL 11.2-1 5.7 Not Available [address], [address], 07/27/2022 15:12:57 07/27/20 22 07/27/2022 CBC HCT 39.0 % 34.1-4 4.9 Not Available [address], [address], 07/27/2022 15:12:57 07/27/20 22 07/27/2022 CBC MCV 104.8 fL 79.4-9 4.8 high Not Available [address], [address], 07/27/2022 15:12:57 07/27/20 22 07/27/2022 CBC MCH 32.5 pg 25.6-3 2.2 high Not Available [address], [address], 07/27/2022 15:12:57 07/27/20 22 07/27/2022 CBC MCHC 31.0 g/dL 32.2-3 5.5 low Not Available [address], [address]791, 07/27/2022 15:12:57 07/27/20 22 07/27/2022 CBC plt 262 K/ L 182-36 9 Not Available [address], [address], 07/27/2022 15:12:57 07/27/20 22 07/27/2022 CBC MPV 10.3 fL 9.4-12 .3 Not Available [address], [address], 07/27/2022 15:12:57 07/27/20 22 07/27/2022 CBC neut% 63.4 % 34.0-7 1.1 Not Available [address], [address]24, 07/27/2022 15:12:57 07/27/20 22 07/27/2022 CBC neut# 3.37 1.56-6 .13 Not Available [address], [address], 07/27/2022 15:12:57 07/27/20 22 07/27/2022 CBC lymph % 19.6 % 19.3-5 1.7 Not Available [address], [address]91, 07/27/2022 15:12:57 07/27/20 22 07/27/2022 CBC lymph # 1.04 K/ L 1.18-3 .74 low Not Available [address], 10808, 07/27/2022 15:12:57 07/27/20 22 07/27/2022 CBC mono% 12.6 % 4.7-12 .5 high Not Available [address], 56533, 07/27/2022 15:12:57 07/27/20 22 07/27/2022 CBC mono# 0.67 0.24-0 .56 high Not Available [address], 7[address], 07/27/2022 15:12:57 07/27/20 22 07/27/2022 CBC eo% 3.6 % 0.7-5. 8 Not Available [address], [address]85, 07/27/2022 15:12:57 07/27/20 22 07/27/2022 CBC eo# 0.19 0.04-0 .36 Not Available [address], [address], 07/27/2022 15:12:57 07/27/20 22 07/27/2022 CBC baso% 0.4 % 0.1-1. 2 Not Available [address], 10911, 07/27/2022 15:12:57 07/27/20 22 07/27/2022 CBC baso# 0.02 0.00-0 .08 Not Available [address], 92812, 07/27/2022 15:12:57 07/27/20 22 07/27/2022 CBC RDW-CV 13.8 % 11.7-1 4.4 Not Available [address], 25538, 07/27/2022 15:12:57 07/27/20 22 07/27/2022 CBC Ig% 0.400 % 0.000- 1.500 Ig % >0.5 Indic ates possi ble Left Shift Not Available [address], [address]26, 07/27/2022 15:12:57 07/27/20 22 07/27/2022 CBC Ig# 0.020 0.000- 0.093 Not Available [address], [address], 07/27/2022 15:12:57 07/27/20 22 07/27/2022 CBC NRBC% 0.0 % 0.0-0. 2 Not Available [address], 54732, 07/27/2022 15:12:57 07/27/20 22 07/27/2022 CBC NRBC# 0.000 0.000- 0.012 Not Available [address], 91158, 07/27/2022 15:12:57 07/27/20 22 07/27/2022 HGB A1C [...] furth er confi rmati on Not Available [address], [address], 07/27/2022 15:39:36 07/27/20 22 07/27/2022 HGB A1C estimated average glucose 105.4 mg/dL Not Available [address], 82835, 07/27/2022 15:39:36 07/27/20 22 07/27/2022 COMP. METAB OLIC PANEL glucose 103 mg/dL 70-100 high Not Available [address], [address]206, 07/27/2022 16:11:50 07/27/20 22 07/27/2022 COMP. METAB OLIC PANEL BUN 18 mg/dL 7-18 Not Available [address], [address]647, 07/27/2022 16:11:50 07/27/20 22 07/27/2022 COMP. METAB OLIC PANEL creatinine 0.8 mg/dL 0.8-1. 3 Not Available [address], 77037, 07/27/2022 16:11:50 07/27/20 22 07/27/2022 COMP. METAB OLIC PANEL B/C 22.5 ratio Not Available [address], [address], 07/27/2022 16:11:50 07/27/20 22 07/27/2022 COMP. METAB [...] be used in pregn willy. Not Available [address], [address], 07/27/2022 16:11:50 07/27/20 22 07/27/2022 COMP. METAB OLIC PANEL sodium 138 mmol/ L 136-14 5 Not Available [address], [address]32, 07/27/2022 16:11:50 07/27/20 22 07/27/2022 COMP. METAB OLIC PANEL potassium 5.1 mmol/ L 3.5-5. 1 Not Available [address], 88225, 07/27/2022 16:11:50 07/27/20 22 07/27/2022 COMP. METAB OLIC PANEL chloride 102 mmol/ L 96-107 Not Available [address], 02517, 07/27/2022 16:11:50 07/27/20 22 07/27/2022 COMP. METAB OLIC PANEL anion gap 9.6 5.0-15 .0 Not Available [address], 35068, 07/27/2022 16:11:50 07/27/20 22 07/27/2022 COMP. METAB OLIC PANEL CO2 26 mmol/ L 21-32 Not Available [address], 91086, 07/27/2022 16:11:50 07/27/20 22 07/27/2022 COMP. METAB OLIC PANEL calcium 8.3 mg/dL 8.5-10 .3 low Not Available [address], 06393, 07/27/2022 16:11:50 07/27/20 22 07/27/2022 COMP. METAB OLIC PANEL total protein 7.1 g/dL 6.4-8. 2 Not Available [address], 64454, 07/27/2022 16:11:50 07/27/20 22 07/27/2022 COMP. METAB OLIC PANEL albumin 4.5 g/dL 3.4-5. 0 Not Available [address], 85977, 07/27/2022 16:11:50 07/27/20 22 07/27/2022 COMP. METAB OLIC PANEL globulin 2.6 g/dL Not Available [address], 74354, 07/27/2022 16:11:50 07/27/20 22 07/27/2022 COMP. METAB OLIC PANEL A/G 1.7 ratio 0.8-2. 0 Not Available [address], 46508, 07/27/2022 16:11:50 07/27/20 22 07/27/2022 COMP. METAB OLIC PANEL total bilirubin 0.80 mg/dL 0.00-1 .00 Not Available [address], 61444, 07/27/2022 16:11:50 07/27/20 22 07/27/2022 COMP. METAB OLIC PANEL AST 18 U/L 0-37 Not Available [address], 81567, 07/27/2022 16:11:50 07/27/20 22 07/27/2022 COMP. METAB OLIC PANEL ALT 24 U/L 6-63 Not Available [address], 58421, 07/27/2022 16:11:50 07/27/20 22 07/27/2022 COMP. METAB OLIC PANEL alk. phos. 50 U/L 50-136 Not Available [address], 62423, 07/27/2022 16:11:50 07/27/20 22 07/27/2022 LIPID PANEL cholesterol 211 mg/dL <200 mg/dl Fernie able 200-2 39 mg/dl Borde rline High >240 mg/dl High Not Available [address], 73421, 07/27/2022 16:11:51 07/27/20 22 07/27/2022 LIPID PANEL triglyceride s 74 mg/dL <150 mg/dL Debbie l 150-1 99 mg/dL Borde rline High 200-4 99 mg/dL High >500 mg/dL Very High Not Available [address], 81934, 07/27/2022 16:11:51 07/27/20 22 07/27/2022 LIPID PANEL direct HDL 101 mg/dL <40 mg/dl - Major Risk for CHD >60 mg/dl - Negat shelly Risk for CHD Not Available [address], 09226, 07/27/2022 16:11:51 07/27/20 22 07/27/2022 DIREC T LDL direct LDL 88 mg/dL RISK CATEG ORY LDL GOAL _ CHD or CHD Risk Equiv alent s <100 mg/dl (10-y ear risk >20%) 2+ Risk Facto rs <130 mg/dl (10-y ear risk <= 20%) 0-1 Risk Facto r <160 mg/dl Almo st all peopl e with 0-1 risk facto r have a 10 year risk <10%, thus 10 year risk asses ment in peopl e with 0-1 risk facto r is not karen jon. Not Available [address], [address], 07/27/2022 16:11:52 07/27/20 22 07/27/2022 ESR sed rate 3.0 0.0-15 .0 Not Available [address], 00760, 07/27/2022 16:12:08 07/27/20 22 07/27/2022 MICRO ALBUM IN/CR EATIN INE RATIO PANEL , URINE microalbumin 4.0 mg/L 1.3-20 .0 Not Available [address], 91522, 07/27/2022 16:23:11 07/27/20 22 07/27/2022 MICRO ALBUM IN/CR EATIN INE RATIO PANEL , URINE creatinine urine 46.3 mg/dL 30.0-1 25.0 Not Available [address], 71255, 07/27/2022 16:23:11 07/27/20 22 07/27/2022 MICRO ALBUM IN/CR EATIN INE RATIO PANEL , URINE microalb/cre at ratio 8.6 mg/g_ creat 0.0-29 .0 Not Available [address], 05857, 07/27/2022 16:23:11 07/27/20 22 07/27/2022 C-DREAD CTIVE PROTE IN-QU ANTIT ATIVE C-reactive protein -quant <2.0 mg/L 0.0-9. 0 < crp verif ied, cmd Not Available [address], 18395, 07/27/2022 16:34:56 08/15/20 22 08/15/2022 CBC WBC 5.82 K/ L 3.98-1 0.04 Not Available [address], 11929, 08/15/2022 11:08:46 08/15/20 22 08/15/2022 CBC RBC 4.18 M/ L 3.93-5 .22 Not Available [address], 11159, 08/15/2022 11:08:46 08/15/20 22 08/15/2022 CBC HGB 13.9 g/dL 11.2-1 5.7 Not Available [address], 03842, 08/15/2022 11:08:46 08/15/20 22 08/15/2022 CBC HCT 42.9 % 34.1-4 4.9 Not Available [address], 81157, 08/15/2022 11:08:46 08/15/20 22 08/15/2022 CBC MCV 102.6 fL 79.4-9 4.8 high Not Available [address], 33083, 08/15/2022 11:08:46 08/15/20 22 08/15/2022 CBC MCH 33.3 pg 25.6-3 2.2 high Not Available [address], 08315, 08/15/2022 11:08:46 08/15/20 22 08/15/2022 CBC MCHC 32.4 g/dL 32.2-3 5.5 Not Available [address], 64460, 08/15/2022 11:08:46 08/15/20 22 08/15/2022 CBC plt 249 K/ L 182-36 9 Not Available [address], 15732, 08/15/2022 11:08:46 08/15/20 22 08/15/2022 CBC MPV 10.6 fL 9.4-12 .3 Not Available [address], 37733, 08/15/2022 11:08:46 08/15/20 22 08/15/2022 CBC neut% 53.5 % 34.0-7 1.1 Not Available [address], 13775, 08/15/2022 11:08:46 08/15/20 22 08/15/2022 CBC neut# 3.11 1.56-6 .13 Not Available [address], 44279, 08/15/2022 11:08:46 08/15/20 22 08/15/2022 CBC lymph % 29.2 % 19.3-5 1.7 Not Available [address], 18298, 08/15/2022 11:08:46 08/15/20 22 08/15/2022 CBC lymph # 1.70 K/ L 1.18-3 .74 Not Available [address], 43003, 08/15/2022 11:08:46 08/15/20 22 08/15/2022 CBC mono% 9.6 % 4.7-12 .5 Not Available [address], 97834, 08/15/2022 11:08:46 08/15/20 22 08/15/2022 CBC mono# 0.56 0.24-0 .56 Not Available [address], 58731, 08/15/2022 11:08:46 08/15/20 22 08/15/2022 CBC eo% 6.5 % 0.7-5. 8 high Not Available [address], 42068, 08/15/2022 11:08:46 08/15/20 22 08/15/2022 CBC eo# 0.38 0.04-0 .36 high Not Available [address], 16941, 08/15/2022 11:08:46 08/15/20 22 08/15/2022 CBC baso% 0.7 % 0.1-1. 2 Not Available [address], 30164, 08/15/2022 11:08:46 08/15/20 22 08/15/2022 CBC baso# 0.04 0.00-0 .08 Not Available [address], 43721, 08/15/2022 11:08:46 08/15/20 22 08/15/2022 CBC RDW-CV 12.5 % 11.7-1 4.4 Not Available [address], 02471, 08/15/2022 11:08:46 08/15/20 22 08/15/2022 CBC Ig% 0.500 % 0.000- 1.500 Ig % >0.5 Indic ates possi ble Left Shift Not Available [address], 56051, 08/15/2022 11:08:46 08/15/20 22 08/15/2022 CBC Ig# 0.030 0.000- 0.093 Not Available [address], 18172, 08/15/2022 11:08:46 08/15/20 22 08/15/2022 CBC NRBC% 0.0 % 0.0-0. 2 Not Available [address], 76784, 08/15/2022 11:08:46 08/15/20 22 08/15/2022 CBC NRBC# 0.000 0.000- 0.012 Not Available [address], 14510, 08/15/2022 11:08:46 08/15/20 22 08/15/2022 URINA LYSIS color YELLOW yellow Not Available [address], 69156, 08/15/2022 12:11:55 08/15/20 22 08/15/2022 URINA LYSIS clarity CLEAR clear Not Available [address], 09896, 08/15/2022 12:11:55 08/15/20 22 08/15/2022 URINA LYSIS glucose NEGATI VE negati ve Not Available [address], 34274, 08/15/2022 12:11:55 08/15/20 22 08/15/2022 URINA LYSIS bilirubin NEGATI VE negati ve Not Available [address], 11415, 08/15/2022 12:11:55 08/15/20 22 08/15/2022 URINA LYSIS ketones NEGATI VE negati ve Not Available [address], 29199, 08/15/2022 12:11:55 08/15/20 22 08/15/2022 URINA LYSIS specific gravity 1.020 1.001- 1.035 Not Available [address], 56329, 08/15/2022 12:11:55 08/15/20 22 08/15/2022 URINA LYSIS pH 7.0 5.0-8. 0 Not Available [address], 20036, 08/15/2022 12:11:55 08/15/20 22 08/15/2022 URINA LYSIS protein NEGATI VE negati ve Not Available [address], 80528, 08/15/2022 12:11:55 08/15/20 22 08/15/2022 URINA LYSIS urobilinogen 0.2 E.U./D L <1.0 Not Available [address], 37092, 08/15/2022 12:11:55 08/15/20 22 08/15/2022 URINA LYSIS nitrates NEGATI VE negati ve Not Available [address], 93266, 08/15/2022 12:11:55 08/15/20 22 08/15/2022 URINA LYSIS blood NEGATI VE negati ve Not Available [address], 64663, 08/15/2022 12:11:55 08/15/20 22 08/15/2022 URINA LYSIS leukocytes NEGATI VE negati ve Not Available [address], 56417, 08/15/2022 12:11:55 08/15/20 22 08/15/2022 COMP. METAB OLIC PANEL glucose 106 mg/dL 70-100 high Not Available [address], 25099, 08/15/2022 14:45:51 08/15/20 22 08/15/2022 COMP. METAB OLIC PANEL BUN 12 mg/dL 7-18 Not Available [address], 50938, 08/15/2022 14:45:51 08/15/20 22 08/15/2022 COMP. METAB OLIC PANEL creatinine 1.1 mg/dL 0.8-1. 3 Not Available [address], 44024, 08/15/2022 14:45:51 08/15/20 22 08/15/2022 COMP. METAB OLIC PANEL B/C 10.9 ratio Not Available [address], 02417, 08/15/2022 14:45:51 08/15/20 22 08/15/2022 COMP. METAB [...] be used in pregn willy. Not Available [address], 17679, 08/15/2022 14:45:51 08/15/20 22 08/15/2022 COMP. METAB OLIC PANEL sodium 138 mmol/ L 136-14 5 Not Available [address], 89387, 08/15/2022 14:45:51 08/15/20 22 08/15/2022 COMP. METAB OLIC PANEL potassium 4.8 mmol/ L 3.5-5. 1 Not Available [address], 64757, 08/15/2022 14:45:51 08/15/20 22 08/15/2022 COMP. METAB OLIC PANEL chloride 99 mmol/ L 96-107 Not Available [address], 39767, 08/15/2022 14:45:51 08/15/20 22 08/15/2022 COMP. METAB OLIC PANEL anion gap 8.1 5.0-15 .0 Not Available [address], 39741, 08/15/2022 14:45:51 08/15/20 22 08/15/2022 COMP. METAB OLIC PANEL CO2 31 mmol/ L 21-32 Not Available [address], 71027, 08/15/2022 14:45:51 08/15/20 22 08/15/2022 COMP. METAB OLIC PANEL calcium 9.0 mg/dL 8.5-10 .3 Not Available [address], 07672, 08/15/2022 14:45:51 08/15/20 22 08/15/2022 COMP. METAB OLIC PANEL total protein 7.1 g/dL 6.4-8. 2 Not Available [address], 47679, 08/15/2022 14:45:51 08/15/20 22 08/15/2022 COMP. METAB OLIC PANEL albumin 4.3 g/dL 3.4-5. 0 Not Available [address], 49370, 08/15/2022 14:45:51 08/15/20 22 08/15/2022 COMP. METAB OLIC PANEL globulin 2.8 g/dL Not Available [address], 89595, 08/15/2022 14:45:51 08/15/20 22 08/15/2022 COMP. METAB OLIC PANEL A/G 1.5 ratio 0.8-2. 0 Not Available [address], 66274, 08/15/2022 14:45:51 08/15/20 22 08/15/2022 COMP. METAB OLIC PANEL total bilirubin 0.40 mg/dL 0.00-1 .00 Not Available [address], 72057, 08/15/2022 14:45:51 08/15/20 22 08/15/2022 COMP. METAB OLIC PANEL AST 15 U/L 0-37 Not Available [address], 27225, 08/15/2022 14:45:51 08/15/20 22 08/15/2022 COMP. METAB OLIC PANEL ALT 27 U/L 6-63 Not Available [address], 27780, 08/15/2022 14:45:51 08/15/20 22 08/15/2022 COMP. METAB OLIC PANEL alk. phos. 60 U/L 50-136 Not Available [address], 52340, 08/15/2022 14:45:51 08/15/20 22 08/15/2022 TSH TSH 2.54 uIU/m L 0.50-6 .00 [facility] and [facility] can Thy[facility] id Assoc iatio n recom mend goal TSH value s betwe en 0.4-4 .0 mIU/m L. Not Available [address], 68094, 08/15/2022 15:50:31 08/15/20 22 08/15/2022 PTH INTAC T PTH intact 70.0 pg/mL 9.6-66 .3 high Not Available [address], 51743, 08/15/2022 15:50:32 08/15/20 22 08/16/2022 VITAM IN [...] er than 30 ng/mL . Not Available [address], 91049, 08/16/2022 10:54:05 08/17/20 22 08/17/2022 CBC AND DIFFE RENTI AL WBC 12.45 K/uL 4.00-1 1.00 high Not Available [facility] [address] [place] [address], [address], 08/17/2022 09:27:12 08/17/20 22 08/17/2022 CBC AND DIFFE RENTI AL RBC 4.47 M/uL 3.72-5 .30 Not Available [facility] ([facility]) [address] [place] [address], 26312, 08/17/2022 09:27:12 08/17/20 22 08/17/2022 CBC AND DIFFE RENTI AL HGB 15.1 g/dL 11.4-1 5.9 Not Available [facility] (Outpatient) [address] [place] [address], 59465, 08/17/2022 09:27:12 08/17/20 22 08/17/2022 CBC AND DIFFE RENTI AL HCT 45.6 % 34.2-4 6.8 Not Available [facility] (Outpatient) [address] [place], [address], 08/17/2022 09:27:12 08/17/20 22 08/17/2022 CBC AND DIFFE RENTI AL plt 227 K/uL 140-43 0 Not Available [facility] (Outpatient) [address] [place], [address], 08/17/2022 09:27:12 08/17/20 22 08/17/2022 CBC AND DIFFE RENTI AL MCV 102.0 fL 78.0-9 7.0 high Not Available [facility] ([facility]) [address] [place], [address], 08/17/2022 09:27:12 08/17/20 22 08/17/2022 CBC AND DIFFE RENTI AL MCH 33.8 pg 25.0-3 3.0 high Not Available [facility] (Outpatient) [address] [place], [address], 08/17/2022 09:27:12 08/17/20 22 08/17/2022 CBC AND DIFFE RENTI AL MCHC 33.1 g/dL 32.0-3 6.0 Not Available [facility] ([facility]patient) [address] [place], [address], 08/17/2022 09:27:12 08/17/2008/17/2022 CBC AND DIFFE RENTI AL RDW 12.6 % 11.0-1 6.0 Not Available [facility] ([facility]) [address] [place], [address], 08/17/2022 09:27:12 08/17/20 22 08/17/2022 CBC AND DIFFE RENTI AL MPV 10.0 fL 8.4-12 .8 Not Available [facility] ([facility]) [address] [place], [address], 08/17/2022 09:27:12 08/17/20 22 08/17/2022 CBC AND DIFFE RENTI AL diff method AUTO Not Available [facility] ([facility]patient) [address] [place], [address], 08/17/2022 09:27:12 08/17/20 22 08/17/2022 CBC AND DIFFE RENTI AL neuts 78.1 % 43.0-7 5.0 high Not Available [facility] ([facility]patient) [address] [place], [address], 08/17/2022 09:27:12 08/17/20 22 08/17/2022 CBC AND DIFFE RENTI AL lymphs 10.6 % 18.2-4 7.4 low Not Available [facility] (Outpatient) [address] [place], [address], 08/17/2022 09:27:12 08/17/20 22 08/17/2022 CBC AND DIFFE RENTI AL monos 7.5 % 4.00-1 1.00 Not Available [facility] (Outpatient) [address] [place], [address], 08/17/2022 09:27:12 08/17/20 22 08/17/2022 CBC AND DIFFE RENTI AL eos 3.2 % 0.0-8. 0 Not Available [facility] ([facility]patient) [address] [place], [address], 08/17/2022 09:27:12 08/17/20 22 08/17/2022 CBC AND DIFFE RENTI AL basos 0.3 % 0.0-2. 0 Not Available [facility] ([facility]patient) [address] [place], [address], 08/17/2022 09:27:12 08/17/20 22 08/17/2022 CBC AND DIFFE RENTI AL granulocytes , immature (%) 0.3 % 0.0-0. 9 Not Available [facility] ([facility]patient) [address] [place], [address], 08/17/2022 09:27:12 08/17/20 22 08/17/2022 CBC AND DIFFE RENTI AL absolute neuts 9.72 K/uL 1.80-7 .70 high Not Available [facility] (Outpatient) [address] [place], [address], 08/17/2022 09:27:12 08/17/20 22 08/17/2022 CBC AND DIFFE RENTI AL absolute lymphs 1.32 K/uL 1.00-3 .10 Not Available [facility] (Outpatient) [address] [place], [address], 08/17/2022 09:27:12 08/17/20 22 08/17/2022 CBC AND DIFFE RENTI AL absolute monos 0.93 K/uL 0.20-0 .80 high Not Available [facility] (Outpatient) [address] [place], [address], 08/17/2022 09:27:12 08/17/20 22 08/17/2022 CBC AND DIFFE RENTI AL absolute eos 0.40 K/uL 0.00-0 .80 Not Available [facility] (Outpatient) [address] [place], [id number], 08/17/2022 09:27:12 08/17/20 22 08/17/2022 CBC AND DIFFE RENTI AL absolute basos 0.04 K/uL 0.00-0 .09 Not Available [facility] (Outpatient) [address] [place], [address], 08/17/2022 09:27:12 08/17/20 22 08/17/2022 CBC AND DIFFE RENTI AL granulocytes , immature 0.04 K/uL 0.00-0 .05 Not Available [facility] (Outpatient) [address] [place], [id number], 08/17/2022 09:27:12 08/17/20 22 08/17/2022 URINA LYSIS W/REF [facility]ASZ URINE CULTU RE color STEPHANIE yellow abnormal Not Available [facility] (Outpatient) [address] [place], [id number], 08/17/2022 09:46:49 08/17/20 22 08/17/2022 URINA LYSIS W/REF [facility] URINE CULTU RE clarity Clear Not Available [facility] (Outpatient) [address] [place], [id number], 08/17/2022 09:46:49 08/17/20 22 08/17/2022 URINA LYSIS W/REF [facility] URINE CULTU RE glucose Negati ve negati ve Not Available [facility] (Outpatient) [address] [place], [address], 08/17/2022 09:46:49 08/17/20 22 08/17/2022 URINA LYSIS W/REF [facility] URINE CULTU RE bili Negati ve negati ve Not Available [facility] (Outpatient) [address] [place], [id number], 08/17/2022 09:46:49 08/17/20 22 08/17/2022 URINA LYSIS W/REF [facility] URINE CULTU RE ketones Negati ve negati ve Not Available [facility] (Outpatient) [address] [place], [id number], 08/17/2022 09:46:49 08/17/20 22 08/17/2022 URINA LYSIS W/REF [facility]ASZ URINE CULTU RE specific gravity 1.025 1.005- 1.030 Not Available [facility] (Outpatient) [address] [place], [id number], 08/17/2022 09:46:49 08/17/20 22 08/17/2022 URINA LYSIS W/REF [facility] URINE CULTU RE blood 1+ negati ve abnormal Not Available [facility] (Outpatient) [address] [place], [id number], 08/17/2022 09:46:49 08/17/20 22 08/17/2022 URINA LYSIS W/REF [facility] URINE CULTU RE pH 6.0 5.0-8. 0 Not Available [facility] (Outpatient) [address] [place], [address], 08/17/2022 09:46:49 08/17/20 22 08/17/2022 URINA LYSIS W/REF [facility] URINE CULTU RE protein Negati ve negati ve Not Available [facility] (Outpatient) [address] [place], [address], 08/17/2022 09:46:49 08/17/20 22 08/17/2022 URINA LYSIS W/REF [facility] URINE CULTU RE nitrite Negati ve negati ve Not Available [facility] (Out[facility] [address] [place], [address], 08/17/2022 09:46:49 08/17/20 22 08/17/2022 URINA LYSIS W/REF LUKASZ URINE CULTU RE leukocyte esterase, ur Negati ve negati ve Not Available [facility] ([facility]patient) [address] [place], [address], 08/17/2022 09:46:49 08/17/20 22 08/17/2022 URINE SEDIM ENT WBC 0-4 /hpf none seen abnormal Not Available [facility] ([facility]patient) [address] [place], [address], 08/17/2022 09:48:11 08/17/20 22 08/17/2022 URINE SEDIM ENT RBC 0-2 /hpf none seen abnormal Not Available [facility] (Out[facility]) [address] [place], [address], 08/17/2022 09:48:11 08/17/20 22 08/17/2022 URINE SEDIM ENT urine epithelial 0-4 none seen abnormal Not Available [facility] ([facility]) [address] [place], [address], 08/17/2022 09:48:11 08/17/20 22 08/17/2022 URINE SEDIM ENT mucus 2+ /hpf none seen abnormal Not Available [facility] ([facility]) [address] [place], [address], 08/17/2022 09:48:11 08/17/20 22 08/17/2022 URINE SEDIM ENT bacteria Trace /hpf none seen abnormal Not Available [facility] ([facility]) [address] [place], [address], 08/17/2022 09:48:11 08/17/20 22 08/17/2022 BASIC METAB OLIC PANEL sodium 139 mmol/ L 133-14 6 Not Available [facility] ([facility]) [address] [place], [address], 08/17/2022 09:55:46 08/17/20 22 08/17/2022 BASIC METAB OLIC PANEL chloride 101 mmol/ L 96-108 Not Available [facility] ([facility]) [address] [place], [address], 08/17/2022 09:55:46 08/17/20 22 08/17/2022 BASIC METAB OLIC PANEL potassium 4.4 mmol/ L 3.3-5. 1 Not Available [facility] ([facility] [address] [place], [address], 08/17/2022 09:55:46 08/17/20 22 08/17/2022 BASIC METAB OLIC PANEL CO2 27 mmol/ L 21-35 Not Available [facility] ([facility]) [address] [place], [address], 08/17/2022 09:55:46 08/17/20 22 08/17/2022 BASIC METAB OLIC PANEL BUN 16 mg/dL 6-19 Not Available [facility] ([facility]) [address] [place], [address], 08/17/2022 09:55:46 08/17/20 22 08/17/2022 BASIC METAB OLIC PANEL creatinine 0.90 mg/dL 0.5-1. 5 Not Available [facility] ([facility] [address] [place], [address], 08/17/2022 09:55:46 08/17/20 22 08/17/2022 BASIC METAB OLIC PANEL glucose 158 mg/dL 70-99 high Not Available [facility] ([facility]) [address] [place], [address], 08/17/2022 09:55:46 08/17/20 22 08/17/2022 BASIC METAB OLIC PANEL calcium 9.8 mg/dL 8.4-10 .3 Not Available [facility] ([facility]) [address] [place], [address], 08/17/2022 09:55:46 08/17/20 22 08/17/2022 BASIC METAB OLIC PANEL eGFR 70 mL/mi n/1.7 3m2 >59 Estim ated glome rular filtr ation rate calcu lated using the CKD-E PI refit equat ion. Not Available [facility] ([facility]) [address] [place], [address], 08/17/2022 09:55:46 08/17/20 22 08/17/2022 BASIC METAB OLIC PANEL anion gap 15 mmol/ L 10-20 Not Available [facility] ([facility]) [address] [place], [address], 08/17/2022 09:55:46 08/17/20 22 08/17/2022 LFTS (HEPA TIC PANEL ) alkaline phosphatase 67 U/L 39-117 Not Available [facility] (Outpatient) [address] [place], [address], 08/17/2022 09:55:48 08/17/20 22 08/17/2022 LFTS (HEPA TIC PANEL ) total bilirubin 0.5 mg/dL 0.0-1. 2 Not Available [facility] ([facility]patient) [address] [place], [address], 08/17/2022 09:55:48 08/17/20 22 08/17/2022 LFTS (HEPA TIC PANEL ) direct bilirubin <0.2 mg/dL 0-0.3 Not Available [facility] ([facility]) [address] [place], [address], 08/17/2022 09:55:48 08/17/20 22 08/17/2022 LFTS (HEPA TIC PANEL ) bilirubin (indirect) NOT CALCUL ATED mg/dL 0-1.5 Not Available [facility] ([facility]) [address] [place], [address], 08/17/2022 09:55:48 08/17/20 22 08/17/2022 LFTS (HEPA TIC PANEL ) AST 16 U/L 0-37 Not Available [facility] ([facility]) [address] [place], [address], 08/17/2022 09:55:48 08/17/20 22 08/17/2022 LFTS (HEPA TIC PANEL ) ALT 16 U/L 0-40 Not Available [facility] ([facility]) [address] [place], [address], 08/17/2022 09:55:48 08/17/20 22 08/17/2022 LFTS (HEPA TIC PANEL ) total protein 7.0 g/dL 6.5-8. 0 Not Available [facility] ([facility]) [address] [place], [address], 08/17/2022 09:55:48 08/17/20 22 08/17/2022 LFTS (HEPA TIC PANEL ) albumin 4.7 g/dL 3.9-4. 8 Not Available [facility] ([facility]) [address] [place], [address], 08/17/2022 09:55:48 08/17/20 22 08/17/2022 LFTS (HEPA TIC PANEL ) globulin 2.3 g/dL 1-4.8 Not Available [facility] ([facility]) [address] [place], [address], 08/17/2022 09:55:48 08/17/20 22 08/17/2022 LFTS (HEPA TIC PANEL ) A/G ratio 2.04 ratio 1.00-4 .80 Not Available [facility] ([facility]) [address] [place] [address], [address], 08/17/2022 09:55:48 08/17/20 22 08/17/2022 MAGNE SIUM magnesium 2.0 mg/dL 1.6-2. 6 Not Available [facility] (Outpatient) [address] [place], [address], 08/17/2022 09:55:49 11/13/20 22 11/13/2022 VITAM IN [...] er than 30 ng/mL . Not Available [address], [address], 11/13/2022 11:38:16 11/13/20 22 11/13/2022 PTH INTAC T WITH CALCI UM PTH intact 63.0 pg/mL 9.6-66 .3 Not Available [address], [place], [address], 11/13/2022 15:44:47 11/13/20 22 11/13/2022 PTH INTAC T WITH CALCI UM calcium 9.0 mg/dL 8.5-10 .3 Not Available [address], [address], 11/13/2022 15:44:47 01/03/20 23 01/03/2023 CBC AND DIFFE RENTI AL WBC 4.72 K/uL 4.00-1 1.00 Not Available [facility] [address] [place] [address], [address], 01/03/2023 08:59:34 01/03/20 23 01/03/2023 CBC AND DIFFE RENTI AL RBC 3.80 M/uL 3.72-5 .30 Not Available [facility] ([facility]) [address] [place] [address], [address], 01/03/2023 08:59:34 01/03/20 23 01/03/2023 CBC AND DIFFE RENTI AL HGB 12.8 g/dL 11.4-1 5.9 Not Available [facility] ([facility]) [address] [place] [address], [address], 01/03/2023 08:59:34 01/03/20 23 01/03/2023 CBC AND DIFFE RENTI AL HCT 38.3 % 34.2-4 6.8 Not Available [facility] ([facility]) [address] [place] [address], [address], 01/03/2023 08:59:34 01/03/20 23 01/03/2023 CBC AND DIFFE RENTI AL plt 212 K/uL 140-43 0 Not Available [facility] ([facility]) [address] [place] [address], [address], 01/03/2023 08:59:34 01/03/20 23 01/03/2023 CBC AND DIFFE RENTI AL MCV 100.8 fL 78.0-9 7.0 high Not Available [facility] (Out[facility]) [address] [place], [address], 01/03/2023 08:59:34 01/03/20 23 01/03/2023 CBC AND DIFFE RENTI AL MCH 33.7 pg 25.0-3 3.0 high Not Available [facility] (Outpatient) [address] [place], [address], 01/03/2023 08:59:34 01/03/20 23 01/03/2023 CBC AND DIFFE RENTI AL MCHC 33.4 g/dL 32.0-3 6.0 Not Available [facility] (Out[facility]) [address] [place], [address], 01/03/2023 08:59:34 01/03/20 23 01/03/2023 CBC AND DIFFE RENTI AL RDW 14.1 % 11.0-1 6.0 Not Available [facility] ([facility]) [address] [place], [address], 01/03/2023 08:59:34 01/03/20 23 01/03/2023 CBC AND DIFFE RENTI AL MPV 9.6 fL 8.4-12 .8 Not Available [facility] ([facility]) [address] [place], [address], 01/03/2023 08:59:34 01/03/20 23 01/03/2023 CBC AND DIFFE RENTI AL diff method AUTO Not Available [facility] ([facility]) [address] [place], [address], 01/03/2023 08:59:34 01/03/20 23 01/03/2023 CBC AND DIFFE RENTI AL neuts 59.8 % 43.0-7 5.0 Not Available [facility] (Outpatient) [address] [place], [address], 01/03/2023 08:59:34 01/03/20 23 01/03/2023 CBC AND DIFFE RENTI AL lymphs 23.9 % 18.2-4 7.4 Not Available [facility] (Out[facility]) [address] [place], [address], 01/03/2023 08:59:34 01/03/20 23 01/03/2023 CBC AND DIFFE RENTI AL monos 12.3 % 4.00-1 1.00 high Not Available [facility] (Out[facility]) [address] [place], [address], 01/03/2023 08:59:34 01/03/20 23 01/03/2023 CBC AND DIFFE RENTI AL eos 3.2 % 0.0-8. 0 Not Available [facility] (Outpatient) [address] [place], [address], 01/03/2023 08:59:34 01/03/20 23 01/03/2023 CBC AND DIFFE RENTI AL basos 0.2 % 0.0-2. 0 Not Available [facility] (Out[facility]) [address] [place], [address], 01/03/2023 08:59:34 01/03/20 23 01/03/2023 CBC AND DIFFE RENTI AL granulocytes , immature (%) 0.6 % 0.0-0. 9 Not Available [facility] (Out[facility]) [address] [place], [address], 01/03/2023 08:59:34 01/03/20 23 01/03/2023 CBC AND DIFFE RENTI AL absolute neuts 2.82 K/uL 1.80-7 .70 Not Available [facility] (Out[facility]) [address] [place], [address], 01/03/2023 08:59:34 01/03/20 23 01/03/2023 CBC AND DIFFE RENTI AL absolute lymphs 1.13 K/uL 1.00-3 .10 Not Available [facility] (Outpatient) [address] [place], [address], 01/03/2023 08:59:34 01/03/20 23 01/03/2023 CBC AND DIFFE RENTI AL absolute monos 0.58 K/uL 0.20-0 .80 Not Available [facility] ([facility]) [address] [place], [address], 01/03/2023 08:59:34 01/03/20 23 01/03/2023 CBC AND DIFFE RENTI AL absolute eos 0.15 K/uL 0.00-0 .80 Not Available [facility] ([facility]) [address] [place], [address], 01/03/2023 08:59:34 01/03/20 23 01/03/2023 CBC AND DIFFE RENTI AL absolute basos 0.01 K/uL 0.00-0 .09 Not Available [facility] (Out[facility]) [address] [place], [address], 01/03/2023 08:59:34 01/03/20 23 01/03/2023 CBC AND DIFFE RENTI AL granulocytes , immature 0.03 K/uL 0.00-0 .05 Not Available [facility] (Out[facility]) [address] [place], [address], 01/03/2023 08:59:34 01/03/20 23 01/03/2023 COVID JUAN JOSELYN RESPI RATOR Y VIRAL ORDER (PRO) test ordered COVID, FLU HAS BEEN ORDERE D Not Available [facility] ([facility]) [address] [place], [address], 01/03/2023 09:00:25 01/03/20 23 01/03/2023 COVID JUAN JOSELYN RESPI RATOR Y VIRAL ORDER (PRO) specimen source/descr iption NASOPH ARYNGE AL SWAB Not Available [facility] (Out[facility]) [address] [place], [address], 01/03/2023 09:00:25 01/03/20 23 01/03/2023 COVID JUAN JOSELYN RESPI RATOR Y VIRAL ORDER (PRO) influenza A PCR NOT DETECT ED not detect ed Not Available [facility] (Out[facility]) [address] [place], [address], 01/03/2023 09:00:25 01/03/20 23 01/03/2023 COVID JUNA JOSELYN RESPI RATOR Y VIRAL ORDER (PRO) influenza B PCR NOT DETECT ED not detect ed Not Available [facility] (Outpatient) [address] [place], [address], 01/03/2023 09:00:25 01/03/20 23 01/03/2023 COVID JUAN JOSELYN RESPI RATOR Y VIRAL ORDER (PRO) sars-cov 2 (covid-19) PCR DETECT ED not detect ed abnormal SARS- CoV-2 detec criss This test has been autho rized by the FDA under an Emerg ency Use Autho rizat ion (EUA) for use by autho rized labor atori es. Not Available [facility] (Outpatient) [address] [place], [address], 01/03/2023 09:00:25 01/03/20 23 01/03/2023 TROPO NUVIA troponin-T, hs gen5 <6 NG/L 0-9 Not Available [facility] (Outpatient) [address] [place], [address], 01/03/2023 09:20:18 01/03/20 23 01/03/2023 BASIC METAB OLIC PANEL sodium 138 mmol/ L 133-14 6 Not Available [facility] ([facility]) [address] [place], [address], 01/03/2023 09:31:52 01/03/20 23 01/03/2023 BASIC METAB OLIC PANEL chloride 103 mmol/ L 96-108 Not Available [facility] ([facility]) [address] [place], [address], 01/03/2023 09:31:52 01/03/20 23 01/03/2023 BASIC METAB OLIC PANEL potassium 4.7 mmol/ L 3.3-5. 1 Not Available [facility] ([facility]) [address] [place], [address], 01/03/2023 09:31:52 01/03/20 23 01/03/2023 BASIC METAB OLIC PANEL CO2 27 mmol/ L 21-35 Not Available [facility] ([facility]) [address] [place], [address], 01/03/2023 09:31:52 01/03/20 23 01/03/2023 BASIC METAB OLIC PANEL BUN 11 mg/dL 6-19 Not Available [facility] ([facility]) [address] [place], [address], 01/03/2023 09:31:52 01/03/20 23 01/03/2023 BASIC METAB OLIC PANEL creatinine 0.80 mg/dL 0.5-1. 5 Not Available [facility] (Out[facility]) [address] [place], [address], 01/03/2023 09:31:52 01/03/20 23 01/03/2023 BASIC METAB OLIC PANEL glucose 138 mg/dL 70-99 high Not Available [facility] ([facility]) [address] [place], [address], 01/03/2023 09:31:52 01/03/20 23 01/03/2023 BASIC METAB OLIC PANEL calcium 9.4 mg/dL 8.4-10 .3 Not Available [facility] (Outpatient) [address] [place], [address], 01/03/2023 09:31:52 01/03/20 23 01/03/2023 BASIC METAB OLIC PANEL eGFR 80 mL/mi n/1.7 3m2 >59 Estim ated glome rular filtr ation rate calcu lated using the CKD-E PI refit equat ion. Not Available [facility] (Outpatient) [address] [place], [address], 01/03/2023 09:31:52 01/03/20 23 01/03/2023 BASIC METAB OLIC PANEL anion gap 13 mmol/ L 10-20 Not Available [facility] (Out[facility]) [address] [place], [address], 01/03/2023 09:31:52 01/03/20 23 01/03/2023 TROPO NUVIA troponin-T, hs gen5 <6 NG/L 0-9 Not Available [facility] (Outpatient) [address] [place], [address], 01/03/2023 10:36:22 01/03/20 23 01/03/2023 D-DIM ER D-dimer 1134 NG/mL _feu <500 high In patie nts with low to moder ate pre-t est proba bilit y score s for VTE (PE or DVT), a D-Dim er cut-o ff less than 500 ng/mL (FEU) has a negat shelly predi ctive value (NPV) of 97 to 100%. Not Available [facility] (Outpatient) [address] [place], [address], 01/03/2023 11:03:28 02/23/20 23 02/22/2023 HGB A1C hemoglobin A1C 6.5 % 4.8-6. [...] furth er confi rmati on Not Available [address], [address], 02/22/2023 12:10:37 02/23/20 23 02/22/2023 HGB A1C estimated average glucose 139.9 mg/dL Not Available [address], [address], 02/22/2023 12:10:37 02/23/20 23 02/22/2023 BASIC METAB OLIC PANEL glucose 143 mg/dL 70-100 high Not Available [address], [address], 02/22/2023 16:37:32 02/23/20 23 02/22/2023 BASIC METAB OLIC PANEL BUN 14 mg/dL 7-18 Not Available [address], [address], 02/22/2023 16:37:32 02/23/20 23 02/22/2023 BASIC METAB OLIC PANEL creatinine 0.9 mg/dL 0.8-1. 3 Not Available [address], [address], 02/22/2023 16:37:32 02/23/20 23 02/22/2023 BASIC METAB OLIC PANEL B/C 15.6 ratio Not Available [address], [address], 02/22/2023 16:37:32 02/23/20 23 02/22/2023 BASIC METAB [...] be used in pregn willy. Not Available [address], [address], 02/22/2023 16:37:32 02/23/20 23 02/22/2023 BASIC METAB OLIC PANEL sodium 140 mmol/ L 136-14 5 Not Available [address], [address], 02/22/2023 16:37:32 02/23/20 23 02/22/2023 BASIC METAB OLIC PANEL potassium 5.3 mmol/ L 3.5-5. 1 high Not Available [address], [address], 02/22/2023 16:37:32 02/23/20 23 02/22/2023 BASIC METAB OLIC PANEL chloride 103 mmol/ L 96-107 Not Available [address], [address], 02/22/2023 16:37:32 02/23/20 23 02/22/2023 BASIC METAB OLIC PANEL anion gap 9.5 5.0-15 .0 Not Available [address], [address], 02/22/2023 16:37:32 02/23/20 23 02/22/2023 BASIC METAB OLIC PANEL CO2 28 mmol/ L 21-32 Not Available [address], [address], 02/22/2023 16:37:32 02/23/20 23 02/22/2023 BASIC METAB OLIC PANEL calcium 9.0 mg/dL 8.5-10 .3 Not Available [address], [address], 02/22/2023 16:37:32 02/23/20 23 02/22/2023 LIPID PANEL cholesterol 205 mg/dL <200 mg/dl Fernie able 200-2 39 mg/dl Borde rline High >240 mg/dl High Not Available [address], [address], 02/22/2023 16:37:34 02/23/20 23 02/22/2023 LIPID PANEL triglyceride s 61 mg/dL <150 mg/dL Debbie l 150-1 99 mg/dL Borde rline High 200-4 99 mg/dL High >500 mg/dL Very High Not Available [address], [address], 02/22/2023 16:37:34 02/23/20 23 02/22/2023 LIPID PANEL direct HDL 90 mg/dL <40 mg/dl - Major Risk for CHD >60 mg/dl - Negat shelly Risk for CHD Not Available [address], [address], 02/22/2023 16:37:34 02/23/20 23 02/22/2023 DIREC T LDL direct LDL 90 mg/dL RISK CATEG ORY LDL GOAL _ CHD or CHD Risk Equiv alent s <100 mg/dl (10-y ear risk >20%) 2+ Risk Facto rs <130 mg/dl (10-y ear risk <= 20%) 0-1 Risk Facto r <160 mg/dl Almo st all peopl e with 0-1 risk facto r have a 10 year risk <10%, thus 10 year risk asses ment in peopl e with 0-1 risk facto r is not neces dontrell. Not Available [address], [address], 02/22/2023 16:37:36 02/23/20 23 02/25/2023 MICRO ALBUM IN/CR EATIN INE RATIO PANEL , URINE microalbumin 2.7 mg/L 1.3-20 .0 Not Available [address], [address], 02/25/2023 10:18:19 02/23/20 23 02/25/2023 MICRO ALBUM IN/CR EATIN INE RATIO PANEL , URINE creatinine urine 46.3 mg/dL 30.0-1 25.0 Not Available [facility] [address] [place], [address], 02/25/2023 10:18:19 02/23/20 23 02/25/2023 MICRO ALBUM IN/CR EATIN INE RATIO PANEL , URINE microalb/cre at ratio 5.8 mg/g_ creat 0.0-29 .0 Not Available [address], [address], 02/25/2023 10:18:19 08/09/20 22 08/09/2022 xr wrist [...] extens or compar tment (De Querva in's) taylor florian Electr onical ly Signed by: Shanna Collins on 022 3:13 PM Interp reted by: Shanna Collins MD Signed by: Shanna Collins MD 2 Final result Right wrist pain JORDYN ROWE [facility] [address] [facility], [place], [address], 08/09/2022 15:37:21 08/14/20 22 08/14/2022 xr knee 3 view (left ) This image report has been auto-f inaliz ed and has not been read by a Radiol ogist. Interp retati on has been includ ed in the [facility] er encoun ter note for this date of jennifer velez. Final result [facility] [address] [facility], [place], [address], 08/14/2022 15:15:27 08/15/20 22 08/19/2020 XR, chest [...] Readin g Physic leda: Chen Javier ms [facility] (Imaging) [address], [place], [address], 08/21/2022 07:49:54 08/17/20 22 08/17/2022 CT abdom [...] . ATTEST ATION: I, Tavia tom as teachi ng physic leda, have review ed the images for this case and if necess pamela edited the report origin ally create d by Sandro Hickman. Electr onical ly Signed by: Tavia tom on 022 11:52 AM Interp reted by: MD Sandro Jiang MD Signed by: Tavia tom MD 2 Final result [id number] Open Critic al FIDELIA Tom [id number] JORDYN Candelaria GUMP [facility] [address] [place], [address], 08/17/2022 17:04:27 01/03/20 23 01/03/2023 XR, chest [...] , covid+ as of last week. JORDYN LAKEKarma [facility] [address] [place], [address], 02/28/2023 10:25:35 01/03/20 23 01/03/2023 CT chest [...] CT ABDOME N/PELV IS WITH CONTRA ST FINDIN GS: Pulmon pamela Angiog min: Techni [...] necess pamela edited the report origin kaden osorio d by Lori Mcintosh. Electr onical ly Signed by: Adore Thomson on 023 12:45 PM Interp reted by: MD Lori Rodney MD Signed by: Adore Thomson MD 3 Final result increa sed shortn ess of breath and chest pain. She report s testin g positi ve for Covid last Thursd ay JORDYN JENSEN Teagan ROWE [facility] [address] [facility], [place], [address], 02/28/2023 10:25:35 03/01/2003/01/2023 MAMMO , scree rickie, tomos ynthe sis, [...] Readin g Physic leda: Chen Javier ms [facility] (Imaging) [address], [place], [address], 03/04/2023 13:33:49 03/25/2003/22/2023 imagi ng inter preta tion No observ ation record ed. [facility] [address] [place] [address], [address], 03/30/2023 06:50:32 Result Notes None recorded. Procedures Surgical History Date Name Laterality Status Provider Name and Address Organization Details Recorded Time 3 Jenniffer - Colonoscopy completed Jamaal Abad MD [address] [place] [address], [id number], [facility] 04/11/2023 12:28:08 Imaging Results None recorded. Procedure Notes None recorded. Medical Equipment None Reported. Allergies Allergen ID Allergen Name Allergen Category Reaction Reaction Severity Criticality Documentation Date Start Date Code Code System Note Provider Name and Address Organization Details Recorded Time Product containin g penicilli n (product) medicatio n rash Not available Not available 04/10/2023 20680 8001 BAKARI Murphy RN null, [facility] 3 16:20:21 [id number] Reglan medicatio n rash Not available Not available 04/10/2023 9230 RxNorm Karen Murphy RN null, [facility] 3 16:21:06 [id number] Substance with sulfonami de structure and antibacte rial mechanism of action (substanc e) medicatio n rash Not available Not available 04/10/2023 01153 8003 BAKARI Murphy RN null, [facility] 3 16:21:26 [id number] Actemra medicatio n Not available Not available Not available 04/10/2023 20736 1 RxNorm hyper tensi on aKren Murphy RN null, [facility] 3 16:22:16 Medications Name Sig Start Date [...] TAKE 5ML ORALLY THREE TIMES DAILY NEEDED 04/13 /2023 completed Not Available Not Available Not Available [...] LastModified by Organizat ion Details LastModified Time Do You Wear A Helmet When Biking? Yes Information not available 12/24/2017 What Is Your Level Of Caffeine Consumption? Moderate 2 Coffee Daily Information not available 03/03/2023 How Much Tobacco Do You Chew? None [email or web address] Information not available 10/05/2015 What Type Of Diet Are You Following? REGULAR Information not available 08/21/2017 What Is The Highest Grade Or Level Of School You Have Completed Or The Highest Degree You Have Received? [id number] Information not available 03/03/2023 Have There Been Any Changes To Your Family Or Social Situation? Yes New Dog, [place] Retriever Cozy Is , 14 Week 02/2023 Information not available 02/28/2023 When Did You Quit Smoking? 1-5yearssinc elastcigaret te Information not available 03/03/2023 Are There Any Guns Present In Your Home? No Information not available 08/21/2017 Do You Use Insect Repellent Routinely? Yes Information not available 07/25/2021 Live Alone Or With Others? With Others Information not available 08/21/2017 Patient Has Health Care Proxy Signed And In Chart Yes stpick Information not available 09/09/2020 Marital Status [email or web address] Informatio n not available 10/24/2016 Mosquito Repellent Used Routinely Yes Information not available 08/21/2017 What Was The Date Of Your Most Recent Tobacco Screening? 02/28/2023 Information not available 02/28/2023 How Many Children Do You Have? 2 Son,in [place], Grad From College Information not available [...] ion Details LastModified Time What is your level of alcohol consumption? 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 Moderate minimum of an hour cardio 6-7 days a week [email or web address] Information not available 02/28/2023 Mental Status None [...] SNOMED-CT Code Diagnosis ICD10 Code Diagnosis Note [id number] Kana Norman MD Rheumatol saad, [facility] [address] [place] [address] 10/05/2015 09:46:49 10/05/2015 10:55:19 [id number] Kana Norman MD Rheumatol ogy, [address] [place] [address] 12/07/2015 08:55:05 12/07/2015 09:23:13 [id number] Eloisa Andrade D.O. , [facility], OFFICE [address] [place] [address] [place], [place] [address] 12/08/2015 13:07:13 12/09/2015 07:02:50 [id number] [facility], [address] [place] [address] 03/12/2016 17:18:54 03/13/2016 10:35:03 [id number] Uli Rivera MD Sports Medicine, [address] [place], [place] [address] 03/13/2016 07:50:37 03/13/2016 10:01:31 [id number] Kana Norman MD Rheumatol ogy, [address] [place], [place] [address] 1 03/14/2016 08:52:06 03/14/2016 09:41:03 [id number] Eloisa Andrade D.O. , [facility], OFFICE [address] [place] [address] [place], [place] [address] 1 05/09/2016 07:09:31 05/09/2016 09:05:05 [id number] Lokesh Cintron MD [facility], OFFICE [address] [place] [address] [place], [place] [address] 1 10/19/2016 07:50:14 10/19/2016 08:43:22 [id number] Kana Norman MD Rheumatol ogmaryuri, [address] [place], [place] [address] 1 10/24/2016 10:00:31 10/25/2016 07:55:35 [id number] Eloisa Andrade D.O. , [facility], OFFICE [address] [place] [address] [place], [place] [address] 1 12/12/2016 07:43:58 12/12/2016 10:01:33 [id number] Juan Brown OD Eye Care, [address] [place], [place] [address] 1 01/23/2017 08:18:41 01/23/2017 09:15:15 [id number] Kana Norman MD Rheumatol ogmaryuri, [address] [place], [place] [address] 1 03/05/2017 14:49:58 03/05/2017 16:19:17 [id number] Eloisa Andrade D.O. , [facility], OFFICE [address] [facility] [place], [place] [address] 1 05/14/2017 12:38:50 05/14/2017 16:36:29 [id number] Eloisa Andrade D.O. , [facility], OFFICE 329 [facility] [place], [place] [address] 1 08/21/2017 07:46:26 08/21/2017 09:01:14 [id number] Kana Norman MD Rheumatol saad, [address] [place], [place] [address] 1 08/27/2017 13:50:06 08/27/2017 14:19:55 [id number] Kana Norman MD Rheumatol saad, [address] [place], [place] [address] 1 11/26/2017 13:12:02 11/26/2017 13:47:27 [id number] Eloisa Andrade D.O. [facility], OFFICE [address] [place] [address] [place], [place] [address] 1 11/27/2017 09:37:38 11/27/2017 11:34:12 [id number] Rosalina Negro, [facility], OFFICE [address] [place] [address] [facility] [place], [place] [address] 1 12/24/2017 11:51:47 12/24/2017 14:17:57 [id number] Juan Brown, OD Eye Care, [address] [facility] [place], [place] [address] 1 02/12/2018 14:02:53 02/12/2018 15:26:28 [id number] Kana Norman MD Rheumatol ogy, [address] [place], [place] [address] 1 03/04/2018 13:17:00 03/04/2018 13:56:40 [id number] Rosalina Negro, [facility], OFFICE [address] [place] [address] [place], [place] [address] 1 05/14/2018 06:57:20 05/14/2018 08:58:40 [id number] Kana Norman MD Rheumatol saad, [address] [place] [address] 1 05/20/2018 12:46:22 05/20/2018 13:30:34 [id number] Kana Norman MD Rheumatol saad, [address] [place] [address] 1 08/05/2018 12:58:08 08/05/2018 13:29:09 [id number] Kana Norman MD Rheumatol ogmaryuri, [address] [place] [address] 1 09/04/2018 11:33:03 09/05/2018 07:05:53 [id number] Jamaal Abad MD [facility], [address] [address] 1 09/30/2018 11:00:54 09/30/2018 13:43:09 [id number] Jamaal Abad MD [facility], [address] [address] 1 10/14/2018 07:17:12 10/14/2018 13:18:38 [id number] Kana Norman MD Rheumatol ogmaryuri, [address] [place] [address] 1 12/02/2018 12:41:59 12/02/2018 13:14:13 [id number] [facility] [address] [place] [address] [place] [address] 1 12/04/2018 07:09:47 12/04/2018 10:42:18 [id number] [facility] [address] [place] [address] [place] [address] 1 01/28/2019 07:45:16 01/28/2019 08:56:59 [id number] Yulisa Anthony Physical Therapy, [address] [facility] [place] [address] 1 02/18/2019 09:12:23 02/23/2019 10:24:19 [id number] Yulisa Anthony Physical Therapy, [address] [facility] [place] [address] 1 02/25/2019 10:20:21 02/25/2019 12:01:46 [id number] Yulisa Anthony Physical Therapy, [address] [facility] [place] [address] 1 03/10/2019 13:14:12 03/11/2019 08:45:25 [id number] Kana Norman MD Rheumatol ogmaryuri, [address] [place], [place] [address] 1 03/10/2019 13:15:59 03/10/2019 13:46:04 [id number] Eloisa Andrade D.O. , [facility], OFFICE [address] [place] [address] [facility] [place] [address] 1 03/23/2019 09:29:28 03/24/2019 07:45:40 [id number] Juan Brown, OD Eye Care, [address] [place] [address] 1 04/08/2019 08:44:19 04/08/2019 10:02:42 [id number] Vu Hernandez Jr. MD , [facility], OFFICE [address] [place] [address] [place] [address] 1 05/23/2019 11:56:15 05/25/2019 07:26:46 [id number] Brenda Paulino NP Rheumatol og, [address] [place] [address] 1 06/09/2019 13:09:52 06/10/2019 06:17:17 [id number] Eloisa Andrade D.O. , [facility], OFFICE 329 [facility] [place] [address] 1 07/29/2019 07:01:14 07/29/2019 09:14:54 [id number] Kana Norman MD Rheumatol ogmaryuri, [address] [place] [address] 1 08/04/2019 15:50:26 08/04/2019 19:23:51 [id number] Kana Norman MD Rheumatol saad, [address] [place], [place] [address] 1 12/08/2019 14:13:21 12/10/2019 06:17:49 [id number] Kana Norman MD Rheumatol ogmaryuri, [address] [place] [address] 1 03/29/2020 12:50:44 03/29/2020 13:23:46 [id number] Kana Norman MD Rheumatol ogy, [address] [place] [address] 1 04/08/2020 10:12:26 04/12/2020 07:36:02 [id number] Rebeca Rowe MD [facility], OFFICE [address] [place] [address], [place] [address] 1 07/27/2020 11:32:04 07/27/2020 14:30:01 [id number] Eloisa Andrade D.O. [facility], OFFICE [address] [place] [address], [place] [address] 1 08/06/2020 09:18:21 08/06/2020 10:47:32 [id number] Eloisa Andrade D.O. [facility], OFFICE [address] [place] [address], [place] [address] 1 09/13/2020 14:03:32 09/13/2020 16:38:04 [id number] Eloisa Andrade D.O. [facility], OFFICE [address] [place] [address], [place] [address] 1 09/20/2020 14:59:30 09/20/2020 18:59:22 [id number] Kana Norman MD Rheumatol ogmaryuri, [address] [place] [address] 1 12/23/2020 10:42:27 12/23/2020 18:36:40 [id number] Kana Norman MD Rheumatol ogmaryuri, [address] [place] [address] 1 01/06/2021 11:42:30 01/09/2021 07:06:16 [id number] Eloisa Andrade D.O. [facility], OFFICE [address] [place] [address], [place] [address] 1 01/31/2021 13:28:33 01/31/2021 20:10:41 [id number] Otf Palm PA-C [facility], OFFICE [address] [place], [place] [address]el [place], [place] [address] 1 02/14/2021 14:55:01 02/15/2021 06:28:09 [id number] Kana Norman MD Rheumatol ogy, [address] [place], [place] [address] 1 06/06/2021 11:15:53 06/07/2021 18:57:33 [id number] Eloisa Andrade D.O. , [facility], OFFICE [address] [place] [address] [place], [place] [address] 1 06/08/2021 11:58:14 06/08/2021 16:16:34 [id number] Eloisa Andrade D.O. , [facility], OFFICE [address] [place] [address] [place], [place] [address] 1 07/25/2021 13:22:28 07/25/2021 14:24:32 [id number] Igor Sheehan, PT Physical Therapy, [address] [facility] [place], [place] [address] 1 08/29/2021 11:29:54 08/30/2021 08:31:27 [id number] Kana Norman MD Rheumatol ogy, [address] [facility] [place], [place] [address] 1 12/08/2021 09:12:43 01/19/2022 06:10:49 [id number] Rebeca Rowe MD , [facility], OFFICE [address] [place] [address] [place], [place] [address] 1 12/15/2021 15:57:47 12/15/2021 16:17:07 [id number] Xena Bryan MD , [facility], OFFICE [address] [place] [address] [place] [address] 1 12/25/2021 08:45:30 12/25/2021 10:16:41 [id number] Xena Bryan MD , [facility], OFFICE [address] [place] [address] [place] [address] 1 01/01/2022 08:47:55 01/01/2022 16:18:17 [id number] Xena Bryan MD , [facility], OFFICE [address] [place] [address] [place] [address] 1 01/10/2022 08:55:54 01/10/2022 19:41:42 [id number] Trini Welch MD Rheumatol ogmaryuri, [facility] [address] [facility] [place], [place] [address] 1 02/13/2022 11:40:41 02/18/2022 08:38:59 [id number] Knaa Norman MD Rheumatol ogmaryuri, [address] [place], [place] [address] 1 01/26/2022 08:58:39 01/29/2022 16:13:08 [id number] Xena Bryan MD , [facility], OFFICE [address] [facility] [place] [address] 1 02/26/2022 08:42:19 02/27/2022 07:31:03 [id number] Trini Welch MD Rheumatol ogmaryuri, [address] [place] [address] 1 05/15/2022 07:35:25 05/17/2022 14:54:10 [id number] CLIF Patterson MD , [facility], OFFICE [address] [place] [address] [place] [address] 1 07/20/2022 10:51:20 07/20/2022 11:59:54 [id number] CLIF Patterson MD , [facility], OFFICE [address] [facility] [place] [address] 1 08/06/2022 13:44:41 08/06/2022 14:37:07 [id number] Trini Welch MD Rheumatol ogmaryuri, [facility] [address] [facility] [place] [address] 1 09/12/2022 09:55:14 09/24/2022 13:40:23 [id number] CLIF Patterson MD , [facility], OFFICE [address] [place] [address] [place] [address] 1 09/17/2022 08:23:13 09/17/2022 11:32:24 [id number] Jamaal Tom MD FP, [facility], OFFICE [address] [place] [address] 12/16/2022 10:32:11 12/16/2022 11:02:30 [id number] CLIF Patterson MD , [facility], OFFICE [address] [facility] [place] [address] 1 02/28/2023 09:22:58 03/01/2023 08:30:32 [id number] Jamaal Abad MD Endoscopy , [address] [address] 1 04/11/2023 10:50:55 04/11/2023 13:38:17 Health Concerns Section Related Observation LastModified by Organization Detai ls LastModified Time None Recorded Concern Status LastModified by Organization Details LastModified Time None Recorded Advance Directives Directive None Recorded Payers Insurance Date Sequence Insurance Name Policy Number Policy Quintana Covered Member ID Quintana Member ID Guarantor Name 07/12/2023 1 [facility] ([facility]) [id number] Lashanda Kee [id number] Lashanda Kee 07/12/2023 [employer] [facility] Lashanda Kee [id number] Lashanda Kee 07/12/2023 1 [facility] - [facility] (O) [id number] Lashanda Kee [id number] Lashanda Kee 07/12/2023 1 [facility] [id number] Lashanda Kee [id number] Lashanda Kee OBGyn Episode No OBEpisode recorded.
--- OUTSIDE RECORDS SUMMARY | 2025-06-01 09:21 | XMS_ITS | Clinical Summary ---
Author Organization [facility] Address [address] [place] [address] Care Team Providers Care Ibm Bpm Architect Name Role Phone Eloisa Andrade Primary Care Provider [phone] Allergies Active Allergy Reactions Criticality Noted Date [...] DTaP,Tdap,and Td Vaccines (1 - Tdap) 1976 CT Lung Cancer Screening (Baseline) 2004 Osteoporosis Screening 2004 Pneumococcal Vaccine: 50+ Ye ars (1 of 1 - PCV) 2004 Zoster Vaccines (1 of 2) 2004 COVID-19 Vaccine (1 - 2023-2 5 season) 2024 Alcohol/Substance Use Screening 11/18/2024 Health Care Proxy Review 11/18/2024 Influenza Vaccine (#1) 2025 RSV Vaccine (60+ years old a nd patients) (1 - 1-dose 75+ series) 2029 Hepatitis B Vaccines Aged Out No long er eligible based on patient's age to complete this topic Insurance [facility] Care Teams Ibm Bpm Architect Relationship Specialty Start Date End Date Eloisa Andrade [address] [place] [id number] PCP - General Family Medicine 02/24/21
[2025-06-01 09:43] LABS: Hematocrit 38.6 % (37.0-47.0); Hemoglobin 12.8 g/dl (12.0-16.0); Imm Gran Abs Auto 0.02 X10*3/uL (0.00-0.03); Imm Gran Pct Auto 0.4 % (0.0-0.4); Lymphocytes Absolute Auto 1.9 X10*3/uL (1.2-4.9); Mean Corpuscular HGB Conc 33.2 g/dl (31.0-35.0); Mean Corpuscular Hemoglobin 34.0 pg (27.0-33.0); Mean Corpuscular Volume 102.4 fL (80.0-98.0); NRBC Abs Auto 0.000 X10*3/uL (0.0-0.012); NRBC Pct Auto 0.0 /100WBC (0.0-0.2); Platelet Count 231 X10*3/uL (160-400); Red Blood Count 3.77 X10*6/uL (4.20-5.50); White Blood Count 4.8 X10*3/uL (4.8-10.8)
[2025-06-01 10:12] LABS: Alanine Aminotransferase 27 U/L (0-31); Albumin Level 4.4 g/dL (3.5-5.0); Alkaline Phosphatase 44 U/L (39-117); Anion Gap 13 (12-20); Aspartate Amino Transferase 25 U/L (5-31); Blood Urea Nitrogen 20 mg/dL (9-16); Calcium 9.4 mg/dL (8.4-10.2); Carbon Dioxide 28 mmol/L (22-29); Chloride 107 mmol/L (96-108); Estimated Glomerular Filt Rate > 60; Potassium 5.2 mmol/L (3.3-5.1); Sodium 143 mmol/L (135-145); Total Protein 6.7 g/dL (6.5-8.0)
[2025-06-05 16:54] LABS: Vitamin D 25-OH, D2 <4 ng/mL; Vitamin D 25-OH, D3 47 ng/mL; Vitamin D 25-OH, Total 47 ng/mL (30-100)
== END 2025-06-01 09:04 | disposition home or self-care (01) ==
LOC: HO.LAB 09:03
PROVIDERS: PCP Family Medicine; Visit Provider Student in an Organized Health Care Education/Training Program
DX: M06.02 Rheumatoid arthritis without rheumatoid factor, elbow (principal); M06.022 Rheumatoid arthritis without rheumatoid factor, left elbow; E55.9 Vitamin D deficiency, unspecified
CPT/HCPCS: 36415; 80053; 82306; 85025; 85652; 86140

== ENCOUNTER 2025-06-17 13:00 | Outpatient (AMB) | payer OTHER, SELFPAY ==
--- OUTSIDE RECORDS SUMMARY | 2014-07-21 04:45 | XMS_ITS | Continuity of Care Document ---
Author Organization [facility] Address [address] [place] [address] Phone Care Team Providers Care Video Presentation Operator Name Role Phone Mor Ashton PA-C Unavailable [...] SKIN LESION DESTROY BENIGN/PREMLG LESION OFFICE/OUTPATIENT VISIT, [facility] TISSUE EXAM BY PATHOLOGIST Advance Directives [...] Providers Copied on Encounter OFFICE/OUTPA TIENT VISIT, [facility], [address] [place], [address], [place] tel:[phone] [place] lesion(s) (chief complaint) Neoplasm of uncertain behavior of skinActinic keratosisBen ign neoplasm of skin of trunk, except scrotumOther seborrheic keratosis Jul- 4 Daisha Mor. [address] [place], [address]. tel:[phone] [facility], [address] [place] [address] [place], [address], [place] tel:[phone] Dermatopatho logy Lab No Information 4 Nelia Barahona. [address] [place], [place], [id number]. tel:[phone] Referring Provider: Julian Wheeler, [address] [place], [address]. tel:[phone] Family History Family Member Type Diagnosis Age At Onset No Information Payers Payer name Insurance type Covered libertarian ID Authoriza tion(s) [facility] [id number] Social History Type Description Quantity Date Captured [...] Mental Status Date Cognitive Assessment Orientation - [place] ed to time, place, person, situation. Patient Care Teams Name Effective Dates (start - stop) Status Members No Information
[2025-06-17 13:07] VITALS: BP 122/70; PULSE 77; O2SAT 99; BMI 29.0
--- NOTE | 2025-06-17 13:07 | MHC.OFFVIS ---
Vital Signs 06/17/25 13:07 Height 5 ft 4 in Weight 168 lb 13.985 oz BMI 29.0 BP 122/70 Blood Pressure Location Lt brachial Position Sitting Pulse 77 Pulse Source Pulse Oximeter Pulse Oximetry (%) 99 Oxygen Delivery Method Room Air Intake Visit Reasons: RA Intake Note: Patient last seen by Claudine Drake on 02/10/25. Presents today for RA follow up and test results. Patient complains of right hip pain for months. Allergies metoclopramide (From Reglan) Allergy (Severe, Verified 06/17/25 13:11) Itching Sulfa (Sulfonamide Antibiotics) Allergy (Intermediate, Verified 06/17/25 13:11) Itching sulfasalazine Allergy (Intermediate, Verified 06/17/25 13:11) Itching Penicillins Allergy (Unknown, Verified 06/17/25 13:11) unknown tocilizumab (From Actemra) Adverse Reaction (Severe, Verified 06/17/25 13:11) Hypertension, Nausea, Anorexia, Diverticultis HPI Comments Details: Patient is a 69-year-old female with osteopenia, pseudogout and seronegative rheumatoid arthritis Interval History: Patient last seen 02/10/25 with me - On Simponi infusions, MTx and leucovorin with folic acid - Doing well - Appealing a [id number] insurance bill for the infusion being given slightly early - C/o neck pain, atributed to her known cervical radiculopathy. On prednisone for neurospine - No changes made to meds Today - On Simponi infusions, MTx and leucovorin with folic acid - Doing well overall - Finally got the insurance to approve the infusion costs! - C/o right hip pain - Feels more achy about 1-2 weeks before the medication is due - Has chronic trigger finger in the left hand Rheumatologic History: Seronegative diagnosed around 1999 HCQ: Ineffective MTX all through, switched from subcu to oral around 2014 Humira 2009 to 2013 ineffective Cimzia 2017 to 2018 ineffective Leflunomide 2015 to 2017 neuropathy,SSZ allergy, Orencia 2018 ineffective and caused fatigue. Xeljanz somewhat effective but stopped in 2020 Actemra 2020 hypertension and diverticulitis MTX increased form 15 mg to 20 mg 05/10 partially effective, advanced to SQ 25 mg 10/2023 Simponi Aria started 09/2024 effective Initial history: This is a 67-year-old female with a past medical history of seronegative RA of presents for evaluation of rheumatoid arthritis. Patient was diagnosed with seronegative rheumatoid arthritis more than 20 years ago. She has been on numerous DMARDs. She has been on methotrexate all through. Her previous foreign student adviser teacher left the practice. Today patient feels all right overall. She continues to have pain and morning stiffness of her hands, wrists, ankles and feet lasting 3-4 hours. Patient would take a prednisone bolus 2 to 3 times a year. She would usually take about 50 mg for 5 days. Last time she took prednisone was 6 weeks ago. Patient also has been having bilateral hip pain. Over the last 1-2 years she has developed Raynaud's. She was prescribed amlodipine to use as needed by her previous foreign student adviser teacher Dr. Norman but patient never used it. She bot heated gloves and those were quite helpful. Current Rheumatology Medication(s): Simponi Aria infusions 2mg/kg every 8 weeks Methotrexate 25 mg sc weekly PO Leucovorin 5 mg weekly PO Folic acid 2mg daily PO Alendronate 70mg weekly PO PFSH Medical History Hip pain, bilateral Diverticulosis Diverticulitis Macrocytosis Basal cell carcinoma (BCC) Idiopathic peripheral neuropathy PPD positive Rheumatoid arthritis Steatosis of liver Chronic constipation Diverticular disease Nondiabetic gastroparesis GERD with esophagitis Hypertension Migraine RUDI (obstructive sleep apnea) Vitamin B12 deficiency Surgical History H/O esophageal hernia repair Hx of hysterectomy History of knee replacement, total Family History Mother Liver cancer Maternal Aunt Breast cancer Rheumatoid arthritis Social History Household Members: Spouse Alcohol intake: current Alcohol intake frequency: a few times a week Alcohol type: wine Patient Tobacco Use Status: Former Tobacco user 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 Review of Systems Const Details: Review of Systems Constitutional: Denies fever, chills, weight loss ENT: Denies vision changes, eye pain or eye redness, dental caries, dry mouth GI: Denies nausea, vomiting, diarrhea, abdominal pain, change in BM Pulm: Denies SOB, PUGA, hemoptysis, wheezing Cards: Denies chest pain, palpitations Skin: Denies Raynaud's, rash, nail changes, photosensitivity, DIRECT CARE SUPERVISOR: Denies headaches, weakness, paresthesias, recurrent falls MSK: as per HPI All other systems reviewed and are unremarkable except noted above Physical Exam Exam Exam: Vital signs reviewed Physical Examination CONSTITUITIONAL Patient alert and cooperative. Well appearing and in no apparent painful distress MSK Hands Right Hand: Able to make a fist. No swelling or tenderness to palpation of these joints. Left Hand: Able to make a fist. No swelling or tenderness to palpation of these joints. Herbedens nodes noted bilaterally Wrists Right Wrist: Full ROM. 70 degrees of wrist flexion, 80 degrees of wrist extension. No swelling or TTP Left Wrist: Full ROM. 70 degrees of wrist flexion, 80 degrees of wrist extension. No swelling or TTP Elbows Right Elbow: Full ROM. No swelling or TTP. No TTP of the medial and lateral epicondyles Left Elbow: Full ROM. No swelling or TTP. No TTP of the medial and lateral epicondyles Shoulders Right shoulder: Full ROM. No swelling noted. No TTP of the AC joint, subacromial bursa or posterior shoulder Left shoulder: Full ROM. No swelling noted. No TTP of the AC joint, subacromial bursa or posterior shoulder Knees Right knee: Full ROM. No swelling noted. No TTP of the knee joint lie or pes anserine bursa Left knee: Full ROM. No swelling noted. No TTP of the knee joint lie or pes anserine bursa. Crepitations felt bilaterally Ankles Right ankle: Good ankle dorsiflexion and plantar flexion. No swelling. No TTP of the ankle joint Left ankle: Good ankle dorsiflexion and plantar flexion. No swelling. No TTP of the ankle joint Feet Right foot: Negative squeeze test Left foot: Negative squeeze test Tender points? No tenderness to palpation of the bilateral trapezius, supraspinatus, anterior costochondral junctions, bilateral suboccipital muscle insertions SKIN No rashes Vital Signs: Last Vital Signs Pulse 77 06/17/25 13:07 BP 122/70 06/17/25 13:07 Pulse Ox 99 06/17/25 13:07 Oxygen Delivery Method Room Air 06/17/25 13:07 BMI result Body Mass Index 29.0 Results Reviewed Results Reviewed: Laboratory Tests 06/01/25 09:13 WBC 4.8 RBC 3.77 L Hgb 12.8 Hct 38.6 Plt Count 231 ESR 6 Sodium 143 Potassium 5.2 H D Chloride 107 Carbon Dioxide 28 BUN 20 H Creatinine 0.92 AST 25 ALT 27 Alkaline Phosphatase 44 C-Reactive Protein 0.12 25-OH Vitamin D Total 47 Laboratory Tests 11/20/22 02/11/25 09:51 09:35 SS-A/Ro Antibody <1.0 NEG SS-B/La Antibody <1.0 NEG Complement C3 54 L 106 Complement C4 13 L 18 DEXA 11/2024 FINDINGS: The bone mineral density of the lumbar spine is 1.165 with a T-score of -0.1, and a Z-score of 1.0. This represents a BMD change of 9.3% compared to the prior exam. This is statistically significant. The bone mineral density of the left total hip is 0.922 with a T-score of -0.7, and a Z-score of 0.4. This represents BMD change of 1.5% compared to the prior exam. This is not statistically significant. The bone mineral density of the left femoral neck is 0.895 with a T-score of -1.0, and a Z-score of 0.3. This represents BMD change of 8.2% compared to the prior exam. Assessment & Plan Assessment & Plan (1) Rheumatoid arthritis involving both elbows with negative rheumatoid factor: Comment: Seronegative diagnosed around 1999 HCQ: Ineffective MTX all through, switched from subcu to oral around 2014 Humira 2009 to 2013 ineffective Cimzia 2017 to 2018 ineffective Leflunomide 2015 to 2017 neuropathy,SSZ allergy, Orencia 2018 ineffective and caused fatigue. Xeljanz somewhat effective but stopped in 2020 Actemra 2020 hypertension and diverticulitis MTX increased form 15 mg to 20 mg 05/10 partially effective, advanced to SQ 25 mg 10/2023 Simponi Aria started 09/2024 effective Code(s): M06.021 - Rheumatoid arthritis without rheumatoid factor, right elbow; M06.022 - Rheumatoid arthritis without rheumatoid factor, left elbow Category: Medical Plan: #Seronegative RA Patient is a 69-year-old female with seronegative rheumatoid arthritis currently on Simponi Aria infusions, subcutaneous methotrexate and weekly leucovorin as well as daily folic acid here today for follow up. Rheumatoid arthritis is currently in remission/low disease activity on examination with no evidence of synovitis. She does have intermittent flares which she manages with topical heat and sometimes Celebrex but this is infrequently. Doing well on the Simponi infusions we will continue. Plan - Simponi Aria infusions 2mg/kg every 8 weeks - Methotrexate 25mg SC every week - Folic acid 2mg daily PO - Leucovorin 5mg weekly PO - RTC 4 months - Labs before visit: CBC, CMP, ESR, CRP (2) Pseudogout: Code(s): M11.20 - Other chondrocalcinosis, unspecified site Category: Medical Plan: #Pseudogout September 2021 had 1 month low grade discomfort right knee then acute swelling and severe pain.? Arthrocentesis showing hemarthrosis. 37,000 WBCs and rare intracellular CPPD crystals.? She does not seem to have had another flare. Will continue to monitor. If concern for recurrent flares may benefit from colchicine (3) Osteopenia: Comment: DEXA 11/2022: AP spine -0.9, Left femur neck -1.5, Left femur total -0.8. FRAX 29.2/4.8 Alendronate started 11/2022 DEXA 11/2024: AP spine -0.1, Left femur neck -1.0, Left femur total -0.7. Normal BMD Code(s): M85.80 - Other specified disorders of bone density and structure, unspecified site Category: Medical Qualifiers: Osteopenia location: hip Laterality: bilateral Qualified Code(s): M85.851 - Other specified disorders of bone density and structure, right thigh; M85.852 - Other specified disorders of bone density and structure, left thigh Plan: #Osteopenia Currently on alendronate with repeat DEXA scan done 11/2024 showing improvement in her bone density. We will continue the alendronate for a total of 5 years and then go on a drug holiday. 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 Limit alcohol and avoid Bactrim ? Monitoring: ?CBC, BMP, LFTs every 3-4 months and hepatitis serologies as needed (5) Encounter for monitoring bisphosphonate therapy: Code(s): Z51.81 - Encounter for therapeutic drug level monitoring; Z79.83 - laborer marine [employer] (current) use of bisphosphonates Plan: #Long-term Use of Bisphosphonates Risks and benefits of bisphosphonates in the management of osteoporosis Benefits include improved bone density, decreased fracture risk Risks include atypical femoral fractures, GI upset, esophageal strictures Contraindicated in patients with a creatinine clearance < 30 to 35 ml/min Keep vitamin-D at least 35 ng/mL (6) Long-term current use of immunosuppressive biologic agent: Code(s): Z79.620 - laborer marine [employer] (current) use of immunosuppressive biologic Plan: #Long-term Use of TNF Inhibitors: Kary Saucedo Discussed with the patient the benefits and risks of TNF inhibitors for the management of the rheumatic condition Benefits include reduce pain, maintenance of remission and reduction of flares as well as ?progression of the disease Risks include injection sites/infusion reactions, serious infections (such as bacterial infections, opportunistic infections), malignancy, delaminating syndromes, autoimmune phenomena, CHF exacerbations, palmar plantar psoriasis and cytopenias Recommended rotating injection sites, and holding medication during and for up to 1 week after resolution of a febrile illness or open skin wound Plan I spent 30 minutes reviewing the record and labs, taking a history, examining the patient, discussing the treatment plan, ordering diagnostic work up and documenting in the medical record Coding Level of Care Code Est Pt Level 4 (55308) Complex EM visit Add On G2211 Diagnoses Rheumatoid arthritis involving both elbows with negative rheumatoid factor M06.021; M06.022 Pseudogout M11.20 Osteopenia of both hips M85.851; M85.852 Osteopenia location: hip Laterality: bilateral 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
--- OUTSIDE RECORDS SUMMARY | 2025-06-17 13:11 | XMS_ITS | Clinical Summary ---
Author Organization [facility] Address [address] [place] [address] Care Team Providers Care Auto Body Builder Apprentice Name Role Phone Eloisa Andrade Primary Care Provider [phone] Allergies Active Allergy Reactions Criticality Noted Date [...] patient's age to complete this topic Insurance [facility] Care Teams Auto Body Builder Apprentice Relationship Specialty Start Date End Date Eloisa Andrade [address] [place] [id number] PCP - General Family Medicine 02/24/21
--- OUTSIDE RECORDS SUMMARY | 2025-06-17 13:11 | XMS_ITS | Encounter Summary ---
Author Organization [facility] Address [address] [facility] [address] [place] [phone] Phone Care Team Providers Care Esl Tutor Name Role Phone Rebeca Menendez MD Primary Care Provider [phone] Encounter Details Date Type Department Care Team (Late st Contact Info) Description 01/03/2023 Procedure Pass [facility], Ct Scan - [address] [address] Social History Tobacco Use Types Packs/Day Years Used Date Smoking Tobacco: Former Cigarettes 1 17 1 - 1985 Smokeless Tobacco: Never Alcohol Use Standard Drinks/Week Comments Not Currently 6 (1 standard drink = 0.6 oz pur e alcohol) Intimate Partner Violence Answer Date R ecorded Are you denied basic needs s uch as food, clothing, or medical care? No 01/03/2023 In the past 12 months have y ou been in a relationship with a person who hurts, threatens, or tries to control you? No 01/03/2023 Are you denied basic needs s uch as food, clothing, or medical care? No 01/03/2023 In the past 12 months have y ou been in a relationship with a person who hurts, threatens, or tries to control you? 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 Wish to be (Past 1 Month) No 01/03/2023 8:13 AM Silvia Shi RN 2. Non-Specific Active Suicidal Thoughts (Past 1 Month) No 01/03/2023 8:13 AM Silvia Shi RN 6. Suicidal Behavior (Lifetime) No 01/03/2023 8:13 AM Silvia Shi RN documented as of this encounter Plan of Treatment Not on file documented as of this encounter Visit Diagnoses Not on filedocumented in this encounter Additional Health Concerns Infection Onset Date Last Indicated Resolved Time CoV-Risk 01/03/2023 01/03/2023 01/03/2023 9:00 AM EST CoV-Exposed Comment:Positive COVID-19 01/03/2023 01/03/2023 01/03/2023 9:0 0 AM EST COVID-19 01/03/2023 01/03/2023 01/24/2023 1:21 AM EST documented as of this encounter Care Teams Esl Tutor Relationship Specialty Start Date End Date Rebeca Menendez MD [email or web address] PCP - General Family Medicine 04/03/22 documented as of this encounter Additional Source Comments The information contained in this document represents components of the legal health record. It is not the complete legal health record.[facility]
== END 2025-06-17 13:50 | disposition home or self-care (01) ==
LOC: HO.RHE 13:01
PROVIDERS: PCP Family Medicine; Visit Provider Student in an Organized Health Care Education/Training Program
DX: M06.02 Rheumatoid arthritis without rheumatoid factor, elbow (principal); M06.022 Rheumatoid arthritis without rheumatoid factor, left elbow; M11.20 Other chondrocalcinosis, unspecified site; M85.851 Other specified disorders of bone density and structure, right thigh; M85.852 Other specified disorders of bone density and structure, left thigh; Z79.631 Long term (current) use of antimetabolite agent; Z51.81 Encounter for therapeutic drug level monitoring; Z79.83 Long term (current) use of bisphosphonates; Z79.620 Long term (current) use of immunosuppressive biologic
CPT/HCPCS: 99214; G2211

== ENCOUNTER 2025-09-23 09:04 | Outpatient (REF) | payer OTHER, SELFPAY ==
--- OUTSIDE RECORDS SUMMARY | 2025-09-23 09:50 | XMS_ITS | Data Portability ---
Author Organization ELLA Octavio [facility], [facility] Address [address] [place] [address] Care Team Providers Care Community Outreach Director Name Role Phone ATILIOALEXA Primary Care Provider Assessment Encounter Date Assessment Date Assessment LastModified by Organization Details LastModified Time 07/27/2024 07/27/2024 Assessment: Bilateral thumb, right ring and small trigger fingers initial evaluation Plan: All affected digits are treated with cortisone injections today. She will follow-up for these problems on an as-needed basis. Understands that if recurrent after 2 injections, next step in treatment would be surgical release. 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 We have discussed today what would be involved with surgical reconstruction of the CMC joint when all conservative measures have been exhausted. She will follow-up for this problem on an as-needed basis. [email or web address] Not available 04/05/2025 10:25:39 Plan of Treatment Reminders Order Date Submit Date Provider Last Modified By Organization Details Last Modified Time Details Appointments None record ed. Lab None record ed. Referral None record ed. Procedures None record ed. Surgeries None record ed. Imaging XR, hand, 3 or more view - room 114 3V L TMJ 025 04/05/20 25 [facility], [address], [place], [address], 14:51:25 Medication Orders None record ed. Patient TargetsNo targets recorded. Patient InstructionsNo instructions recorded. Reason for Referral None Reported. Results Created Date Observation Date Name Description Value Unit Range Abnormal Flag Note LastModifiedBy Organization Detail LastModifiedTime 04/05/20 25 04/05/2025 XR, hand, 3 or more view http:/ [email or web address] ?Encry pted=s hAaTro YD8dLq bEUv6g %2BXZw aYqtaq 0bqfl% 2Fg9IQ a4ajBk vP9nXo QUaueC m3YtLR FvZlgJ JJ8mAn HZtai3 0t8777 AC0Kla 3%2BEV KahKiQ trMwF INTERFACE [facility] [address] [facility] [address], [place], [address], 04/05/2025 09:41:20 04/05/20 25 04/05/2025 XR, hand, 3 or more view http:/ [email or web address] ?Encry pted=s hAaTro YD8dLq bEUv6g %2BXZw aYqtaq 0bqfl% 2Fg9IQ a4ajBk vP9nXo QUaueC m3YtLR FvZlgJ JJ8Bevington HZtai3 9j6441 AC0Kla 3%2BEV KahKiQ trMwF INTERFACE [facility] [address] [facility] [address], [place], [address], 04/05/2025 09:41:21 Result Notes Documentation Provider Name and Address Organization Details Recorded Time Xr, Hand, 3 Or More View : [email or web address] Encrypted=coXlKbqBF6iNrlI Uv6g%2MQBcdLptmq1tzaw%2Fg 0IYc5dbBxqW3yJiGTxdtTq5Lb AVFgUrzEMQ8nDuORsxm71d039 2DL4Cmh2%2BEVKahKiQtrMwF Not Available [facility] 04/05/2025 09:4 1:20 Xr, Hand, 3 Or More View : [email or web address] Encrypted=pkViGxjRH8oTyoZ Uv6g%1VVUrbShzbz2iyjq%2Fg 9VZa3ztJnoH4gGjPSnznKa8Ag UURaYkwWUP4gAaCSjax10k689 2EP6Hfe1%2BEVKahKiQtrMwF Not Available [facility] 04/05/2025 09:4 1:21 Problems Name Problem SNOMED Code Status Onset Date Resolution Date Notes Provider Name and Address Organization Details Recorded Time No complaint s 588524080 Active Status: 'I'; Not Available [facility] 4 09:17:28 Bilateral carpal tunnel syndrome 689900681598 73203 Active 2016 Problem Code: G56.03; Problem Code Type: ICD-10; Status: 'A'; Not Available [facility] 4 11:13:26 Problem Notes None recorded. Procedures Surgical History Date Name Laterality Status Provider Name and Address Organization Details Recorded Time 5 JZCMC Inj completed Alexa Aviles MD [address], [address], [facility] 04/05/2025 10:24:50 4 Trigger Finger Kenalog Injection completed Alexa Aviles MD [address], [address], [facility] 07/27/2024 16:24:14 Imaging Results None recorded. Procedure Notes None recorded. Medical Equipment None Reported. Allergies Allergen ID Allergen Name Allergen Category Reaction Reaction Severity Criticality Documentation Date Start Date Code Code System Note Provider Name and Address Organization Details Recorded Time 731782 Substance with sulfonami de structure and antibacte rial mechanism of action (substanc e) medicatio n Not available Not available Not available 07/27/2024 38713 8003 SNOMED [facility] 15:14:43 457507 Actemra medicatio n Not available Not available Not available 04/05/2025 70443 1 RxNorm YEFRI ste[place], [place] - [place] [facility] 5 09:34:14 680971 Sulfazine medicatio n Not available Not available Not available 04/05/2025 90458 90 RxNorm YEFRI [place], [place] - [place] [facility] 5 09:34:39 48734 Product containin g penicilli n (product) medicatio n Not available Not available Not available 01/20/20242016 42606 8001 SNOMED Aller gyRea ction : 'Skin React ion'; Not Available [facility] 4 13:16:37 11468 Reglan medicatio n Not available Not available Not available 01/20/20242018 9230 RxNorm Not Available [facility] 4 13:16:37 Medications Name Sig Start Date Stop Date Status Note LastModified by Organization Details LastModified Time cyclobenzapr ine 10 mg tablet TAKE 2 TABLETS BY MOUTH EVERY DAY IN THE EVENING active Not Available Not Available No t Available prednisone 10 mg tablet TAKE 4 TABLETS BY MOUTH ONCE DAILY WITH FOOD FOR 3 DAYS THEN DECREASE BY 1 TABLET EVERY 3 DAYS UNTIL ALL TAKEN active Not Available Not Available No t Available azithromycin 250 mg tablet active Not Available Not Available Not Available sumatriptan 100 mg tablet TAKE 1 TABLET BY MOUTH 1 TIME NEEDED FOR MIGRAINE HEADACHE active Not Available Not Available No t Available ondansetron HCl 4 mg tablet TAKE 1 TABLET BY MOUTH EVERY 8 HOURS active Not Available Not Available No t Available alendronate 70 mg tablet TAKE 1 TABLET BY MOUTH EVERY WEEK active Not Available Not Available No t Available moxifloxacin 400 mg tablet TAKE 1 TABLET BY MOUTH DAILY FOR 5 DAYS active Not Available Not Available N ot Available guaifenesin 200 mg tablet TAKE 1 TABLET BY MOUTH FOUR TIMES DAILY FOR 10 DAYS active Not Available Not Available Not Available methotrexate sodium 2.5 mg tablet TAKE 8 TABLETS BY MOUTH ONE DAY A WEEK active Not Available Not Available N ot Available benzonatate 100 mg capsule TAKE 1 CAPSULE BY MOUTH THREE TIMES DAILY FOR 7 DAYS active Not Available Not Available N ot Available brimonidine 0.2 % eye drops INSTILL 1 DROP INTO BOTH EYES TWICE A DAY active Not Available Not Available Not Available gabapentin 300 mg capsule TAKE 1 CAPSULE BY MOUTH DAILY AT BEDTIME active Not Available Not Available N ot Available leucovorin calcium 5 mg tablet TAKE 1 TABLET BY MOUTH EVERY WEEK active Not Available Not Available No t Available folic acid 1 mg tablet TAKE 2 TABLET BY MOUTH EVERY DAY active Not Available Not Available No t Available lisinopril 5 mg tablet TAKE 1 TABLET BY MOUTH DAILY active Not Available Not Available Not Available gabapentin 100 mg capsule TAKE 1 CAPSULE BY MOUTH THREE TIMES DAILY active Not Available Not Available Not Available albuterol sulfate HFA 90 mcg/actuatio n aerosol inhaler INHALE 2 PUFFS BY MOUTH PRIOR TO EXCERCISE NEEDED FOR SHORTNESS OF BREATH / WHEEZING. active Not Available Not Available No t Available celecoxib 100 mg capsule TAKE 1 CAPSULE BY MOUTH TWICE DAILY NEEDED FOR PAIN active Not Available Not Available No t Available ondansetron 4 mg disintegrati ng tablet DISSOLVE 1 TABLET ON THE TONGUE EVERY 6 HOURS NEEDED FOR NAUSEA OR VOMITING active Not Available Not Available No t Available lisinopril 2.5 mg tablet TAKE 1 TABLET BY MOUTH DAILY active Not Available Not Available Not Available methotrexate sodium (PF) 25 mg/mL injection solution active Not Available Not Available Not Available gabapentin Gabapentin 250MG/5ML Solution 2020 active Statu s: 'Curr ent'; Not Available Not Available Not Available TRUEplus Insulin 1 mL 30 gauge x 5/16 syringe active Not Available Not Available Not Available Linzess 145 mcg capsule TAKE 1 CAPSULE BY MOUTH DAILY 30 MINUTES BEFORE FIRST MEAL OF THE DAY ON AN EMPTY STOMACH active Not Available Not Available No t Available Vitals Date Recorded Body height Body mass index (BMI) Body weight Provider Name and Address Organization Details Last Updated DateTime 04/05/2025 162.56 cm 30 kg/m2 56037.66 g YEFRI MEDEIROS [facility] 04/05/2025 09:34:03 Date Recorded Body height Body mass index (BMI) Body weight Provider Name and Address Organization Details Last Updated DateTime 07/27/2024 162.56 cm 30.9 kg/m2 19538.63 g DEIDRA CARRANZA [facility] 07/27/2024 15:14:28 Social History None recorded. Functional Status None recorded. Mental Status None recorded. Family History Nothing Reported. Medical History No medical history recorded. Gynecological HistoryNo gynecological history recorded. Obstetrics History GPAL:G 0 P 0 0 0 0 Past Encounters Encounter ID Performer Location Encounter Start Date Encounter Closed Date Diagnosis/Indication Diagnosis SNOMED-CT Code Diagnosis ICD10 Code Diagnosis IMO Codes Diagnosis Note [id number] lAexa manriquez MD [facility] [place] [address] 07/27/2024 14:59:31 08/11/2024 11:21:04 Trigger finger of right hand 1654887739 8144066 M65.30 Trigger fi nger of left hand 5753625239 8445228 M65.30 [id number] MD [facility] [address] [place] [address] 04/05/2025 09:18:01 04/06/2025 14:51:25 Arthritis of first carpometacarpal joint of left hand 1179938691 672100 M18.12 [id number] Health Concerns Section Related Observation LastModified by Organization Detai ls LastModified Time None Recorded Concern Status LastModified by Organization Details LastModified Time None Recorded Advance Directives Directive None Recorded Payers Insurance Date Sequence Insurance Name Policy Number Policy Quintana Covered Member ID Quintana Member ID Guarantor Name 04/02/2025 1 [facility] [id number] Lashanda Kee [id number] Lashanda Kee Notes Date Note Type Note Provider Name and Address Organization Details Recorded Time 07/27/2024 text/html ROS as noted in the HPI 68 yo female known to me having undergone treatment for carpal tunnel syndrome in the past. I have not seen her since 2018 and she is here today with multiple trigger fingers including her right thumb right ring and small finger and left thumb. She has a new 06-sdjlh-qkb son and has difficulty lifting them because of the pain thumbs. Alexa Aviles MD [address], [place], [address], [facility] - [facility] 07/27/2024 16:24:28 04/05/2025 text/html ROS as noted in the HPI 69 yo female known to me having undergone treatment for carpal tunnel syndrome in the past. Last seen in July 2024 for multiple trigger fingers including her right thumb right ring and small finger and left thumb. Left thumb injection in July lasted for several months. Alexa Aviles MD [address], [place], [address], [facility] - [facility] 04/05/2025 10:25:55 OBGyn Episode No OBEpisode recorded.
--- OUTSIDE RECORDS SUMMARY | 2025-09-23 09:50 | XMS_ITS | Clinical Summary ---
Author Organization [facility] Address [address] [place] [address] Care Team Providers Care Gang Knife Fish Chopper Name Role Phone Eloisa Andrade Primary Care Provider [phone] Allergies Active Allergy Reactions Criticality Noted Date [...] Vaccines (1 - Tdap) [address] Lung Cancer Screening (Baseline) 2004 Osteoporosis Screening 2004 Pneumococcal Vaccine: 50+ Ye ars (1 of 1 - PCV) 2004 Zoster Vaccines (1 of 2) 2004 Alcohol/Substance Use Screening 11/18/2024 Health Care Proxy Review 11/18/2024 COVID-19 Vaccine (1 - 2024-2 6 season) 2025 Influenza Vaccine (#1) 2025 RSV Vaccine (60+ years old a nd patients) (1 - 1-dose 75+ series) 2029 Hepatitis B Vaccines Aged Out No long er eligible based on patient's age to complete this topic Insurance [facility] Care Teams Gang Knife Fish Chopper Relationship Specialty Start Date End Date Eloisa Andrade [address] [place] [address] PCP - General Family Medicine 02/24/21
--- OUTSIDE RECORDS SUMMARY | 2025-09-23 09:50 | XMS_ITS | Encounter Summary ---
Author Organization [facility] Address [address] [facility] [address] [place] [address] Phone Care Team Providers Care Meat Soaker Name Role Phone Rebeca Menendez MD Primary Care Provider Encounter Details Date Type Department Care Team (Late st Contact Info) Description 08/17/2022 Procedure Pass [facility], Ct Scan - [address] [address] Social History Tobacco Use Types Packs/Day Years Used Date Smoking Tobacco: Former Cigarettes 1 17 1 - 1985 Smokeless Tobacco: Never Alcohol Use Standard Drinks/Week Comments Not Currently 6 (1 standard drink = 0.6 oz pur e alcohol) Comments Unknown Sex and Gender Information Value Date Recorded Sex Assigned at Female 07/01/2022 9:16 AM EDT Legal Sex Female 9:56 PM EDT Gender Identity Female 07/01/2022 9:16 AM EDT Sexual Orientation Lesbian or Canela 07/01/2022 9: 16 AM EDT 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 Wish to be (Past 1 Month) No 022 8:39 AM EDT Jaxson Lopez RICHIE 2. Non-Specific Active Suici cortney Thoughts (Past 1 Month) No 08/17/2022 8:39 AM EDT Jose Lopez RN 6. Suicidal Behavior (Lifetime) No 8:39 AM EDT Jaxson Lopez, RICHIE documented as of this encounter Plan of Treatment Not on file documented as of this encounter Visit Diagnoses Not on filedocumented in this encounter Additional Health Concerns Infection Onset Date Last Indicated Resolved Time CoV-Risk 01/03/2023 01/03/2023 01/03/2023 9:00 AM EST CoV-Exposed Comment:Positive COVID-19 01/03/2023 01/03/2023 01/03/2023 9:0 0 AM EST COVID-19 01/03/2023 01/03/2023 01/24/2023 1:2 1 AM EST documented as of this encounter Care Teams Meat Soaker Relationship Specialty Start Date End Date Rebeca Menendez MD [email or web address] PCP - General Family Medicine 04/03/22 documented as of this encounter Additional Source Comments The information contained in this document represents components of the legal health record. It is not the complete legal health record.[facility]
--- OUTSIDE RECORDS SUMMARY | 2025-09-23 09:50 | XMS_ITS | Encounter Summary ---
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 It is not the complete legal health record.[facility]
--- OUTSIDE RECORDS SUMMARY | 2025-09-23 09:50 | XMS_ITS | Encounter Summary ---
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 Not on file Not on file documented as of this encounter Functional Status * Calculated C-SSRS Risk Score (Lifetime/Recent) Answer Date of Assessment Author No Risk Indicated 01/03/2023 8:13 AM Fatoumata Lemus RN * [place] Suicide Severity Rating Scale (Screener/Recent Self-Report) Question [...] documented as of this encounter Care Teams Personal Injury Specialist Relationship Specialty Start Date End Date Rebeca Menendez MD [email or web address] PCP - General Family Medicine 04/03/22 documented as of this encounter Additional Source Comments The information contained in this document represents components of the legal health record. It is not the complete legal health record.[facility]
--- OUTSIDE RECORDS SUMMARY | 2025-09-23 09:50 | XMS_ITS | Encounter Summary ---
Author Organization [facility] Address [address] [place] [address] Phone Care Team Providers Care Block Feeder Name Role Phone Rebeca Menendez MD Primary Care Provider [phone] Encounter Details Date Type Department Care Team ([facility] st Contact Info) Description 05/15/2022 Transcribe Orders [address] [address] Rebeca Menendez MD [address] [place] [address] [email or web address] Social History Tobacco Use Types Packs/Day Years Used Date Smoking Tobacco: Former Cigarettes 1 17 1 - 1985 Smokeless Tobacco: Never Alcohol Use Standard Drinks/Week Comments Yes 5 (1 standard drink = 0.6 oz pur e alcohol) ~3-4 drinks/wk Comments Unknown Sex and Gender Information Value Date Recorded Sex Assigned at Female 07/01/2022 9:16 AM EDT Legal Sex Female 9:56 PM EDT Gender Identity Female 07/01/2022 9:16 AM EDT Sexual Orientation Lesbian or Canela 07/01/2022 9: 16 AM EDT 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 It is not the complete legal health record.[facility]
--- OUTSIDE RECORDS SUMMARY | 2025-09-23 09:51 | XMS_ITS | Clinical Summary ---
Author Organization [facility] Address [address] [place] [id number] Phone Care Team Providers Care Manager Service Desk Name Role Phone Rebeca Menendez MD Primary Care Provider [phone] Allergies Active Allergy Reactions Criticality Noted Date Comments Tocilizumab 01/22/2024 Metoclopramide Hcl Rash Medium 03/28/2021 Severe itching with this Penicillins Hives Medium 10/25/2017 Pt has tolerated cephalosporins per her report Sulfa (Sulfonamide Antibiotics) Rash Medium 03/28/2021 Sulfasalazine Rash Medium 03/28/2021 Medications SUMAtriptan (IMITREX) 100 MG tablet Take 100 mg by mouth as needed for migraine (on occ). Active folic acid (FOLVITE) 1 MG tablet Take 2,000 mcg by mouth. 01/27/20 21 Active ondansetron (ZOFRAN-ODT) 4 MG disintegrating tablet DISSOLVE 1 TABLET ON THE TONGUE THREE TIMES DAILY NEEDED FOR NAUSEA 12/08/19 21 Active cyanocobalamin, vitamin B-12, 250 MCG tablet Take 250 mcg by mouth daily. Active magnesium oxide (MAG-OX) 400 mg (241.3 mg elemental) tablet Take 400 mg by mouth. 05/23/20 22 Active acetaminophen (TYLENOL) 500 MG tablet Take 2 tablets (1,000 mg total) by mouth every 8 (eight) hours. 0 07/04/20 22 Active senna (SENOKOT) 8.6 mg tablet Take 1 tablet by mouth daily as needed for constipatio n. 07/04/20 Active cyclobenzaprine (FLEXERIL) 10 MG tablet Take 20 mg by mouth nightly at bedtime. 07/31/20 Active methotrexate 2.5 MG Oral tablet Take 2.5 mg by mouth every 7 days. 6 tabs po 1x week 07/28/20 Active cyanocobalamin/fol ic acid (VITAMIN G41-PRURV ACID) 1,000-400 mcg Lozg Take 1,000 mcg by mouth. 05/23/20 Active cholecalciferol (VITAMIN D3) 25 MCG (1,000 unit) tablet Take 2,000 Units by mouth daily. Active celecoxib (CELEBREX) 100 MG capsule Take 100 mg by mouth 2 (two) times a day. Active methotrexate sodium, PF, 25 mg/mL injection Inject into the vein once. Active linaCLOtide (LINZESS) 145 mcg CapIndications:Gas troesophageal reflux disease TAKE 1 CAPSULE BY MOUTH DAILY 30 MINUTES BEFORE FIRST MEAL OF THE DAY ON AN EMPTY STOMACH 90 capsule 3 09/13/20 25 Active LINZESS 145 mcg Cap TAKE 1 CAPSULE BY MOUTH EVERY DAY 30 MINUTES BEFORE FIRST MEAL OF THE DAY ON AN EMPTY STOMACH 11/06/20 23 025 Discontinued Active Problems Problem Noted Date Diagnosed Date History of revision of total knee arthroplasty 0 08/14/2022 Overview (08/14/2022): Converted left knee replacement to total knee replacement, resurfaced the patella only Seronegative rheumatoid arthritis 10/25/2017 Assessment & Plan (06/11/2022 3:35 PM EDT): The patient has already been advised by her tromper to stop her Tocilizumab and methotrexate 2 weeks prior to surgery. She will continue to hold them 2 weeks after surgery as well. She should stop her Celebrex at least 1 week prior to surgery Type 2 diabetes mellitus Assessment & Plan (06/11/2022 3:34 PM EDT): The patient has a history of diet-controlled diabetes. She currently has a hemoglobin A1c of 6.1 which is not in the diabetic range. She should have a consistent carbohydrate diet. Migraine Assessment & Plan (06/11/2022 3:33 PM EDT): She has not doing frequent migraines. Sumatriptan works when she needs it. There may be an increased risk of PONV. Resolved Problems Problem Noted Date Diagnosed Date Resolved Date Preop examination 06/11/2022 08/14/2022 Assessment & Plan (06/11/2022 3:33 PM EDT): 66-year-old patient of Dr. Menendez and Dr. Dueñas for elective left knee revision on July 04. Her risk factor scores are as follows. STOP BANG score is low at 2 low risk for sleep apnea. Her RCRI score is 0.4%, indicating a very low risk of cardiovascular event including CHF and arrhythmia. Her Vazquez cardiovascular risk or is also 0.2% for an event perioperatively or in the first 30 days. The NSQIP cardiovascular risk score is also congruent at 0.1%. She is below risk all surgical issues on this comprehensive scale. Her blood work shows a hemoglobin A1c of 6.1, and unremarkable CBC, and unremarkable BMP with a creatinine of 0.8. The EKG today shows normal sinus rhythm without evidence for acute or prior ischemia. She can go forward for the operation without any further work-up. She should have standard DVT prophylaxis. 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 Most importantly for this patient she has already been tromper who told her to stop the Tocilizumab and methotrexate 2 weeks prior to the surgery. She will hold them for 2 weeks after the surgery as well. Patient knows also to hold her Celebrex at least 1 week prior to surgery. May be at high risk of PONV given her history of migraine but does not describe this is a significant problem with her prior surgeries. 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 Her asthma symptoms also just about completely resolved. She does continue to take pracalopride 2mg (Motegrity) daily, she will need to bring that medication in as it is not on formulary. Encounters Date Type Department Care Team Description 09/10/2025 Refill [facility] [address] [place] [id number] Ruthy Sutton CNP Medication Refill from Last 3 Months Immunizations Immunization Administration Dates Next Due COVID-19 (Pre-09/09) Moderna Vaccine, mRNA, PF 0 12/16/2020,11/16/2020 Family History Medical History Relation Comments No Known Problems Brother Alcohol abuse Father Estranged Liver cancer Mother Primary HCC Alcohol abuse Sister Cardiomyopathy Sister Drug abuse Sister Relation Status Comments Brother Alive Father (Age 60) Mother (Age 60) Sister Alive Social History Tobacco Use Types Packs/Day Years Used Date Smoking Tobacco: Former Cigarettes 1 17 1 - 1985 Smokeless Tobacco: Never Alcohol Use Standard Drinks/Week Comments Not Currently 6 (1 standard drink = 0.6 oz pur e alcohol) Education Answer Date Recorded Are you interested in more education? Not on anne e 03/15/2023 Are you concerned about learning? Not on file 03/15/2023 No 03/15/2023 No 03/15/2023 Digital Access Answer Date Recorded No 04/15/2023 No 04/15/2023 No 04/15/2023 Reliable internet access at home? Not on file 04/15/2023 Device with a working camera? 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 Not on file Not on file Last Filed Vital Signs Vital Sign Reading Time Taken Comments Blood Pressure 116/95 01/03/2023 9:04 AM EST Pulse 68 01/03/2023 10:00 AM EST Temperature 36.4 C (97.5 F) 01/03/2023 8:11 AM EST Respiratory Rate 13 01/03/2023 10:00 AM EST Oxygen Saturation 100% 01/03/2023 10:00 AM EST Inhaled Oxygen Concentration - - Weight 81.6 kg (180 lb) 01/03/2023 8:11 AM EST Height 162.6 cm (5' 4 ) 01/03/2023 8:11 AM EST Body Mass Index 30.9 01/03/2023 8:11 AM EST Plan of Treatment Health Maintenance Due Date Last Done Comments Adult Td,Tdap Booster 1954 BLOOD PRESSURE 1954 DEPRESSION SCREENING 1966 SMOKING Hx and SMOKELESS TOBACCO SCREENING 1967 HEPATITIS C SCREENING 1972 LIPID PANEL 1972 MAMMOGRAM 1994 COLOGUARD 1999 COLONOSCOPY 1999 COLORECTAL CANCER SCREENING 1999 FIT TEST 1999 FOBT 1999 SIGMOIDOSCOPY 1999 VIRTUAL COLONOSCOPY 1999 DIABETIC EYE EXAM 10/28/2017 URINE MICROALBUMIN/CREATININE RATIO 10/28/2017 ZOSTER VACCINES (2 of 2) 05/08/2019 03/13/2019, 11/18 OSTEOPOROSIS SCREENING INITIAL (ONE-TIME) 2019 HEMOGLOBIN A1C 11/14/2022 05/15/2022 INFLUENZA VACCINE (#1) 2025 3, 08/20/2022, 08/15/2021, Additional history exists COVID-19 VACCINE ( season) 2025 08/05/2023, 08/20/2022, 02/16/2022, Additional history exists PNEUMOCOCCAL VACCINES (50+ years) Completed 09/20/2020, 05/09/2016 RSV VACCINE Completed 11/07/2023 HEPATITIS A VACCINES Aged Out No long er eligible based on patient's age to complete this topic HIB VACCINES Aged Out No longer eligi ble based on patient's age to complete this topic MENINGOCOCCAL VACCINES (ACWY) Aged Out No longer eligible based on patient's age to complete this topic MENINGOCOCCAL VACCINES (B) Aged Out N o longer eligible based on patient's age to complete this topic Medical Devices Implanted Type Area Roll Tender Device Identifier Shelf Expiration Date Model / Serial / Lot Knee Implant [id number] Patella Asymmetric Triathlon 06 - [id number] Implanted:Qty: 1 on 07/04/2022 by Jamaal Dueñas MD at [facility] STANDARD Left: Knee [employer] 11/05/2026 [id number] / / [id number] Cement Bone 1x40 Standard - [id number] Implanted:Qty: 1 on 07/04/2022 by Jamaal Dueñas MD at [facility] Left: Knee [employer] / [employer] 07/18/2024 [id number] / / [id number] Triathlon X3 Tibial Bearing Insert - Cs Size 4, Typ Cs, Thkns 11mm Implanted:Qty: 1 on 07/04/2022 by Jamaal Dueñas MD at [facility] Left: Knee [employer] 06/21/2026 [id number] / / [id number] Procedures Procedure Name Priority Date/Time Associated Diagnosis Comments HEMOGLOBIN A1C Routine 05/15/2022 9:02 AM EDT History of total knee arthroplasty, bilateral Preoperative testing from Last 3 Months or Most Recently Relevant to Health Maintenance Results * (ABNORMAL) Hemoglobin A1c (05/15/2022 9:02 AM EDT) HEMOGLOBIN A1C 6.1(H) 4.3 - 5.8 % [facility] Blood 05/15/2022 9:02 AM EDT 05/15/2022 9:07 AM EDT us Albino Garcia PA-C LAB BLOOD BKR ORDERABLES Final Result [facility] [address] [place] [address] from Last 3 Months or Most Recently Relevant to Health Maintenance Insurance S MEDICARE A [facility] MEDICARE A [address] [place] [address] [facility] MEDICARE A S MEDICARE A [place] [address] [place] [address]S MEDICARE A [facility] MEDICARE A [facility] MEDICARE A [facility] MEDICARE A Advance Directives For more information, please contact: [phone] (9AM - 5PM Ann Marie/[facility], Saturday-Saturday) * Full Code (Latest Code Status on File) Date Activated Date Inactivated Comments 07/04/2022 6:58 AM Question Answer Comments Code Status Confirmed With: Patient Care Teams Manager Service Desk Relationship Specialty Start Date End Date Rebeca Menendez MD PCP - General Family Medicine 04/03/22 Additional Source Comments The information contained in this document represents components of the legal health record. It is not the complete legal health record.[facility]
--- OUTSIDE RECORDS SUMMARY | 2025-09-23 09:51 | XMS_ITS | Encounter Summary ---
Author Organization [facility] Address [address] [place] [id number] Phone Care Team Providers Care Sintering Press Operator Name Role Phone Eloisa Andrade DO Primary Care Provider Rebeca Menendez MD Primary Care Provider [phone] Encounter Details Date Type Department Care Team (Latest Contact Info) Description 09/17/2018 Transcribe Orders [facility] [address] [place] [address] Jamaal Abad MD [address] [facility] 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 Not on file Not on file documented as of this encounter Plan of Treatment Not on file documented as of this encounter Results * Lipase (09/17/2018 2:15 PM EDT) LIPASE 31 16 - 63 U/L [facility] Blood 09/17/2018 2:15 PM EDT 09/17/2018 2:18 PM EDT us Jamaal Abad MD LAB BLOOD BKR ORDERABLES Final Result Performing Organization Address City/State/[facility] Co de Phone Number [address] [address] * (ABNORMAL) Comprehensive metabolic panel (09/17/2018 2:15 PM EDT) SODIUM 142 133 - 146 mmol/L [facility] POTASSIUM 4.9 3.3 - 5.1 mmol/L [facility] CHLORIDE 101 96 - 108 mmol/L [facility] CO2 29 21 - 35 mmol/L [facility] BUN 19 6 - 19 mg/dL [facility] CREATININE 0.90 0.5 - 1.5 mg/dL [facility] GLUCOSE 109(H) 70 - 99 mg/dL [facility] ALBUMIN 4.7 3.9 - 4.8 g/dL [facility] TOTAL PROTEIN 7.7 6.5 - 8.0 g/dL [facility] CALCIUM 9.7 8.4 - 10.3 mg/dL [facility] ALKALINE PHOSPHATASE 56 39 - 117 U/L [facility] TOTAL BILIRUBIN 0.2 0.0 - 1.2 mg/dL [facility] AST 16 0 - 37 U/L [facility] ALT 11 0 - 40 U/L [facility] GLOBULIN 3.0 1 - 4.8 g/dL [facility] EGFR 68 >59 mL/min/1.7 3m2 [facility] Comment:If patient is black, multiply result by 1.159. Estimated glomerular filtration rate calculated using the CKD-EPI equation. ANION GAP 17 10 - 20 mmol/L [facility] Blood 09/17/2018 2:15 PM EDT 09/17/2018 2:18 PM EDT us Jamaal Abad MD LAB BLOOD BKR ORDERABLES Final Result [facility] [address] [place] [address] documented in this encounter Visit Diagnoses Diagnosis Abdominal pain, epigastric- Primary documented in this encounter Additional Health Concerns Infection Onset Date Last Indicated Resolved Time CoV-Risk 01/03/2023 01/03/2023 01/03/2023 9:0 0 AM EST CoV-Exposed Comment:Positive COVID-19 01/03/2023 01/03/2023 01/03/2023 9:0 0 AM EST COVID-19 01/03/2023 01/03/2023 01/24/2023 1:21 AM EST documented as of this encounter Care Teams Sintering Press Operator Relationship Specialty Start Date End Date Eloisa Andrade DO [address] [place] [address] [email or web address] PCP - General Family Medicine 10/24/17 04/02/22 Rebeca Menendez MD [address] [place] [address] [email or web address] PCP - General Family Medicine 04/03/22 documented as of this encounter Additional Source Comments The information contained in this document represents components of the legal health record. It is not the complete legal health record.[facility]
[2025-09-23 10:35] LABS: MANUAL DIFF FLAG NO
[2025-09-23 10:43] LABS: Hematocrit 37.7 % (37.0-47.0); Hemoglobin 12.3 g/dl (12.0-16.0); Imm Gran Abs Auto 0.02 X10*3/uL (0.00-0.03); Imm Gran Pct Auto 0.3 % (0.0-0.4); Lymphocytes Absolute Auto 1.2 X10*3/uL (1.2-4.9); Mean Corpuscular HGB Conc 32.6 g/dl (31.0-35.0); Mean Corpuscular Hemoglobin 32.9 pg (27.0-33.0); Mean Corpuscular Volume 100.8 fL (80.0-98.0); NRBC Abs Auto 0.000 X10*3/uL (0.0-0.012); NRBC Pct Auto 0.0 /100WBC (0.0-0.2); Platelet Count 235 X10*3/uL (160-400); Red Blood Count 3.74 X10*6/uL (4.20-5.50); White Blood Count 6.9 X10*3/uL (4.8-10.8)
[2025-09-23 11:01] LABS: Alanine Aminotransferase 43 U/L (0-31); Albumin Level 4.4 g/dL (3.5-5.0); Alkaline Phosphatase 47 U/L (39-117); Anion Gap 12 (12-20); Aspartate Amino Transferase 35 U/L (5-31); Blood Urea Nitrogen 27 mg/dL (9-16); Calcium 9.2 mg/dL (8.4-10.2); Carbon Dioxide 25 mmol/L (22-29); Chloride 108 mmol/L (96-108); Estimated Glomerular Filt Rate > 60; Potassium 4.6 mmol/L (3.3-5.1); Sodium 140 mmol/L (135-145); Total Protein 6.8 g/dL (6.5-8.0)
== END 2025-09-23 09:05 | disposition home or self-care (01) ==
LOC: HO.10HDL 09:04
PROVIDERS: Visit Provider Student in an Organized Health Care Education/Training Program
DX: Z79.899 Other long term (current) drug therapy (principal)
CPT/HCPCS: 36415; 80053; 82306; 85025; 85652; 86140

== ENCOUNTER 2025-10-13 12:45 | Outpatient (AMB) | payer OTHER, SELFPAY ==
--- OUTSIDE RECORDS SUMMARY | 2014-07-21 03:45 | XMS_ITS | Continuity of Care Document ---
Author Organization [facility] Address [address] [place] [address] Phone Care Team Providers Care Warehouse Order Puller Name Role Phone Mor Ashton PA-C Unavailable Unavailable Allergies, Adverse Reactions, Alerts Substance Reaction Status Criticality Penicillins Active No Information Medications Medication Instructions Dosage Effective Dates (start - stop) Status Comments CELEBREX (unknown strength) Not Available - Active FLEXERIL (unknown strength) Not Available - Active FOLIC ACID (unknown strength) Not Available - Active DEXILANT (unknown strength) Not Available - Active METHOTREXATE (unknown strength) Not Available - Active PROGESTERONE (unknown strength) Not Available - Active Procedures Procedure Date BIOPSY, SKIN LESION DESTROY BENIGN/PREMLG LESION OFFICE/OUTPATIENT VISIT, [facility] TISSUE EXAM BY PATHOLOGIST Advance Directives Directive Yes / No Effective Date File Name Resuscitation Not Answered N/A N/A Life Support Not Answered N/A N/A Intubation Not Answered N/A N/A Antibiotics Not Answered N/A N/A IV Fluid Support Not Answered N/A N/A Tube Feed Not Answered N/A N/A Other Directive N/A N/A WARNING:The information contained in this section is historical and is provided for information only and does not constitute a legal document or any assurance that the information is still accurate. Please verify the information with the simeon of the legal document before using it for clinical purposes. Encounters Encounter Description Practice Location Reason(s) For Visit Diagnoses Date Provider Providers Copied on Encounter OFFICE/OUTPA TIENT VISIT, [facility], [address] [place], [address], [place] tel:[phone] [place] lesion(s) (chief complaint) Neoplasm of uncertain behavior of skinActinic keratosisBen ign neoplasm of skin of trunk, except scrotumOther seborrheic keratosis Jul- 4 Daisha Mor. [address] [place], [address]. tel:[phone] [facility], [address] [place] [address] [place], [address], [place] tel:[phone] [facility] No Information 4 Nelia Barahona. [address] [place], [place], [id number]. tel:[phone] Referring Provider: Julian Wheeler, [address] [place], [address]. tel:[phone] Family History Family Member Type Diagnosis Age At Onset No Information Payers Payer name Insurance type Covered libertarian ID Authoriza tion(s) [facility] [id number] Social History Type Description Quantity Date Captured Comments Alcohol Use Details Unknown Caffeine Use Details Unknown Tobacco Use Status No Information Smoking Status Never smoker Non-Smoking Tobacco Use Details : No Details Available : No Details Available Sex Female Chief Complaint And Reason For Visit From encounter dated 07/21/2014 08:45'. lesion(s) (chief complaint) Reason For Referral Reason For Referral No Information History Of Present Illness Encounter Date Complaint History Of Prese nt Illness No Information Functional Status Date Functional Assessmen t No Information Instructions Date Instruction Additional Infor mation Discussed risks/benefits/side ef fects of treatment Patient understood a nd made an informed decision regarding treatment skin biopsy Patient understood a nd made an informed decision regarding treatment skin biopsy Discussed risks/benefits/side ef fects of treatment Discussed treatment options of L n2 vs topicals Patient understood a nd made an informed decision regarding treatment Use sunscreen with > 30 SPF AKs No significant findi ngs upon exam, patient was reassured Avoid sun exposure Avoid tanning Use sunscreen with > 30 SPF moles No significant findi ngs upon exam, patient was reassured Patient understood a nd made an informed decision regarding treatment SKs Discussed risks/benefits/side ef fects of treatment Assessments Type Assessment Date No Information Mental Status Date Cognitive Assessment Orientation - [place] ed to time, place, person, situation. Patient Care Teams Name Effective Dates (start - stop) Status Members No Information
--- NOTE | 2025-10-13 12:50 | A.OFFVIS_ITS ---
Vital Signs 10/13/25 12:55 Height 5 ft 4 in Weight 179 lb 14.355 oz BMI 30.9 BP 122/70 Blood Pressure Location Lt brachial Position Sitting Pulse 87 Pulse Source Pulse Oximeter Pulse Oximetry (%) 98 Oxygen Delivery Method Room Air Intake Visit Reasons: f/u RA Intake Note: Patient presents for RA follow up. Allergies metoclopramide (From Reglan) Allergy (Severe, Verified 10/13/25 12:54) Itching Sulfa (Sulfonamide Antibiotics) Allergy (Intermediate, Verified 10/13/25 12:54) Itching sulfasalazine Allergy (Intermediate, Verified 10/13/25 12:54) Itching Penicillins Allergy (Unknown, Verified 10/13/25 12:54) unknown tocilizumab (From Actemra) Adverse Reaction (Severe, Verified 10/13/25 12:54) Hypertension, Nausea, Anorexia, Diverticultis Medication List - Last Reconciled 10/13/25 by Claudine Drake MD alendronate 70 mg PO QWEEK brimonidine 0.2% 0 drps ophthalmic (eye) celecoxib 100 mg PO DAILY cholecalciferol (vitamin D3) 50 mcg PO DAILY cyanocobalamin (vitamin B-12) 1,000 mcg PO DAILY cyclobenzaprine 20 mg PO BEDTIME folic acid 2 mg (2 x 1 mg) PO DAILY gabapentin 300 mg PO DAILY PRN insulin syringe-needle U-100 (TRUEplus Insulin) USE ONCE WEEKLY WITH METHOTREXATE DIRECTED leucovorin calcium 5 mg PO QWEEK linaclotide (Linzess) 145 mcg PO QAM lisinopril 2.5 mg PO DAILY methotrexate sodium (PF) 15 mg (0.6 mL) subcut QWEEK 30 days ondansetron 4 mg PO Q8H PRN rosuvastatin 20 mg PO DAILY sumatriptan succinate take 1 tab at onset of headache; if no relief, may repeat 1 tab after at least 2 hrs; max = 2 tabs/24 hrs orally PRN; HPI Comments Details: Patient is a 70-year-old female with osteopenia, pseudogout and seronegative rheumatoid arthritis Interval History: Patient last seen 06/17/25 with me - On Simponi infusions, MTx and leucovorin with folic acid - Doing well overall - Finally got the insurance to approve the infusion costs! - C/o right hip pain - Feels more achy about 1-2 weeks before the medication is due - Has chronic trigger finger in the left hand Today - On Simponi infusions 2mg/kg every 4 weeks, MTx 15mg SC weekly and leucovorin 5 mg weekly with folic acid 2mg daily and alendronate 70mg weekly - Rheumatoid Arthritis: Managed via infusions and methotrexate, with dose reduction to 15mg due to liver safety; symptoms include joint pain. - Elevated Liver Enzymes: Related to methotrexate administration; observed after blood work on September 23. - Sacroiliitis Associated Pain: Chronic right hip and low back pain, more severe on the right, present consistently for 8-10 weeks, affecting daily tasks. Going to [facility] for injections - Coronary Artery Disease: Confirmed by LAD calcium scoring; symptoms include exertional fatigue, nausea, and sweating. Going for CT Coronary 11/10 for further evaluation - Osteoporosis: Ongoing treatment for bone density maintenance issues. - The patient's current symptoms impact daily life activities, particularly requiring bending and physical exertion, and reduced the patient's stamina. Rheumatologic History: Seronegative diagnosed around 1999 HCQ: Ineffective MTX all through, switched from subcu to oral around 2014 Humira 2009 to 2013 ineffective Cimzia 2017 to 2018 ineffective Leflunomide 2015 to 2017 neuropathy,SSZ allergy, Orencia 2018 ineffective and caused fatigue. Xeljanz somewhat effective but stopped in 2020 Actemra 2020 hypertension and diverticulitis MTX increased form 15 mg to 20 mg 05/10 partially effective, advanced to SQ 25 mg 10/2023 Simponi Aria started 09/2024 effective Initial history: This is a 67-year-old female with a past medical history of seronegative RA of presents for evaluation of rheumatoid arthritis. Patient was diagnosed with seronegative rheumatoid arthritis more than 20 years ago. She has been on numerous DMARDs. She has been on methotrexate all through. Her previous staff home therapy rn left the practice. Today patient feels all right overall. She continues to have pain and morning stiffness of her hands, wrists, ankles and feet lasting 3-4 hours. Patient would take a prednisone bolus 2 to 3 times a year. She would usually take about 50 mg for 5 days. Last time she took prednisone was 6 weeks ago. Patient also has been having bilateral hip pain. Over the last 1-2 years she has developed Raynaud's. She was prescribed amlodipine to use as needed by her previous staff home therapy rn Dr. Norman but patient never used it. She bot heated gloves and those were quite helpful. Current Rheumatology Medication(s): Simponi Aria infusions 2mg/kg every 8 weeks Methotrexate 15 mg sc weekly PO Leucovorin 5 mg weekly PO Folic acid 2mg daily PO Alendronate 70mg weekly PO PFSH Medical History Hip pain, bilateral Diverticulosis Diverticulitis Macrocytosis Basal cell carcinoma (BCC) Idiopathic peripheral neuropathy PPD positive Rheumatoid arthritis Steatosis of liver Chronic constipation Diverticular disease Nondiabetic gastroparesis GERD with esophagitis Hypertension Migraine RUDI (obstructive sleep apnea) Vitamin B12 deficiency Surgical History H/O esophageal hernia repair Hx of hysterectomy History of knee replacement, total Family History Mother Liver cancer Maternal Aunt Breast cancer Rheumatoid arthritis Social History Household Members: Spouse Alcohol intake: current Alcohol intake frequency: a few times a week Alcohol type: wine Patient Tobacco Use Status: Former Tobacco user 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 - Cardiovascular: Reports episodes of exertional fatigue, sweating, and nausea; confirmed coronary artery disease via calcium score. - Gastrointestinal: Denies any immediate gastrointestinal symptoms but noted gastritis related to Ibuprofen usage previously. - General: Denies any new acute symptoms aside from ongoing issues mentioned. All other systems reviewed and are unremarkable except noted above Physical Exam Exam Exam: Vital signs reviewed Physical Examination CONSTITUITIONAL Patient alert and cooperative. Well appearing and in no apparent painful distress MSK Hands * Right Hand: Able to make a fist. No swelling or tenderness to palpation of the MCPs, PIPs or DIPs. * Left Hand: Able to make a fist. No swelling or tenderness to palpation of the MCPs, PIPs or DIPs * Herbedens nodes noted bilaterally Wrists * Right Wrist: Full ROM to flexion and extension. No swelling or TTP * Left Wrist: Full ROM to flexion and extension. No swelling or TTP Elbows * Right Elbow: Full ROM. No swelling or TTP. No TTP of the medial epicondyle. No TTP of the lateral epicondyle * Left Elbow: Full ROM. No swelling or TTP. No TTP of the medial epicondyle. No TTP of the lateral epicondyle Shoulders * Right shoulder: Full ROM. No swelling noted. No TTP of the AC joint. No TTP of the subacromial bursa. No TTP of the posterior shoulder * Left shoulder: Full ROM. No swelling noted. No TTP of the AC joint. No TTP of the subacromial bursa. No TTP of the posterior shoulder Knees * Right knee: Full ROM. No swelling noted. No TTP of the knee joint line. No TTP of pes anserine bursa * Left knee: Full ROM. No swelling noted. No TTP of the knee joint line. No TTP of pes anserine bursa. Ankles * Right ankle: Good ankle dorsiflexion and plantar flexion. No swelling. No TTP of the ankle joint * Left ankle: Good ankle dorsiflexion and plantar flexion. No swelling. No TTP of the ankle joint Feet * Right foot: Negative squeeze test * Left foot: Negative squeeze test Tender points? * No tenderness to palpation of the bilateral trapezius, supraspinatus, anterior costochondral junctions, bilateral suboccipital muscle insertions SKIN No rashes Vital Signs: Last Vital Signs Pulse 87 10/13/25 12:55 BP 122/70 10/13/25 12:55 Pulse Ox 98 10/13/25 12:55 Oxygen Delivery Method Room Air 10/13/25 12:55 BMI result Body Mass Index 30.9 Results Reviewed Results Reviewed: Laboratory Tests 06/01/25 09/23/25 09:13 09:10 WBC 6.9 RBC 3.74 L Hgb 12.3 Hct 37.7 Plt Count 235 ESR 5 Sodium 140 Chloride 108 Carbon Dioxide 25 BUN 27 H Creatinine 0.86 AST 25 35 H ALT 27 43 H C-Reactive Protein < 0.10 25-OH Vitamin D Total 47 39.2 Laboratory Tests 02/11/25 09:35 Hepatitis A IgM Ab Nonreactive Hep Bs Antigen Negative Hep Bs Antibody REACTIVE Hep B Core Total Ab Nonreactive Hepatitis C Ab (EIA) Nonreactive TB Test (T-Spot) Com Negative DEXA 11/2024 FINDINGS: The bone mineral density of the lumbar spine is 1.165 with a T-score of -0.1, and a Z-score of 1.0. This represents a BMD change of 9.3% compared to the prior exam. This is statistically significant. The bone mineral density of the left total hip is 0.922 with a T-score of -0.7, and a Z-score of 0.4. This represents BMD change of 1.5% compared to the prior exam. This is not statistically significant. The bone mineral density of the left femoral neck is 0.895 with a T-score of -1.0, and a Z-score of 0.3. This represents BMD change of 8.2% compared to the prior exam. Assessment & Plan Assessment & Plan (1) Rheumatoid arthritis involving both elbows with negative rheumatoid factor: Comment: Seronegative diagnosed around 1999 HCQ: Ineffective MTX all through, switched from subcu to oral around 2014 Humira 2009 to 2013 ineffective Cimzia 2017 to 2018 ineffective Leflunomide 2015 to 2017 neuropathy,SSZ allergy, Orencia 2018 ineffective and caused fatigue. Xeljanz somewhat effective but stopped in 2020 Actemra 2020 hypertension and diverticulitis MTX increased form 15 mg to 20 mg 05/10 partially effective, advanced to SQ 25 mg 10/2023 Simponi Aria started 09/2024 effective Code(s): M06.021 - Rheumatoid arthritis without rheumatoid factor, right elbow; M06.022 - Rheumatoid arthritis without rheumatoid factor, left elbow Category: Medical Plan: #Seronegative RA Patient is a 70-year-old female with seronegative rheumatoid arthritis currently on Simponi Aria infusions, subcutaneous methotrexate and weekly leucovorin as well as daily folic acid here today for follow up. Rheumatoid arthritis is currently in remission/low disease activity on examination with no evidence of synovitis. She does have intermittent flares which she manages with topical heat and sometimes Celebrex but this is infrequently. Doing well on the Simponi infusions we will continue. Methotrexate decreased due to elevated LFTs we will check AST/ALT today Plan - Simponi Aria infusions 2mg/kg every 8 weeks - Methotrexate 15mg SC every week - Folic acid 2mg daily PO - Leucovorin 5mg weekly PO - AST/ALT today - RTC 4 months - Labs before visit: CBC, CMP, ESR, CRP (2) Pseudogout: Code(s): M11.20 - Other chondrocalcinosis, unspecified site Category: Medical Plan: #Pseudogout September 2021 had 1 month low grade discomfort right knee then acute swelling and severe pain.? Arthrocentesis showing hemarthrosis. 37,000 WBCs and rare intracellular CPPD crystals.? She does not seem to have had another flare. Will continue to monitor. If concern for recurrent flares may benefit from colchicine (3) Osteopenia: Comment: DEXA 11/2022: AP spine -0.9, Left femur neck -1.5, Left femur total -0.8. FRAX 29.2/4.8 Alendronate started 11/2022 DEXA 11/2024: AP spine -0.1, Left femur neck -1.0, Left femur total -0.7. Normal BMD Code(s): M85.80 - Other specified disorders of bone density and structure, unspecified site Category: Medical Qualifiers: Osteopenia location: hip Laterality: bilateral Qualified Code(s): M85.851 - Other specified disorders of bone density and structure, right thigh; M85.852 - Other specified disorders of bone density and structure, left thigh Plan: #Osteopenia Currently on alendronate with repeat DEXA scan done 11/2024 showing improvement in her bone density. We will continue the alendronate for a total of 5 years and then go on a drug holiday. 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 Limit alcohol and avoid Bactrim ? Monitoring: ?CBC, BMP, LFTs every 3-4 months and hepatitis serologies as needed (5) Encounter for monitoring bisphosphonate therapy: Code(s): Z51.81 - Encounter for therapeutic drug level monitoring; Z79.83 - terminal computer operator (current) use of bisphosphonates Plan: #Long-term Use of Bisphosphonates Risks and benefits of bisphosphonates in the management of osteoporosis Benefits include improved bone density, decreased fracture risk Risks include atypical femoral fractures, GI upset, esophageal strictures Contraindicated in patients with a creatinine clearance < 30 to 35 ml/min Keep vitamin-D at least 35 ng/mL (6) Long-term current use of immunosuppressive biologic agent: Code(s): Z79.620 - terminal computer operator (current) use of immunosuppressive biologic Plan: #Long-term Use of TNF Inhibitors: Kary Saucedo Discussed with the patient the benefits and risks of TNF inhibitors for the management of the rheumatic condition Benefits include reduce pain, maintenance of remission and reduction of flares as well as ?progression of the disease Risks include injection sites/infusion reactions, serious infections (such as bacterial infections, opportunistic infections), malignancy, delaminating syndromes, autoimmune phenomena, CHF exacerbations, palmar plantar psoriasis and cytopenias Recommended rotating injection sites, and holding medication during and for up to 1 week after resolution of a febrile illness or open skin wound Plan During this visit, I discussed the elevation in the patient's liver enzymes potentially linked to methotrexate use. I emphasized the action taken in reducing the methotrexate dose and the importance of monitoring liver function with today's blood tests. We reviewed the patient's experiences related to rheumatoid arthritis, sacroiliitis, and discussed proposed injection for back pain management. I highlighted coronary artery disease diagnosis, the LAD involvement, and the importance of the cardiac CT with contrast. We reviewed rosuvastatin?s role in managing the condition and the scheduled follow-up with a specialist motorcycle subassembler. The patient was advised on the potential risks and benefits associated with each aspect of their treatment plan including alternatives. A return visit is planned in four months to reassess all ongoing treatments and patient conditions. I spent 40 minutes reviewing the record and labs, taking a history, examining the patient, discussing the treatment plan, discussing the risk of RA and CAD, ordering diagnostic work up and documenting in the medical record Orders: Orders C Reactive Protein 3 Months Z79.899 - Other terminal press operator (current) drug therapy Alanine Aminotransferase Today Z79.899 - Other intermediate (current) drug therapy Aspartate Amino Transferase Today Z79.899 - Other intermediate (current) drug therapy Complete Blood Count Auto Diff 3 Months Z79.899 - Other intermediate (current) drug therapy Comprehensive Met. Panel 3 Months Z79.899 - Other terminal press operator (current) drug therapy Erythrocyte Sedimentation Rate 3 Months Z79.899 - Other terminal press operator (current) drug therapy Medications: Changed From methotrexate sodium (PF) 25 mg subcut QWEEK 4 mL 2RF M06.021 - Rheumatoid arthritis without rheumatoid factor, right elbow, M06.022 - Rheumatoid arthritis without rheumatoid factor, left elbow To methotrexate sodium (PF) 15 mg (0.6 mL) subcut QWEEK 3 mL 4RF 30 days M06.021 - Rheumatoid arthritis without rheumatoid factor, right elbow, M06.022 - Rheumatoid arthritis without rheumatoid factor, left elbow Refilled folic acid 2 mg (2 x 1 mg) PO DAILY 180 tabs 1RF M06.021 - Rheumatoid arthritis without rheumatoid factor, right elbow, M06.022 - Rheumatoid arthritis without rheumatoid factor, left elbow leucovorin calcium 5 mg PO QWEEK 12 tabs 1RF M06.021 - Rheumatoid arthritis without rheumatoid factor, right elbow, M06.022 - Rheumatoid arthritis without rheumatoid factor, left elbow alendronate 70 mg PO QWEEK 12 tabs 1RF M85.851 - Other specified disorders of bone density and structure, right thigh, M85.852 - Other specified disorders of bone density and structure, left thigh Coding Level of Care Code Est Pt Level 5 (28495) Complex visit Add On G2211 Diagnoses Rheumatoid arthritis involving both elbows with negative rheumatoid factor M06.021; M06.022 Pseudogout M11.20 Osteopenia of both hips M85.851; M85.852 Osteopenia location: hip Laterality: bilateral intermediate methotrexate user Z79.631 Encounter for monitoring bisphosphonate therapy Z51.81; Z79.83 Long-term current use of immunosuppressive biologic agent Z79.620
[2025-10-13 12:55] VITALS: BP 122/70; PULSE 87; O2SAT 98; BMI 30.9
--- OUTSIDE RECORDS SUMMARY | 2025-10-13 15:46 | XMS_ITS | Clinical Summary ---
Author Organization [facility] Address [address] [place] [address] Care Team Providers Care Lottery Sales Clerk Name Role Phone Eloisa Andrade Primary Care Provider [phone] Allergies Active Allergy Reactions Criticality Noted Date [...] Proxy Review 11/18/2024 Influenza Vaccine (#1) 2025 COVID-19 Vaccine (1 - 2024-2 6 season) 2025 RSV Vaccine (60+ years old a nd patients) (1 - 1-dose 75+ series) 2029 Hepatitis B Vaccines Aged Out No long er eligible based on patient's age to complete this topic Insurance [facility] Care Teams Lottery Sales Clerk Relationship Specialty Start Date End Date Eloisa Andrade [address] [place] [id number] PCP - General Family Medicine 02/24/21
--- OUTSIDE RECORDS SUMMARY | 2025-10-13 15:46 | XMS_ITS | Data Portability ---
Author Organization ELLA Octavio Be [facility], [facility] Address [address] [place] [address] Care Team Providers Care Sanitation Tank Washer Name Role Phone ATILIOALEXA Primary Care Provider [...] [facility], [address], [place], [address], 14:51:25 Medication Orders None record ed. Patient [...] a4ajBk vP9nXo QUaueC m3YtLR FvZlgJ JJ8mAn HZtai3 7l2477 AC0Kla 3%2BEV KahKiQ trMwF INTERFACE [facility] [address] [facility] [address], [place], [address], 04/05/2025 09:41:20 04/05/20 25 04/05/2025 XR, hand, 3 or more view http:/ [email or web address] ?Encry pted=s hAaTro YD8dLq bEUv6g %2BXZw aYqtaq 0bqfl% 2Fg9IQ a4ajBk vP9nXo QUaueC m3YtLR FvZlgJ JJ8Kennedy HZtai3 2k5721 AC0Kla 3%2BEV KahKiQ trMwF INTERFACE [facility] Office [address] [facility] [address], [place], [address], 04/05/2025 09:41:21 Result Notes Documentation Provider Name and Address Organization Details Recorded Time Xr, Hand, 3 Or More View : [email or web address]? Encrypted=dgCrKbsYL2sKqwA Uv6g%6VNQhtTqrri4vrur%2Fg 2LQi6syRyoU9bYeOJvjyAh5Jw SYReAnvYUL9yPnLIgut78l127 9SM6Jdy2%2BEVKahKiQtrMwF Not Available [facility] 04/05/2025 09:4 1:20 Xr, Hand, 3 Or More View : [email or web address]? Encrypted=ayOwEzaQR3eZptI Uv6g%0DYSjxXwqkj2vvwk%2Fg 9NJl4fpCzjV5rGqLYaaqIt8So QVWtDwhVAE4yZcJTpgz68f735 7JC4Sds6%2BEVKahKiQtrMwF Not Available [facility] 04/05/2025 09:4 1:21 Problems Name Problem SNOMED Code Status Onset Date Resolution Date Notes Provider Name and Address Organization Details Recorded Time No complaint s 041552618 Active Status: 'I'; Not Available [facility] 4 09:17:28 Bilateral carpal tunnel syndrome 980586683893 41477 Active 2016 Problem Code: G56.03; Problem Code Type: ICD-10; Status: 'A'; Not Available [facility] 4 11:13:26 Problem Notes None recorded. Procedures Surgical History Date Name Laterality Status Provider Name and Address Organization Details Recorded Time 5 JZCMC Inj completed Alexa Aviles MD [address], [address], [facility] 04/05/2025 10:24:50 4 Trigger Finger Kenalog Injection completed Alexa Aviles MD [address], [address], [facility] 07/27/2024 16:24:14 Imaging Results None recorded. Procedure Notes None recorded. Medical Equipment None Reported. Allergies Allergen ID Allergen Name Allergen Category Reaction Reaction Severity Criticality Documentation Date Start Date Code Code System Note Provider Name and Address Organization Details Recorded Time 251816 Substance with sulfonami de structure and antibacte rial mechanism of action (substanc e) medicatio n Not available Not available Not available 07/27/2024 80206 8003 [facility] 15:14:43 353468 Actemra medicatio n Not available Not available Not available 04/05/2025 12006 1 RxNorm YEFRI [place], [place] [facility] 5 09:34:14 044773 Sulfazine medicatio n Not available Not available Not available 04/05/2025 19930 90 RxNorm YEFRI [place], [place] - [facility] 5 09:34:39 70289 Product containin g penicilli n (product) medicatio n Not available Not available Not available 01/20/20242016 95174 8001 SNOMED Aller gyRea ction : 'Skin React ion'; Not Available [facility] 4 13:16:37 95528 Reglan medicatio n Not available Not available Not available 01/20/20242018 9230 RxNorm Not Available [facility] 4 13:16:37 Medications Name Sig Start Date [...] Updated DateTime 04/05/2025 162.56 cm 30 kg/m2 94172.66 g YEFRI MEDEIROS [facility] 04/05/2025 09:34:03 Date Recorded Body height Body mass index (BMI) Body weight Provider Name and Address Organization Details Last Updated DateTime 07/27/2024 162.56 cm 30.9 kg/m2 40346.63 g DEIDRA CARRANZA [facility] 07/27/2024 15:14:28 Social History None recorded. Functional Status None recorded. Mental Status None recorded. Family History Nothing Reported. Medical History No medical history recorded. Gynecological HistoryNo gynecological history recorded. Obstetrics History GPAL:G 0 P 0 0 0 0 Past Encounters Encounter ID Performer Location Encounter Start Date Encounter Closed Date Diagnosis/Indication Diagnosis SNOMED-CT Code Diagnosis ICD10 Code Diagnosis IMO Codes Diagnosis Note [id number] Alexa manriquez MD [facility] [place] [address] 07/27/2024 14:59:31 08/11/2024 11:21:04 Trigger finger of right hand 9968994904 9885365 M65.30 Trigger fi nger of left hand 3646125345 7685432 M65.30 [id number] MD [facility] [address] [place] [address] 04/05/2025 09:18:01 04/06/2025 14:51:25 Arthritis of first carpometacarpal joint of left hand 6576789379 304273 M18.12 [id number] Health Concerns Section Related Observation LastModified by Organization Detai ls LastModified Time None Recorded Concern Status LastModified by Organization Details LastModified Time None Recorded Advance Directives Directive None Recorded Payers Insurance Date Sequence Insurance Name Policy Number Policy Quintana Covered Member ID Quintana Member ID Guarantor Name 04/02/2025 1 [facility] [id number] Lashanda eKe [id number] Lashanda Kee Notes Date Note Type Note [...] and left thumb. She has a new 72-jwsvd-nrq son and has difficulty lifting them because of the pain thumbs. Alexa Aviles MD [address], [place], [address], [facility] - [facility] 07/27/2024 16:24:28 04/05/2025 text/html [...] Aviles MD [address], [place], [address], [facility] - [facility] 04/05/2025 10:25:55 OBGyn Episode No OBEpisode recorded.
== END 2025-10-13 13:40 | disposition home or self-care (01) ==
LOC: HO.RHES 12:46
PROVIDERS: PCP Family Medicine; Visit Provider Student in an Organized Health Care Education/Training Program
DX: M06.02 Rheumatoid arthritis without rheumatoid factor, elbow (principal); M06.022 Rheumatoid arthritis without rheumatoid factor, left elbow; M11.20 Other chondrocalcinosis, unspecified site; M85.851 Other specified disorders of bone density and structure, right thigh; M85.852 Other specified disorders of bone density and structure, left thigh; Z79.631 Long term (current) use of antimetabolite agent; Z51.81 Encounter for therapeutic drug level monitoring; Z79.83 Long term (current) use of bisphosphonates; Z79.620 Long term (current) use of immunosuppressive biologic
CPT/HCPCS: 99215; G2211

== ENCOUNTER 2025-10-13 12:45 | Outpatient (REF) | payer OTHER, SELFPAY ==
--- OUTSIDE RECORDS SUMMARY | 2025-10-13 16:46 | XMS_ITS | Encounter Summary ---
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 Not on file Not on file documented as of this encounter Functional Status * Calculated C-SSRS Risk Score (Lifetime/Recent) Answer Date of Assessment Author No Risk Indicated 01/03/2023 8:13 AM Fatoumata Lemus RN * [place] Suicide Severity Rating Scale (Screener/Recent Self-Report) Question [...] documented as of this encounter Care Teams Hunter Guide Relationship Specialty Start Date End Date Rebeca Menendez MD [email or web address] PCP - General Family Medicine 04/03/22 documented as of this encounter Additional Source Comments The information contained in this document represents components of the legal health record. It is not the complete legal health record.[facility]
--- OUTSIDE RECORDS SUMMARY | 2025-10-13 16:46 | XMS_ITS | Encounter Summary ---
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 It is not the complete legal health record.[facility]
--- OUTSIDE RECORDS SUMMARY | 2025-10-13 16:46 | XMS_ITS | Encounter Summary ---
Author Organization [facility] Address [address] [facility] [address] [place] [address] Phone Care Team Providers Care Chocolate Finisher Operator Name Role Phone Eloisa Andrade DO Primary Care Provider [phone] Rebeca Menendez MD Primary Care Provider Encounter Details Date Type Department Care Team (Latest Contact Info) Description 09/17/2018 Transcribe Orders [facility] [address] [place] [address] Jamaal Abad MD 10 [facility]. 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 Blood 09/17/2018 2:15 PM EDT 09/17/2018 2:18 PM EDT us Jamaal Abad MD LAB BLOOD BKR ORDERABLES Final Result Performing Organization Address City/State/[facility] Co de Phone Number [address] [address] * (ABNORMAL) Comprehensive metabolic panel (09/17/2018 2:15 PM EDT) SODIUM 142 133 - 146 mmol/L [facility] POTASSIUM 4.9 3.3 - 5.1 mmol/L [facility] CHLORIDE 101 96 - 108 mmol/L [facility] CO2 29 21 - 35 mmol/L [facility] BUN 19 6 - 19 mg/dL [facility] CREATININE 0.90 0.5 - 1.5 mg/dL [facility] GLUCOSE 109(H) 70 - 99 mg/dL [facility] ALBUMIN 4.7 3.9 - 4.8 g/dL [facility] TOTAL PROTEIN 7.7 6.5 - 8.0 g/dL [facility] CALCIUM 9.7 8.4 - 10.3 mg/dL [facility] ALKALINE PHOSPHATASE 56 39 - 117 U/L [facility] TOTAL BILIRUBIN 0.2 0.0 - 1.2 mg/dL [facility] AST 16 0 - 37 U/L [facility] ALT 11 0 - 40 U/L [facility] GLOBULIN 3.0 1 - 4.8 g/dL [facility] EGFR 68 >59 mL/min/1.7 3m2 [facility] Comment:If patient is black, multiply result by 1.159. Estimated glomerular filtration rate calculated using the CKD-EPI equation. ANION GAP 17 10 - 20 mmol/L [facility] Blood 09/17/2018 2:15 PM EDT 09/17/2018 2:18 PM EDT us Jamaal Abad MD LAB BLOOD BKR ORDERABLES Final Result [facility] [address] [place] [address] documented in this encounter Visit Diagnoses Diagnosis Abdominal pain, epigastric- Primary documented in this encounter Additional Health Concerns Infection Onset Date Last Indicated Resolved Time CoV-Risk 01/03/2023 01/03/2023 01/03/2023 9:0 0 AM EST CoV-Exposed Comment:Positive COVID-19 01/03/2023 01/03/2023 01/03/2023 9:0 0 AM EST COVID-19 01/03/2023 01/03/2023 01/24/2023 1:21 AM EST documented as of this encounter Care Teams Chocolate Finisher Operator Relationship Specialty Start Date End Date Eloisa Andrade DO [address] [place] [address] [email or web address] PCP - General Family Medicine 10/24/17 04/02/22 Rebeca Menendez MD [address] [place] [address] [email or web address] PCP - General Family Medicine 04/03/22 documented as of this encounter Additional Source Comments The information contained in this document represents components of the legal health record. It is not the complete legal health record.[facility]
--- OUTSIDE RECORDS SUMMARY | 2025-10-13 16:46 | XMS_ITS | Encounter Summary ---
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 Not on file documented as of this encounter Functional Status * Calculated C-SSRS Risk Score (Lifetime/Recent) Answer Date of Assessment Author No Risk Indicated 08/17/2022 8:39 AM EDT Jaxson Lopez RN * [place] Suicide Severity Rating Scale (Screener/Recent Self-Report) Question [...] documented as of this encounter Care Teams Employee Benefits Specialist Relationship Specialty Start Date End Date Rebeca Menendez MD [email or web address] PCP - General Family Medicine 04/03/22 documented as of this encounter Additional Source Comments The information contained in this document represents components of the legal health record. It is not the complete legal health record.[facility]
--- OUTSIDE RECORDS SUMMARY | 2025-10-13 16:46 | XMS_ITS | Encounter Summary ---
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 It is not the complete legal health record.[facility]
--- OUTSIDE RECORDS SUMMARY | 2025-10-13 16:46 | XMS_ITS | Encounter Summary ---
Author Organization [facility] Address [address] [facility] [address] [place] [address] Phone Care Team Providers Care Deskidding Machine Operator Name Role Phone Eloisa Andrade DO Primary Care Provider [phone] Rebeca Menendez MD Primary Care Provider [phone] Reason for Referral * MRI/CAT Scan - Closed Specialty Diagnoses / Procedures Referred By Monika esqueda Referred To Contact Radiology Diagnoses Epigastric pain Early satiety Family history of pancreatic cancer Procedures CT Abdomen/Pelvis Jamaal Abad MD Phone: tel: fax: [email or web address] Referral ID Status Reason Start Date Expiration Date Visits Re quested Visits Authorized [id number] Closed 09/17/2018 11/16/2018 1 1 Encounter Details Date Type Department Care Team (Late st Contact Info) Description 09/18/2018 Ancillary Orders Virtual Department [address] [place] [address] Jamaal Abad MD [address] [place] [address] [email or web address] Epigastric pain; Early satiety; Family history of pancreatic cancer Social History Tobacco Use Types Packs/Day Years [...] 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 Moderate size hiatal hernia. This should be correlated with the patient's epigastric pain and early satiety. 2. Moderate segment of narrowing of the ascending colon is most likely due to peristalsis. Colitis and malignancy unlikely. This can be correlated with colonoscopy. TOTAL CTDIvol: 7.90 mGy POS - [id number] Narrative 10/01/2018 11:31 AM EST HISTORY: Epigastric pain and early satiety. COMPARISON: None. TECHNIQUE: CT abdomen and pelvis with IV and oral contrast. Multiplanar reformatted images generated. Automated exposure control utilized. FINDINGS: Lower hemithoraces: No significant abnormalities. GI: Moderate size hiatal hernia. Long segment of narrowing of essentially the entire ascending colon. Increased soft tissue prominence of the wall. Distal to this the colon is distended with stool. Stool present within the cecum. Terminal ileum appears normal. No other evidence of small or large bowel wall thickening. There are a few diverticula within the descending and sigmoid colon. No free air, free fluid or organized collections. Liver/spleen: Liver appears normal. Spleen appears normal. Pancreas/biliary: Pancreas appears normal. No biliary ductal dilatation. Adrenals/: Adrenals appear normal. Kidneys appear normal. Ureters normal in caliber. Uterus is either atrophic or surgically absent. Lymph node/lymphatics: No evidence of measurable lymphadenopathy. Cardiovascular: Abdominal aorta normal in caliber. Mild calcification of the distal abdominal aorta. Musculoskeletal: Tiny fat containing umbilical hernia. Small fat-containing hernias. Mild S-shaped deformity of the spine. No suspicious lytic or blastic lesions within the bones. Procedure Note Dragan Anderson MD - 10/01/2018 HISTORY: Epigastric pain and early satiety. COMPARISON: None. TECHNIQUE: CT abdomen and pelvis with IV and oral contrast. Multiplanarreformatted images generated. Automated exposure control utilized. FINDINGS: Lower hemithoraces: No significant abnormalities. GI: Moderate size hiatal hernia. Long segment of narrowing ofessentially the entire ascending colon. Increased soft tissue prominenceof the wall. Distal to this the colon is distended with stool. Stoolpresent within the cecum. Terminal ileum appears normal. No otherevidence of small or large bowel wall thickening. There are a fewdiverticula within the descending and sigmoid colon. No free air, freefluid or organized collections. Liver/spleen: Liver appears normal. Spleen appears normal. Pancreas/biliary: Pancreas appears normal. No biliary ductaldilatation. Adrenals/: Adrenals appear normal. Kidneys appear normal. Uretersnormal in caliber. Uterus is either atrophic or surgically absent. Lymph node/lymphatics: No evidence of measurable lymphadenopathy. Cardiovascular: Abdominal aorta normal in caliber. Mild calcification ofthe distal abdominal aorta. Musculoskeletal: Tiny fat containing umbilical hernia. Smallfat-containing hernias. Mild S-shaped deformity of the spine. Nosuspicious lytic or blastic lesions within the bones. IMPRESSION: 1. Moderate size hiatal hernia. This should be correlated with thepatient's epigastric pain and early satiety. 2. Moderate segment of narrowing of the ascending colon is most likelydue to peristalsis. Colitis and malignancy unlikely. This can becorrelated with colonoscopy. TOTAL CTDIvol: 7.90 mGy POS - [id number] Jamaal Abad MD IMG CT ABD/PELVIS Final Result documented in this encounter Visit Diagnoses Diagnosis Epigastric pain Abdominal pain, epigastric Early satiety Family history of pancreatic cancer Family history of malignant neoplasm of gastrointestinal tract Epigastric pain Abdominal pain, epigastric Early satiety Family history of pancreatic cancer Family history of malignant neoplasm of gastrointestinal tract documented in this encounter Additional Health Concerns Infection Onset Date Last Indicated Resolved Time CoV-Risk 01/03/2023 01/03/2023 01/03/2023 9:00 AM EST CoV-Exposed Comment:Positive COVID-19 01/03/2023 01/03/2023 01/03/2023 9:0 0 AM EST COVID-19 01/03/2023 01/03/2023 01/24/2023 1:21 AM EST documented as of this encounter Care Teams Deskidding Machine Operator Relationship Specialty Start Date End Date Eloisa Andrade DO [address] [place] [address] [email or web address] PCP - General Family Medicine 10/24/17 04/02/22 Rebeca Menendez MD [address] [place] [address] [email or web address] PCP - General Family Medicine 04/03/22 documented as of this encounter Additional Source Comments The information contained in this document represents components of the legal health record. It is not the complete legal health record.[facility]
--- OUTSIDE RECORDS SUMMARY | 2025-10-13 16:46 | XMS_ITS | Clinical Summary ---
Author Organization [facility] Address [address] [place] [id number] Phone Care Team Providers Care Instructor Robotics Name Role Phone Rebeca Menendez MD Primary Care Provider Allergies Active Allergy Reactions Criticality Noted Date [...] MG tablet Take 2,000 mcg by mouth. 1 Active ondansetron (ZOFRAN-ODT) 4 MG disintegrating tablet DISSOLVE 1 TABLET ON THE TONGUE THREE TIMES DAILY NEEDED FOR NAUSEA 1 Active cyanocobalamin, vitamin B-12, 250 MCG tablet Take 250 mcg by mouth daily. Active magnesium oxide (MAG-OX) 400 mg (241.3 mg elemental) tablet Take 400 mg by mouth. 2 Active acetaminophen (TYLENOL) 500 MG tablet Take 2 tablets (1,000 mg total) by mouth every 8 (eight) hours. 0 2 Active senna (SENOKOT) 8.6 mg tablet Take 1 tablet by mouth daily as needed for constipation . 2 Active cyclobenzaprine (FLEXERIL) 10 MG tablet Take 20 mg by mouth nightly at bedtime. 2 Active methotrexate 2.5 MG Oral tablet Take 2.5 mg by mouth every 7 days. 6 tabs po 1x week 2 Active cyanocobalamin/foli c acid (VITAMIN J71-UBOLN ACID) 1,000-400 mcg Lozg Take 1,000 mcg by mouth. 2 Active cholecalciferol (VITAMIN D3) 25 MCG (1,000 unit) tablet Take 2,000 Units by mouth daily. Active celecoxib (CELEBREX) 100 MG capsule Take 100 mg by mouth 2 (two) times a day. Active methotrexate sodium, PF, 25 mg/mL injection Inject into the vein once. Active linaCLOtide (LINZESS) 145 mcg CapIndications:Shandra roesophageal reflux disease TAKE 1 CAPSULE BY MOUTH DAILY 30 MINUTES BEFORE FIRST MEAL OF THE DAY ON AN EMPTY STOMACH 90 capsule 3 5 Active Active Problems Problem Noted Date Diagnosed Date History of revision of total knee arthroplasty 0 08/14/2022 Overview (08/14/2022): Converted left knee replacement to total knee replacement, resurfaced the patella only Seronegative rheumatoid arthritis 10/25/2017 Assessment & Plan (06/11/2022 3:35 PM EDT): The patient has already been advised by her snuff container inspector to stop her Tocilizumab and methotrexate 2 [...] cephalosporins including Keflex (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 Most importantly for this patient she has already been snuff container inspector who told her to stop the Tocilizumab [...] 06/11/2022 History of total knee arthroplasty, bilateral 04/03/20 22 06/11/2022 Overview (04/03/2022): uncemented devices, unresurfaced patellae, circa 2007 [facility] Chronic fatigue syndrome 10/25/2017 History of Lyme disease 10/25/201705/19 At high risk for tick borne illness [...] Type Department Care Team Description 09/10/[address] 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 STANDARD Left: Knee [employer] 11/05/2026 [id number] / / [id number] Cement Bone 1x40 Standard - [id number] Implanted:Qty: 1 on 07/04/2022 by Jamaal Dueñas MD at [facility] Left: Knee [employer] / [employer] 07/18/2024 [id number] / / [id number] Triathlon X3 Tibial Bearing Insert - Cs Size 4, Typ Cs, Thkns 11mm Implanted:Qty: 1 on 07/04/2022 by Jamaal Dueñas MD at [facility] Left: Knee [employer] 06/21/2026 [id number] / / [id number] Procedures Procedure Name Priority Date/Time Associated Diagnosis Comments HEMOGLOBIN A1C Routine 05/15/2022 9:02 AM EDT History of total knee arthroplasty, bilateral Preoperative testing from Last 3 Months or Most Recently Relevant to Health Maintenance Results * (ABNORMAL) Hemoglobin A1c (05/15/2022 9:02 AM EDT) HEMOGLOBIN A1C 6.1(H) 4.3 - 5.8 % [facility] Blood 05/15/2022 9:02 AM EDT 05/15/2022 9:07 AM EDT us Albino Garcia PA-C LAB BLOOD BKR ORDERABLES Final Result [facility] [address] [place] [address] from Last 3 Months or Most Recently Relevant to Health Maintenance Insurance [place] [facility] [place] [id number] S MEDICARE A MEDICARE A [facility] MEDICARE A [facility] MEDICARE A [facility] MEDICARE A [facility] MEDICARE A MEDICARE A [facility] MEDICARE A Advance Directives For more information, please contact: [phone] (9AM - 5PM Ann Marie/[facility], Saturday-Saturday) * Full Code (Latest Code Status on File) Date Activated Date Inactivated Comments 07/04/2022 6:58 AM Question Answer Comments Code Status Confirmed With: Patient Care Teams Instructor Robotics Relationship Specialty Start Date End Date Rebeca Menendez MD [email or web address] PCP - General Family Medicine 04/03/22 Additional Source Comments The information contained in this document represents components of the legal health record. It is not the complete legal health record.[facility]
[2025-10-13 18:37] LABS: Alanine Aminotransferase 35 U/L (0-31); Aspartate Amino Transferase 30 U/L (5-31)
== END 2025-10-13 12:46 | disposition home or self-care (01) ==
LOC: HO.HKASLDS 12:45
PROVIDERS: PCP Family Medicine; Visit Provider Student in an Organized Health Care Education/Training Program
DX: M06.02 Rheumatoid arthritis without rheumatoid factor, elbow (principal); M06.022 Rheumatoid arthritis without rheumatoid factor, left elbow; M85.851 Other specified disorders of bone density and structure, right thigh; M85.852 Other specified disorders of bone density and structure, left thigh; E55.9 Vitamin D deficiency, unspecified; M11.20 Other chondrocalcinosis, unspecified site; Z79.631 Long term (current) use of antimetabolite agent; Z51.81 Encounter for therapeutic drug level monitoring; Z79.83 Long term (current) use of bisphosphonates; Z79.620 Long term (current) use of immunosuppressive biologic
CPT/HCPCS: 36415; 84450; 84460